=== PATIENT | male | born 1935 | race Caucasian/White ===

== ENCOUNTER 2017-07-04 17:24 | Inpatient (IN) | payer MEDICARE, OTHER ==
[~2017-07-04] VITALS: Ht 177.8 cm; Wt 77.1 kg
--- NOTE | 2017-07-04 18:15 | Emergency Room Report ---
History of Present Illness General Chief Complaint: Lower Extremity Injury Source: EMS (Roxanna Hyatt) Present Illness HPI 81 Yo Male presents to ED c/o 02/13 in severity right Knee pain s/p fall at home approx 1 week ago. pt. reports generalized weakness and difficulty caring for himself. pt. states he cannot recall if his legs gave out on him or if he tripped. Pt. reports PmHx of HTN and DM as well as recent hospital stay. Pt. Reports recent URI. denies neck or back pain. denies hitting his head. Denies CP, Palpitations, LOC, AMS, dizziness, Changes in Vision, Sensation, paresthesias, or a sudden severe headache. Pt. denies Dialysis. HPI and ROS are limited due to pt being a poor historian and not having great detail. (Roxanna Hyatt) Allergies: Coded Allergies: No Known Allergies (Unverified , 07/04/17) Patient History Past Medical History: see triage record, DM, HTN, renal disease Past Surgical History: none Pertinent Family History: none Reviewed Nursing Documentation: PMH: Agreed, PSxH: Agreed (Roxanna Hyatt) Nursing Documentation-PMH Past Medical History: No Stated History Hx Hypertension: Yes Hx Diabetes: Yes (Roxanna Hyatt) Review of Systems All Other Systems: limited - poor historian (Roxanna Hyatt) Physical Exam Vital Signs Date Time Temp Pulse Resp B/P (MAP) Pulse Ox O2 Delivery O2 Flow Rate FiO2 07/04/17 17:15 97.5 71 20 137/59 99 Room Air Sp02 EP Interpretation: reviewed, normal General Appearance: no apparent distress, alert, GCS 15, Chronically Ill Head: normocephalic, atraumatic Eyes: bilateral eye scleral icterus ENT: hearing grossly normal, normal voice Neck: full range of motion, supple/symm/no masses Respiratory: chest non-tender, crackles Cardiovascular #1: regular rate, rhythm, edema - mild edema Gastrointestinal: normal bowel sounds, non tender, soft, no guarding, other - mild abdominal distention. bruises to the lower abdomen- pt. reports levonox injections during recent hospital admission. Rectal: heme negative stool, deferred Musculoskeletal: tender - anterior and lateral ttp to the left knee. Neurologic: alert, oriented x3, responsive, motor strength/tone normal, sensory intact, speech normal, grossly normal Skin: normal color, no rash, warm/dry, well hydrated (Roxanna Hyatt) Medical Decision Making PA Attestation Dr. Feng is my supervising Physician whom patient management has been discussed with. (Roxanna Hyatt) Medicare Attestation The history of Hakan Marroquin has been reviewed and management options for him have been examined and discussed by Alli Feng. I have personally examined and interviewed the patient. I did speak with patient's primary physician, who is requesting Dr. Mitchell. Patient was also evaluated, and I feel breathing treatments were appropriate patient is not in acute respiratory distress (ALLI FENG D.O.) Diagnostic Impression: Primary Impression: Kidney disease Additional Impressions: Pancytopenia Upper respiratory infection Qualified Codes: J06.9 - Acute upper respiratory infection, unspecified Reactive airway disease Qualified Codes: J45.40 - Moderate persistent asthma, uncomplicated Renal insufficiency ER Course 81 Yo Male presents to ED c/o 02/13 in severity right Knee pain s/p fall at home approx 1 week ago. pt. reports generalized weakness and difficulty caring for himself. pt. states he cannot recall if his legs gave out on him or if he tripped. Pt. reports PmHx of HTN and DM as well as recent hospital stay. Pt. Reports recent URI. denies neck or back pain. denies hitting his head. Denies CP, Palpitations, LOC, AMS, dizziness, Changes in Vision, Sensation, paresthesias, or a sudden severe headache. Pt. denies Dialysis. HPI and ROS are limited due to pt being a poor historian and not having great detail. -PMD contacted ED regarding this pt. - Per telephone conversation: states Pt. was admitted to [facility] for Influenza on tamiflu, has renal hx. concerned about his weakness and that pt is unable to care for himself , recommends SNF. his contact info is : Dr. Nino. Ddx considered but are not limited to : Fracture, Dislocation, arthritis, Sprain , CHF, URI, hypovolemia, infection, rhabdomylosis, ETOH, CVA/TIA, Vital signs: are WNL, pt. is afebrile H&PE are most consistent with influenza infection in pt. with multiple comorbidities, and unable to care for himself. possible musculoskeletal injury s /p fall 1 week ago. ORDERS: -CBC: Pancytopenia -CMP: elevated BUN)79) and Cr. 2.3 with low albumin consistent with kidney disease. -lactic Acid: WNL 0.5 -Troponin: WNL 0.03 -Total Ck: 313 elevated -CK-MB: 6.2 elevated -Blood Cultures x 2: Pending. -Influenza : -UA: Unremarkable - X-ray Left Knee 3 Views - negative for fx, Dislocation, or significant soft tissue injury, significant degenerative changes noted - per preliminary read in ED by Roxanna Hyatt PA-C, my supervising physician agrees with this interpretation. -CXR: poor inspiration , otherwise no acute disease. ED INTERVENTIONS: -Duo Nebs x 1 -Tamiflu 75mg PO I feel this pt. was highly complex due to renal insufficiency, and recent dx of influenza. Pt. required laboratory work, IV hydration, renally dosed medications , and ultimately admission. DISPOSITION: at this time pt. will be admitted to Dr. Mitchell for influenza. Dr. Mitchell agreed to admit the pt. and to continue pt. care management. Labs Test 07/04/17 19:40 White Blood Count 4.4 K/UL (4.8-10.8) Red Blood Count 2.73 M/UL (4.70-6.10) Hemoglobin 10.4 G/DL (14.2-18.0) Hematocrit 28.7 % (42.0-52.0) Mean Corpuscular Volume 105 FL (80-99) Mean Corpuscular Hemoglobin 37.9 PG (27.0-31.0) Mean Corpuscular Hemoglobin Concent 36.0 G/DL (32.0-36.0) Red Cell Distribution Width 13.9 % (11.6-14.8) Platelet Count 160 K/UL (150-450) Mean Platelet Volume 5.7 FL (6.5-10.1) Neutrophils (%) (Auto) 73.6 % (45.0-75.0) Lymphocytes (%) (Auto) 12.1 % (20.0-45.0) Monocytes (%) (Auto) 10.4 % (1.0-10.0) Eosinophils (%) (Auto) 0.3 % (0.0-3.0) Basophils (%) (Auto) 3.5 % (0.0-2.0) Urine Color Pale yellow Urine Appearance Clear Urine pH 5 (4.5-8.0) Urine Specific [place] 1.015 (1.005-1.035) Urine Protein 3+ (NEGATIVE) Urine Glucose (UA) Negative (NEGATIVE) Urine Ketones 1+ (NEGATIVE) Urine Occult Blood 2+ (NEGATIVE) Urine Nitrite Negative (NEGATIVE) Urine Bilirubin Negative (NEGATIVE) Urine Urobilinogen Normal MG/DL (0.0-1.0) Urine Leukocyte Esterase Negative (NEGATIVE) Urine RBC 0-2 /HPF (0 - 0) Urine WBC 0-2 /HPF (0 - 0) Urine Squamous Epithelial Cells None /LPF (NONE/OCC) Urine Bacteria Few /HPF (NONE) Sodium Level 141 MMOL/L (136-145) Potassium Level 5.1 MMOL/L (3.5-5.1) Chloride Level 108 MMOL/L (98-107) Carbon Dioxide Level 19 MMOL/L (21-32) Anion Gap 14 mmol/L (5-15) Blood Urea Nitrogen 79 mg/dL (7-18) Creatinine 2.9 MG/DL (0.55-1.30) Estimat Glomerular Filtration Rate mL/min (>60) Glucose Level 51 MG/DL (74-106) Lactic Acid Level 0.50 mmol/L (0.66-2.22) Calcium Level 7.4 MG/DL (8.5-10.1) Total Bilirubin 0.7 MG/DL (0.2-1.0) Aspartate Amino Transf (AST/SGOT) 44 U/L (15-37) Alanine Aminotransferase (ALT/SGPT) 26 U/L (12-78) Alkaline Phosphatase 69 U/L (46-116) Total Creatine Kinase 316 U/L (26-308) Creatine Kinase MB 6.2 NG/ML (0.0-3.6) Creatine Kinase MB Relative Index 1.9 Troponin I 0.030 ng/mL (0.000-0.056) Total Protein 6.4 G/DL (6.4-8.2) Albumin 3.3 G/DL (3.4-5.0) Globulin 3.1 g/dL Albumin/Globulin Ratio 1.1 (1.0-2.7) (Roxanna Hyatt) EKG Diagnostic Results EP Interpretation: Dr. Feng Rate: normal Rhythm: NSR ST Segments: no acute changes ASA given to the pt in ED: No PA Scribe Text - EK BPM NSR - no acute ST changes reviewed by Dr. Feng, this interpretation was scribed by MICHELLE Hyatt (Roxanna Hyatt) Chest X-Ray Diagnostic Results Chest X-Ray Diagnostic Results : Chest X-Ray Ordered: Yes # of Views/Limited/Complete: 1 View Indication: Shortness of Breath EP Interpretation: Yes PA Xray: Interpretation reviewed, by supervising MD, and agrees with findings. Interpretation: no consolidation, no effusion, no pneumothorax, no acute cardiopulmonary disease, other - poor inspiration film. Impression: No acute disease Electronically Signed by: Roxanna Hyatt PA-C (Roxanna Hyatt) Last Vital Signs Date Time Temp Pulse Resp B/P (MAP) Pulse Ox O2 Delivery O2 Flow Rate FiO2 07/04/17 17:15 97.5 71 20 137/59 99 Room Air (Roxanna Hyatt) Disposition: ADMITTED INPATIENT Condition: Serious Roxanna Hyatt Jul 04, 2017 18:15 ALLI FENG D.O. Jul 04, 2017 21:17
[2017-07-04] MEDS ORDERED: Albuterol ud Inhalation HHN ONE (18:30)
[2017-07-04] MEDS ORDERED: Ipratropium 0.02% Inh Soln 2.5ml UD HHN ONE (18:30)
[2017-07-04] MEDS ORDERED: Oseltamivir 75mg cap ORAL ONE (20:00)
[2017-07-04 20:05] LABS: APPEARANCE,URINE CLEAR; BILIRUBIN, URINE NEGATIVE (NEGATIVE); COLOR,URINE PALE YELLOW; GLUCOSE, URINE (UA) NEGATIVE (NEGATIVE); KETONES,URINE 1+ (NEGATIVE); LEUKOCYTE ESTERASE ,URINE NEGATIVE (NEGATIVE); NITRITE,URINE NEGATIVE (NEGATIVE); PH,URINE 5 (4.5-8.0); PROTEIN,URINE 3+ (NEGATIVE); UROBILINOGEN,URINE NORMAL MG/DL (0.0-1.0)
[2017-07-04 20:07] LABS: BASOPHILS % (AUTO) 3.5 % (0.0-2.0); EOSINOPHILS % (AUTO) 0.3 % (0.0-3.0); HEMATOCRIT 28.7 % (42.0-52.0); HEMOGLOBIN 10.4 G/DL (14.2-18.0); LYMPHOCYTES % (AUTO) 12.1 % (20.0-45.0); MEAN CORPUSCULAR VOLUME 105 FL (80-99); MONOCYTES % (AUTO) 10.4 % (1.0-10.0); NEUTROPHILS % (AUTO) 73.6 % (45.0-75.0); PLATELET COUNT 160 K/UL (150-450); RED BLOOD COUNT 2.73 M/UL (4.70-6.10); RED CELL DISTRIBUTION WIDTH 13.9 % (11.6-14.8); WHITE BLOOD COUNT 4.4 K/UL (4.8-10.8)
[2017-07-04] MEDS ORDERED: Oseltamivir 75mg cap ORAL SCH (20:15)
[2017-07-04 20:18] LABS: ANION GAP 14 mmol/L (5-15); BLOOD UREA NITROGEN 79 mg/dL (7-18); CALCIUM 7.4 MG/DL (8.5-10.1); CARBON DIOXIDE 19 MMOL/L (21-32); CHLORIDE 108 MMOL/L (98-107); CREATININE 2.9 MG/DL (0.55-1.30); POTASSIUM 5.1 MMOL/L (3.5-5.1); SODIUM 141 MMOL/L (136-145)
[2017-07-04 20:34] LABS: ALANINE AMINOTRANSFERASE 26 U/L (12-78); ALBUMIN 3.3 G/DL (3.4-5.0); ALBUMIN/GLOBULIN RATIO 1.1 (1.0-2.7); ALKALINE PHOSPHATASE 69 U/L (46-116); ASPARTATE AMINO TRANSFERASE 44 U/L (15-37); BILIRUBIN,TOTAL 0.7 MG/DL (0.2-1.0); CKMB 6.2 NG/ML (0.0-3.6); CREATINE KINASE 316 U/L (26-308)
[2017-07-04 20:55] VITALS: BP 152/61
[2017-07-04] MEDS ORDERED: Acetaminophen 500mg (ES) tab ORAL ONE (21:00)
[2017-07-04] MEDS ORDERED: Bacitracin Oint UD TOPIC ONE (21:15)
[2017-07-04] MEDS ORDERED: [UNRECOGNIZED DRUG - OTHER] MC (21:49)
[2017-07-04] MEDS ORDERED: GLIPIZIDE ER2.5 MG PO (21:49)
[2017-07-04] MEDS ORDERED: ASPIR 8181 MG ORAL (21:49)
[2017-07-04] MEDS ORDERED: TAMSULOSIN HCL0.4 MG ORAL (21:49)
[2017-07-04] MEDS ORDERED: LUMIGAN2.5 ML BOTH EYES (21:49)
[2017-07-04] MEDS ORDERED: ATORVASTATIN CA40 MG ORAL (21:49)
[2017-07-04] MEDS ORDERED: AMLODIPINE BES2.5 MG ORAL (21:49)
[2017-07-04] MEDS ORDERED: SIMBRINZA 1%-0.28 ML OP (21:49)
[2017-07-04] MEDS ORDERED: TRULICITY1.5 MG/0.5 SQ (21:49)
[2017-07-04] MEDS ORDERED: FUROSEMIDE20 M1 ORAL (21:49)
[2017-07-04] MEDS ORDERED: PARICALCITOL1 MCG PO (21:49)
[2017-07-04 23:00] VITALS: BP 150/60
[2017-07-04 23:15] VITALS: BP 136/58
[2017-07-05 04:00] VITALS: BP 125/53
[2017-07-05 07:41] LABS: BASOPHILS % (AUTO) 1.1 % (0.0-2.0); EOSINOPHILS % (AUTO) 0.2 % (0.0-3.0); HEMATOCRIT 31.8 % (42.0-52.0); HEMOGLOBIN 10.4 G/DL (14.2-18.0); LYMPHOCYTES % (AUTO) 12.5 % (20.0-45.0); MEAN CORPUSCULAR VOLUME 106 FL (80-99); MONOCYTES % (AUTO) 15.9 % (1.0-10.0); NEUTROPHILS % (AUTO) 70.3 % (45.0-75.0); PLATELET COUNT 133 K/UL (150-450); RED BLOOD COUNT 3.01 M/UL (4.70-6.10); RED CELL DISTRIBUTION WIDTH 14.1 % (11.6-14.8); WHITE BLOOD COUNT 4.1 K/UL (4.8-10.8)
--- NOTE | 2017-07-05 07:56 | Diagnostic Imaging Report ---
Indication: Pain status post fall Technique: XRAY Knee 3v R Comparison: None Findings: There is no acute fracture or dislocation. Osteoarthrosis of the right knee is manifested by apparent severe patellofemoral compartment joint space narrowing, although this may be artifactually exaggerated due to lack of true lateral view. There is tricompartmental osteophyte formation. There is evidence of chondrocalcinosis. There may be a small suprapatellar joint effusion. Dense atherosclerotic vascular calcifications are seen. No radiopaque foreign body noted. Impression: No acute fracture. 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
[2017-07-05 08:00] VITALS: BP 141/61
[2017-07-05 08:00] LABS: ALANINE AMINOTRANSFERASE 25 U/L (12-78); ALKALINE PHOSPHATASE 63 U/L (46-116); ANION GAP 10 mmol/L (5-15); ASPARTATE AMINO TRANSFERASE 37 U/L (15-37); BILIRUBIN,TOTAL 0.4 MG/DL (0.2-1.0); BLOOD UREA NITROGEN 69 mg/dL (7-18); CALCIUM 7.1 MG/DL (8.5-10.1); CARBON DIOXIDE 22 MMOL/L (21-32); CHLORIDE 110 MMOL/L (98-107); CREATININE 2.9 MG/DL (0.55-1.30); SODIUM 142 MMOL/L (136-145)
--- NOTE | 2017-07-05 08:12 | Diagnostic Imaging Report ---
Indication: Pain Technique: XRAY Chest 1v Comparison: None Findings: Low lung volumes artifactually exaggerate heart size and vascular markings. There is streaky opacity at the left base and blunting of the left costophrenic sulcus. These findings may be related to atelectasis and small pleural effusion however pneumonia should be excluded clinically. No pneumothorax. Multilevel degenerative changes in the thoracic spine. No acute osseous abnormality seen. Impression: Limited exam with low lung volumes. Apparent streaky opacities at the left base with blunting of the left costophrenic sulcus may be related to atelectasis and small pleural effusion. Pneumonia should be excluded clinically. Repeat exam with better inspiratory effort can be obtained for a better evaluation as clinically indicated. Study was obtained in the ED. Patient admitted to hospital/inpatient at time of final dictation.
[2017-07-05] MEDS ORDERED: HydrALAZINE 50mg tab ORAL PRN (08:15)
[2017-07-05] MEDS ORDERED: Aspirin Baby 81mg ORAL ONE (09:00)
[2017-07-05] MEDS: Heparin 5000 units/ml inj SUBQ SCH ×2 (09:00→20:17)
[2017-07-05] MEDS: D5 1/2NS 1,000 ML IV SCH ×2 (09:01→20:19)
[2017-07-05] MEDS: Aspirin Baby 81mg ORAL SCH (09:09)
[2017-07-05] MEDS: cefTRIAXone 1 GM in D5W 55 ML IVPB SCH (10:58)
[2017-07-05] MEDS: Albuterol ud Inhalation HHN SCH ×4 (11:19→23:41)
--- NOTE | 2017-07-05 11:25 | Diagnostic Imaging Report ---
Indication: Pain Technique: XRAY Chest 1v Comparison: 07/04/2017 Findings: Low lung volumes artifactually exaggerate heart size and vascular markings. There is suggestion of mild ulnar vascular congestion/interstitial edema. There is persistent streaky opacity at the left base with question of small left pleural effusion. No definite pneumothorax. No acute osseous abnormality seen. Heart size and mediastinal contours are unchanged. Impression: Limited exam with low lung volumes. Persistent streaky opacities at the left base with blunting of the left costophrenic sulcus most concerning for pneumonia with small pleural effusion in the setting of cough. Atelectasis may have a similar appearance. Clinical correlation and follow-up exam recommended.
[2017-07-05 12:00] VITALS: BP 142/58
[2017-07-05] MEDS: NovoLOG Insulin Flexpen SUBQ SCH ×3 (12:00→20:18)
[2017-07-05] MEDS: guaiFENesin 100mg/5ml Liq ud ORAL PRN (12:50)
[2017-07-05 16:00] VITALS: BP 146/61
--- NOTE | 2017-07-05 16:14 | History & Physical ---
History and Physical History & Physicial Dictated for Int Med-Dr Mitchell no. [id number] KAYLEEN BOLANOS Jul 05, 2017 16:14
--- NOTE | 2017-07-05 18:32 | History and Physical Report ---
DATE OF ADMISSION: 07/04/2017 CHIEF COMPLAINT: The patient is an 81-year-old white male, who presents with a chief complaint of right knee pain. HISTORY OF PRESENT ILLNESS: The patient himself is a poor historian. Much of the history and physical is obtained from the patient's chart and the patient's daughter. According to the daughter, the patient had an upper respiratory tract infection for about a week. The patient fell striking his right knee. The patient presented to [place] emergency room. The patient was found to be in acute renal failure. The patient is admitted for acute renal failure. PAST MEDICAL HISTORY: Significant for, 1. Hypertension. 2. Diabetes type 2. PAST SURGICAL HISTORY: The patient denies. CURRENT MEDICATIONS: 1. Amlodipine 2.5 mg one tablet p.o. daily. 2. Aspirin 81 mg one tablet p.o. daily. 3. Atorvastatin 40 mg p.o. daily. 4. Lumigan one drop to both eyes daily. 5. Simbrinza one drop in each eye twice daily. 6. Trulicity 1.5 mg subcutaneously weekly. 7. Furosemide 20 mg one tablet p.o. three times weekly. 8. Glipizide 2.5 mg p.o. daily. 9. Paricalcitol 1 mcg p.o. daily. 10. Flomax 0.4 mg one tablet p.o. daily. ALLERGIES: No known drug allergies. SOCIAL HISTORY: The patient is . The patient denies tobacco or alcohol use. REVIEW OF SYSTEMS: Unable to assess secondary to the patient's mental status. PHYSICAL EXAMINATION: VITAL SIGNS: Temperature 97.3, respirations 16, pulse 75, and blood pressure 125/53. GENERAL: The patient is a well-developed and well-nourished white male, in no apparent distress. HEENT: Eyes, pupils are equal and responsive to light and accommodation. Extraocular movements are intact. NECK: Supple without lymphadenopathy. CHEST: Lungs are clear to auscultation bilaterally without wheezes or rales. CARDIOVASCULAR: Regular rhythm and rate. S1 and S2 are normal without murmurs, rubs, or gallops. ABDOMEN: Soft, nontender, and nondistended. Positive bowel sounds. No evidence of hepatosplenomegaly. Currently, no rebound or guarding noted. EXTREMITIES: Negative for clubbing, cyanosis, or edema. RECTAL/GENITAL: Refused. NEUROLOGIC: Cranial nerves II through XII are grossly intact without focal deficits. Motor strength is 5/5 bilaterally. Deep tendon reflexes are 2+ plantar. LABORATORY STUDIES: WBC 4.4, hemoglobin 10.4, hematocrit 28.7, and platelets 160,000. Sodium 141, potassium 5.1, chloride 108, CO2 19, BUN 79, creatinine 2.9, and glucose 51. Lactic acid 0.5. Troponin 0.03. Urinalysis was within normal limits. An x-ray of the right knee revealed osteoarthritis. A chest x-ray was reported as atelectasis. ASSESSMENT: This is an 81-year-old white male. 1. Upper respiratory tract infection. 2. Right knee pain. 3. Acute renal failure. 4. Hypertension. 5. Diabetes type 2. 6. Hypercholesterolemia. 7. Glaucoma. 8. Benign prostatic hypertrophy. 9. Osteoarthritis, right knee. TREATMENT: 1. Acute renal failure. A Nephrology consultation was obtained with Dr. Pederson. The patient is currently receiving intravenous fluids. A renal ultrasound is pending. We will follow recommendation of Nephrology. 2. Right knee pain/osteoarthritis, right knee. The patient is currently receiving pain management with Tylenol No.3. 3. Hypertension. Continue Norvasc as above. 4. Diabetes type 2. The patient has been placed on a NovoLog sliding scale. 5. Glaucoma. Continue eye drops as above. 6. Benign prostatic hypertrophy. Continue Flomax as above. Fer Garcia M.D. DR: MITZI JOB#: [id number] CC:
[2017-07-05] MEDS: Tylenol #3 tab (300mg/30mg) ORAL PRN (19:58)
[2017-07-05 20:00] VITALS: BP 143/79
[2017-07-05] MEDS ORDERED: Tamsulosin 0.4mg cap ORAL SCH (21:00)
[2017-07-06] VITALS: BP 127/53
[2017-07-06] MEDS: Tylenol #3 tab (300mg/30mg) ORAL PRN ×2 (02:39→08:34)
[2017-07-06] MEDS: Albuterol ud Inhalation HHN SCH ×6 (03:12→23:39)
[2017-07-06 04:00] VITALS: BP 123/50
[2017-07-06] MEDS: NovoLOG Insulin Flexpen SUBQ SCH ×5 (05:34→20:58)
[2017-07-06 07:27] LABS: BASOPHILS % (AUTO) 1.3 % (0.0-2.0); EOSINOPHILS % (AUTO) 0.5 % (0.0-3.0); HEMATOCRIT 30.5 % (42.0-52.0); HEMOGLOBIN 9.7 G/DL (14.2-18.0); LYMPHOCYTES % (AUTO) 10.2 % (20.0-45.0); MEAN CORPUSCULAR VOLUME 105 FL (80-99); MONOCYTES % (AUTO) 15.6 % (1.0-10.0); NEUTROPHILS % (AUTO) 72.5 % (45.0-75.0); PLATELET COUNT 134 K/UL (150-450); RED CELL DISTRIBUTION WIDTH 14.2 % (11.6-14.8); WHITE BLOOD COUNT 4.9 K/UL (4.8-10.8)
[2017-07-06 07:44] LABS: ANION GAP 7 mmol/L (5-15); BLOOD UREA NITROGEN 58 mg/dL (7-18); CALCIUM 6.7 MG/DL (8.5-10.1); CARBON DIOXIDE 24 MMOL/L (21-32); CHLORIDE 110 MMOL/L (98-107); CREATININE 2.8 MG/DL (0.55-1.30); SODIUM 141 MMOL/L (136-145)
[2017-07-06 08:00] VITALS: BP 122/48
[2017-07-06] MEDS: Aspirin Baby 81mg ORAL SCH (08:34)
[2017-07-06] MEDS: guaiFENesin 100mg/5ml Liq ud ORAL PRN (08:34)
[2017-07-06] MEDS: Heparin 5000 units/ml inj SUBQ SCH ×2 (08:35→20:03)
[2017-07-06] MEDS: cefTRIAXone 1 GM in D5W 55 ML IVPB SCH (09:50)
[2017-07-06] MEDS: D5 1/2NS 1,000 ML IV SCH (10:29)
[2017-07-06 12:00] VITALS: BP 133/53
--- NOTE | 2017-07-06 12:41 | Consultation ---
Consult Note Consult Note asked to eval for renal failure CHIEF COMPLAINT: The patient is an 81-year-old white male, who presents with a chief complaint of right knee pain. HISTORY OF PRESENT ILLNESS: The patient himself is a poor historian. According to the daughter, the patient had an upper respiratory tract infection for about a week. The patient fell striking his right knee. The patient presented to [place] emergency room. The patient was found to be in acute renal failure. The patient is admitted for acute renal failure. PAST MEDICAL HISTORY: 1. Hypertension. 2. Diabetes type 2. interviewed examined data reviewed discussed with RN . Assessment/Plan Renal failure- ? CKd + Superimposed acute DM ? Nephropathy, has 3+ Proteins in urine Fall and right knee injury Anemia ? due to CKD ASHD Upper respiratory tract infection. Hypertension. Hypercholesterolemia. Benign prostatic hypertrophy. Plan: Slow hydrate avoid Nephrotoxics Flomax Keep BP and BS in check Anemia luciano Per orders JOVANA TREVIÑO Jul 06, 2017 12:41
[2017-07-06] MEDS ORDERED: HydrALAZINE 25mg tab ORAL PRN (12:45)
[2017-07-06] MEDS: Tamsulosin 0.4mg cap ORAL SCH ×2 (13:03→21:35)
[2017-07-06 13:10] LABS: ALANINE AMINOTRANSFERASE 30 U/L (12-78); ALBUMIN 2.9 G/DL (3.4-5.0); ALKALINE PHOSPHATASE 62 U/L (46-116); ASPARTATE AMINO TRANSFERASE 34 U/L (15-37); BILIRUBIN,DIRECT < 0.1 MG/DL (0.0-0.3); BILIRUBIN,TOTAL 0.3 MG/DL (0.2-1.0); FERRITIN 790 NG/ML (8-388); PHOSPHORUS 4.5 MG/DL (2.5-4.9)
[2017-07-06 13:56] LABS: % IRON SATURATION 10 % (15-50); IRON 26 ug/dL (50-175); TOTAL IRON BINDING CAPACITY 259 ug/dL (250-450)
--- NOTE | 2017-07-06 14:32 | Internal Med Progress Note ---
Subjective Date of Service: Jul 06, 2017 Physician Name Kayleen Bolanos Attending Physician Kofi Mitchell MD Current Medications Medications (Trade) Dose Ordered Sig/Nito Route PRN Reason Start Time Stop Time Status Last Admin Dose Admin Acetaminophen (Tylenol) 650 mg Q6H PRN ORAL Mild Pain/Temp > 100.4 07/05/17 08:15 08/04/17 08:14 07/05/17 12:50 Acetaminophen/ Codeine Phosphate (Tylenol #3) 1 tab Q6H PRN ORAL Pain Scale (6-10) 07/05/17 15:45 07/12/17 15:44 07/06/17 08:34 Albuterol Sulfate (Proventil) 2.5 mg Q4HRT HHN 07/05/17 11:00 07/10/17 10:59 07/06/17 11:28 Amlodipine Besylate (Norvasc) 2.5 mg DAILY ORAL 07/05/17 09:00 08/04/17 08:59 07/06/17 08:34 Aspirin (ASA) 81 mg DAILY ORAL 07/05/17 09:00 08/04/17 08:59 07/06/17 08:34 Atorvastatin Calcium (Lipitor) 40 mg BEDTIME ORAL 07/05/17 21:00 08/04/17 20:59 07/05/17 20:17 Ceftriaxone Sodium 1 gm/ Dextrose 55 ml @ 110 mls/hr Q24H IVPB 07/05/17 10:00 07/12/17 09:59 07/06/17 09:50 Dextrose (Dextrose 50%) STAT PRN IV Hypoglycemia 07/05/17 08:15 08/04/17 08:14 Dextrose/Sodium Chloride 1,000 ml @ 75 mls/hr [id number] IV 07/05/17 08:00 08/04/17 07:59 07/06/17 10:29 Guaifenesin (Robitussin) 100 mg Q6H PRN ORAL For Cough 07/04/17 22:30 08/03/17 22:29 07/06/17 08:34 Heparin Sodium (Porcine) (Heparin 5000 units/ml) 5,000 units EVERY 12 HOURS SUBQ 07/05/17 09:00 08/04/17 08:59 Hydralazine HCl (Apresoline) 25 mg Q4H PRN ORAL SBP > 160 mm Hg 07/06/17 12:45 08/04/17 08:14 Insulin Aspart (NovoLOG) BEFORE MEALS AND HS SUBQ 07/05/17 11:30 08/04/17 11:29 07/06/17 12:24 Ondansetron HCl (Zofran) 4 mg Q4H PRN IVP nausea 07/05/17 01:00 08/04/17 00:59 Oseltamivir Phosphate (Tamiflu) 30 mg DAILY ORAL 07/05/17 18:00 07/08/17 09:01 07/06/17 08:32 Tamsulosin HCl (Flomax) 0.4 mg BID ORAL 07/06/17 13:00 08/04/17 12:59 07/06/17 13:03 Allergies: Coded Allergies: No Known Allergies (Unverified , 07/04/17) ROS Limited/Unobtainable: No Constitutional: Reports: no symptoms HEENT: Reports: no symptoms Cardiovascular: Reports: no symptoms Respiratory: Reports: cough Gastrointestinal/Abdominal: Reports: no symptoms Genitourinary: Reports: no symptoms Neurologic/Psychiatric: Reports: no symptoms Subjective 81 YO M admitted with cough. Now renal failure. C/O right knee pain. Cover for Int Bladimir-Dr Mitchell. Objective Last Vital Signs Date Time Temp Pulse Resp B/P (MAP) Pulse Ox O2 Delivery O2 Flow Rate FiO2 07/06/17 12:00 97.3 69 20 133/53 92 Nasal Cannula 2.0 07/06/17 11:38 28 General Appearance: WD/WN, alert, mild distress EENT: PERRL/EOMI, normal ENT inspection Neck: non-tender, normal alignment, supple, normal inspection Cardiovascular: normal peripheral pulses, normal rate, regular rhythm, no gallop/murmur, no JVD Respiratory/Chest: chest wall non-tender, crackles/rales, rhonchi - bilaterally , expiratory wheezing Abdomen: normal bowel sounds, non tender, soft, no organomegaly, no mass Extremities: normal range of motion 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, no motor/sensory deficits Skin: normal pigmentation, warm/dry Laboratory Tests Test 07/06/17 06:15 White Blood Count 4.9 K/UL (4.8-10.8) Red Blood Count 2.90 M/UL (4.70-6.10) L Hemoglobin 9.7 G/DL (14.2-18.0) L Hematocrit 30.5 % (42.0-52.0) L Mean Corpuscular Volume 105 FL (80-99) H Mean Corpuscular Hemoglobin 33.3 PG (27.0-31.0) H Mean Corpuscular Hemoglobin Concent 31.7 G/DL (32.0-36.0) L Red Cell Distribution Width 14.2 % (11.6-14.8) Platelet Count 134 K/UL (150-450) L Mean Platelet Volume 7.5 FL (6.5-10.1) Neutrophils (%) (Auto) 72.5 % (45.0-75.0) Lymphocytes (%) (Auto) 10.2 % (20.0-45.0) L Monocytes (%) (Auto) 15.6 % (1.0-10.0) H Eosinophils (%) (Auto) 0.5 % (0.0-3.0) Basophils (%) (Auto) 1.3 % (0.0-2.0) Sodium Level 141 MMOL/L (136-145) Potassium Level 5.0 MMOL/L (3.5-5.1) Chloride Level 110 MMOL/L (98-107) H Carbon Dioxide Level 24 MMOL/L (21-32) Anion Gap 7 mmol/L (5-15) Blood Urea Nitrogen 58 mg/dL (7-18) H Creatinine 2.8 MG/DL (0.55-1.30) H Estimat Glomerular Filtration Rate mL/min (>60) Glucose Level 167 MG/DL (74-106) H Hemoglobin A1c 6.3 % (4.3-6.0) H Uric Acid 3.7 MG/DL (2.6-7.2) Calcium Level 6.7 MG/DL (8.5-10.1) L Phosphorus Level 4.5 MG/DL (2.5-4.9) Magnesium Level 3.1 MG/DL (1.8-2.4) H Iron Level 26 ug/dL (50-175) L Total Iron Binding Capacity 259 ug/dL (250-450) Percent Iron Saturation 10 % (15-50) L Unsaturated Iron Binding 233 ug/dL (112-346) Ferritin 790 NG/ML (8-388) H Total Bilirubin 0.3 MG/DL (0.2-1.0) Direct Bilirubin < 0.1 MG/DL (0.0-0.3) Aspartate Amino Transf (AST/SGOT) 34 U/L (15-37) Alanine Aminotransferase (ALT/SGPT) 30 U/L (12-78) Alkaline Phosphatase 62 U/L (46-116) Total Protein 5.3 G/DL (6.4-8.2) L Albumin 2.9 G/DL (3.4-5.0) L Vitamin B12 Level > 2000 PG/ML (193-986) H Folate 11.6 NG/ML (8.6-58.9) Thyroid Stimulating Hormone (TSH) 1.638 uiU/mL (0.358-3.740) Microbiology Date/Time Source Procedure Growth Status 07/04/17 19:40 Blood Blood Culture - Preliminary NO GROWTH AFTER 24 HOURS Resulted 07/04/17 19:25 Blood Blood Culture - Preliminary NO GROWTH AFTER 24 HOURS Resulted 07/04/17 19:40 Nasal Nares Influenza Types A,B Antigen (CELENA) - Final Complete Intake and Output 07/05/17 07/06/17 19:00 07:00 Intake Total 1225 ml 1245 ml Output Total 200 ml 700 ml Balance 1025 ml 545 ml Intake Oral 420 ml 420 ml IV Total 805 ml 825 ml Output Urine Total 200 ml 700 ml # Voids 2 Assessment/Plan Problem List: (1) Knee pain, right Assessment & Plan: C/O pain. D/C tylenol #3; start [place] 10/325 (2) HTN (hypertension) Assessment & Plan: Continue hydralazine and norvasc. (3) Diabetes mellitus, type II Assessment & Plan: continue novolog sliding scale. (4) Hypercholesteremia Assessment & Plan: Continue lipitor. (5) Glaucoma (6) BPH (benign prostatic hyperplasia) Assessment & Plan: Continue flomax. (7) Osteoarthritis of right knee (8) Renal failure Assessment & Plan: See nephrology note. (9) Upper respiratory infection (10) Pneumonia Assessment & Plan: Continue ceftriaxone. Pulmonary consult. Status: not improved KAYLEEN BOLANOS Jul 06, 2017 14:32
[2017-07-06] MEDS: HYDROcodone/Acetamin 10/325 tab ORAL PRN ×2 (15:11→20:01)
[2017-07-06 16:00] VITALS: BP 139/58
[2017-07-06] MEDS ORDERED: Azithromycin 500 MG in D5W 275 ML IV ONE (16:00)
[2017-07-06 20:06] VITALS: BP 132/50
--- NOTE | 2017-07-06 22:13 | Wound Care Consultation ---
Wound Assessment Wound Assessment : Wound Number: 1 Wound Present on Admission: Yes New Wound: No Status Change of Wound: No Wound Location Body Site Modif: left Wound Location Body Site: breast fold Wound Type: other - redness Kg Test: Does not Kg Percent of Wound [place]/Red: 100 Wound Drainage Amount: None Wound Drainage Odor: None/Absent Tissue Surrounding Wound: Intact Wound General Appearance: Reddened Wound Comment Recommendation -Keep clean and dry -Assess and f/u accordingly for any changes JAN JONES RN Jul 06, 2017 22:13
[2017-07-06] MEDS ORDERED: Tubing IV Secondary IV ONE (22:51)
[2017-07-06] MEDS ORDERED: D5 1/2NS 1000ml IV ONE (22:51)
[2017-07-07] VITALS (7 sets, daily range): BP systolic 85–123; BP diastolic 49–62
[2017-07-07] MEDS: D5 1/2NS 1,000 ML IV SCH (00:16)
[2017-07-07] MEDS: HYDROcodone/Acetamin 10/325 tab ORAL PRN (01:55)
[2017-07-07] MEDS: Albuterol ud Inhalation HHN SCH ×3 (03:39→11:03)
[2017-07-07] MEDS: NovoLOG Insulin Flexpen SUBQ SCH ×4 (06:20→21:00)
[2017-07-07] MEDS: Tamsulosin 0.4mg cap ORAL SCH ×2 (09:00→17:35)
[2017-07-07] MEDS: Heparin 5000 units/ml inj SUBQ SCH ×2 (09:00→21:00)
--- NOTE | 2017-07-07 09:16 | Diagnostic Imaging Report ---
Indication: Reason For Exam: COUGH Technique: One view of the chest Comparison: 07/05/2017 Findings: Bilateral basilar atelectasis persists. Small left pleural effusion persists. There is slightly decreased right suprahilar and retrocardiac congestion or infiltrate Impression: Improved right perihilar and retrocardiac disease, over one day. Other stable findings as described This agrees with the preliminary interpretation provided overnight by [facility] teleradiology service.
[2017-07-07] MEDS: Aspirin Baby 81mg ORAL SCH (10:31)
[2017-07-07] MEDS: cefTRIAXone 1 GM in D5W 55 ML IVPB SCH (10:37)
[2017-07-07 12:08] LABS: BASOPHILS % (AUTO) 0.7 % (0.0-2.0); EOSINOPHILS % (AUTO) 0.3 % (0.0-3.0); HEMATOCRIT 32.7 % (42.0-52.0); HEMOGLOBIN 9.9 G/DL (14.2-18.0); LYMPHOCYTES % (AUTO) 6.4 % (20.0-45.0); MEAN CORPUSCULAR VOLUME 107 FL (80-99); MONOCYTES % (AUTO) 10.1 % (1.0-10.0); NEUTROPHILS % (AUTO) 82.5 % (45.0-75.0); PLATELET COUNT 141 K/UL (150-450); RED BLOOD COUNT 3.06 M/UL (4.70-6.10); RED CELL DISTRIBUTION WIDTH 14.2 % (11.6-14.8); WHITE BLOOD COUNT 5.5 K/UL (4.8-10.8)
[2017-07-07 12:22] LABS: ALANINE AMINOTRANSFERASE 26 U/L (12-78); ALBUMIN 2.7 G/DL (3.4-5.0); ALBUMIN/GLOBULIN RATIO 0.8 (1.0-2.7); ALKALINE PHOSPHATASE 62 U/L (46-116); ANION GAP 6 mmol/L (5-15); ASPARTATE AMINO TRANSFERASE 26 U/L (15-37); BILIRUBIN,TOTAL 0.3 MG/DL (0.2-1.0); BLOOD UREA NITROGEN 60 mg/dL (7-18); CALCIUM 6.7 MG/DL (8.5-10.1); CARBON DIOXIDE 26 MMOL/L (21-32); CHLORIDE 107 MMOL/L (98-107); CREATINE KINASE 91 U/L (26-308); CREATININE 3.4 MG/DL (0.55-1.30); GAMMA GLUTAMYL TRANSPEPTIDASE 15 U/L (5-85); PHOSPHORUS 4.6 MG/DL (2.5-4.9); POTASSIUM 5.6 MMOL/L (3.5-5.1); SODIUM 138 MMOL/L (136-145)
--- NOTE | 2017-07-07 12:51 | Internal Med Progress Note ---
Subjective Physician Name RadhaKayleen Attending Physician Kofi Mitchell MD Current Medications Medications (Trade) Dose Ordered Sig/Nito Route PRN Reason Start Time Stop Time Status Last Admin Dose Admin Acetaminophen (Tylenol) 650 mg Q6H PRN ORAL Mild Pain/Temp > 100.4 07/05/17 08:15 08/04/17 08:14 07/05/17 12:50 Acetaminophen/ Hydrocodone Bitart ([place] 10/325) 1 ea Q4H PRN ORAL For Moderate to Severe Pain 07/06/17 14:45 07/13/17 14:44 07/07/17 01:55 Albuterol Sulfate (Proventil) 2.5 mg Q4HRT HHN 07/05/17 11:00 07/10/17 10:59 07/07/17 11:03 Amlodipine Besylate (Norvasc) 2.5 mg DAILY ORAL 07/05/17 09:00 08/04/17 08:59 07/07/17 10:31 Aspirin (ASA) 81 mg DAILY ORAL 07/05/17 09:00 08/04/17 08:59 07/07/17 10:31 Atorvastatin Calcium (Lipitor) 40 mg BEDTIME ORAL 07/05/17 21:00 08/04/17 20:59 07/06/17 20:03 Ceftriaxone Sodium 1 gm/ Dextrose 55 ml @ 110 mls/hr Q24H IVPB 07/05/17 10:00 07/12/17 09:59 07/07/17 10:37 Dextrose (Dextrose 50%) STAT PRN IV Hypoglycemia 07/05/17 08:15 08/04/17 08:14 Dextrose/Sodium Chloride 1,000 ml @ 75 mls/hr [id number] IV 07/05/17 08:00 08/04/17 07:59 07/07/17 00:16 Furosemide (Lasix) 40 mg DAILY STAT IV 07/07/17 12:40 07/07/17 12:41 UNV Guaifenesin (Robitussin) 100 mg Q6H PRN ORAL For Cough 07/04/17 22:30 08/03/17 22:29 07/06/17 08:34 Heparin Sodium (Porcine) (Heparin 5000 units/ml) 5,000 units EVERY 12 HOURS SUBQ 07/05/17 09:00 08/04/17 08:59 Hydralazine HCl (Apresoline) 25 mg Q4H PRN ORAL SBP > 160 mm Hg 07/06/17 12:45 08/04/17 08:14 Insulin Aspart (NovoLOG) BEFORE MEALS AND HS SUBQ 07/05/17 11:30 08/04/17 11:29 07/06/17 12:24 Levofloxacin 100 ml @ 100 mls/hr Q24H IVPB 07/07/17 12:45 07/14/17 12:44 UNV Ondansetron HCl (Zofran) 4 mg Q4H PRN IVP nausea 07/05/17 01:00 08/04/17 00:59 Oseltamivir Phosphate (Tamiflu) 30 mg DAILY ORAL 07/05/17 18:00 07/08/17 09:01 07/07/17 10:31 Tamsulosin HCl (Flomax) 0.4 mg BID ORAL 07/06/17 13:00 08/04/17 12:59 07/07/17 09:00 Allergies: Coded Allergies: No Known Allergies (Unverified , 07/04/17) ROS Limited/Unobtainable: Yes Subjective 81 YO M admitted with cough. Now renal failure. Worsening respiratory distress today; currently on non rebreather. Cover for Int Bladimir-Dr Mitchell. Objective Last Vital Signs Date Time Temp Pulse Resp B/P (MAP) Pulse Ox O2 Delivery O2 Flow Rate FiO2 07/07/17 12:30 98.1 56 18 85/51 98 Non-Rebreather 15.0 07/07/17 11:13 36 General Appearance: WD/WN, moderate distress, lethargic EENT: PERRL/EOMI, normal ENT inspection Neck: non-tender, normal alignment, supple, normal inspection Cardiovascular: normal peripheral pulses, normal rate, regular rhythm, no gallop/murmur, no JVD Respiratory/Chest: respiratory distress, accessory muscle use, crackles/rales, rhonchi - bilaterally, expiratory wheezing Abdomen: normal bowel sounds, non tender, soft, no organomegaly, no mass Extremities: normal range of motion, non-tender 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 grossly normal, no motor/sensory deficits Skin: normal pigmentation, warm/dry Laboratory Tests Test 07/07/17 11:50 White Blood Count 5.5 K/UL (4.8-10.8) Red Blood Count 3.06 M/UL (4.70-6.10) L Hemoglobin 9.9 G/DL (14.2-18.0) L Hematocrit 32.7 % (42.0-52.0) L Mean Corpuscular Volume 107 FL (80-99) H Mean Corpuscular Hemoglobin 32.3 PG (27.0-31.0) H Mean Corpuscular Hemoglobin Concent 30.2 G/DL (32.0-36.0) L Red Cell Distribution Width 14.2 % (11.6-14.8) Platelet Count 141 K/UL (150-450) L Mean Platelet Volume 7.5 FL (6.5-10.1) Neutrophils (%) (Auto) 82.5 % (45.0-75.0) H Lymphocytes (%) (Auto) 6.4 % (20.0-45.0) L Monocytes (%) (Auto) 10.1 % (1.0-10.0) H Eosinophils (%) (Auto) 0.3 % (0.0-3.0) Basophils (%) (Auto) 0.7 % (0.0-2.0) Sodium Level 138 MMOL/L (136-145) Potassium Level 5.6 MMOL/L (3.5-5.1) H Chloride Level 107 MMOL/L (98-107) Carbon Dioxide Level 26 MMOL/L (21-32) Anion Gap 6 mmol/L (5-15) Blood Urea Nitrogen 60 mg/dL (7-18) H Creatinine 3.4 MG/DL (0.55-1.30) H Estimat Glomerular Filtration Rate mL/min (>60) Glucose Level 200 MG/DL (74-106) H Uric Acid 4.3 MG/DL (2.6-7.2) Calcium Level 6.7 MG/DL (8.5-10.1) L Phosphorus Level 4.6 MG/DL (2.5-4.9) Magnesium Level 3.1 MG/DL (1.8-2.4) H Total Bilirubin 0.3 MG/DL (0.2-1.0) Gamma Glutamyl Transpeptidase 15 U/L (5-85) Aspartate Amino Transf (AST/SGOT) 26 U/L (15-37) Alanine Aminotransferase (ALT/SGPT) 26 U/L (12-78) Alkaline Phosphatase 62 U/L (46-116) Total Creatine Kinase 91 U/L (26-308) Troponin I 0.004 ng/mL (0.000-0.056) C-Reactive Protein, Quantitative 12.2 mg/dL (0.00-0.90) H Pro-B-Type Natriuretic Peptide 1708 pg/mL (0-125) H Total Protein 6.1 G/DL (6.4-8.2) L Albumin 2.7 G/DL (3.4-5.0) L Globulin 3.4 g/dL Albumin/Globulin Ratio 0.8 (1.0-2.7) L Microbiology Date/Time Source Procedure Growth Status 07/04/17 19:40 Blood Blood Culture - Preliminary NO GROWTH AFTER 48 HOURS Resulted 07/04/17 19:25 Blood Blood Culture - Preliminary NO GROWTH AFTER 48 HOURS Resulted 07/04/17 19:40 Nasal Nares Influenza Types A,B Antigen (CELENA) - Final Complete 07/04/17 22:50 Rectum VRE Culture - Final NO VANCOMYCIN RESISTANT ENTEROCOCCUS ... Complete Intake and Output 07/06/17 07/07/17 19:00 07:00 Intake Total 1340 ml 870 ml Balance 1340 ml 870 ml Intake Oral 240 ml 120 ml IV Total 1100 ml 750 ml # Voids 2 # Bowel Movements 2 Assessment/Plan Problem List: (1) Knee pain, right Assessment & Plan: C/O pain. D/C tylenol #3; start [place] 10/325 (2) HTN (hypertension) Assessment & Plan: Continue hydralazine and norvasc. (3) Diabetes mellitus, type II Assessment & Plan: continue novolog sliding scale. (4) Hypercholesteremia Assessment & Plan: Continue lipitor. (5) Glaucoma (6) BPH (benign prostatic hyperplasia) Assessment & Plan: Continue flomax. (7) Osteoarthritis of right knee (8) Renal failure Assessment & Plan: See nephrology note. (9) Upper respiratory infection (10) Pneumonia Assessment & Plan: Continue ceftriaxone. Add levaquin IV. Pulmonary consult. (11) CHF (congestive heart failure) Assessment & Plan: Await echocardiogram and cardiology consult. (12) Respiratory failure Assessment & Plan: Pulmonary consult. IV lasix for CHF and add levaquin to ceftriaxone. Status: deteriorating BOLANOS,KAYLEEN Jul 07, 2017 12:51
--- NOTE | 2017-07-07 13:39 | Cardiac Electrophysiology PN ---
Subjective Subjective [id number]. Transfer to [facility]. Objective Last 24 Hour Vital Signs Date Time Temp Pulse Resp B/P (MAP) Pulse Ox O2 Delivery O2 Flow Rate FiO2 07/07/17 12:30 98.1 56 18 85/51 98 Non-Rebreather 15.0 07/07/17 12:00 98.0 81 20 88/51 97 Non-Rebreather 07/07/17 11:13 81 20 96 Nasal Cannula 4.0 36 07/07/17 11:03 78 24 89 Nasal Cannula 07/07/17 10:31 82 120/49 07/07/17 08:00 97.6 82 19 120/49 97 07/07/17 08:00 Nasal Cannula 3.0 07/07/17 07:24 75 18 96 Nasal Cannula 3.0 32 07/07/17 07:15 75 18 93 Nasal Cannula 3.0 32 07/07/17 07:15 93 Nasal Cannula 3.0 32 07/07/17 07:15 Nasal Cannula 3.0 32 07/07/17 04:00 97.7 79 21 110/62 96 Room Air 07/07/17 03:49 84 20 95 Nasal Cannula 3.0 32 07/07/17 03:39 83 20 92 Nasal Cannula 3.0 32 07/07/17 00:00 98.2 73 19 123/50 93 Nasal Cannula 3.0 07/06/17 23:48 75 20 97 Nasal Cannula 3.0 32 07/06/17 23:38 70 20 93 Nasal Cannula 3.0 32 07/06/17 20:06 97.0 75 20 132/50 91 Nasal Cannula 2.0 07/06/17 19:54 67 18 96 Nasal Cannula 3.0 32 07/06/17 19:44 Nasal Cannula 2.0 28 07/06/17 19:44 91 Nasal Cannula 2.0 28 07/06/17 19:44 69 18 91 Nasal Cannula 2.0 28 07/06/17 16:00 97.5 68 20 139/58 92 Nasal Cannula 2.0 07/06/17 15:30 79 18 97 Nasal Cannula 2.0 28 07/06/17 15:19 73 18 91 Nasal Cannula 2.0 28 Intake and Output 07/06/17 07/07/17 19:00 07:00 Intake Total 1340 ml 870 ml Balance 1340 ml 870 ml Intake Oral 240 ml 120 ml IV Total 1100 ml 750 ml # Voids 2 # Bowel Movements 2 Laboratory Tests Test 07/07/17 11:50 White Blood Count 5.5 K/UL (4.8-10.8) Red Blood Count 3.06 M/UL (4.70-6.10) L Hemoglobin 9.9 G/DL (14.2-18.0) L Hematocrit 32.7 % (42.0-52.0) L Mean Corpuscular Volume 107 FL (80-99) H Mean Corpuscular Hemoglobin 32.3 PG (27.0-31.0) H Mean Corpuscular Hemoglobin Concent 30.2 G/DL (32.0-36.0) L Red Cell Distribution Width 14.2 % (11.6-14.8) Platelet Count 141 K/UL (150-450) L Mean Platelet Volume 7.5 FL (6.5-10.1) Neutrophils (%) (Auto) 82.5 % (45.0-75.0) H Lymphocytes (%) (Auto) 6.4 % (20.0-45.0) L Monocytes (%) (Auto) 10.1 % (1.0-10.0) H Eosinophils (%) (Auto) 0.3 % (0.0-3.0) Basophils (%) (Auto) 0.7 % (0.0-2.0) Sodium Level 138 MMOL/L (136-145) Potassium Level 5.6 MMOL/L (3.5-5.1) H Chloride Level 107 MMOL/L (98-107) Carbon Dioxide Level 26 MMOL/L (21-32) Anion Gap 6 mmol/L (5-15) Blood Urea Nitrogen 60 mg/dL (7-18) H Creatinine 3.4 MG/DL (0.55-1.30) H Estimat Glomerular Filtration Rate mL/min (>60) Glucose Level 200 MG/DL (74-106) H Uric Acid 4.3 MG/DL (2.6-7.2) Calcium Level 6.7 MG/DL (8.5-10.1) L Phosphorus Level 4.6 MG/DL (2.5-4.9) Magnesium Level 3.1 MG/DL (1.8-2.4) H Total Bilirubin 0.3 MG/DL (0.2-1.0) Gamma Glutamyl Transpeptidase 15 U/L (5-85) Aspartate Amino Transf (AST/SGOT) 26 U/L (15-37) Alanine Aminotransferase (ALT/SGPT) 26 U/L (12-78) Alkaline Phosphatase 62 U/L (46-116) Total Creatine Kinase 91 U/L (26-308) Troponin I 0.004 ng/mL (0.000-0.056) C-Reactive Protein, Quantitative 12.2 mg/dL (0.00-0.90) H Pro-B-Type Natriuretic Peptide 1708 pg/mL (0-125) H Total Protein 6.1 G/DL (6.4-8.2) L Albumin 2.7 G/DL (3.4-5.0) L Globulin 3.4 g/dL Albumin/Globulin Ratio 0.8 (1.0-2.7) L Microbiology Date/Time Source Procedure Growth Status 07/04/17 19:40 Blood Blood Culture - Preliminary NO GROWTH AFTER 48 HOURS Resulted 07/04/17 19:25 Blood Blood Culture - Preliminary NO GROWTH AFTER 48 HOURS Resulted 07/04/17 19:40 Nasal Nares Influenza Types A,B Antigen (CELENA) - Final Complete 07/04/17 22:50 Rectum VRE Culture - Final NO VANCOMYCIN RESISTANT ENTEROCOCCUS ... Complete ADRIENNE LAWTON Jul 07, 2017 13:39
--- NOTE | 2017-07-07 13:59 | Nephrology Progress Note ---
Assessment/Plan Problem List: (1) Renal failure Assessment: acute on chronic (2) Respiratory failure (3) BPH (benign prostatic hyperplasia) (4) HTN (hypertension) (5) Diabetes mellitus, type II Assessment today is encephalopathic Renal failure- ? CKd + Superimposed acute, Cr rising DM ? Nephropathy, has 3+ Proteins in urine Fall and right knee injury Anemia ? due to CKD ASHD Upper respiratory tract infection. Hypertension. Hypercholesterolemia. Benign prostatic hypertrophy. Low BP Plan Plan: ABG ford- to [facility]- ID and Cardiology avoid Nephrotoxics Flomax Keep BP and BS in check Anemia luciano Per orders Objective Objective Last 24 Hour Vital Signs Date Time Temp Pulse Resp B/P (MAP) Pulse Ox O2 Delivery O2 Flow Rate FiO2 07/07/17 12:30 98.1 56 18 85/51 98 Non-Rebreather 15.0 07/07/17 12:00 98.0 81 20 88/51 97 Non-Rebreather 07/07/17 11:13 81 20 96 Nasal Cannula 4.0 36 07/07/17 11:03 78 24 89 Nasal Cannula 07/07/17 10:31 82 120/49 07/07/17 08:00 97.6 82 19 120/49 97 07/07/17 08:00 Nasal Cannula 3.0 07/07/17 07:24 75 18 96 Nasal Cannula 3.0 32 07/07/17 07:15 75 18 93 Nasal Cannula 3.0 32 07/07/17 07:15 93 Nasal Cannula 3.0 32 07/07/17 07:15 Nasal Cannula 3.0 32 07/07/17 04:00 97.7 79 21 110/62 96 Room Air 07/07/17 03:49 84 20 95 Nasal Cannula 3.0 32 07/07/17 03:39 83 20 92 Nasal Cannula 3.0 32 07/07/17 00:00 98.2 73 19 123/50 93 Nasal Cannula 3.0 07/06/17 23:48 75 20 97 Nasal Cannula 3.0 32 07/06/17 23:38 70 20 93 Nasal Cannula 3.0 32 07/06/17 20:06 97.0 75 20 132/50 91 Nasal Cannula 2.0 07/06/17 19:54 67 18 96 Nasal Cannula 3.0 32 07/06/17 19:44 Nasal Cannula 2.0 28 07/06/17 19:44 91 Nasal Cannula 2.0 28 07/06/17 19:44 69 18 91 Nasal Cannula 2.0 28 07/06/17 16:00 97.5 68 20 139/58 92 Nasal Cannula 2.0 07/06/17 15:30 79 18 97 Nasal Cannula 2.0 28 07/06/17 15:19 73 18 91 Nasal Cannula 2.0 28 Intake and Output 07/06/17 07/07/17 19:00 07:00 Intake Total 1340 ml 870 ml Balance 1340 ml 870 ml Intake Oral 240 ml 120 ml IV Total 1100 ml 750 ml # Voids 2 # Bowel Movements 2 Laboratory Tests 07/07/17 11:50: White Blood Count 5.5, Red Blood Count 3.06L, Hemoglobin 9.9L, Hematocrit 32.7L , Mean Corpuscular Volume 107H, Mean Corpuscular Hemoglobin 32.3H, Mean Corpuscular Hemoglobin Concent 30.2L, Red Cell Distribution Width 14.2, Platelet Count 141L, Mean Platelet Volume 7.5, Neutrophils (%) (Auto) 82.5H, Lymphocytes (%) (Auto) 6.4L, Monocytes (%) (Auto) 10.1H, Eosinophils (%) (Auto) 0.3, Basophils (%) (Auto) 0.7, Sodium Level 138, Potassium Level 5.6H, Chloride Level 107, Carbon Dioxide Level 26, Anion Gap 6, Blood Urea Nitrogen 60H, Creatinine 3.4H, Estimat Glomerular Filtration Rate , Glucose Level 200H, Uric Acid 4.3, Calcium Level 6.7L, Phosphorus Level 4.6, Magnesium Level 3.1H, Total Bilirubin 0.3, Gamma Glutamyl Transpeptidase 15, Aspartate Amino Transf (AST/ SGOT) 26, Alanine Aminotransferase (ALT/SGPT) 26, Alkaline Phosphatase 62, Total Creatine Kinase 91, Troponin I 0.004, C-Reactive Protein, Quantitative 12.2H, Pro-B-Type Natriuretic Peptide 1708H, Total Protein 6.1L, Albumin 2.7L, Globulin 3.4, Albumin/Globulin Ratio 0.8L Height (Feet): 5 Height (Inches): 10.00 Weight (Pounds): 170 JOVANA TREVIÑO Jul 07, 2017 13:58
[2017-07-07] MEDS ORDERED: D5 1/2NS 1,000 ML IV SCH (14:00)
[2017-07-07] MEDS ORDERED: Paricalcitol 1mcg cap ORAL SCH (14:00)
[2017-07-07] MEDS ORDERED: Albuterol/Ipratropium 3ml neb HHN SCH (15:00)
[2017-07-07 15:37] LABS: ANION GAP 5 mmol/L (5-15); BLOOD UREA NITROGEN 58 mg/dL (7-18); CALCIUM 6.2 MG/DL (8.5-10.1); CARBON DIOXIDE 27 MMOL/L (21-32); CHLORIDE 107 MMOL/L (98-107); CREATININE 3.5 MG/DL (0.55-1.30); POTASSIUM 5.7 MMOL/L (3.5-5.1); SODIUM 139 MMOL/L (136-145)
[2017-07-07] MEDS ORDERED: guaiFENesin 100mg/5ml Liq ud ORAL PRN (16:30)
--- NOTE | 2017-07-07 16:30 | Consultation ---
DATE OF CONSULTATION: 07/07/2017 CARDIOLOGY CONSULTATION REFERRING PHYSICIAN: Kofi Mitchell M.D. REASON FOR CONSULTATION: Management of hypertension, hyperlipidemia, and possible congestive heart failure. HISTORY OF PRESENT ILLNESS: The patient is an 81-year-old gentleman who presented to the emergency room with shortness of breath and cough. The patient apparently was admitted to [facility] and diagnosed with influenza A and was treated and was discharged home. The patient however presents to the hospital with worsening of shortness of breath as well as right knee pain. The patient was also found to be in acute renal failure. PAST MEDICAL HISTORY: 1. Hypertension. 2. Diabetes. 3. Recent influenza. MEDICATIONS: Pain medications include Norvasc, Lipitor, Trulicity, Lasix, glipizide, and Flomax. ALLERGIES: He has no known drug allergies. SOCIAL HISTORY: He is . Denies smoking or drinking alcohol. Family at the bedside. REVIEW OF SYSTEMS: Review of systems was performed and was negative other than what was mentioned in the history of present illness and the most information was obtained from the patient's daughter at the bedside and review of the records. PHYSICAL EXAMINATION: VITAL SIGNS: Blood pressure is 85/51, pulse 56, respirations 18, and he is afebrile. HEAD AND NECK: Shows no JVD. LUNGS: Decreased breath sounds. CARDIOVASCULAR: Shows regular S1 and S2 with no gallop or murmur. ABDOMEN: Soft. EXTREMITIES: There is no pitting edema. LABORATORY AND DIAGNOSTIC DATA: His labs show white count of 5.5, hemoglobin of 9.9, hematocrit of 32.2, and platelet count of 141. Sodium 138, potassium 5.6, BUN of , creatinine 3.4, and glucose of 200. His troponin is negative. BNP 1708. ASSESSMENT AND PLAN: 1. Shortness of breath. The patient will be ruled out for myocardial infarction. It could be due to volume overload due to the patient has renal failure. Order echocardiogram to evaluate for ejection fraction and wall motion abnormality. The patient already received IV Lasix as well. 2. Hypertension on Norvasc 2.5 mg daily and hydralazine p.r.n. We will discontinue Norvasc in view of low blood pressure. I will transfer to telemetry as the blood pressure is in the 80s until he is more stabilized. The patient already on antibiotics. 3. Renal failure. Further evaluation by Dr. Pederson. 4. Recent influenza A. Thank you very much, Dr. Mitchell, for allowing me to participate in the care of this patient. Please do not hesitate to contact me for any questions regarding my evaluation. Kenton Pérez M.D. DR: Basilia JOB#: [id number] CC:
[2017-07-07] MEDS ORDERED: HydrALAZINE 25mg tab ORAL PRN (16:45)
[2017-07-07] MEDS: Cosopt Opth Soln 10 mL Btl BOTH EYES SCH (17:33)
[2017-07-07] MEDS: Azithromycin 500 MG in D5W 275 ML IV SCH (17:34)
[2017-07-07] MEDS ORDERED: Cosopt Opth Soln 10 mL Btl BOTH EYES SCH (18:00)
[2017-07-07] MEDS ORDERED: Albuterol ud Inhalation HHN SCH (19:00)
[2017-07-07] MEDS: Albuterol/Ipratropium 3ml neb HHN SCH ×2 (20:21→23:29)
[2017-07-07] MEDS ORDERED: Vancomycin 1gm in D5W 275ml IVPB ONE (21:00)
[2017-07-07] MEDS ORDERED: Atorvastatin 20mg tab ORAL SCH (21:00)
[2017-07-07] MEDS ORDERED: Latanoprost 0.005% Opth 2.5ml Soln BOTH EYES SCH (21:00)
[2017-07-07] MEDS: Latanoprost 0.005% Opth 2.5ml Soln BOTH EYES SCH (21:00)
[2017-07-07] MEDS: Atorvastatin 20mg tab ORAL SCH (21:38)
--- NOTE | 2017-07-07 21:46 | Consultation ---
Consult Note Assessment/Plan #[id number] respiratory failure, hypercapnea chf ARF dm htn AVERY WILCOX DO Jul 07, 2017 21:46
--- NOTE | 2017-07-07 22:49 | Consultation ---
History of Present Illness General Date patient seen: Jul 05, 2017 Chief Complaint: Lower Extremity Injury Present Illness HPI 81-year-old gentleman who presented with shortness of breath and cough. The patient apparently was admitted to [facility] with influenza A and was treated and was discharged home. The patient however presents to the hospital with worsening of shortness of breath, right knee pain and acute renal failure. the pt recently lost his son and grieving the pt is anxious and tearful no si/hi Allergies: Coded Allergies: No Known Allergies (Unverified , 07/04/17) Medication History Scheduled Amlodipine Besylate* (Amlodipine Besylate*), 2.5 MG ORAL DAILY, (Reported) Aspirin* (Aspir 81*), 81 MG ORAL DAILY, (Reported) Atorvastatin Calcium* (Atorvastatin Calcium*), 40 MG ORAL BEDTIME, (Reported) Bimatoprost (Lumigan), 1 DROP BOTH EYES DAILY, (Reported) Dulaglutide (Trulicity), 1.5 MG SQ ONCE A WEEK, (Reported) Furosemide* (Lasix*), 20 MG ORAL 3XW, (Reported) Glipizide (Glipizide Er), 2.5 MG PO DAILY, (Reported) Tamsulosin Hcl (Tamsulosin Hcl*), 0.4 MG ORAL BEDTIME, (Reported) Miscellaneous Medications Alpha Lipoic Acid (Alpha Lipoic Acid), Unknown Dose MC, (Reported) Brinzolamide/Brimonid Tart (Simbrinza 1%-0.2% Eye Drops), Unknown Dose OP, ( Reported) Paricalcitol (Paricalcitol), 1 MCG PO, (Reported) Patient History History Provided By: Patient Healthcare decision maker Resuscitation status Full Code Advanced Directive on File Yes Past Medical/Surgical History Past Medical/Surgical History: (1) Influenza (2) Renal insufficiency (3) Upper respiratory infection (4) Kidney disease (5) Pancytopenia (6) Reactive airway disease (7) Diabetes mellitus, type II (8) Hypercholesteremia (9) Renal failure (10) Glaucoma (11) HTN (hypertension) (12) Osteoarthritis of right knee (13) BPH (benign prostatic hyperplasia) (14) Knee pain, right (15) Pneumonia (16) CHF (congestive heart failure) (17) Respiratory failure Review of Systems Psychiatric: Reports: prior hx, anxiety, depressed feelings, emotional problems Physical Exam General Appearance: no apparent distress, alert, overweight Neurologic: alert, oriented x 3, responsive, depressed affect Last 24 Hour Vital Signs Date Time Temp Pulse Resp B/P (MAP) Pulse Ox O2 Delivery O2 Flow Rate FiO2 07/07/17 20:35 78 17 97 Full Face 65 07/07/17 20:33 72 17 97 Bi-pap 65 07/07/17 20:21 Bi-pap 65 07/07/17 20:21 97 Bi-pap 65 07/07/17 20:21 72 17 97 Bi-pap 65 07/07/17 20:00 97.0 74 20 111/56 98 07/07/17 19:07 76 17 99 Full Face 65 07/07/17 17:29 77 18 99 Bi-pap 100 07/07/17 17:17 99 16 91 Bi-pap 100 07/07/17 17:03 75 19 99 Full Face 100 07/07/17 15:55 74 07/07/17 15:30 98.8 91 20 120/56 98 Non-Rebreather 13.0 07/07/17 12:30 98.1 56 18 85/51 98 Non-Rebreather 15.0 07/07/17 12:00 98.0 81 20 88/51 97 Non-Rebreather 07/07/17 11:13 81 20 96 Nasal Cannula 4.0 36 07/07/17 11:03 78 24 89 Nasal Cannula 07/07/17 10:31 82 120/49 07/07/17 08:00 97.6 82 19 120/49 97 07/07/17 08:00 Nasal Cannula 3.0 07/07/17 07:24 75 18 96 Nasal Cannula 3.0 32 07/07/17 07:15 75 18 93 Nasal Cannula 3.0 32 07/07/17 07:15 93 Nasal Cannula 3.0 32 07/07/17 07:15 Nasal Cannula 3.0 32 07/07/17 04:00 97.7 79 21 110/62 96 Room Air 07/07/17 03:49 84 20 95 Nasal Cannula 3.0 32 07/07/17 03:39 83 20 92 Nasal Cannula 3.0 32 07/07/17 00:00 98.2 73 19 123/50 93 Nasal Cannula 3.0 07/06/17 23:48 75 20 97 Nasal Cannula 3.0 32 07/06/17 23:38 70 20 93 Nasal Cannula 3.0 32 Intake and Output 07/06/17 07/07/17 19:00 07:00 Intake Total 1340 ml 870 ml Balance 1340 ml 870 ml Intake Oral 240 ml 120 ml IV Total 1100 ml 750 ml # Voids 2 # Bowel Movements 2 Laboratory Tests Test 07/07/17 11:50 07/07/17 14:55 07/07/17 15:03 07/07/17 18:03 White Blood Count 5.5 K/UL (4.8-10.8) Red Blood Count 3.06 M/UL (4.70-6.10) L Hemoglobin 9.9 G/DL (14.2-18.0) L Hematocrit 32.7 % (42.0-52.0) L Mean Corpuscular Volume 107 FL (80-99) H Mean Corpuscular Hemoglobin 32.3 PG (27.0-31.0) H Mean Corpuscular Hemoglobin Concent 30.2 G/DL (32.0-36.0) L Red Cell Distribution Width 14.2 % (11.6-14.8) Platelet Count 141 K/UL (150-450) L Mean Platelet Volume 7.5 FL (6.5-10.1) Neutrophils (%) (Auto) 82.5 % (45.0-75.0) H Lymphocytes (%) (Auto) 6.4 % (20.0-45.0) L Monocytes (%) (Auto) 10.1 % (1.0-10.0) H Eosinophils (%) (Auto) 0.3 % (0.0-3.0) Basophils (%) (Auto) 0.7 % (0.0-2.0) Sodium Level 138 MMOL/L (136-145) 139 MMOL/L (136-145) Potassium Level 5.6 MMOL/L (3.5-5.1) H 5.7 MMOL/L (3.5-5.1) H Chloride Level 107 MMOL/L (98-107) 107 MMOL/L (98-107) Carbon Dioxide Level 26 MMOL/L (21-32) 27 MMOL/L (21-32) Anion Gap 6 mmol/L (5-15) 5 mmol/L (5-15) Blood Urea Nitrogen 60 mg/dL (7-18) H 58 mg/dL (7-18) H Creatinine 3.4 MG/DL (0.55-1.30) H 3.5 MG/DL (0.55-1.30) H Estimat Glomerular Filtration Rate mL/min (>60) mL/min (>60) Glucose Level 200 MG/DL (74-106) H 184 MG/DL (74-106) H Uric Acid 4.3 MG/DL (2.6-7.2) Calcium Level 6.7 MG/DL (8.5-10.1) L 6.2 MG/DL (8.5-10.1) L Phosphorus Level 4.6 MG/DL (2.5-4.9) Magnesium Level 3.1 MG/DL (1.8-2.4) H Total Bilirubin 0.3 MG/DL (0.2-1.0) Gamma Glutamyl Transpeptidase 15 U/L (5-85) Aspartate Amino Transf (AST/SGOT) 26 U/L (15-37) Alanine Aminotransferase (ALT/SGPT) 26 U/L (12-78) Alkaline Phosphatase 62 U/L (46-116) Total Creatine Kinase 91 U/L (26-308) Troponin I 0.004 ng/mL (0.000-0.056) C-Reactive Protein, Quantitative 12.2 mg/dL (0.00-0.90) H Pro-B-Type Natriuretic Peptide 1708 pg/mL (0-125) H Total Protein 6.1 G/DL (6.4-8.2) L Albumin 2.7 G/DL (3.4-5.0) L Globulin 3.4 g/dL Albumin/Globulin Ratio 0.8 (1.0-2.7) L Arterial Blood pH 7.130 (7.350-7.450) 7.160 (7.350-7.450) Arterial Blood Partial Pressure CO2 71.8 mmHg (35.0-45.0) *H 67.6 mmHg (35.0-45.0) *H Arterial Blood Partial Pressure O2 84.3 mmHg (75.0-100.0) 153.1 mmHg (75.0-100.0) H Arterial Blood HCO3 23.6 mmol/L (22.0-26.0) 23.9 mmol/L (22.0-26.0) Arterial Blood Oxygen Saturation 95.6 % (92.0-98.0) 98.3 % (92.0-98.0) H Arterial Blood Base Excess -6.1 -5.2 Magdaleno Test Positive Positive Height (Feet): 5 Height (Inches): 10.00 Weight (Pounds): 170 Medications Current Medications Medications (Trade) Dose Ordered Sig/Nito Route PRN Reason Start Time Stop Time Status Last Admin Dose Admin Acetaminophen (Tylenol) 650 mg Q6H PRN ORAL Mild Pain/Temp > 100.4 07/07/17 20:15 08/04/17 08:14 Acetaminophen/ Hydrocodone Bitart ([place] 10/325) 1 ea Q4H PRN ORAL For Moderate to Severe Pain 07/07/17 18:45 07/13/17 14:44 Albuterol/ Ipratropium (Albuterol/ Ipratropium) 3 ml Q4HRT HHN 07/07/17 19:00 07/12/17 14:59 07/07/17 20:21 Allopurinol (Allopurinol) 300 mg DAILY ORAL 07/08/17 09:00 08/07/17 08:59 Aspirin (ASA) 81 mg DAILY ORAL 07/08/17 09:00 08/04/17 08:59 Atorvastatin Calcium (Lipitor) 40 mg BEDTIME ORAL 07/07/17 21:00 08/06/17 20:59 07/07/17 21:38 Azithromycin 500 mg/Dextrose 275 ml @ 275 mls/hr DAILY@1600 IV 07/07/17 18:00 07/14/17 17:59 07/07/17 17:34 Ceftriaxone Sodium 1 gm/ Dextrose 55 ml @ 110 mls/hr Q24H IVPB 07/08/17 10:00 07/12/17 09:59 Dextrose (Dextrose 50%) STAT PRN IV Hypoglycemia 07/08/17 08:15 08/04/17 08:14 Dorzolamide/ Timolol (Cosopt) 1 drop TWICE A DAY BOTH EYES 07/07/17 18:00 08/06/17 17:59 07/07/17 17:33 Glipizide (GlipiZIDE XL) 2.5 mg ACBREAKFAST ORAL 07/08/17 06:30 08/07/17 06:29 Guaifenesin (Robitussin) 100 mg Q6H PRN ORAL For Cough 07/07/17 16:30 08/03/17 22:29 Heparin Sodium (Porcine) (Heparin 5000 units/ml) 5,000 units EVERY 12 HOURS SUBQ 07/07/17 21:00 08/04/17 08:59 Hydralazine HCl (Apresoline) 25 mg Q4H PRN ORAL SBP > 160 mm Hg 07/07/17 16:45 08/04/17 08:14 Insulin Aspart (NovoLOG) BEFORE MEALS AND HS SUBQ 07/07/17 16:30 08/04/17 11:29 07/07/17 17:00 Latanoprost (Xalatan) 1 drop BEDTIME BOTH EYES 07/07/17 21:00 08/06/17 20:59 07/07/17 21:00 Levofloxacin 50 ml @ 50 mls/hr Q48H IVPB 07/09/17 14:30 07/16/17 14:29 Ondansetron HCl (Zofran) 4 mg Q4H PRN IVP nausea 07/07/17 17:00 08/04/17 00:59 Oseltamivir Phosphate (Tamiflu) 30 mg DAILY ORAL 07/08/17 09:00 07/08/17 09:01 Tamsulosin HCl (Flomax) 0.4 mg BID ORAL 07/07/17 18:00 08/04/17 12:59 Vancomycin HCl (Vanco rx to dose) 1 ea DAILY PRN MISC Per rx protocol 07/07/17 17:15 08/06/17 17:14 Assessment/Plan Status: stable, progressing Chao Evans M.D. Jul 07, 2017 22:49
--- NOTE | 2017-07-07 22:50 | General Progress Note ---
Assessment/Plan Status: stable, progressing Subjective Date patient seen: Jul 06, 2017 Neurologic/Psychiatric: Reports: anxiety, depressed, emotional problems Allergies: Coded Allergies: No Known Allergies (Unverified , 07/04/17) Objective Last 24 Hour Vital Signs Date Time Temp Pulse Resp B/P (MAP) Pulse Ox O2 Delivery O2 Flow Rate FiO2 07/07/17 20:35 78 17 97 Full Face 65 07/07/17 20:33 72 17 97 Bi-pap 65 07/07/17 20:21 Bi-pap 65 07/07/17 20:21 97 Bi-pap 65 07/07/17 20:21 72 17 97 Bi-pap 65 07/07/17 20:00 97.0 74 20 111/56 98 07/07/17 19:07 76 17 99 Full Face 65 07/07/17 17:29 77 18 99 Bi-pap 100 07/07/17 17:17 99 16 91 Bi-pap 100 07/07/17 17:03 75 19 99 Full Face 100 07/07/17 15:55 74 07/07/17 15:30 98.8 91 20 120/56 98 Non-Rebreather 13.0 07/07/17 12:30 98.1 56 18 85/51 98 Non-Rebreather 15.0 07/07/17 12:00 98.0 81 20 88/51 97 Non-Rebreather 07/07/17 11:13 81 20 96 Nasal Cannula 4.0 36 07/07/17 11:03 78 24 89 Nasal Cannula 07/07/17 10:31 82 120/49 07/07/17 08:00 97.6 82 19 120/49 97 07/07/17 08:00 Nasal Cannula 3.0 07/07/17 07:24 75 18 96 Nasal Cannula 3.0 32 07/07/17 07:15 75 18 93 Nasal Cannula 3.0 32 07/07/17 07:15 93 Nasal Cannula 3.0 32 07/07/17 07:15 Nasal Cannula 3.0 32 07/07/17 04:00 97.7 79 21 110/62 96 Room Air 07/07/17 03:49 84 20 95 Nasal Cannula 3.0 32 07/07/17 03:39 83 20 92 Nasal Cannula 3.0 32 07/07/17 00:00 98.2 73 19 123/50 93 Nasal Cannula 3.0 12/31/17 23:48 75 20 97 Nasal Cannula 3.0 32 07/06/17 23:38 70 20 93 Nasal Cannula 3.0 32 Intake and Output 07/06/17 07/07/17 19:00 07:00 Intake Total 1340 ml 870 ml Balance 1340 ml 870 ml Intake Oral 240 ml 120 ml IV Total 1100 ml 750 ml # Voids 2 # Bowel Movements 2 Laboratory Tests 07/07/17 11:50: White Blood Count 5.5, Red Blood Count 3.06L, Hemoglobin 9.9L, Hematocrit 32.7L , Mean Corpuscular Volume 107H, Mean Corpuscular Hemoglobin 32.3H, Mean Corpuscular Hemoglobin Concent 30.2L, Red Cell Distribution Width 14.2, Platelet Count 141L, Mean Platelet Volume 7.5, Neutrophils (%) (Auto) 82.5H, Lymphocytes (%) (Auto) 6.4L, Monocytes (%) (Auto) 10.1H, Eosinophils (%) (Auto) 0.3, Basophils (%) (Auto) 0.7, Sodium Level 138, Potassium Level 5.6H, Chloride Level 107, Carbon Dioxide Level 26, Anion Gap 6, Blood Urea Nitrogen 60H, Creatinine 3.4H, Estimat Glomerular Filtration Rate , Glucose Level 200H, Uric Acid 4.3, Calcium Level 6.7L, Phosphorus Level 4.6, Magnesium Level 3.1H, Total Bilirubin 0.3, Gamma Glutamyl Transpeptidase 15, Aspartate Amino Transf (AST/ SGOT) 26, Alanine Aminotransferase (ALT/SGPT) 26, Alkaline Phosphatase 62, Total Creatine Kinase 91, Troponin I 0.004, C-Reactive Protein, Quantitative 12.2H, Pro-B-Type Natriuretic Peptide 1708H, Total Protein 6.1L, Albumin 2.7L, Globulin 3.4, Albumin/Globulin Ratio 0.8L 07/07/17 14:55: Sodium Level 139, Potassium Level 5.7H, Chloride Level 107, Carbon Dioxide Level 27, Anion Gap 5, Blood Urea Nitrogen 58H, Creatinine 3.5H, Estimat Glomerular Filtration Rate , Glucose Level 184H, Calcium Level 6.2L 07/07/17 15:03: Arterial Blood pH 7.130*L, Arterial Blood Partial Pressure CO2 71.8*H, Arterial Blood Partial Pressure O2 84.3, Arterial Blood HCO3 23.6, Arterial Blood Oxygen Saturation 95.6, Arterial Blood Base Excess -6.1, Magdaleno Test Positive 07/07/17 18:03: Arterial Blood pH 7.160*L, Arterial Blood Partial Pressure CO2 67.6*H, Arterial Blood Partial Pressure O2 153.1H, Arterial Blood HCO3 23.9, Arterial Blood Oxygen Saturation 98.3H, Arterial Blood Base Excess -5.2, Magdaleno Test Positive Height (Feet): 5 Height (Inches): 10.00 Weight (Pounds): 170 General Appearance: no apparent distress, alert Neurologic: alert, oriented x 3, responsive Chao Evans M.D. Jul 07, 2017 22:50
--- NOTE | 2017-07-07 23:15 | Consultation ---
DATE OF CONSULTATION: 07/07/2017 PULMONARY/CRITICAL CARE CONSULTATION CONSULTING PHYSICIAN: Nicki Caruso D.O. ATTENDING PHYSICIAN: Kofi Mitchell M.D. REASON FOR CONSULTATION: Respiratory distress, respiratory failure. HISTORY OF PRESENT ILLNESS: The patient is a poor historian and information is obtained from medical record and the emergency room chart. The patient has apparently had an upper respiratory infection for about a week. He fell at home with worsening, hitting his right knee, severe pain in the knee ambulating. He came to the emergency room. He was found to be in acute renal failure and shortness of breath. The blood gas was drawn this afternoon and he has pH of 7.13, pCO2 71, pO2 84. He was placed on BiPAP 15/5. His blood gas was minimally improved with pH 7.16, pCO2 67, pO2 was 153, but he was more awake and alert, in no distress. Bicarbonate was 23 on both reports. PAST MEDICAL HISTORY: Hypertension, diabetes, hyperlipidemia, BPH. ALLERGIES: No known drug allergies. SOCIAL HISTORY: . No alcohol or drugs. REVIEW OF SYSTEMS: Unavailable at present. MEDICATIONS: Pre-hospital medications were reviewed, reconciled, and documented on electronic medical record. PHYSICAL EXAMINATION: GENERAL: At the time of my exam, he is alert, though in mild distress. VITAL SIGNS: BiPAP 15/5, tidal volume was about 600, his saturations are 97%, pulse is 78, respirations are 17, and he is currently afebrile. HEENT: He is normocephalic, atraumatic. Oropharynx is moist. Nasal mucosa is moist. NECK: Supple. No lymphadenopathy. LUNGS: Decreased at the bases. Scant rhonchi with crackles. No wheezing. HEART: Regular rhythm without murmur. ABDOMEN: Soft, obese, nontender. Bowel sounds present. EXTREMITIES: With some edema. NEUROLOGIC: He does move all extremities spontaneously. SKIN: No skin rashes or lesions are noted. LABORATORY AND DIAGNOSTIC DATA: His sodium is 139, potassium 5.7, chloride 107, bicarbonate 27, BUN 58, creatinine 3.5, and glucose 184. Troponin 0.04. BNP is elevated at 1708. His urinalysis is negative for leukocyte esterase. His white count 5.5, hemoglobin 9.9, platelets are 107,000. A chest x-ray was performed yesterday with CHF. Influenza A and B were negative. ASSESSMENT AND PLAN: 1. Hypercapnic respiratory failure. 2. Diabetes. 3. Hypertension. 4. Acute renal failure. 5. Hyperlipidemia. PLAN: We will follow up 2D echo. Continue BiPAP on current increasing settings to 17/5. Titrate his O2 for saturations greater than 92%. Repeat blood gas. The patient may require intubation. Diuresis as tolerated. DVT prophylaxis. Check lower extremity duplex. Aspiration precautions. Possible right infiltrate on x-ray and is on IV antibiotics, which I would continue following his blood, urine, and sputum cultures and tailor his antibiotics accordingly. Nebulizer treatments are provided every 4 hours. No indication for steroids as wheezing is not occurring, but we would consider if wheezing resumed and we will continue to follow the patient. Greater than 35 minutes of critical care time was spent with the patient, discussing with the family, reviewing the record, and discussing with the nursing staff as well. Nicki Caruso D.O. DR: Romaine JOB#: [id number] CC:
[2017-07-08 00:37] VITALS: BP 115/60
[2017-07-08] MEDS: Albuterol/Ipratropium 3ml neb HHN SCH ×6 (02:58→23:02)
[2017-07-08 04:00] VITALS: BP 110/57
[2017-07-08 04:56] LABS: HEMATOCRIT 29.9 % (42.0-52.0); HEMOGLOBIN 9.4 G/DL (14.2-18.0); MEAN CORPUSCULAR VOLUME 106 FL (80-99); PLATELET COUNT 134 K/UL (150-450); RED BLOOD COUNT 2.83 M/UL (4.70-6.10); RED CELL DISTRIBUTION WIDTH 14.2 % (11.6-14.8); WHITE BLOOD COUNT 7.7 K/UL (4.8-10.8)
[2017-07-08 05:51] LABS: ALANINE AMINOTRANSFERASE 25 U/L (12-78); ALBUMIN 2.3 G/DL (3.4-5.0); ALBUMIN/GLOBULIN RATIO 0.7 (1.0-2.7); ALKALINE PHOSPHATASE 53 U/L (46-116); ANION GAP 8 mmol/L (5-15); ASPARTATE AMINO TRANSFERASE 18 U/L (15-37); BILIRUBIN,TOTAL 0.3 MG/DL (0.2-1.0); BLOOD UREA NITROGEN 61 mg/dL (7-18); CALCIUM 6.5 MG/DL (8.5-10.1); CARBON DIOXIDE 23 MMOL/L (21-32); CHLORIDE 106 MMOL/L (98-107); CREATININE 3.7 MG/DL (0.55-1.30); GAMMA GLUTAMYL TRANSPEPTIDASE 12 U/L (5-85); PHOSPHORUS 4.4 MG/DL (2.5-4.9); POTASSIUM 5.9 MMOL/L (3.5-5.1); SODIUM 137 MMOL/L (136-145)
[2017-07-08] MEDS: NovoLOG Insulin Flexpen SUBQ SCH ×4 (06:29→20:14)
[2017-07-08] MEDS ORDERED: Sodium Polystyrene Sulfonate 15gm Powder ORAL ONE (06:45)
[2017-07-08 08:00] VITALS: BP 135/70
--- NOTE | 2017-07-08 08:32 | Diagnostic Imaging Report ---
Indication: Dyspnea Technique: XRAY Chest 1v Comparison: 07/06/2017 Findings: Low lung volumes. Heart size and mediastinal contours appear stable although somewhat obscured by adjacent parenchymal disease. Apparent interval worsening of aeration with increased perihilar opacification. Increased retrocardiac/left basilar atelectasis/consolidation. Small left pleural effusion is unchanged. Increased medial right base opacity. Some of these findings may be artifactually exaggerated due to lower lung volumes and this exam. No pneumothorax. No acute osseous abnormality. Impression: Overall interval worsening of aeration compared to one day prior as above.
[2017-07-08] MEDS: Heparin 5000 units/ml inj SUBQ SCH ×2 (09:00→20:15)
[2017-07-08] MEDS ORDERED: Vitamin B-12 500mcg tab ORAL SCH (09:00)
[2017-07-08] MEDS: Aspirin Baby 81mg ORAL SCH (09:05)
[2017-07-08] MEDS: Tamsulosin 0.4mg cap ORAL SCH ×2 (09:05→17:52)
[2017-07-08] MEDS: Cosopt Opth Soln 10 mL Btl BOTH EYES SCH ×2 (09:06→17:52)
--- NOTE | 2017-07-08 09:25 | Pulmonology Progress Note ---
Assessment/Plan Assessment/Plan 1. Hypercapnic respiratory failure. 2. Diabetes. 3. Hypertension. 4. Acute renal failure. 5. Hyperlipidemia. PLAN: Await 2D echo. Continue BiPAP on current settings to 20/11. Titrate his O2 for saturations greater than 92%. Repeat blood gas in AM. The patient may require intubation. Diuresis as tolerated. DVT prophylaxis. Await lower extremity duplex. Aspiration precautions. Possible right infiltrate on x-ray and is on IV antibiotics. Nebulizer treatments are provided every 4 hours. No indication for steroids Greater than 35 minutes of critical care time was spent with the patient, discussing with RN, reviewing the record. Subjective Interval Events: Remains on BiPAP; ABG better this Am Constitutional: Reports: no symptoms HEENT: Repors: no symptoms Respiratory: Reports: productive cough, shortness of breath Cardiovascular: Reports: no symptoms Gastrointestinal/Abdominal: Reports: no symptoms Genitourinary: Reports: no symptoms Neurologic: Reports: no symptoms Allergies: Coded Allergies: No Known Allergies (Unverified , 07/04/17) Objective Last 24 Hour Vital Signs Date Time Temp Pulse Resp B/P (MAP) Pulse Ox O2 Delivery O2 Flow Rate FiO2 07/08/17 08:00 97.9 116 24 135/70 100 07/08/17 07:16 81 23 99 Bi-pap 65 07/08/17 07:10 80 23 99 Full Face 65 07/08/17 07:06 80 23 99 Bi-pap 65 07/08/17 07:06 99 Bi-pap 65 07/08/17 07:06 Bi-pap 65 07/08/17 05:07 78 18 97 Full Face 65 07/08/17 04:00 79 07/08/17 04:00 97.3 63 18 110/57 96 07/08/17 03:05 76 18 99 Bi-pap 65 07/08/17 02:58 73 18 98 Bi-pap 65 07/08/17 02:56 72 18 98 Full Face 65 07/08/17 01:11 56 16 96 Full Face 65 07/08/17 00:37 97.2 69 20 115/60 97 07/08/17 00:00 82 07/07/17 23:42 58 17 97 Bi-pap 65 07/07/17 23:34 58 16 97 Full Face 65 07/07/17 23:29 58 27 97 Bi-pap 65 07/07/17 20:35 78 17 97 Full Face 65 07/07/17 20:33 72 17 97 Bi-pap 65 07/07/17 20:21 Bi-pap 65 07/07/17 20:21 97 Bi-pap 65 07/07/17 20:21 72 17 97 Bi-pap 65 07/07/17 20:00 97.0 74 20 111/56 98 07/07/17 19:07 76 17 99 Full Face 65 07/07/17 17:29 77 18 99 Bi-pap 100 07/07/17 17:17 99 16 91 Bi-pap 100 07/07/17 17:03 75 19 99 Full Face 100 07/07/17 15:55 74 07/07/17 15:30 98.8 91 20 120/56 98 Non-Rebreather 13.0 07/07/17 12:30 98.1 56 18 85/51 98 Non-Rebreather 15.0 07/07/17 12:00 98.0 81 20 88/51 97 Non-Rebreather 07/07/17 11:13 81 20 96 Nasal Cannula 4.0 36 07/07/17 11:03 78 24 89 Nasal Cannula 07/07/17 10:31 82 120/49 Intake and Output 07/07/17 07/08/17 19:00 07:00 Intake Total 750 ml 275.000 ml Output Total 900 ml 450 ml Balance -150 ml -175.000 ml Intake Oral 120 ml IV Total 630 ml 275.000 ml Output Urine Total 900 ml 450 ml # Voids 1 # Bowel Movements 2 General Appearance: no acute distress HEENT: normocephalic Respiratory/Chest: chest wall non-tender, decreased breath sounds Cardiovascular: normal peripheral pulses Abdomen: normal bowel sounds, soft, non tender Laboratory Tests 07/07/17 11:50: White Blood Count 5.5, Red Blood Count 3.06L, Hemoglobin 9.9L, Hematocrit 32.7L , Mean Corpuscular Volume 107H, Mean Corpuscular Hemoglobin 32.3H, Mean Corpuscular Hemoglobin Concent 30.2L, Red Cell Distribution Width 14.2, Platelet Count 141L, Mean Platelet Volume 7.5, Neutrophils (%) (Auto) 82.5H, Lymphocytes (%) (Auto) 6.4L, Monocytes (%) (Auto) 10.1H, Eosinophils (%) (Auto) 0.3, Basophils (%) (Auto) 0.7, Sodium Level 138, Potassium Level 5.6H, Chloride Level 107, Carbon Dioxide Level 26, Anion Gap 6, Blood Urea Nitrogen 60H, Creatinine 3.4H, Estimat Glomerular Filtration Rate , Glucose Level 200H, Uric Acid 4.3, Calcium Level 6.7L, Phosphorus Level 4.6, Magnesium Level 3.1H, Total Bilirubin 0.3, Gamma Glutamyl Transpeptidase 15, Aspartate Amino Transf (AST/ SGOT) 26, Alanine Aminotransferase (ALT/SGPT) 26, Alkaline Phosphatase 62, Total Creatine Kinase 91, Troponin I 0.004, C-Reactive Protein, Quantitative 12.2H, Pro-B-Type Natriuretic Peptide 1708H, Total Protein 6.1L, Albumin 2.7L, Globulin 3.4, Albumin/Globulin Ratio 0.8L 07/07/17 14:55: Sodium Level 139, Potassium Level 5.7H, Chloride Level 107, Carbon Dioxide Level 27, Anion Gap 5, Blood Urea Nitrogen 58H, Creatinine 3.5H, Estimat Glomerular Filtration Rate , Glucose Level 184H, Calcium Level 6.2L 07/07/17 15:03: Arterial Blood pH 7.130*L, Arterial Blood Partial Pressure CO2 71.8*H, Arterial Blood Partial Pressure O2 84.3, Arterial Blood HCO3 23.6, Arterial Blood Oxygen Saturation 95.6, Arterial Blood Base Excess -6.1, Magdaleno Test Positive 07/07/17 18:03: Arterial Blood pH 7.160*L, Arterial Blood Partial Pressure CO2 67.6*H, Arterial Blood Partial Pressure O2 153.1H, Arterial Blood HCO3 23.9, Arterial Blood Oxygen Saturation 98.3H, Arterial Blood Base Excess -5.2, Magdaleno Test Positive 07/08/17 03:52: White Blood Count 7.7, Red Blood Count 2.83L, Hemoglobin 9.4L, Hematocrit 29.9L , Mean Corpuscular Volume 106H, Mean Corpuscular Hemoglobin 33.1H, Mean Corpuscular Hemoglobin Concent 31.3L, Red Cell Distribution Width 14.2, Platelet Count 134L, Mean Platelet Volume 8.6, Neutrophils (%) (Auto) , Lymphocytes (%) (Auto) , Monocytes (%) (Auto) , Eosinophils (%) (Auto) , Basophils (%) (Auto) , Sodium Level 137, Potassium Level 5.9H, Chloride Level 106, Carbon Dioxide Level 23, Anion Gap 8, Blood Urea Nitrogen 61H, Creatinine 3.7H, Estimat Glomerular Filtration Rate , Glucose Level 121H, Uric Acid 4.7, Calcium Level 6.5L, Phosphorus Level 4.4, Magnesium Level 2.9H, Total Bilirubin 0.3, Gamma Glutamyl Transpeptidase 12, Aspartate Amino Transf (AST/SGOT) 18, Alanine Aminotransferase (ALT/SGPT) 25, Alkaline Phosphatase 53, Troponin I 0.005, C-Reactive Protein, Quantitative 22.4H, Pro-B-Type Natriuretic Peptide 1985H, Total Protein 5.6L, Albumin 2.3L, Globulin 3.3, Albumin/Globulin Ratio 0.7L, Random Vancomycin Level 9.5 07/08/17 08:00: Arterial Blood pH 7.180*L, Arterial Blood Partial Pressure CO2 60.5*H, Arterial Blood Partial Pressure O2 114.5H, Arterial Blood HCO3 22.3, Arterial Blood Oxygen Saturation 97.5, Arterial Blood Base Excess -6.1, Magdaleno Test Positive Current Medications Medications (Trade) Dose Ordered Sig/Nito Route PRN Reason Start Time Stop Time Status Last Admin Dose Admin Acetaminophen (Tylenol) 650 mg Q6H PRN ORAL Mild Pain/Temp > 100.4 07/07/17 20:15 08/04/17 08:14 Acetaminophen/ Hydrocodone Bitart ([place] 10/325) 1 ea Q4H PRN ORAL For Moderate to Severe Pain 07/07/17 18:45 07/13/17 14:44 Albuterol/ Ipratropium (Albuterol/ Ipratropium) 3 ml Q4HRT HHN 07/07/17 19:00 07/12/17 14:59 07/08/17 07:05 Allopurinol (Allopurinol) 300 mg DAILY ORAL 07/08/17 09:00 08/07/17 08:59 07/08/17 09:05 Aspirin (ASA) 81 mg DAILY ORAL 07/08/17 09:00 08/04/17 08:59 07/08/17 09:05 Atorvastatin Calcium (Lipitor) 40 mg BEDTIME ORAL 07/07/17 21:00 08/06/17 20:59 07/07/17 21:38 Azithromycin 500 mg/Dextrose 275 ml @ 275 mls/hr DAILY@1600 IV 07/07/17 18:00 07/14/17 17:59 07/07/17 17:34 Ceftriaxone Sodium 1 gm/ Dextrose 55 ml @ 110 mls/hr Q24H IVPB 07/08/17 10:00 07/12/17 09:59 Dextrose (Dextrose 50%) STAT PRN IV Hypoglycemia 07/08/17 08:15 08/04/17 08:14 Dorzolamide/ Timolol (Cosopt) 1 drop TWICE A DAY BOTH EYES 07/07/17 18:00 08/06/17 17:59 07/08/17 09:06 Glipizide (GlipiZIDE XL) 2.5 mg ACBREAKFAST ORAL 07/08/17 06:30 08/07/17 06:29 07/08/17 07:48 Guaifenesin (Robitussin) 100 mg Q6H PRN ORAL For Cough 07/07/17 16:30 08/03/17 22:29 Heparin Sodium (Porcine) (Heparin 5000 units/ml) 5,000 units EVERY 12 HOURS SUBQ 07/07/17 21:00 08/04/17 08:59 Hydralazine HCl (Apresoline) 25 mg Q4H PRN ORAL SBP > 160 mm Hg 07/07/17 16:45 08/04/17 08:14 Insulin Aspart (NovoLOG) BEFORE MEALS AND HS SUBQ 07/07/17 16:30 08/04/17 11:29 07/07/17 17:00 Latanoprost (Xalatan) 1 drop BEDTIME BOTH EYES 07/07/17 21:00 08/06/17 20:59 07/07/17 21:00 Levofloxacin 50 ml @ 50 mls/hr Q48H IVPB 07/09/17 14:30 07/16/17 14:29 Ondansetron HCl (Zofran) 4 mg Q4H PRN IVP nausea 07/07/17 17:00 08/04/17 00:59 Tamsulosin HCl (Flomax) 0.4 mg BID ORAL 07/07/17 18:00 08/04/17 12:59 07/08/17 09:05 Vancomycin HCl (Vanco rx to dose) 1 ea DAILY PRN MISC Per rx protocol 1/1/18 17:15 08/06/17 17:14 Solo Telles MD Jul 08, 2017 09:25
[2017-07-08] MEDS: cefTRIAXone 1 GM in D5W 55 ML IVPB SCH (09:44)
[2017-07-08 12:00] VITALS: BP 112/54
--- NOTE | 2017-07-08 12:09 | General Progress Note ---
Assessment/Plan Status: stable Assessment/Plan depression encephalopathy -the pt is reluctant to meds - asleep in room Subjective Date patient seen: Jul 08, 2017 Neurologic/Psychiatric: Reports: anxiety, depressed, emotional problems Allergies: Coded Allergies: No Known Allergies (Unverified , 07/04/17) Subjective the pt was asleep. he was confused yesterday. more alert and oriented. Objective Last 24 Hour Vital Signs Date Time Temp Pulse Resp B/P (MAP) Pulse Ox O2 Delivery O2 Flow Rate FiO2 07/08/17 11:31 75 24 96 Bi-pap 55 07/08/17 11:21 72 22 96 Bi-pap 55 07/08/17 10:59 74 22 99 Full Face 55 07/08/17 09:05 85 28 99 Full Face 65 07/08/17 08:00 97.9 116 24 135/70 100 07/08/17 07:16 81 23 99 Bi-pap 65 07/08/17 07:10 80 23 99 Full Face 65 07/08/17 07:06 80 23 99 Bi-pap 65 07/08/17 07:06 99 Bi-pap 65 07/08/17 07:06 Bi-pap 65 07/08/17 05:07 78 18 97 Full Face 65 07/08/17 04:00 79 07/08/17 04:00 97.3 63 18 110/57 96 07/08/17 03:05 76 18 99 Bi-pap 65 07/08/17 02:58 73 18 98 Bi-pap 65 07/08/17 02:56 72 18 98 Full Face 65 07/08/17 01:11 56 16 96 Full Face 65 07/08/17 00:37 97.2 69 20 115/60 97 07/08/17 00:00 82 07/07/17 23:42 58 17 97 Bi-pap 65 07/07/17 23:34 58 16 97 Full Face 65 07/07/17 23:29 58 27 97 Bi-pap 65 07/07/17 20:35 78 17 97 Full Face 65 07/07/17 20:33 72 17 97 Bi-pap 65 07/07/17 20:21 Bi-pap 65 07/07/17 20:21 97 Bi-pap 65 07/07/17 20:21 72 17 97 Bi-pap 65 07/07/17 20:00 97.0 74 20 111/56 98 07/07/17 19:07 76 17 99 Full Face 65 07/07/17 17:29 77 18 99 Bi-pap 100 07/07/17 17:17 99 16 91 Bi-pap 100 07/07/17 17:03 75 19 99 Full Face 100 07/07/17 15:55 74 07/07/17 15:30 98.8 91 20 120/56 98 Non-Rebreather 13.0 07/07/17 12:30 98.1 56 18 85/51 98 Non-Rebreather 15.0 Intake and Output 07/07/17 07/08/17 19:00 07:00 Intake Total 750 ml 275.000 ml Output Total 900 ml 450 ml Balance -150 ml -175.000 ml Intake Oral 120 ml IV Total 630 ml 275.000 ml Output Urine Total 900 ml 450 ml # Voids 1 # Bowel Movements 2 Laboratory Tests 07/07/17 14:55: Sodium Level 139, Potassium Level 5.7H, Chloride Level 107, Carbon Dioxide Level 27, Anion Gap 5, Blood Urea Nitrogen 58H, Creatinine 3.5H, Estimat Glomerular Filtration Rate , Glucose Level 184H, Calcium Level 6.2L 07/07/17 15:03: Arterial Blood pH 7.130*L, Arterial Blood Partial Pressure CO2 71.8*H, Arterial Blood Partial Pressure O2 84.3, Arterial Blood HCO3 23.6, Arterial Blood Oxygen Saturation 95.6, Arterial Blood Base Excess -6.1, Magdaleno Test Positive 07/07/17 18:03: Arterial Blood pH 7.160*L, Arterial Blood Partial Pressure CO2 67.6*H, Arterial Blood Partial Pressure O2 153.1H, Arterial Blood HCO3 23.9, Arterial Blood Oxygen Saturation 98.3H, Arterial Blood Base Excess -5.2, Magdaleno Test Positive 07/08/17 03:52: Sodium Level 137, Potassium Level 5.9H, Chloride Level 106, Carbon Dioxide Level 23, Anion Gap 8, Blood Urea Nitrogen 61H, Creatinine 3.7H, Estimat Glomerular Filtration Rate , Glucose Level 121H, Calcium Level 6.5L, White Blood Count 7.7, Red Blood Count 2.83L, Hemoglobin 9.4L, Hematocrit 29.9L, Mean Corpuscular Volume 106H, Mean Corpuscular Hemoglobin 33.1H, Mean Corpuscular Hemoglobin Concent 31.3L, Red Cell Distribution Width 14.2, Platelet Count 134L , Mean Platelet Volume 8.6, Neutrophils (%) (Auto) , Lymphocytes (%) (Auto) , Monocytes (%) (Auto) , Eosinophils (%) (Auto) , Basophils (%) (Auto) , Uric Acid 4.7, Phosphorus Level 4.4, Magnesium Level 2.9H, Total Bilirubin 0.3, Gamma Glutamyl Transpeptidase 12, Aspartate Amino Transf (AST/SGOT) 18, Alanine Aminotransferase (ALT/SGPT) 25, Alkaline Phosphatase 53, Troponin I 0.005, C- Reactive Protein, Quantitative 22.4H, Pro-B-Type Natriuretic Peptide 1985H, Total Protein 5.6L, Albumin 2.3L, Globulin 3.3, Albumin/Globulin Ratio 0.7L, Random Vancomycin Level 9.5 07/08/17 08:00: Arterial Blood pH 7.180*L, Arterial Blood Partial Pressure CO2 60.5*H, Arterial Blood Partial Pressure O2 114.5H, Arterial Blood HCO3 22.3, Arterial Blood Oxygen Saturation 97.5, Arterial Blood Base Excess -6.1, Magdaleno Test Positive Height (Feet): 5 Height (Inches): 10.00 Weight (Pounds): 170 General Appearance: no apparent distress, alert, overweight Neurologic: alert, oriented x 3, responsive, depressed affect Chao Evans M.D. Jul 08, 2017 12:09
--- NOTE | 2017-07-08 12:17 | Diagnostic Imaging Report ---
Indication: Dyspnea Technique: XRAY Chest 1v Comparison: 07/07/2017 Findings: Low lung volumes. Heart size and mediastinal contours appear stable. There is interval worsening of aeration at the right base with increasing patchy airspace opacities. Persistent left basilar atelectasis/consolidation. No pneumothorax. No acute osseous abnormality. Impression: Increased patchy right basilar opacities. Additional findings unchanged.
--- NOTE | 2017-07-08 12:18 | Diagnostic Imaging Report ---
Indication: Pain, constipation Technique: 3 supine views of the abdomen were submitted Comparison: None Findings: Exam limited by underpenetration, likely related to patient's body habitus. The bowel gas pattern is nonobstructive. No evidence to suggest free intraperitoneal air however sensitivity is limited given supine views and underpenetration. There are changes of the lower lumbar spine are noted. No acute osseous abnormality seen. Ferrari catheter in place. Impression: Limited exam. Nonobstructive bowel gas pattern.
--- NOTE | 2017-07-08 12:26 | Consultation ---
History of Present Illness General Date patient seen: Jul 08, 2017 Time patient seen: 12:24 Chief Complaint: Lower Extremity Injury Present Illness HPI 81 y/o M with hx of HTN, DM2, CKD, HLD, BPH presents to ED on 07/04 with R knee pain s./p fall at home ~1 wk [employer] and generalized weakness. Patient with recent hospital stay and recent URI. ~1 wk ago. Patient found to be on PHILIP. and respiratory acidosis and placed on Bipap. Patient has apparently recently admitted to [facility] with Influenza A, treated and discharge home. Received 5 days of tamiflu and levquin. Denies neck/back pain, head trauma, CP, LOC, AMC, [place], changes in vision Allergies: Coded Allergies: No Known Allergies (Unverified , 07/04/17) Medication History Scheduled Amlodipine Besylate* (Amlodipine Besylate*), 2.5 MG ORAL DAILY, (Reported) Aspirin* (Aspir 81*), 81 MG ORAL DAILY, (Reported) Atorvastatin Calcium* (Atorvastatin Calcium*), 40 MG ORAL BEDTIME, (Reported) Bimatoprost (Lumigan), 1 DROP BOTH EYES DAILY, (Reported) Dulaglutide (Trulicity), 1.5 MG SQ ONCE A WEEK, (Reported) Furosemide* (Lasix*), 20 MG ORAL 3XW, (Reported) Glipizide (Glipizide Er), 2.5 MG PO DAILY, (Reported) Tamsulosin Hcl (Tamsulosin Hcl*), 0.4 MG ORAL BEDTIME, (Reported) Miscellaneous Medications Alpha Lipoic Acid (Alpha Lipoic Acid), Unknown Dose MC, (Reported) Brinzolamide/Brimonid Tart (Simbrinza 1%-0.2% Eye Drops), Unknown Dose OP, ( Reported) Paricalcitol (Paricalcitol), 1 MCG PO, (Reported) Patient History Healthcare decision maker Resuscitation status Full Code Advanced Directive on File Yes Patient History Narrative PMhx: as above Shx: He is . Denies smoking or drinking alcohol. pt recently lost his son Fhx: non contributory Review of Systems ROS Narrative As per HPI, otherwise negative Physical Exam Physical Exam Narrative GENERAL: The patient is a well-developed and well-nourished white male, in no apparent distress. HEENT: Eyes, pupils are equal and responsive to light and accommodation. Extraocular movements are intact. NECK: Supple without lymphadenopathy. CHEST: Lungs are clear to auscultation bilaterally without wheezes or rales. CARDIOVASCULAR: Regular rhythm and rate. S1 and S2 are normal without murmurs, rubs, or gallops. ABDOMEN: Soft, nontender, and nondistended. Positive bowel sounds. No evidence of hepatosplenomegaly. Currently, no rebound or guarding noted. EXTREMITIES: Negative for clubbing, cyanosis, or edema. RECTAL/GENITAL: Refused. NEUROLOGIC: Cranial nerves II through XII are grossly intact without focal deficits. Motor strength is 5/5 bilaterally. Deep tendon reflexes are 2+ plantar. Last 24 Hour Vital Signs Date Time Temp Pulse Resp B/P (MAP) Pulse Ox O2 Delivery O2 Flow Rate FiO2 07/08/17 11:31 75 24 96 Bi-pap 55 07/08/17 11:21 72 22 96 Bi-pap 55 07/08/17 10:59 74 22 99 Full Face 55 07/08/17 09:05 85 28 99 Full Face 65 07/08/17 08:00 97.9 116 24 135/70 100 07/08/17 07:16 81 23 99 Bi-pap 65 07/08/17 07:10 80 23 99 Full Face 65 07/08/17 07:06 80 23 99 Bi-pap 65 07/08/17 07:06 99 Bi-pap 65 07/08/17 07:06 Bi-pap 65 07/08/17 05:07 78 18 97 Full Face 65 07/08/17 04:00 79 07/08/17 04:00 97.3 63 18 110/57 96 07/08/17 03:05 76 18 99 Bi-pap 65 07/08/17 02:58 73 18 98 Bi-pap 65 07/08/17 02:56 72 18 98 Full Face 65 07/08/17 01:11 56 16 96 Full Face 65 07/08/17 00:37 97.2 69 20 115/60 97 07/08/17 00:00 82 07/07/17 23:42 58 17 97 Bi-pap 65 07/07/17 23:34 58 16 97 Full Face 65 07/07/17 23:29 58 27 97 Bi-pap 65 07/07/17 20:35 78 17 97 Full Face 65 07/07/17 20:33 72 17 97 Bi-pap 65 07/07/17 20:21 Bi-pap 65 07/07/17 20:21 97 Bi-pap 65 07/07/17 20:21 72 17 97 Bi-pap 65 07/07/17 20:00 97.0 74 20 111/56 98 07/07/17 19:07 76 17 99 Full Face 65 07/07/17 17:29 77 18 99 Bi-pap 100 07/07/17 17:17 99 16 91 Bi-pap 100 07/07/17 17:03 75 19 99 Full Face 100 07/07/17 15:55 74 07/07/17 15:30 98.8 91 20 120/56 98 Non-Rebreather 13.0 07/07/17 12:30 98.1 56 18 85/51 98 Non-Rebreather 15.0 Intake and Output 07/07/17 07/08/17 19:00 07:00 Intake Total 750 ml 275.000 ml Output Total 900 ml 450 ml Balance -150 ml -175.000 ml Intake Oral 120 ml IV Total 630 ml 275.000 ml Output Urine Total 900 ml 450 ml # Voids 1 # Bowel Movements 2 Laboratory Tests Test 07/07/17 14:55 07/07/17 15:03 07/07/17 18:03 07/08/17 03:52 Sodium Level 139 MMOL/L (136-145) 137 MMOL/L (136-145) Potassium Level 5.7 MMOL/L (3.5-5.1) H 5.9 MMOL/L (3.5-5.1) H Chloride Level 107 MMOL/L (98-107) 106 MMOL/L (98-107) Carbon Dioxide Level 27 MMOL/L (21-32) 23 MMOL/L (21-32) Anion Gap 5 mmol/L (5-15) 8 mmol/L (5-15) Blood Urea Nitrogen 58 mg/dL (7-18) H 61 mg/dL (7-18) H Creatinine 3.5 MG/DL (0.55-1.30) H 3.7 MG/DL (0.55-1.30) H Estimat Glomerular Filtration Rate mL/min (>60) mL/min (>60) Glucose Level 184 MG/DL (74-106) H 121 MG/DL (74-106) H Calcium Level 6.2 MG/DL (8.5-10.1) L 6.5 MG/DL (8.5-10.1) L Arterial Blood pH 7.130 (7.350-7.450) 7.160 (7.350-7.450) Arterial Blood Partial Pressure CO2 71.8 mmHg (35.0-45.0) *H 67.6 mmHg (35.0-45.0) *H Arterial Blood Partial Pressure O2 84.3 mmHg (75.0-100.0) 153.1 mmHg (75.0-100.0) H Arterial Blood HCO3 23.6 mmol/L (22.0-26.0) 23.9 mmol/L (22.0-26.0) Arterial Blood Oxygen Saturation 95.6 % (92.0-98.0) 98.3 % (92.0-98.0) H Arterial Blood Base Excess -6.1 -5.2 Magdaleno Test Positive Positive White Blood Count 7.7 K/UL (4.8-10.8) Red Blood Count 2.83 M/UL (4.70-6.10) L Hemoglobin 9.4 G/DL (14.2-18.0) L Hematocrit 29.9 % (42.0-52.0) L Mean Corpuscular Volume 106 FL (80-99) H Mean Corpuscular Hemoglobin 33.1 PG (27.0-31.0) H Mean Corpuscular Hemoglobin Concent 31.3 G/DL (32.0-36.0) L Red Cell Distribution Width 14.2 % (11.6-14.8) Platelet Count 134 K/UL (150-450) L Mean Platelet Volume 8.6 FL (6.5-10.1) Neutrophils (%) (Auto) % (45.0-75.0) Lymphocytes (%) (Auto) % (20.0-45.0) Monocytes (%) (Auto) % (1.0-10.0) Eosinophils (%) (Auto) % (0.0-3.0) Basophils (%) (Auto) % (0.0-2.0) Uric Acid 4.7 MG/DL (2.6-7.2) Phosphorus Level 4.4 MG/DL (2.5-4.9) Magnesium Level 2.9 MG/DL (1.8-2.4) H Total Bilirubin 0.3 MG/DL (0.2-1.0) Gamma Glutamyl Transpeptidase 12 U/L (5-85) Aspartate Amino Transf (AST/SGOT) 18 U/L (15-37) Alanine Aminotransferase (ALT/SGPT) 25 U/L (12-78) Alkaline Phosphatase 53 U/L (46-116) Troponin I 0.005 ng/mL (0.000-0.056) C-Reactive Protein, Quantitative 22.4 mg/dL (0.00-0.90) H Pro-B-Type Natriuretic Peptide 1985 pg/mL (0-125) H Total Protein 5.6 G/DL (6.4-8.2) L Albumin 2.3 G/DL (3.4-5.0) L Globulin 3.3 g/dL Albumin/Globulin Ratio 0.7 (1.0-2.7) L Random Vancomycin Level 9.5 ug/mL Test 07/08/17 08:00 Arterial Blood pH 7.180 (7.350-7.450) Arterial Blood Partial Pressure CO2 60.5 mmHg (35.0-45.0) *H Arterial Blood Partial Pressure O2 114.5 mmHg (75.0-100.0) H Arterial Blood HCO3 22.3 mmol/L (22.0-26.0) Arterial Blood Oxygen Saturation 97.5 % (92.0-98.0) Arterial Blood Base Excess -6.1 Magdaleno Test Positive Height (Feet): 5 Height (Inches): 10.00 Weight (Pounds): 170 Medications Current Medications Medications (Trade) Dose Ordered Sig/Nito Route PRN Reason Start Time Stop Time Status Last Admin Dose Admin Acetaminophen (Tylenol) 650 mg Q6H PRN ORAL Mild Pain/Temp > 100.4 07/07/17 20:15 08/04/17 08:14 Acetaminophen/ Hydrocodone Bitart (Marquette 10) 1 ea Q4H PRN ORAL For Moderate to Severe Pain 07/07/17 18:45 07/13/17 14:44 Albuterol/ Ipratropium (Albuterol/ Ipratropium) 3 ml Q4HRT HHN 07/07/17 19:00 07/12/17 14:59 07/08/17 11:20 Allopurinol (Allopurinol) 300 mg DAILY ORAL 07/08/17 09:00 08/07/17 08:59 07/08/17 09:05 Aspirin (ASA) 81 mg DAILY ORAL 07/08/17 09:00 08/04/17 08:59 07/08/17 09:05 Atorvastatin Calcium (Lipitor) 40 mg BEDTIME ORAL 07/07/17 21:00 08/06/17 20:59 07/07/17 21:38 Azithromycin 500 mg/Dextrose 275 ml @ 275 mls/hr DAILY@1600 IV 07/07/17 18:00 07/14/17 17:59 07/07/17 17:34 Ceftriaxone Sodium 1 gm/ Dextrose 55 ml @ 110 mls/hr Q24H IVPB 07/08/17 10:00 07/12/17 09:59 07/08/17 09:44 Dextrose (Dextrose 50%) STAT PRN IV Hypoglycemia 07/08/17 08:15 08/04/17 08:14 Dorzolamide/ Timolol (Cosopt) 1 drop TWICE A DAY BOTH EYES 07/07/17 18:00 08/06/17 17:59 07/08/17 09:06 Glipizide (GlipiZIDE XL) 2.5 mg ACBREAKFAST ORAL 07/08/17 06:30 08/07/17 06:29 07/08/17 07:48 Guaifenesin (Robitussin) 100 mg Q6H PRN ORAL For Cough 07/07/17 16:30 08/03/17 22:29 Heparin Sodium (Porcine) (Heparin 5000 units/ml) 5,000 units EVERY 12 HOURS SUBQ 07/07/17 21:00 08/04/17 08:59 Hydralazine HCl (Apresoline) 25 mg Q4H PRN ORAL SBP > 160 mm Hg 07/07/17 16:45 08/04/17 08:14 Insulin Aspart (NovoLOG) BEFORE MEALS AND HS SUBQ 07/07/17 16:30 08/04/17 11:29 07/07/17 17:00 Latanoprost (Xalatan) 1 drop BEDTIME BOTH EYES 07/07/17 21:00 08/06/17 20:59 07/07/17 21:00 Levofloxacin 50 ml @ 50 mls/hr Q48H IVPB 07/09/17 14:30 07/16/17 14:29 Ondansetron HCl (Zofran) 4 mg Q4H PRN IVP nausea 07/07/17 17:00 08/04/17 00:59 Tamsulosin HCl (Flomax) 0.4 mg BID ORAL 07/07/17 18:00 08/04/17 12:59 07/08/17 09:05 Vancomycin HCl (Vanco rx to dose) 1 ea DAILY PRN MISC Per rx protocol 07/07/17 17:15 08/06/17 17:14 Assessment/Plan Assessment/Plan Abx: IV Vanco 07/07- Ceftriaxone 07/05- LEvofloxacin 07/07- Azithromycin 07/06- Tamiflu 07/04-07/08 Assessment: Post influenza PNA- r/o S. aureus, H. flu -CXR 07/08: . There is interval worsening of aeration at the right base with increasing patchy airspace opacities. Persistent left basilar atelectasis/ consolidation. Acute hypercapneic resp failure on Bipap Mild leukopenia- resolved Afebrile PHILIP on ?CKD Fall with R knee pain -Xray R knee: No acute fracture. 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 HTN, DM2, CKD, HLD, BPH Plan: -Continue IV Vanco #2, Ceftriaxone #4, Azithromcyin #3 pending sputum cx -Continue to monitor - if worsening, will switch ceftriaxone to Zosyn -1/2 SP Tamiflu #5 -D/C Levaquin #2 -f/u cx -Monitor CBC/BMP, temperatures Thank you for this consultation. Will continue to follow along with you. Discussed with Lorelei Sanabria M.D. Jul 08, 2017 12:26
--- NOTE | 2017-07-08 12:36 | Cardiac Electrophysiology PN ---
Assessment/Plan Assessment/Plan 1. Shortness of breath. Ruled out for myocardial infarction. Likely due to volume overload . Echocardiogram showed EF 60%. On BiPAP on current settings to 17/5. Titrate his O2 for saturations greater than 92%. Repeat blood gas in AM.The patient may require intubation. 2. Hypertension Now OFF BP meds. 3. Renal failure. Further evaluation by Dr. Pederson. 4. Recent influenza A. CLAYTON RN Subjective Subjective On TAYLA. No chest pain. SOB better. at bedside. Objective Last 24 Hour Vital Signs Date Time Temp Pulse Resp B/P (MAP) Pulse Ox O2 Delivery O2 Flow Rate FiO2 07/08/17 11:31 75 24 96 Bi-pap 55 07/08/17 11:21 72 22 96 Bi-pap 55 07/08/17 10:59 74 22 99 Full Face 55 07/08/17 09:05 85 28 99 Full Face 65 07/08/17 08:00 97.9 116 24 135/70 100 07/08/17 07:16 81 23 99 Bi-pap 65 07/08/17 07:10 80 23 99 Full Face 65 07/08/17 07:06 80 23 99 Bi-pap 65 07/08/17 07:06 99 Bi-pap 65 07/08/17 07:06 Bi-pap 65 07/08/17 05:07 78 18 97 Full Face 65 07/08/17 04:00 79 07/08/17 04:00 97.3 63 18 110/57 96 07/08/17 03:05 76 18 99 Bi-pap 65 07/08/17 02:58 73 18 98 Bi-pap 65 07/08/17 02:56 72 18 98 Full Face 65 07/08/17 01:11 56 16 96 Full Face 65 07/08/17 00:37 97.2 69 20 115/60 97 07/08/17 00:00 82 07/07/17 23:42 58 17 97 Bi-pap 65 07/07/17 23:34 58 16 97 Full Face 65 07/07/17 23:29 58 27 97 Bi-pap 65 07/07/17 20:35 78 17 97 Full Face 65 07/07/17 20:33 72 17 97 Bi-pap 65 07/07/17 20:21 Bi-pap 65 07/07/17 20:21 97 Bi-pap 65 07/07/17 20:21 72 17 97 Bi-pap 65 07/07/17 20:00 97.0 74 20 111/56 98 07/07/17 19:07 76 17 99 Full Face 65 07/07/17 17:29 77 18 99 Bi-pap 100 07/07/17 17:17 99 16 91 Bi-pap 100 07/07/17 17:03 75 19 99 Full Face 100 07/07/17 15:55 74 07/07/17 15:30 98.8 91 20 120/56 98 Non-Rebreather 13.0 07/07/17 12:30 98.1 56 18 85/51 98 Non-Rebreather 15.0 Intake and Output 07/07/17 07/08/17 19:00 07:00 Intake Total 750 ml 275.000 ml Output Total 900 ml 450 ml Balance -150 ml -175.000 ml Intake Oral 120 ml IV Total 630 ml 275.000 ml Output Urine Total 900 ml 450 ml # Voids 1 # Bowel Movements 2 Laboratory Tests Test 07/07/17 14:55 07/07/17 15:03 07/07/17 18:03 07/08/17 03:52 Sodium Level 139 MMOL/L (136-145) 137 MMOL/L (136-145) Potassium Level 5.7 MMOL/L (3.5-5.1) H 5.9 MMOL/L (3.5-5.1) H Chloride Level 107 MMOL/L (98-107) 106 MMOL/L (98-107) Carbon Dioxide Level 27 MMOL/L (21-32) 23 MMOL/L (21-32) Anion Gap 5 mmol/L (5-15) 8 mmol/L (5-15) Blood Urea Nitrogen 58 mg/dL (7-18) H 61 mg/dL (7-18) H Creatinine 3.5 MG/DL (0.55-1.30) H 3.7 MG/DL (0.55-1.30) H Estimat Glomerular Filtration Rate mL/min (>60) mL/min (>60) Glucose Level 184 MG/DL (74-106) H 121 MG/DL (74-106) H Calcium Level 6.2 MG/DL (8.5-10.1) L 6.5 MG/DL (8.5-10.1) L Arterial Blood pH 7.130 (7.350-7.450) 7.160 (7.350-7.450) Arterial Blood Partial Pressure CO2 71.8 mmHg (35.0-45.0) *H 67.6 mmHg (35.0-45.0) *H Arterial Blood Partial Pressure O2 84.3 mmHg (75.0-100.0) 153.1 mmHg (75.0-100.0) H Arterial Blood HCO3 23.6 mmol/L (22.0-26.0) 23.9 mmol/L (22.0-26.0) Arterial Blood Oxygen Saturation 95.6 % (92.0-98.0) 98.3 % (92.0-98.0) H Arterial Blood Base Excess -6.1 -5.2 Magdaleno Test Positive Positive White Blood Count 7.7 K/UL (4.8-10.8) Red Blood Count 2.83 M/UL (4.70-6.10) L Hemoglobin 9.4 G/DL (14.2-18.0) L Hematocrit 29.9 % (42.0-52.0) L Mean Corpuscular Volume 106 FL (80-99) H Mean Corpuscular Hemoglobin 33.1 PG (27.0-31.0) H Mean Corpuscular Hemoglobin Concent 31.3 G/DL (32.0-36.0) L Red Cell Distribution Width 14.2 % (11.6-14.8) Platelet Count 134 K/UL (150-450) L Mean Platelet Volume 8.6 FL (6.5-10.1) Neutrophils (%) (Auto) % (45.0-75.0) Lymphocytes (%) (Auto) % (20.0-45.0) Monocytes (%) (Auto) % (1.0-10.0) Eosinophils (%) (Auto) % (0.0-3.0) Basophils (%) (Auto) % (0.0-2.0) Uric Acid 4.7 MG/DL (2.6-7.2) Phosphorus Level 4.4 MG/DL (2.5-4.9) Magnesium Level 2.9 MG/DL (1.8-2.4) H Total Bilirubin 0.3 MG/DL (0.2-1.0) Gamma Glutamyl Transpeptidase 12 U/L (5-85) Aspartate Amino Transf (AST/SGOT) 18 U/L (15-37) Alanine Aminotransferase (ALT/SGPT) 25 U/L (12-78) Alkaline Phosphatase 53 U/L (46-116) Troponin I 0.005 ng/mL (0.000-0.056) C-Reactive Protein, Quantitative 22.4 mg/dL (0.00-0.90) H Pro-B-Type Natriuretic Peptide 1985 pg/mL (0-125) H Total Protein 5.6 G/DL (6.4-8.2) L Albumin 2.3 G/DL (3.4-5.0) L Globulin 3.3 g/dL Albumin/Globulin Ratio 0.7 (1.0-2.7) L Random Vancomycin Level 9.5 ug/mL Test 07/08/17 08:00 Arterial Blood pH 7.180 (7.350-7.450) Arterial Blood Partial Pressure CO2 60.5 mmHg (35.0-45.0) *H Arterial Blood Partial Pressure O2 114.5 mmHg (75.0-100.0) H Arterial Blood HCO3 22.3 mmol/L (22.0-26.0) Arterial Blood Oxygen Saturation 97.5 % (92.0-98.0) Arterial Blood Base Excess -6.1 Magdaleno Test Positive Objective HEAD AND NECK: Shows no JVD. LUNGS: Decreased breath sounds. CARDIOVASCULAR: Shows regular S1 and S2 with no gallop or murmur. ABDOMEN: Soft. EXTREMITIES: There is no pitting edema. ADRIENNE LAWTON Jul 08, 2017 12:36
[2017-07-08 16:00] VITALS: BP 122/57
[2017-07-08] MEDS: Azithromycin 500 MG in D5W 275 ML IV SCH (16:05)
--- NOTE | 2017-07-08 16:54 | Cardiology Report ---
APPROVED REPORT EXAM: Two-dimensional and M-mode echocardiogram with Doppler and color Doppler. INDICATION Congestive Heart Failure M-Mode DIMENSIONS IVSd2.4 (0.7-1.1cm)Left Atrium (MM)4.3 (1.6-4.0cm) LVDd4.3 (3.5-5.6cm)Aortic Root4.3 (2.0-3.7cm) PWd1.5 (0.7-1.1cm)Aortic Cusp Exc.1.9 (1.5-2.0cm) IVSs3.1 cm LVDs2.7 (2.5-4.0cm) PWs1.5 cm Normal left ventricular chamber size, systolic function and wall motion . Left ventricular ejection fraction estimated to be 60-65 %. Moderate left ventricular hypertrophy by 2-D. No evidence of pericardial effusion All other cardiac chamber sizes are within normal limits. Thickened mitral valve leaflets with normal excursion. Mitral annulus and aortic root calcification. Normal pulmonic valve structure. Normal tricuspid valve structure. IVC at normal size with physiologic collapse. A color flow and spectral Doppler study was performed and revealed: No aortic insufficiency. Mild mitral regurgitation. Mitral diastolic velocities suggest reduced left ventricular relaxation c/w mild LV diastolic dysfunction (Grade I ). Mild tricuspid regurgitation. Tricuspid systolic velocities suggests peak right ventricular systolic pressure of 60 mmHg,consistent with severe pulmonary hypertension. No Pulmonic regurgitation present.
--- NOTE | 2017-07-08 17:07 | Cardiology Report ---
APPROVED REPORT EKG Measurement Heart [id number] FL [id number] Normal sinus rhythm Left anterior fascicular block Left ventricular hypertrophy with QRS widening Abnormal ECG
--- NOTE | 2017-07-08 17:16 | Internal Med Progress Note ---
Subjective Date of Service: Jul 08, 2017 Physician Name Kayleen Garcia Attending Physician Kofi Mitchell MD Current Medications Medications (Trade) Dose Ordered Sig/Nito Route PRN Reason Start Time Stop Time Status Last Admin Dose Admin Acetaminophen (Tylenol) 650 mg Q6H PRN ORAL Mild Pain/Temp > 100.4 07/07/17 20:15 08/04/17 08:14 Acetaminophen/ Hydrocodone Bitart ([place] 10/325) 1 ea Q4H PRN ORAL For Moderate to Severe Pain 07/07/17 18:45 07/13/17 14:44 Albuterol/ Ipratropium (Albuterol/ Ipratropium) 3 ml Q4HRT HHN 07/07/17 19:00 07/12/17 14:59 07/08/17 15:20 Allopurinol (Allopurinol) 300 mg DAILY ORAL 07/08/17 09:00 08/07/17 08:59 07/08/17 09:05 Aspirin (ASA) 81 mg DAILY ORAL 07/08/17 09:00 08/04/17 08:59 07/08/17 09:05 Atorvastatin Calcium (Lipitor) 40 mg BEDTIME ORAL 07/07/17 21:00 08/06/17 20:59 07/07/17 21:38 Azithromycin 500 mg/Dextrose 275 ml @ 275 mls/hr DAILY@1600 IV 07/07/17 18:00 07/14/17 17:59 07/08/17 16:05 Ceftriaxone Sodium 1 gm/ Dextrose 55 ml @ 110 mls/hr Q24H IVPB 07/08/17 10:00 07/12/17 09:59 07/08/17 09:44 Dextrose (Dextrose 50%) STAT PRN IV Hypoglycemia 07/08/17 08:15 08/04/17 08:14 Dorzolamide/ Timolol (Cosopt) 1 drop TWICE A DAY BOTH EYES 07/07/17 18:00 08/06/17 17:59 07/08/17 09:06 Glipizide (GlipiZIDE XL) 2.5 mg ACBREAKFAST ORAL 07/08/17 06:30 08/07/17 06:29 07/08/17 07:48 Guaifenesin (Robitussin) 100 mg Q6H PRN ORAL For Cough 07/07/17 16:30 08/03/17 22:29 Heparin Sodium (Porcine) (Heparin 5000 units/ml) 5,000 units EVERY 12 HOURS SUBQ 07/07/17 21:00 08/04/17 08:59 Hydralazine HCl (Apresoline) 25 mg Q4H PRN ORAL SBP > 160 mm Hg 07/07/17 16:45 08/04/17 08:14 Insulin Aspart (NovoLOG) BEFORE MEALS AND HS SUBQ 07/07/17 16:30 08/04/17 11:29 07/07/17 17:00 Latanoprost (Xalatan) 1 drop BEDTIME BOTH EYES 07/07/17 21:00 08/06/17 20:59 07/07/17 21:00 Ondansetron HCl (Zofran) 4 mg Q4H PRN IVP nausea 07/07/17 17:00 08/04/17 00:59 Tamsulosin HCl (Flomax) 0.4 mg BID ORAL 07/07/17 18:00 08/04/17 12:59 07/08/17 09:05 Vancomycin HCl (Vanco rx to dose) 1 ea DAILY PRN MISC Per rx protocol 07/07/17 17:15 08/06/17 17:14 Allergies: Coded Allergies: No Known Allergies (Unverified , 07/04/17) ROS Limited/Unobtainable: No Constitutional: Reports: no symptoms HEENT: Reports: no symptoms Cardiovascular: Reports: no symptoms Respiratory: Reports: shortness of breath Gastrointestinal/Abdominal: Reports: no symptoms Genitourinary: Reports: no symptoms Neurologic/Psychiatric: Reports: no symptoms Subjective 81 YO M admitted with cough. Now renal failure. Worsening respiratory distress yesterday; currently on BIPAP. More alert today. Cover for Int Bladimir-Dr Mitchell. Objective Last Vital Signs Date Time Temp Pulse Resp B/P (MAP) Pulse Ox O2 Delivery O2 Flow Rate FiO2 07/08/17 16:58 65 17 99 Full Face 55 07/08/17 16:00 98.6 122/57 07/07/17 15:30 13.0 General Appearance: WD/WN, no apparent distress, alert, moderate distress EENT: PERRL/EOMI, normal ENT inspection, TMs normal Neck: non-tender, normal alignment, supple, normal inspection Cardiovascular: normal peripheral pulses, normal rate, regular rhythm, no gallop/murmur, no JVD Respiratory/Chest: chest wall non-tender, decreased breath sounds, crackles/ rales, rhonchi - bilaterally, expiratory wheezing Abdomen: normal bowel sounds, non tender, soft, no organomegaly, no mass Extremities: normal range of motion, non-tender 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, no motor/sensory deficits Skin: normal pigmentation, warm/dry Laboratory Tests Test 07/07/17 18:03 07/08/17 03:52 07/08/17 08:00 Arterial Blood pH 7.160 (7.350-7.450) 7.180 (7.350-7.450) Arterial Blood Partial Pressure CO2 67.6 mmHg (35.0-45.0) *H 60.5 mmHg (35.0-45.0) *H Arterial Blood Partial Pressure O2 153.1 mmHg (75.0-100.0) H 114.5 mmHg (75.0-100.0) H Arterial Blood HCO3 23.9 mmol/L (22.0-26.0) 22.3 mmol/L (22.0-26.0) Arterial Blood Oxygen Saturation 98.3 % (92.0-98.0) H 97.5 % (92.0-98.0) Arterial Blood Base Excess -5.2 -6.1 Magdaleno Test Positive Positive White Blood Count 7.7 K/UL (4.8-10.8) Red Blood Count 2.83 M/UL (4.70-6.10) L Hemoglobin 9.4 G/DL (14.2-18.0) L Hematocrit 29.9 % (42.0-52.0) L Mean Corpuscular Volume 106 FL (80-99) H Mean Corpuscular Hemoglobin 33.1 PG (27.0-31.0) H Mean Corpuscular Hemoglobin Concent 31.3 G/DL (32.0-36.0) L Red Cell Distribution Width 14.2 % (11.6-14.8) Platelet Count 134 K/UL (150-450) L Mean Platelet Volume 8.6 FL (6.5-10.1) Neutrophils (%) (Auto) % (45.0-75.0) Lymphocytes (%) (Auto) % (20.0-45.0) Monocytes (%) (Auto) % (1.0-10.0) Eosinophils (%) (Auto) % (0.0-3.0) Basophils (%) (Auto) % (0.0-2.0) Sodium Level 137 MMOL/L (136-145) Potassium Level 5.9 MMOL/L (3.5-5.1) H Chloride Level 106 MMOL/L (98-107) Carbon Dioxide Level 23 MMOL/L (21-32) Anion Gap 8 mmol/L (5-15) Blood Urea Nitrogen 61 mg/dL (7-18) H Creatinine 3.7 MG/DL (0.55-1.30) H Estimat Glomerular Filtration Rate mL/min (>60) Glucose Level 121 MG/DL (74-106) H Uric Acid 4.7 MG/DL (2.6-7.2) Calcium Level 6.5 MG/DL (8.5-10.1) L Phosphorus Level 4.4 MG/DL (2.5-4.9) Magnesium Level 2.9 MG/DL (1.8-2.4) H Total Bilirubin 0.3 MG/DL (0.2-1.0) Gamma Glutamyl Transpeptidase 12 U/L (5-85) Aspartate Amino Transf (AST/SGOT) 18 U/L (15-37) Alanine Aminotransferase (ALT/SGPT) 25 U/L (12-78) Alkaline Phosphatase 53 U/L (46-116) Troponin I 0.005 ng/mL (0.000-0.056) C-Reactive Protein, Quantitative 22.4 mg/dL (0.00-0.90) H Pro-B-Type Natriuretic Peptide 1985 pg/mL (0-125) H Total Protein 5.6 G/DL (6.4-8.2) L Albumin 2.3 G/DL (3.4-5.0) L Globulin 3.3 g/dL Albumin/Globulin Ratio 0.7 (1.0-2.7) L Random Vancomycin Level 9.5 ug/mL Intake and Output 07/07/17 07/08/17 19:00 07:00 Intake Total 750 ml 275.000 ml Output Total 900 ml 450 ml Balance -150 ml -175.000 ml Intake Oral 120 ml IV Total 630 ml 275.000 ml Output Urine Total 900 ml 450 ml # Voids 1 # Bowel Movements 2 Assessment/Plan Problem List: (1) Knee pain, right Assessment & Plan: C/O pain. D/C tylenol #3; start [place] 10/ (2) HTN (hypertension) Assessment & Plan: Continue hydralazine and norvasc. (3) Diabetes mellitus, type II Assessment & Plan: continue novolog sliding scale. (4) Hypercholesteremia Assessment & Plan: Continue lipitor. (5) Glaucoma (6) BPH (benign prostatic hyperplasia) Assessment & Plan: Continue flomax. (7) Osteoarthritis of right knee (8) Renal failure Assessment & Plan: See nephrology note. (9) Upper respiratory infection (10) Pneumonia Assessment & Plan: Continue ceftriaxone, vanco and azithro per ID. D/C levaquin IV. See ID and Pulmonary consult. (11) CHF (congestive heart failure) Assessment & Plan: Await echocardiogram and cardiology consult. (12) Respiratory failure Assessment & Plan: BIPAP with full face mask. See Pulmonary consult. IV lasix for CHF D/C levaquin; continue ceftriaxone, vanco and . Status: not improved Assessment/Plan D/W son in law, KAYLEEN Kam Jul 08, 2017 17:16
[2017-07-08 19:39] LABS: ANION GAP 7 mmol/L (5-15); BLOOD UREA NITROGEN 65 mg/dL (7-18); CALCIUM 6.3 MG/DL (8.5-10.1); CARBON DIOXIDE 26 MMOL/L (21-32); CHLORIDE 107 MMOL/L (98-107); CREATININE 3.8 MG/DL (0.55-1.30); POTASSIUM 5.5 MMOL/L (3.5-5.1); SODIUM 139 MMOL/L (136-145)
[2017-07-08 20:00] VITALS: BP 113/54
[2017-07-08] MEDS: Atorvastatin 20mg tab ORAL SCH (20:01)
[2017-07-08] MEDS: HYDROcodone/Acetamin 10/325 tab ORAL PRN (20:02)
[2017-07-08] MEDS: Latanoprost 0.005% Opth 2.5ml Soln BOTH EYES SCH (20:08)
[2017-07-08] MEDS ORDERED: NS 500ML ONE (22:29)
[2017-07-09] VITALS: BP 117/58
[2017-07-09] MEDS: HYDROcodone/Acetamin 10/325 tab ORAL PRN ×3 (00:23→19:43)
[2017-07-09] MEDS: Albuterol/Ipratropium 3ml neb HHN SCH ×6 (03:13→23:00)
[2017-07-09 04:00] VITALS: BP 120/57
[2017-07-09] MEDS: NovoLOG Insulin Flexpen SUBQ SCH ×4 (05:41→19:48)
[2017-07-09 05:55] LABS: BASOPHILS % (AUTO) 0.5 % (0.0-2.0); EOSINOPHILS % (AUTO) 1.7 % (0.0-3.0); HEMATOCRIT 27.9 % (42.0-52.0); HEMOGLOBIN 8.7 G/DL (14.2-18.0); LYMPHOCYTES % (AUTO) 10.3 % (20.0-45.0); MEAN CORPUSCULAR VOLUME 106 FL (80-99); MONOCYTES % (AUTO) 14.9 % (1.0-10.0); NEUTROPHILS % (AUTO) 72.6 % (45.0-75.0); PLATELET COUNT 155 K/UL (150-450); RED BLOOD COUNT 2.65 M/UL (4.70-6.10); RED CELL DISTRIBUTION WIDTH 13.9 % (11.6-14.8); WHITE BLOOD COUNT 4.8 K/UL (4.8-10.8)
[2017-07-09 06:19] LABS: ALANINE AMINOTRANSFERASE 21 U/L (12-78); ALBUMIN 2.1 G/DL (3.4-5.0); ALBUMIN/GLOBULIN RATIO 0.6 (1.0-2.7); ALKALINE PHOSPHATASE 53 U/L (46-116); ANION GAP 6 mmol/L (5-15); ASPARTATE AMINO TRANSFERASE 20 U/L (15-37); BILIRUBIN,TOTAL 0.3 MG/DL (0.2-1.0); BLOOD UREA NITROGEN 62 mg/dL (7-18); CALCIUM 6.4 MG/DL (8.5-10.1); CARBON DIOXIDE 27 MMOL/L (21-32); CHLORIDE 107 MMOL/L (98-107); CREATININE 3.9 MG/DL (0.55-1.30); PHOSPHORUS 4.1 MG/DL (2.5-4.9); POTASSIUM 4.5 MMOL/L (3.5-5.1); SODIUM 140 MMOL/L (136-145)
[2017-07-09 08:00] VITALS: BP 130/58
--- NOTE | 2017-07-09 08:26 | Diagnostic Imaging Report ---
Indication: Acute renal failure Technique: Grayscale and duplex images of the kidneys, retroperitoneum, and bladder were obtained. Comparison: none Findings: Right kidney measures 12 cm in length. Left kidney measures 10.4 cm in length. Both kidneys demonstrate increased echogenicity. No hydronephrosis. Multiple cysts are seen in the right kidney measuring up to 4 cm long axis dimension.. Normal inferior vena cava. Bladder is somewhat distended, equivocally slightly trabeculated. Impression: Negative right hydronephrosis Echogenic bilateral kidneys, suspect chronic medical renal disease Distended and possibly trabeculated bladder, chronic bladder outlet obstruction not excludable.
[2017-07-09] MEDS: Tamsulosin 0.4mg cap ORAL SCH ×2 (09:01→17:45)
[2017-07-09] MEDS: Cosopt Opth Soln 10 mL Btl BOTH EYES SCH ×2 (09:02→17:45)
[2017-07-09] MEDS: Aspirin Baby 81mg ORAL SCH (09:02)
[2017-07-09] MEDS: Heparin 5000 units/ml inj SUBQ SCH ×2 (09:03→19:47)
[2017-07-09] MEDS: cefTRIAXone 1 GM in D5W 55 ML IVPB SCH (09:44)
--- NOTE | 2017-07-09 10:43 | Infectious Diseases Prog Note ---
Assessment/Plan Assessment/Plan Abx: IV Vanco 07/07- Ceftriaxone 07/05- LEvofloxacin 07/07-07/08 Azithromycin 07/06- Tamiflu 07/04-07/08 Assessment: Post influenza PNA- r/o S. aureus, H. flu- ?worsening PNA -CXR 07/08: . There is interval worsening of aeration at the right base with increasing patchy airspace opacities. Persistent left basilar atelectasis/ consolidation. -sp cx p Acute hypercapneic resp failure on Bipap- hypercapnea improving Mild leukopenia- resolved Afebrile PHILIP on ?CKD Fall with R knee pain -Xray R knee: No acute fracture. 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 HTN, DM2, CKD, HLD, BPH Plan: -Continue IV Vanco #3, Azithromcyin #4/5 and switch Ceftriaxone #5 to Zosyn pending sputum cx -07/08 SP Tamiflu #5 and Levaquin #2 -f/u cx -Monitor CBC/BMP, temperatures -aspiration precautions Thank you for this consultation. Will continue to follow along with you. Discussed with RN. Subjective Allergies: Coded Allergies: No Known Allergies (Unverified , 07/04/17) Subjective afebrile, no leukocytosis remains on Bipap worse CXR Objective Vital Signs Last 24 Hour Vital Signs Date Time Temp Pulse Resp B/P (MAP) Pulse Ox O2 Delivery O2 Flow Rate FiO2 07/09/17 08:51 66 25 96 Full Face 45 07/09/17 08:00 98.2 64 20 130/58 97 Bi-pap 45 07/09/17 08:00 64 07/09/17 07:43 98 45 07/09/17 07:12 66 18 97 Bi-pap 55 07/09/17 07:04 65 17 97 Bi-pap 55 07/09/17 07:03 Bi-pap 55 07/09/17 07:03 98 Bi-pap 55 07/09/17 06:58 65 17 98 Full Face 55 07/09/17 05:11 68 17 98 Full Face 55 07/09/17 04:00 63 07/09/17 04:00 97.7 64 21 120/57 99 Bi-pap 65 07/09/17 03:23 71 20 99 Bi-pap 55 07/09/17 03:14 65 16 98 Full Face 55 07/09/17 03:13 66 16 99 Bi-pap 55 07/09/17 01:25 66 17 98 Full Face 55 07/09/17 00:00 63 07/09/17 00:00 97.0 63 21 117/58 96 Bi-pap 07/08/17 23:11 73 20 99 Bi-pap 55 07/08/17 23:03 64 16 99 Bi-pap 55 07/08/17 23:02 64 16 99 Full Face 55 07/08/17 20:54 66 17 99 Full Face 55 07/08/17 20:00 97.0 60 21 113/54 98 Bi-pap 07/08/17 20:00 67 07/08/17 19:05 99 Bi-pap 55 07/08/17 19:05 70 20 99 Bi-pap 55 07/08/17 19:05 Bi-pap 65 07/08/17 18:54 68 20 99 Bi-pap 55 07/08/17 18:53 67 20 99 Full Face 55 07/08/17 16:58 65 17 99 Full Face 55 07/08/17 16:00 98.6 65 23 122/57 98 07/08/17 16:00 65 07/08/17 16:00 67 07/08/17 15:30 68 22 99 Bi-pap 55 07/08/17 15:20 67 17 99 Bi-pap 55 07/08/17 15:17 67 17 99 Full Face 55 07/08/17 13:17 76 16 96 Full Face 55 07/08/17 12:00 97.5 69 25 112/54 97 07/08/17 12:00 65 07/08/17 12:00 97.5 69 25 112/54 97 Bi-pap 07/08/17 12:00 67 07/08/17 11:31 75 24 96 Bi-pap 55 07/08/17 11:21 72 22 96 Bi-pap 55 07/08/17 10:59 74 22 99 Full Face 55 Height (Feet): 5 Height (Inches): 10.00 Weight (Pounds): 170 Objective GENERAL: The patient is a well-developed and well-nourished white male, in no apparent distress. HEENT: Eyes, pupils are equal and responsive to light and accommodation.Extraocular movements are intact. NECK: Supple without lymphadenopathy. CHEST: Lungs are clear to auscultation bilaterally without wheezes or rales. CARDIOVASCULAR: Regular rhythm and rate. S1 and S2 are normal without murmurs , rubs, or gallops. ABDOMEN: Soft, nontender, and nondistended. Positive bowel sounds. No evidence of hepatosplenomegaly. Currently, no rebound or guarding noted. EXTREMITIES: Negative for clubbing, cyanosis, or edema. NEUROLOGIC: Cranial nerves II through XII are grossly intact without focal deficits. Motor strength is 5/5 bilaterally. Deep tendon reflexes are 2+ plantar. Microbiology Date/Time Source Procedure Growth Status 07/08/17 12:30 Sputum Induced Gram Stain - Final Resulted 07/08/17 12:30 Sputum Induced Sputum Culture Pending Resulted Laboratory Tests Test 07/08/17 18:40 07/09/17 03:00 07/09/17 04:00 Sodium Level 139 MMOL/L (136-145) 140 MMOL/L (136-145) Potassium Level 5.5 MMOL/L (3.5-5.1) H 4.5 MMOL/L (3.5-5.1) Chloride Level 107 MMOL/L (98-107) 107 MMOL/L (98-107) Carbon Dioxide Level 26 MMOL/L (21-32) 27 MMOL/L (21-32) Anion Gap 7 mmol/L (5-15) 6 mmol/L (5-15) Blood Urea Nitrogen 65 mg/dL (7-18) H 62 mg/dL (7-18) H Creatinine 3.8 MG/DL (0.55-1.30) H 3.9 MG/DL (0.55-1.30) H Estimat Glomerular Filtration Rate mL/min (>60) mL/min (>60) Glucose Level 118 MG/DL (74-106) H 88 MG/DL (74-106) Calcium Level 6.3 MG/DL (8.5-10.1) L 6.4 MG/DL (8.5-10.1) L White Blood Count 4.8 K/UL (4.8-10.8) Red Blood Count 2.65 M/UL (4.70-6.10) L Hemoglobin 8.7 G/DL (14.2-18.0) L Hematocrit 27.9 % (42.0-52.0) L Mean Corpuscular Volume 106 FL (80-99) H Mean Corpuscular Hemoglobin 32.9 PG (27.0-31.0) H Mean Corpuscular Hemoglobin Concent 31.2 G/DL (32.0-36.0) L Red Cell Distribution Width 13.9 % (11.6-14.8) Platelet Count 155 K/UL (150-450) Mean Platelet Volume 7.7 FL (6.5-10.1) Neutrophils (%) (Auto) 72.6 % (45.0-75.0) Lymphocytes (%) (Auto) 10.3 % (20.0-45.0) L Monocytes (%) (Auto) 14.9 % (1.0-10.0) H Eosinophils (%) (Auto) 1.7 % (0.0-3.0) Basophils (%) (Auto) 0.5 % (0.0-2.0) Uric Acid 5.2 MG/DL (2.6-7.2) Phosphorus Level 4.1 MG/DL (2.5-4.9) Magnesium Level 2.9 MG/DL (1.8-2.4) H Total Bilirubin 0.3 MG/DL (0.2-1.0) Aspartate Amino Transf (AST/SGOT) 20 U/L (15-37) Alanine Aminotransferase (ALT/SGPT) 21 U/L (12-78) Alkaline Phosphatase 53 U/L (46-116) Troponin I 0.009 ng/mL (0.000-0.056) C-Reactive Protein, Quantitative 16.7 mg/dL (0.00-0.90) H Pro-B-Type Natriuretic Peptide 1524 pg/mL (0-125) H Total Protein 5.6 G/DL (6.4-8.2) L Albumin 2.1 G/DL (3.4-5.0) L Globulin 3.5 g/dL Albumin/Globulin Ratio 0.6 (1.0-2.7) L Arterial Blood pH 7.280 (7.350-7.450) Arterial Blood Partial Pressure CO2 53.7 mmHg (35.0-45.0) H Arterial Blood Partial Pressure O2 103.9 mmHg (75.0-100.0) H Arterial Blood HCO3 24.9 mmol/L (22.0-26.0) Arterial Blood Oxygen Saturation 97.1 % (92.0-98.0) Arterial Blood Base Excess -2.0 Magdaleno Test Positive Current Medications Medications (Trade) Dose Ordered Sig/Nito Route PRN Reason Start Time Stop Time Status Last Admin Dose Admin Acetaminophen (Tylenol) 650 mg Q6H PRN ORAL Mild Pain/Temp > 100.4 07/07/17 20:15 08/04/17 08:14 07/09/17 09:11 Acetaminophen/ Hydrocodone Bitart ([place] 10/325) 1 ea Q4H PRN ORAL For Moderate to Severe Pain 07/07/17 18:45 07/13/17 14:44 07/09/17 05:41 Albuterol/ Ipratropium (Albuterol/ Ipratropium) 3 ml Q4HRT HHN 07/07/17 19:00 07/12/17 14:59 07/09/17 07:04 Allopurinol (Allopurinol) 300 mg DAILY ORAL 07/08/17 09:00 08/07/17 08:59 07/09/17 09:01 Aspirin (ASA) 81 mg DAILY ORAL 07/08/17 09:00 08/04/17 08:59 07/09/17 09:02 Atorvastatin Calcium (Lipitor) 40 mg BEDTIME ORAL 07/07/17 21:00 08/06/17 20:59 07/08/17 20:01 Azithromycin 500 mg/Dextrose 275 ml @ 275 mls/hr DAILY@1600 IV 07/07/17 18:00 07/14/17 17:59 07/08/17 16:05 Ceftriaxone Sodium 1 gm/ Dextrose 55 ml @ 110 mls/hr Q24H IVPB 07/08/17 10:00 07/12/17 09:59 07/09/17 09:44 Dextrose (Dextrose 50%) STAT PRN IV Hypoglycemia 07/08/17 08:15 08/04/17 08:14 Dorzolamide/ Timolol (Cosopt) 1 drop TWICE A DAY BOTH EYES 07/07/17 18:00 08/06/17 17:59 07/09/17 09:02 Glipizide (GlipiZIDE XL) 2.5 mg ACBREAKFAST ORAL 07/08/17 06:30 08/07/17 06:29 07/09/17 05:41 Guaifenesin (Robitussin) 100 mg Q6H PRN ORAL For Cough 07/07/17 16:30 08/03/17 22:29 Heparin Sodium (Porcine) (Heparin 5000 units/ml) 5,000 units EVERY 12 HOURS SUBQ 07/07/17 21:00 08/04/17 08:59 07/09/17 09:03 Hydralazine HCl (Apresoline) 25 mg Q4H PRN ORAL SBP > 160 mm Hg 07/07/17 16:45 08/04/17 08:14 Insulin Aspart (NovoLOG) BEFORE MEALS AND HS SUBQ 07/07/17 16:30 08/04/17 11:29 07/07/17 17:00 Latanoprost (Xalatan) 1 drop BEDTIME BOTH EYES 07/07/17 21:00 08/06/17 20:59 07/08/17 20:08 Ondansetron HCl (Zofran) 4 mg Q4H PRN IVP nausea 07/07/17 17:00 08/04/17 00:59 Tamsulosin HCl (Flomax) 0.4 mg BID ORAL 07/07/17 18:00 08/04/17 12:59 07/09/17 09:01 Vancomycin HCl (Vanco rx to dose) 1 ea DAILY PRN MISC Per rx protocol 07/07/17 17:15 08/06/17 17:14 Lorelei Manning M.D. Jul 09, 2017 10:43
--- NOTE | 2017-07-09 11:26 | Wound Care Consultation ---
Wound Assessment Wound Assessment #1: Wound Number: 1 Wound Present on Admission: Yes New Wound: No Status Change of Wound: No Wound Location Body Site Modif: right Wound Location Body Site: knee Wound Type: scab - s/p fall scab appearing from admitted abrasion to site. Kg Test: Does not Kg Wound Thickness: Partial Thickness Wound Length: 2.0 Wound Width: 2.0 Wound Depth: 0.1 Percent of Wound [place]/Red: 50 - appearing scab Percent of Wound Black/Brown: 50 - appearing scab formaton Wound Drainage Amount: None Wound Drainage Odor: None/Absent Tissue Surrounding Wound: Erythemic Wound General Appearance: Reddened - with scab formation , dry , Open to air , Clean/Dry Wound Assessment #2: Wound Number: 2 Wound Present on Admission: Yes New Wound: No Status Change of Wound: No Wound Location Body Site Modif: left Wound Location Body Site: knee Wound Type: traumatic injury - s/p fall open wound, Kg Test: Does not Kg Wound Thickness: Partial Thickness Wound Length: 2.5 Wound Width: 2.5 Wound Depth: 0.1 Percent of Wound [place]/Red: 50 - scab appearing Percent of Wound Black/Brown: 50 - scab appearing Wound Drainage Description: Serosanguineous Wound Drainage Amount: Scant Wound Drainage Odor: None/Absent Tissue Surrounding Wound: Erythemic Wound General Appearance: Reddened - scab appearing Wound Comment Reassessment - Clarification of admitted sites. 1. left anterior knee traumatic injury s/p fall open wound - scab is appearing. dry, 2. right anterior knee traumatin injury abrasion with scab appearing dry. Recommendation -keep area clean and dry. -Optimize nutrition. -Local wound care as ordered. -turn and reposition. -Assess and notify MD for any changes to skin noted. disregard earlier [facility] notes -wrong entry . BLAYNE DE LA PAZ Jul 09, 2017 11:26
[2017-07-09 12:00] VITALS: BP 121/54
[2017-07-09] MEDS: Piperacillin/Tazobactam 3.375 GM in NS 110 ML IVPB SCH ×2 (12:14→19:45)
--- NOTE | 2017-07-09 12:40 | Internal Med Progress Note ---
Subjective Physician Name Kayleen Garcia Attending Physician Kofi Mitchell MD Current Medications Medications (Trade) Dose Ordered Sig/Nito Route PRN Reason Start Time Stop Time Status Last Admin Dose Admin Acetaminophen (Tylenol) 650 mg Q6H PRN ORAL Mild Pain/Temp > 100.4 07/07/17 20:15 08/04/17 08:14 07/09/17 09:11 Acetaminophen/ Hydrocodone Bitart ([place] 10/325) 1 ea Q4H PRN ORAL For Moderate to Severe Pain 07/07/17 18:45 07/13/17 14:44 07/09/17 05:41 Albuterol/ Ipratropium (Albuterol/ Ipratropium) 3 ml Q4HRT HHN 07/07/17 19:00 07/12/17 14:59 07/09/17 10:45 Allopurinol (Allopurinol) 300 mg DAILY ORAL 07/08/17 09:00 08/07/17 08:59 07/09/17 09:01 Aspirin (ASA) 81 mg DAILY ORAL 07/08/17 09:00 08/04/17 08:59 07/09/17 09:02 Atorvastatin Calcium (Lipitor) 40 mg BEDTIME ORAL 07/07/17 21:00 08/06/17 20:59 07/08/17 20:01 Azithromycin 500 mg/Dextrose 275 ml @ 275 mls/hr DAILY@1600 IV 07/07/17 18:00 07/14/17 17:59 07/08/17 16:05 Dextrose (Dextrose 50%) STAT PRN IV Hypoglycemia 07/08/17 08:15 08/04/17 08:14 Dorzolamide/ Timolol (Cosopt) 1 drop TWICE A DAY BOTH EYES 07/07/17 18:00 08/06/17 17:59 07/09/17 09:02 Glipizide (GlipiZIDE XL) 2.5 mg ACBREAKFAST ORAL 07/08/17 06:30 08/07/17 06:29 07/09/17 05:41 Guaifenesin (Robitussin) 100 mg Q6H PRN ORAL For Cough 07/07/17 16:30 08/03/17 22:29 Heparin Sodium (Porcine) (Heparin 5000 units/ml) 5,000 units EVERY 12 HOURS SUBQ 07/07/17 21:00 08/04/17 08:59 07/09/17 09:03 Hydralazine HCl (Apresoline) 25 mg Q4H PRN ORAL SBP > 160 mm Hg 07/07/17 16:45 08/04/17 08:14 Insulin Aspart (NovoLOG) BEFORE MEALS AND HS SUBQ 07/07/17 16:30 08/04/17 11:29 07/07/17 17:00 Latanoprost (Xalatan) 1 drop BEDTIME BOTH EYES 07/07/17 21:00 08/06/17 20:59 07/08/17 20:08 Ondansetron HCl (Zofran) 4 mg Q4H PRN IVP nausea 07/07/17 17:00 08/04/17 00:59 Piperacillin Sod/ Tazobactam Sod 3.375 gm/Sodium Chloride 110 ml @ 27.5 mls/hr EVERY 12 HOURS IVPB 07/09/17 11:30 07/16/17 11:29 07/09/17 12:14 Tamsulosin HCl (Flomax) 0.4 mg BID ORAL 07/07/17 18:00 08/04/17 12:59 07/09/17 09:01 Vancomycin HCl (Vanco rx to dose) 1 ea DAILY PRN MISC Per rx protocol 07/07/17 17:15 08/06/17 17:14 Allergies: Coded Allergies: No Known Allergies (Unverified , 07/04/17) ROS Limited/Unobtainable: No Constitutional: Reports: no symptoms HEENT: Reports: no symptoms Cardiovascular: Reports: no symptoms Respiratory: Reports: shortness of breath Gastrointestinal/Abdominal: Reports: no symptoms Genitourinary: Reports: no symptoms Neurologic/Psychiatric: Reports: no symptoms Subjective 81 YO M admitted with cough. Now renal failure. Worsening respiratory distress yesterday; currently on BIPAP. More alert today. TAYLA. Cover for Int Med-Dr Mitchell. Objective Last Vital Signs Date Time Temp Pulse Resp B/P (MAP) Pulse Ox O2 Delivery O2 Flow Rate FiO2 07/09/17 10:55 67 20 99 Bi-pap 45 07/09/17 08:00 98.2 130/58 07/07/17 15:30 13.0 Laboratory Tests Test 07/08/17 18:40 07/09/17 03:00 07/09/17 04:00 Sodium Level 139 MMOL/L (136-145) 140 MMOL/L (136-145) Potassium Level 5.5 MMOL/L (3.5-5.1) H 4.5 MMOL/L (3.5-5.1) Chloride Level 107 MMOL/L (98-107) 107 MMOL/L (98-107) Carbon Dioxide Level 26 MMOL/L (21-32) 27 MMOL/L (21-32) Anion Gap 7 mmol/L (5-15) 6 mmol/L (5-15) Blood Urea Nitrogen 65 mg/dL (7-18) H 62 mg/dL (7-18) H Creatinine 3.8 MG/DL (0.55-1.30) H 3.9 MG/DL (0.55-1.30) H Estimat Glomerular Filtration Rate mL/min (>60) mL/min (>60) Glucose Level 118 MG/DL (74-106) H 88 MG/DL (74-106) Calcium Level 6.3 MG/DL (8.5-10.1) L 6.4 MG/DL (8.5-10.1) L White Blood Count 4.8 K/UL (4.8-10.8) Red Blood Count 2.65 M/UL (4.70-6.10) L Hemoglobin 8.7 G/DL (14.2-18.0) L Hematocrit 27.9 % (42.0-52.0) L Mean Corpuscular Volume 106 FL (80-99) H Mean Corpuscular Hemoglobin 32.9 PG (27.0-31.0) H Mean Corpuscular Hemoglobin Concent 31.2 G/DL (32.0-36.0) L Red Cell Distribution Width 13.9 % (11.6-14.8) Platelet Count 155 K/UL (150-450) Mean Platelet Volume 7.7 FL (6.5-10.1) Neutrophils (%) (Auto) 72.6 % (45.0-75.0) Lymphocytes (%) (Auto) 10.3 % (20.0-45.0) L Monocytes (%) (Auto) 14.9 % (1.0-10.0) H Eosinophils (%) (Auto) 1.7 % (0.0-3.0) Basophils (%) (Auto) 0.5 % (0.0-2.0) Uric Acid 5.2 MG/DL (2.6-7.2) Phosphorus Level 4.1 MG/DL (2.5-4.9) Magnesium Level 2.9 MG/DL (1.8-2.4) H Total Bilirubin 0.3 MG/DL (0.2-1.0) Aspartate Amino Transf (AST/SGOT) 20 U/L (15-37) Alanine Aminotransferase (ALT/SGPT) 21 U/L (12-78) Alkaline Phosphatase 53 U/L (46-116) Troponin I 0.009 ng/mL (0.000-0.056) C-Reactive Protein, Quantitative 16.7 mg/dL (0.00-0.90) H Pro-B-Type Natriuretic Peptide 1524 pg/mL (0-125) H Total Protein 5.6 G/DL (6.4-8.2) L Albumin 2.1 G/DL (3.4-5.0) L Globulin 3.5 g/dL Albumin/Globulin Ratio 0.6 (1.0-2.7) L Arterial Blood pH 7.280 (7.350-7.450) Arterial Blood Partial Pressure CO2 53.7 mmHg (35.0-45.0) H Arterial Blood Partial Pressure O2 103.9 mmHg (75.0-100.0) H Arterial Blood HCO3 24.9 mmol/L (22.0-26.0) Arterial Blood Oxygen Saturation 97.1 % (92.0-98.0) Arterial Blood Base Excess -2.0 Magdaleno Test Positive Microbiology Date/Time Source Procedure Growth Status 07/08/17 12:30 Sputum Induced Gram Stain - Final Resulted 07/08/17 12:30 Sputum Induced Sputum Culture Pending Resulted Intake and Output 07/08/17 07/09/17 19:00 07:00 Intake Total 865 ml Output Total 400 ml 500 ml Balance 465 ml -500 ml Intake Oral 480 ml IV Total 385 ml Output Urine Total 400 ml 500 ml Objective General Appearance: WD/WN, no apparent distress, alert, moderate distress EENT: PERRL/EOMI, normal ENT inspection, TMs normal Neck: non-tender, normal alignment, supple, normal inspection Cardiovascular: normal peripheral pulses, normal rate, regular rhythm, no gallop/murmur, no JVD Respiratory/Chest: BIPAP; chest wall non-tender, decreased breath sounds, crackles/rales, rhonchi - bilaterally, expiratory wheezing Abdomen: normal bowel sounds, non tender, soft, no organomegaly, no mass Extremities: normal range of motion, non-tender Neurologic: 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 D/C tylenol #3; start [place] 10/325 (2) HTN (hypertension) Assessment & Plan: Continue hydralazine and norvasc. (3) Diabetes mellitus, type II Assessment & Plan: continue novolog sliding scale. (4) Hypercholesteremia Assessment & Plan: Continue lipitor. (5) Glaucoma (6) BPH (benign prostatic hyperplasia) Assessment & Plan: Continue flomax. (7) Osteoarthritis of right knee (8) Renal failure Assessment & Plan: See nephrology note. (9) Upper respiratory infection (10) Pneumonia Assessment & Plan: Continue ceftriaxone, vanco and azithro per ID. D/C levaquin IV. See ID and Pulmonary consult. (11) CHF (congestive heart failure) Assessment & Plan: Await echocardiogram and cardiology consult. (12) Respiratory failure Assessment & Plan: Hypercapnic. BIPAP with full face mask. See Pulmonary consult. IV lasix for CHF D/C levaquin; continue ceftriaxone, vanco levaquin and azithro per ID Status: not improved Assessment/Plan D/W son in law, KAYLEEN Kam Jul 09, 2017 12:40
--- NOTE | 2017-07-09 14:35 | Nephrology Progress Note ---
Assessment/Plan Problem List: (1) Renal failure Assessment: acute on chronic (2) Respiratory failure (3) BPH (benign prostatic hyperplasia) (4) HTN (hypertension) (5) Diabetes mellitus, type II Assessment encephalopathic On BIPAP Renal failure- ? CKd + Superimposed acute, Cr rising DM ? Nephropathy, has 3+ Proteins in urine Fall and right knee injury Anemia ? due to CKD ASHD Upper respiratory tract infection. Hypertension. Hypercholesterolemia. Benign prostatic hypertrophy. Low BP Plan Plan: ford- Optimize pulmonary status ID and Cardiology avoid Nephrotoxics Flomax Keep BP and BS in check Anemia luciano monitor renal parameters Per orders Left ventricular ejection fraction estimated to be 60-65 %. Moderate left ventricular hypertrophy by 2-D. Echogenic bilateral kidneys, suspect chronic medical renal disease Subjective ROS Limited/Unobtainable: No Constitutional: Reports: malaise, weakness Objective Objective Last 24 Hour Vital Signs Date Time Temp Pulse Resp B/P (MAP) Pulse Ox O2 Delivery O2 Flow Rate FiO2 07/09/17 12:42 68 18 94 Full Face 45 07/09/17 12:00 61 07/09/17 12:00 98.2 62 16 121/54 96 Bi-pap 45 07/09/17 10:55 67 20 99 Bi-pap 45 07/09/17 10:45 65 17 93 Bi-pap 45 07/09/17 10:45 65 17 93 Full Face 45 07/09/17 08:51 66 25 96 Full Face 45 07/09/17 08:00 98.2 64 20 130/58 97 Bi-pap 45 07/09/17 08:00 64 07/09/17 07:43 98 45 07/09/17 07:12 66 18 97 Bi-pap 55 07/09/17 07:04 65 17 97 Bi-pap 55 07/09/17 07:03 Bi-pap 55 07/09/17 07:03 98 Bi-pap 55 07/09/17 06:58 65 17 98 Full Face 55 07/09/17 05:11 68 17 98 Full Face 55 07/09/17 04:00 63 07/09/17 04:00 97.7 64 21 120/57 99 Bi-pap 65 07/09/17 03:23 71 20 99 Bi-pap 55 07/09/17 03:14 65 16 98 Full Face 55 07/09/17 03:13 66 16 99 Bi-pap 55 07/09/17 01:25 66 17 98 Full Face 55 07/09/17 00:00 63 07/09/17 00:00 97.0 63 21 117/58 96 Bi-pap 07/08/17 23:11 73 20 99 Bi-pap 55 07/08/17 23:03 64 16 99 Bi-pap 55 07/08/17 23:02 64 16 99 Full Face 55 07/08/17 20:54 66 17 99 Full Face 55 07/08/17 20:00 97.0 60 21 113/54 98 Bi-pap 07/08/17 20:00 67 07/08/17 19:05 99 Bi-pap 55 07/08/17 19:05 70 20 99 Bi-pap 55 07/08/17 19:05 Bi-pap 65 07/08/17 18:54 68 20 99 Bi-pap 55 07/08/17 18:53 67 20 99 Full Face 55 07/08/17 16:58 65 17 99 Full Face 55 07/08/17 16:00 98.6 65 23 122/57 98 07/08/17 16:00 65 07/08/17 16:00 67 07/08/17 15:30 68 22 99 Bi-pap 55 07/08/17 15:20 67 17 99 Bi-pap 55 07/08/17 15:17 67 17 99 Full Face 55 Intake and Output 07/08/17 07/09/17 19:00 07:00 Intake Total 865 ml Output Total 400 ml 500 ml Balance 465 ml -500 ml Intake Oral 480 ml IV Total 385 ml Output Urine Total 400 ml 500 ml Laboratory Tests 07/08/17 18:40: Sodium Level 139, Potassium Level 5.5H, Chloride Level 107, Carbon Dioxide Level 26, Anion Gap 7, Blood Urea Nitrogen 65H, Creatinine 3.8H, Estimat Glomerular Filtration Rate , Glucose Level 118H, Calcium Level 6.3L 07/09/17 03:00: Sodium Level 140, Potassium Level 4.5, Chloride Level 107, Carbon Dioxide Level 27, Anion Gap 6, Blood Urea Nitrogen 62H, Creatinine 3.9H, Estimat Glomerular Filtration Rate , Glucose Level 88, Calcium Level 6.4L, White Blood Count 4.8, Red Blood Count 2.65L, Hemoglobin 8.7L, Hematocrit 27.9L, Mean Corpuscular Volume 106H, Mean Corpuscular Hemoglobin 32.9H, Mean Corpuscular Hemoglobin Concent 31.2L, Red Cell Distribution Width 13.9, Platelet Count 155, Mean Platelet Volume 7.7, Neutrophils (%) (Auto) 72.6, Lymphocytes (%) (Auto) 10.3L, Monocytes (%) (Auto) 14.9H, Eosinophils (%) (Auto) 1.7, Basophils (%) (Auto) 0.5 , Uric Acid 5.2, Phosphorus Level 4.1, Magnesium Level 2.9H, Total Bilirubin 0.3 , Aspartate Amino Transf (AST/SGOT) 20, Alanine Aminotransferase (ALT/SGPT) 21, Alkaline Phosphatase 53, Troponin I 0.009, C-Reactive Protein, Quantitative 16.7H, Pro-B-Type Natriuretic Peptide 1524H, Total Protein 5.6L, Albumin 2.1L, Globulin 3.5, Albumin/Globulin Ratio 0.6L 07/09/17 04:00: Arterial Blood pH 7.280L, Arterial Blood Partial Pressure CO2 53.7H, Arterial Blood Partial Pressure O2 103.9H, Arterial Blood HCO3 24.9, Arterial Blood Oxygen Saturation 97.1, Arterial Blood Base Excess -2.0, Magdaleno Test Positive Height (Feet): 5 Height (Inches): 10.00 Weight (Pounds): 170 General Appearance: mild distress EENT: other - on BIPAP Cardiovascular: normal rate Respiratory/Chest: decreased breath sounds Abdomen: distended Genitourinary/Rectal: other - ford Objective no other changes JOVANA TREVIÑO Jul 09, 2017 14:35
[2017-07-09 16:00] VITALS: BP 123/54
[2017-07-09] MEDS: Azithromycin 500 MG in D5W 275 ML IV SCH (16:17)
--- NOTE | 2017-07-09 16:44 | Pulmonology Progress Note ---
Assessment/Plan Problems: (1) Respiratory failure (2) CHF (congestive heart failure) (3) Pneumonia (4) BPH (benign prostatic hyperplasia) (5) Renal failure (6) Diabetes mellitus, type II Assessment/Plan repeat cxr bnp in am continue abx check cultures echo, and renal us reviewed titrate bipap all notes reviewed. Subjective ROS Limited/Unobtainable: No Interval Events: still on bipap Allergies: Coded Allergies: No Known Allergies (Unverified , 07/04/17) Objective Last 24 Hour Vital Signs Date Time Temp Pulse Resp B/P (MAP) Pulse Ox O2 Delivery O2 Flow Rate FiO2 07/09/17 15:11 73 20 99 Bi-pap 45 07/09/17 15:04 68 16 94 Bi-pap 45 07/09/17 15:02 65 16 94 Full Face 45 07/09/17 12:42 68 18 94 Full Face 45 07/09/17 12:00 61 07/09/17 12:00 98.2 62 16 121/54 96 Bi-pap 45 07/09/17 10:55 67 20 99 Bi-pap 45 07/09/17 10:45 65 17 93 Bi-pap 45 07/09/17 10:45 65 17 93 Full Face 45 07/09/17 08:51 66 25 96 Full Face 45 07/09/17 08:00 98.2 64 20 130/58 97 Bi-pap 45 07/09/17 08:00 64 07/09/17 07:43 98 45 07/09/17 07:12 66 18 97 Bi-pap 55 07/09/17 07:04 65 17 97 Bi-pap 55 07/09/17 07:03 Bi-pap 55 07/09/17 07:03 98 Bi-pap 55 07/09/17 06:58 65 17 98 Full Face 55 07/09/17 05:11 68 17 98 Full Face 55 07/09/17 04:00 63 07/09/17 04:00 97.7 64 21 120/57 99 Bi-pap 65 07/09/17 03:23 71 20 99 Bi-pap 55 07/09/17 03:14 65 16 98 Full Face 55 07/09/17 03:13 66 16 99 Bi-pap 55 07/09/17 01:25 66 17 98 Full Face 55 07/09/17 00:00 63 07/09/17 00:00 97.0 63 21 117/58 96 Bi-pap 07/08/17 23:11 73 20 99 Bi-pap 55 07/08/17 23:03 64 16 99 Bi-pap 55 07/08/17 23:02 64 16 99 Full Face 55 07/08/17 20:54 66 17 99 Full Face 55 07/08/17 20:00 97.0 60 21 113/54 98 Bi-pap 07/08/17 20:00 67 07/08/17 19:05 99 Bi-pap 55 07/08/17 19:05 70 20 99 Bi-pap 55 07/08/17 19:05 Bi-pap 65 07/08/17 18:54 68 20 99 Bi-pap 55 07/08/17 18:53 67 20 99 Full Face 55 07/08/17 16:58 65 17 99 Full Face 55 Intake and Output 07/08/17 07/09/17 19:00 07:00 Intake Total 865 ml Output Total 400 ml 500 ml Balance 465 ml -500 ml Intake Oral 480 ml IV Total 385 ml Output Urine Total 400 ml 500 ml General Appearance: WD/WN HEENT: normocephalic, atraumatic Respiratory/Chest: chest wall non-tender, lungs clear Cardiovascular: normal peripheral pulses, normal rate Abdomen: normal bowel sounds, soft, non tender Extremities: no cyanosis Neurologic/Psychiatric: no motor/sensory deficits Microbiology Date/Time Source Procedure Growth Status 07/08/17 12:30 Sputum Induced Gram Stain - Final Resulted 07/08/17 12:30 Sputum Induced Sputum Culture Pending Resulted Laboratory Tests 07/08/17 18:40: Sodium Level 139, Potassium Level 5.5H, Chloride Level 107, Carbon Dioxide Level 26, Anion Gap 7, Blood Urea Nitrogen 65H, Creatinine 3.8H, Estimat Glomerular Filtration Rate , Glucose Level 118H, Calcium Level 6.3L 07/09/17 03:00: Sodium Level 140, Potassium Level 4.5, Chloride Level 107, Carbon Dioxide Level 27, Anion Gap 6, Blood Urea Nitrogen 62H, Creatinine 3.9H, Estimat Glomerular Filtration Rate , Glucose Level 88, Calcium Level 6.4L, White Blood Count 4.8, Red Blood Count 2.65L, Hemoglobin 8.7L, Hematocrit 27.9L, Mean Corpuscular Volume 106H, Mean Corpuscular Hemoglobin 32.9H, Mean Corpuscular Hemoglobin Concent 31.2L, Red Cell Distribution Width 13.9, Platelet Count 155, Mean Platelet Volume 7.7, Neutrophils (%) (Auto) 72.6, Lymphocytes (%) (Auto) 10.3L, Monocytes (%) (Auto) 14.9H, Eosinophils (%) (Auto) 1.7, Basophils (%) (Auto) 0.5 , Uric Acid 5.2, Phosphorus Level 4.1, Magnesium Level 2.9H, Total Bilirubin 0.3 , Aspartate Amino Transf (AST/SGOT) 20, Alanine Aminotransferase (ALT/SGPT) 21, Alkaline Phosphatase 53, Troponin I 0.009, C-Reactive Protein, Quantitative 16.7H, Pro-B-Type Natriuretic Peptide 1524H, Total Protein 5.6L, Albumin 2.1L, Globulin 3.5, Albumin/Globulin Ratio 0.6L 07/09/17 04:00: Arterial Blood pH 7.280L, Arterial Blood Partial Pressure CO2 53.7H, Arterial Blood Partial Pressure O2 103.9H, Arterial Blood HCO3 24.9, Arterial Blood Oxygen Saturation 97.1, Arterial Blood Base Excess -2.0, Magdaleno Test Positive Current Medications Medications (Trade) Dose Ordered Sig/Nito Route PRN Reason Start Time Stop Time Status Last Admin Dose Admin Acetaminophen (Tylenol) 650 mg Q6H PRN ORAL Mild Pain/Temp > 100.4 07/07/17 20:15 08/04/17 08:14 07/09/17 09:11 Acetaminophen/ Hydrocodone Bitart ([place] 10/325) 1 ea Q4H PRN ORAL For Moderate to Severe Pain 07/07/17 18:45 07/13/17 14:44 07/09/17 05:41 Albuterol/ Ipratropium (Albuterol/ Ipratropium) 3 ml Q4HRT HHN 07/07/17 19:00 07/12/17 14:59 07/09/17 15:04 Allopurinol (Allopurinol) 300 mg DAILY ORAL 07/08/17 09:00 08/07/17 08:59 07/09/17 09:01 Aspirin (ASA) 81 mg DAILY ORAL 07/08/17 09:00 08/04/17 08:59 07/09/17 09:02 Atorvastatin Calcium (Lipitor) 40 mg BEDTIME ORAL 07/07/17 21:00 08/06/17 20:59 07/08/17 20:01 Azithromycin 500 mg/Dextrose 275 ml @ 275 mls/hr DAILY@1600 IV 07/07/17 18:00 07/14/17 17:59 07/09/17 16:17 Dextrose (Dextrose 50%) STAT PRN IV Hypoglycemia 07/08/17 08:15 08/04/17 08:14 Dorzolamide/ Timolol (Cosopt) 1 drop TWICE A DAY BOTH EYES 07/07/17 18:00 08/06/17 17:59 07/09/17 09:02 Glipizide (GlipiZIDE XL) 2.5 mg ACBREAKFAST ORAL 07/08/17 06:30 08/07/17 06:29 07/09/17 05:41 Guaifenesin (Robitussin) 100 mg Q6H PRN ORAL For Cough 07/07/17 16:30 08/03/17 22:29 Heparin Sodium (Porcine) (Heparin 5000 units/ml) 5,000 units EVERY 12 HOURS SUBQ 07/07/17 21:00 08/04/17 08:59 07/09/17 09:03 Hydralazine HCl (Apresoline) 25 mg Q4H PRN ORAL SBP > 160 mm Hg 07/07/17 16:45 08/04/17 08:14 Insulin Aspart (NovoLOG) BEFORE MEALS AND HS SUBQ 07/07/17 16:30 08/04/17 11:29 07/07/17 17:00 Latanoprost (Xalatan) 1 drop BEDTIME BOTH EYES 07/07/17 21:00 08/06/17 20:59 07/08/17 20:08 Ondansetron HCl (Zofran) 4 mg Q4H PRN IVP nausea 07/07/17 17:00 08/04/17 00:59 Patient Own Medication (Patient's Own Med) 1 ea Th@0900 SUBQ 07/10/17 09:00 08/09/17 08:59 Piperacillin Sod/ Tazobactam Sod 3.375 gm/Sodium Chloride 110 ml @ 27.5 mls/hr EVERY 12 HOURS IVPB 07/09/17 11:30 07/16/17 11:29 07/09/17 12:14 Tamsulosin HCl (Flomax) 0.4 mg BID ORAL 07/07/17 18:00 08/04/17 12:59 07/09/17 09:01 Vancomycin HCl (Vanco rx to dose) 1 ea DAILY PRN MISC Per rx protocol 07/07/17 17:15 08/06/17 17:14 KEVAN SEARS Jul 09, 2017 16:44
--- NOTE | 2017-07-09 16:54 | Cardiac Electrophysiology PN ---
Assessment/Plan Assessment/Plan 1. Shortness of breath. Ruled out for myocardial infarction. Likely due to volume overload . Echocardiogram showed EF 60%. On BiPAP. Titrate his O2 for saturations greater than 92%.The patient may require intubation. 2. Hypertension Now OFF BP meds. 3. Renal failure. Further evaluation by Dr. Pederson. 4. Recent influenza A. CLAYTON RN Awaiting transfer to [facility] Subjective Subjective On TAYLA. Is on BIPAP. Still SOB. at bedside. Objective Last 24 Hour Vital Signs Date Time Temp Pulse Resp B/P (MAP) Pulse Ox O2 Delivery O2 Flow Rate FiO2 07/09/17 15:11 73 20 99 Bi-pap 45 07/09/17 15:04 68 16 94 Bi-pap 45 07/09/17 15:02 65 16 94 Full Face 45 07/09/17 12:42 68 18 94 Full Face 45 07/09/17 12:00 61 07/09/17 12:00 98.2 62 16 121/54 96 Bi-pap 45 07/09/17 10:55 67 20 99 Bi-pap 45 07/09/17 10:45 65 17 93 Bi-pap 45 07/09/17 10:45 65 17 93 Full Face 45 07/09/17 08:51 66 25 96 Full Face 45 07/09/17 08:00 98.2 64 20 130/58 97 Bi-pap 45 07/09/17 08:00 64 07/09/17 07:43 98 45 07/09/17 07:12 66 18 97 Bi-pap 55 07/09/17 07:04 65 17 97 Bi-pap 55 07/09/17 07:03 Bi-pap 55 07/09/17 07:03 98 Bi-pap 55 07/09/17 06:58 65 17 98 Full Face 55 07/09/17 05:11 68 17 98 Full Face 55 07/09/17 04:00 63 07/09/17 04:00 97.7 64 21 120/57 99 Bi-pap 65 07/09/17 03:23 71 20 99 Bi-pap 55 07/09/17 03:14 65 16 98 Full Face 55 07/09/17 03:13 66 16 99 Bi-pap 55 07/09/17 01:25 66 17 98 Full Face 55 07/09/17 00:00 63 07/09/17 00:00 97.0 63 21 117/58 96 Bi-pap 07/08/17 23:11 73 20 99 Bi-pap 55 07/08/17 23:03 64 16 99 Bi-pap 55 07/08/17 23:02 64 16 99 Full Face 55 07/08/17 20:54 66 17 99 Full Face 55 07/08/17 20:00 97.0 60 21 113/54 98 Bi-pap 07/08/17 20:00 67 07/08/17 19:05 99 Bi-pap 55 07/08/17 19:05 70 20 99 Bi-pap 55 07/08/17 19:05 Bi-pap 65 07/08/17 18:54 68 20 99 Bi-pap 55 07/08/17 18:53 67 20 99 Full Face 55 07/08/17 16:58 65 17 99 Full Face 55 Intake and Output 07/08/17 07/09/17 19:00 07:00 Intake Total 865 ml Output Total 400 ml 500 ml Balance 465 ml -500 ml Intake Oral 480 ml IV Total 385 ml Output Urine Total 400 ml 500 ml Laboratory Tests Test 07/08/17 18:40 07/09/17 03:00 07/09/17 04:00 Sodium Level 139 MMOL/L (136-145) 140 MMOL/L (136-145) Potassium Level 5.5 MMOL/L (3.5-5.1) H 4.5 MMOL/L (3.5-5.1) Chloride Level 107 MMOL/L (98-107) 107 MMOL/L (98-107) Carbon Dioxide Level 26 MMOL/L (21-32) 27 MMOL/L (21-32) Anion Gap 7 mmol/L (5-15) 6 mmol/L (5-15) Blood Urea Nitrogen 65 mg/dL (7-18) H 62 mg/dL (7-18) H Creatinine 3.8 MG/DL (0.55-1.30) H 3.9 MG/DL (0.55-1.30) H Estimat Glomerular Filtration Rate mL/min (>60) mL/min (>60) Glucose Level 118 MG/DL (74-106) H 88 MG/DL (74-106) Calcium Level 6.3 MG/DL (8.5-10.1) L 6.4 MG/DL (8.5-10.1) L White Blood Count 4.8 K/UL (4.8-10.8) Red Blood Count 2.65 M/UL (4.70-6.10) L Hemoglobin 8.7 G/DL (14.2-18.0) L Hematocrit 27.9 % (42.0-52.0) L Mean Corpuscular Volume 106 FL (80-99) H Mean Corpuscular Hemoglobin 32.9 PG (27.0-31.0) H Mean Corpuscular Hemoglobin Concent 31.2 G/DL (32.0-36.0) L Red Cell Distribution Width 13.9 % (11.6-14.8) Platelet Count 155 K/UL (150-450) Mean Platelet Volume 7.7 FL (6.5-10.1) Neutrophils (%) (Auto) 72.6 % (45.0-75.0) Lymphocytes (%) (Auto) 10.3 % (20.0-45.0) L Monocytes (%) (Auto) 14.9 % (1.0-10.0) H Eosinophils (%) (Auto) 1.7 % (0.0-3.0) Basophils (%) (Auto) 0.5 % (0.0-2.0) Uric Acid 5.2 MG/DL (2.6-7.2) Phosphorus Level 4.1 MG/DL (2.5-4.9) Magnesium Level 2.9 MG/DL (1.8-2.4) H Total Bilirubin 0.3 MG/DL (0.2-1.0) Aspartate Amino Transf (AST/SGOT) 20 U/L (15-37) Alanine Aminotransferase (ALT/SGPT) 21 U/L (12-78) Alkaline Phosphatase 53 U/L (46-116) Troponin I 0.009 ng/mL (0.000-0.056) C-Reactive Protein, Quantitative 16.7 mg/dL (0.00-0.90) H Pro-B-Type Natriuretic Peptide 1524 pg/mL (0-125) H Total Protein 5.6 G/DL (6.4-8.2) L Albumin 2.1 G/DL (3.4-5.0) L Globulin 3.5 g/dL Albumin/Globulin Ratio 0.6 (1.0-2.7) L Arterial Blood pH 7.280 (7.350-7.450) Arterial Blood Partial Pressure CO2 53.7 mmHg (35.0-45.0) H Arterial Blood Partial Pressure O2 103.9 mmHg (75.0-100.0) H Arterial Blood HCO3 24.9 mmol/L (22.0-26.0) Arterial Blood Oxygen Saturation 97.1 % (92.0-98.0) Arterial Blood Base Excess -2.0 [place] Test Positive Microbiology Date/Time Source Procedure Growth Status 07/08/17 12:30 Sputum Induced Gram Stain - Final Resulted 07/08/17 12:30 Sputum Induced Sputum Culture Pending Resulted Objective HEAD AND NECK: Shows no JVD.BIPAP is on. LUNGS: Decreased breath sounds. CARDIOVASCULAR: Shows regular S1 and S2 with no gallop or murmur. ABDOMEN: Soft. EXTREMITIES: There is no pitting edema. DARIENNE LAWTON Jul 09, 2017 16:54
--- NOTE | 2017-07-09 17:02 | Pulmonology Progress Note ---
Assessment/Plan Assessment/Plan Discussed with dr Stephen Crystal following pt I will sign off Subjective Allergies: Coded Allergies: No Known Allergies (Unverified , 07/04/17) Objective Last 24 Hour Vital Signs Date Time Temp Pulse Resp B/P (MAP) Pulse Ox O2 Delivery O2 Flow Rate FiO2 07/09/17 15:11 73 20 99 Bi-pap 45 07/09/17 15:04 68 16 94 Bi-pap 45 07/09/17 15:02 65 16 94 Full Face 45 07/09/17 12:42 68 18 94 Full Face 45 07/09/17 12:00 61 07/09/17 12:00 98.2 62 16 121/54 96 Bi-pap 45 07/09/17 10:55 67 20 99 Bi-pap 45 07/09/17 10:45 65 17 93 Bi-pap 45 07/09/17 10:45 65 17 93 Full Face 45 07/09/17 08:51 66 25 96 Full Face 45 07/09/17 08:00 98.2 64 20 130/58 97 Bi-pap 45 07/09/17 08:00 64 07/09/17 07:43 98 45 07/09/17 07:12 66 18 97 Bi-pap 55 07/09/17 07:04 65 17 97 Bi-pap 55 07/09/17 07:03 Bi-pap 55 07/09/17 07:03 98 Bi-pap 55 07/09/17 06:58 65 17 98 Full Face 55 07/09/17 05:11 68 17 98 Full Face 55 07/09/17 04:00 63 07/09/17 04:00 97.7 64 21 120/57 99 Bi-pap 65 07/09/17 03:23 71 20 99 Bi-pap 55 07/09/17 03:14 65 16 98 Full Face 55 07/09/17 03:13 66 16 99 Bi-pap 55 07/09/17 01:25 66 17 98 Full Face 55 07/09/17 00:00 63 07/09/17 00:00 97.0 63 21 117/58 96 Bi-pap 07/08/17 23:11 73 20 99 Bi-pap 55 07/08/17 23:03 64 16 99 Bi-pap 55 07/08/17 23:02 64 16 99 Full Face 55 07/08/17 20:54 66 17 99 Full Face 55 07/08/17 20:00 97.0 60 21 113/54 98 Bi-pap 07/08/17 20:00 67 07/08/17 19:05 99 Bi-pap 55 07/08/17 19:05 70 20 99 Bi-pap 55 07/08/17 19:05 Bi-pap 65 07/08/17 18:54 68 20 99 Bi-pap 55 07/08/17 18:53 67 20 99 Full Face 55 Intake and Output 07/08/17 07/09/17 19:00 07:00 Intake Total 865 ml Output Total 400 ml 500 ml Balance 465 ml -500 ml Intake Oral 480 ml IV Total 385 ml Output Urine Total 400 ml 500 ml Microbiology Date/Time Source Procedure Growth Status 07/08/17 12:30 Sputum Induced Gram Stain - Final Resulted 07/08/17 12:30 Sputum Induced Sputum Culture Pending Resulted Laboratory Tests 07/08/17 18:40: Sodium Level 139, Potassium Level 5.5H, Chloride Level 107, Carbon Dioxide Level 26, Anion Gap 7, Blood Urea Nitrogen 65H, Creatinine 3.8H, Estimat Glomerular Filtration Rate , Glucose Level 118H, Calcium Level 6.3L 07/09/17 03:00: Sodium Level 140, Potassium Level 4.5, Chloride Level 107, Carbon Dioxide Level 27, Anion Gap 6, Blood Urea Nitrogen 62H, Creatinine 3.9H, Estimat Glomerular Filtration Rate , Glucose Level 88, Calcium Level 6.4L, White Blood Count 4.8, Red Blood Count 2.65L, Hemoglobin 8.7L, Hematocrit 27.9L, Mean Corpuscular Volume 106H, Mean Corpuscular Hemoglobin 32.9H, Mean Corpuscular Hemoglobin Concent 31.2L, Red Cell Distribution Width 13.9, Platelet Count 155, Mean Platelet Volume 7.7, Neutrophils (%) (Auto) 72.6, Lymphocytes (%) (Auto) 10.3L, Monocytes (%) (Auto) 14.9H, Eosinophils (%) (Auto) 1.7, Basophils (%) (Auto) 0.5 , Uric Acid 5.2, Phosphorus Level 4.1, Magnesium Level 2.9H, Total Bilirubin 0.3 , Aspartate Amino Transf (AST/SGOT) 20, Alanine Aminotransferase (ALT/SGPT) 21, Alkaline Phosphatase 53, Troponin I 0.009, C-Reactive Protein, Quantitative 16.7H, Pro-B-Type Natriuretic Peptide 1524H, Total Protein 5.6L, Albumin 2.1L, Globulin 3.5, Albumin/Globulin Ratio 0.6L 07/09/17 04:00: Arterial Blood pH 7.280L, Arterial Blood Partial Pressure CO2 53.7H, Arterial Blood Partial Pressure O2 103.9H, Arterial Blood HCO3 24.9, Arterial Blood Oxygen Saturation 97.1, Arterial Blood Base Excess -2.0, Magdaleno Test Positive Current Medications Medications (Trade) Dose Ordered Sig/Nito Route PRN Reason Start Time Stop Time Status Last Admin Dose Admin Acetaminophen (Tylenol) 650 mg Q6H PRN ORAL Mild Pain/Temp > 100.4 07/07/17 20:15 08/04/17 08:14 07/09/17 09:11 Acetaminophen/ Hydrocodone Bitart ([place] 10/325) 1 ea Q4H PRN ORAL For Moderate to Severe Pain 07/07/17 18:45 07/13/17 14:44 07/09/17 05:41 Albuterol/ Ipratropium (Albuterol/ Ipratropium) 3 ml Q4HRT HHN 07/07/17 19:00 07/12/17 14:59 07/09/17 15:04 Allopurinol (Allopurinol) 300 mg DAILY ORAL 07/08/17 09:00 08/07/17 08:59 07/09/17 09:01 Aspirin (ASA) 81 mg DAILY ORAL 07/08/17 09:00 08/04/17 08:59 07/09/17 09:02 Atorvastatin Calcium (Lipitor) 40 mg BEDTIME ORAL 07/07/17 21:00 08/06/17 20:59 07/08/17 20:01 Azithromycin 500 mg/Dextrose 275 ml @ 275 mls/hr DAILY@1600 IV 07/07/17 18:00 07/14/17 17:59 07/09/17 16:17 Dextrose (Dextrose 50%) STAT PRN IV Hypoglycemia 07/08/17 08:15 08/04/17 08:14 Dorzolamide/ Timolol (Cosopt) 1 drop TWICE A DAY BOTH EYES 07/07/17 18:00 08/06/17 17:59 07/09/17 09:02 Glipizide (GlipiZIDE XL) 2.5 mg ACBREAKFAST ORAL 07/08/17 06:30 08/07/17 06:29 07/09/17 05:41 Guaifenesin (Robitussin) 100 mg Q6H PRN ORAL For Cough 07/07/17 16:30 08/03/17 22:29 Heparin Sodium (Porcine) (Heparin 5000 units/ml) 5,000 units EVERY 12 HOURS SUBQ 07/07/17 21:00 08/04/17 08:59 07/09/17 09:03 Hydralazine HCl (Apresoline) 25 mg Q4H PRN ORAL SBP > 160 mm Hg 07/07/17 16:45 08/04/17 08:14 Insulin Aspart (NovoLOG) BEFORE MEALS AND HS SUBQ 07/07/17 16:30 08/04/17 11:29 07/07/17 17:00 Latanoprost (Xalatan) 1 drop BEDTIME BOTH EYES 07/07/17 21:00 08/06/17 20:59 07/08/17 20:08 Ondansetron HCl (Zofran) 4 mg Q4H PRN IVP nausea 07/07/17 17:00 08/04/17 00:59 Patient Own Medication (Patient's Own Med) 1 ea Th@0900 SUBQ 07/10/17 09:00 08/09/17 08:59 Piperacillin Sod/ Tazobactam Sod 3.375 gm/Sodium Chloride 110 ml @ 27.5 mls/hr EVERY 12 HOURS IVPB 07/09/17 11:30 07/16/17 11:29 07/09/17 12:14 Tamsulosin HCl (Flomax) 0.4 mg BID ORAL 07/07/17 18:00 08/04/17 12:59 07/09/17 09:01 Vancomycin HCl (Vanco rx to dose) 1 ea DAILY PRN MISC Per rx protocol 07/07/17 17:15 08/06/17 17:14 Solo Telles MD Jul 09, 2017 17:02
--- NOTE | 2017-07-09 19:33 | Cardiology Report ---
APPROVED REPORT EKG Measurement Heart [id number] Normal sinus rhythm Left anterior fascicular block Left ventricular hypertrophy with QRS widening and repolarization abnormality Abnormal ECG
[2017-07-09] MEDS: Atorvastatin 20mg tab ORAL SCH (19:44)
[2017-07-09] MEDS: Latanoprost 0.005% Opth 2.5ml Soln BOTH EYES SCH (19:45)
[2017-07-09 20:00] VITALS: BP 112/50
[2017-07-10] VITALS: BP 120/51
[2017-07-10] MEDS: Albuterol/Ipratropium 3ml neb HHN SCH ×6 (02:49→22:58)
[2017-07-10 04:00] VITALS: BP 104/50
[2017-07-10 06:21] LABS: BASOPHILS % (AUTO) 0.6 % (0.0-2.0); EOSINOPHILS % (AUTO) 1.5 % (0.0-3.0); HEMATOCRIT 26.9 % (42.0-52.0); HEMOGLOBIN 8.7 G/DL (14.2-18.0); LYMPHOCYTES % (AUTO) 10.7 % (20.0-45.0); MEAN CORPUSCULAR VOLUME 104 FL (80-99); MONOCYTES % (AUTO) 16.3 % (1.0-10.0); NEUTROPHILS % (AUTO) 70.9 % (45.0-75.0); PLATELET COUNT 167 K/UL (150-450); RED BLOOD COUNT 2.57 M/UL (4.70-6.10); RED CELL DISTRIBUTION WIDTH 13.7 % (11.6-14.8); WHITE BLOOD COUNT 4.6 K/UL (4.8-10.8)
[2017-07-10] MEDS: NovoLOG Insulin Flexpen SUBQ SCH ×4 (06:30→21:00)
[2017-07-10 06:44] LABS: PHOSPHORUS 4.1 MG/DL (2.5-4.9)
[2017-07-10 07:01] LABS: ALANINE AMINOTRANSFERASE 22 U/L (12-78); ALBUMIN/GLOBULIN RATIO 0.6 (1.0-2.7); ALKALINE PHOSPHATASE 47 U/L (46-116); ANION GAP 8 mmol/L (5-15); ASPARTATE AMINO TRANSFERASE 23 U/L (15-37); BILIRUBIN,TOTAL 0.3 MG/DL (0.2-1.0); BLOOD UREA NITROGEN 61 mg/dL (7-18); CALCIUM 6.6 MG/DL (8.5-10.1); CARBON DIOXIDE 24 MMOL/L (21-32); CHLORIDE 109 MMOL/L (98-107); CREATININE 3.9 MG/DL (0.55-1.30); POTASSIUM 4.3 MMOL/L (3.5-5.1); SODIUM 141 MMOL/L (136-145)
[2017-07-10 08:00] VITALS: BP 129/56
[2017-07-10] MEDS: HYDROcodone/Acetamin 10/325 tab ORAL PRN (08:22)
[2017-07-10] MEDS: Tamsulosin 0.4mg cap ORAL SCH ×2 (09:30→17:52)
[2017-07-10] MEDS: Piperacillin/Tazobactam 3.375 GM in NS 110 ML IVPB SCH ×2 (09:30→20:21)
[2017-07-10] MEDS: Aspirin Baby 81mg ORAL SCH (09:31)
[2017-07-10] MEDS: Heparin 5000 units/ml inj SUBQ SCH ×2 (09:32→20:24)
[2017-07-10] MEDS: Cosopt Opth Soln 10 mL Btl BOTH EYES SCH ×2 (09:33→17:52)
--- NOTE | 2017-07-10 11:26 | General Progress Note ---
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 he is the same Objective Last 24 Hour Vital Signs Date Time Temp Pulse Resp B/P (MAP) Pulse Ox O2 Delivery O2 Flow Rate FiO2 07/10/17 11:05 57 20 93 Bi-pap 60 07/10/17 08:55 62 16 95 Full Face 60 07/10/17 08:00 97.7 61 16 129/56 99 Bi-pap 45 07/10/17 08:00 64 07/10/17 07:32 61 16 93 Bi-pap 50 07/10/17 07:32 65 19 93 Bi-pap 45 07/10/17 07:11 Bi-pap 45 07/10/17 07:10 93 Bi-pap 45 07/10/17 07:10 65 19 93 Full Face 45 07/10/17 05:17 67 18 96 Full Face 45 07/10/17 04:00 56 07/10/17 04:00 98.0 59 18 104/50 99 Bi-pap 45 07/10/17 02:57 72 17 99 Bi-pap 45 07/10/17 02:50 69 19 97 Bi-pap 45 07/10/17 02:49 65 19 98 Full Face 45 07/10/17 00:37 60 17 97 Full Face 45 07/10/17 00:00 98.2 56 18 120/51 99 Bi-pap 45 07/10/17 00:00 45 07/10/17 00:00 59 07/09/17 23:07 73 18 98 Bi-pap 45 07/09/17 23:00 73 16 98 Bi-pap 45 07/09/17 22:59 68 16 95 Full Face 45 07/09/17 21:10 62 16 96 Full Face 45 07/09/17 20:00 98.0 61 18 112/50 99 Bi-pap 45 07/09/17 19:24 70 20 96 Bi-pap 45 07/09/17 19:14 65 19 95 Bi-pap 45 07/09/17 19:08 65 19 94 Full Face 45 07/09/17 19:04 Bi-pap 45 07/09/17 19:04 96 Bi-pap 45 07/09/17 16:44 72 18 93 Full Face 45 07/09/17 16:00 61 07/09/17 16:00 98.4 64 18 123/54 90 Bi-pap 45 07/09/17 16:00 45 07/09/17 15:11 73 20 99 Bi-pap 45 07/09/17 15:04 68 16 94 Bi-pap 45 07/09/17 15:02 65 16 94 Full Face 45 07/09/17 12:42 68 18 94 Full Face 45 07/09/17 12:00 61 07/09/17 12:00 98.2 62 16 121/54 96 Bi-pap 45 07/09/17 12:00 45 Intake and Output 07/09/17 07/10/17 19:00 07:00 Intake Total 800.0 ml Output Total 600 ml 450 ml Balance 200.0 ml -450 ml Intake Oral 360 ml IV Total 440.0 ml Output Urine Total 600 ml 450 ml Laboratory Tests 07/10/17 03:50: White Blood Count 4.6L, Red Blood Count 2.57L, Hemoglobin 8.7L, Hematocrit 26.9L , Mean Corpuscular Volume 104H, Mean Corpuscular Hemoglobin 33.9H, Mean Corpuscular Hemoglobin Concent 32.5, Red Cell Distribution Width 13.7, Platelet Count 167, Mean Platelet Volume 7.1, Neutrophils (%) (Auto) 70.9, Lymphocytes (% ) (Auto) 10.7L, Monocytes (%) (Auto) 16.3H, Eosinophils (%) (Auto) 1.5, Basophils (%) (Auto) 0.6, Sodium Level 141, Potassium Level 4.3, Chloride Level 109H, Carbon Dioxide Level 24, Anion Gap 8, Blood Urea Nitrogen 61H, Creatinine 3.9H, Estimat Glomerular Filtration Rate , Glucose Level 87, Uric Acid 5.2, Calcium Level 6.6L, Phosphorus Level 4.1, Magnesium Level 3.1H, Total Bilirubin 0.3, Aspartate Amino Transf (AST/SGOT) 23, Alanine Aminotransferase (ALT/SGPT) 22, Alkaline Phosphatase 47, Troponin I 0.022, C-Reactive Protein, Quantitative 9.0H, Pro-B-Type Natriuretic Peptide 1602H, Total Protein 5.3L, Albumin 2.0L, Globulin 3.3, Albumin/Globulin Ratio 0.6L Height (Feet): 5 Height (Inches): 10.00 Weight (Pounds): 170 Chao Evans M.D. Jul 10, 2017 11:26
[2017-07-10 12:00] VITALS: BP 114/59
--- NOTE | 2017-07-10 13:03 | Diagnostic Imaging Report ---
APPROVED REPORT CPT Code: 38788 Present Symptoms Shortness of breath Technically difficult study due to pt contracture. RIGHT LEG: Venous imaging reveals a patent deep venous system. There is no evidence of thrombus within the femoral, popliteal or tibial segments. The greater saphenous vein is also within normal limits. Doppler indicates normal spontaneous flow within these segments. The distal popliteal vein was not well visualized due to patient contracture. 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 Imaging also reveals patency of the common femoral, popliteal and calf veins. The greater saphenous vein is also within normal limits. Doppler indicates normal spontaneous flow within these segments. No evidence of acute DVT.
--- NOTE | 2017-07-10 13:10 | Nephrology Progress Note ---
Assessment/Plan Problem List: (1) Renal failure Assessment: acute on chronic (2) Respiratory failure (3) BPH (benign prostatic hyperplasia) (4) HTN (hypertension) (5) Diabetes mellitus, type II Assessment encephalopathic On BIPAP Renal failure- ? CKd + Superimposed acute, Cr rising stable at 3.9 DM ? Nephropathy, has 3+ Proteins in urine Fall and right knee injury Anemia ? due to CKD ASHD Upper respiratory tract infection. Hypertension. Hypercholesterolemia. Benign prostatic hypertrophy. Low BP Plan Plan: add EPO and Venofer ford- Optimize pulmonary status ID and Cardiology avoid Nephrotoxics Flomax Keep BP and BS in check Anemia luciano monitor renal parameters Per orders Left ventricular ejection fraction estimated to be 60-65 %. Moderate left ventricular hypertrophy by 2-D. Echogenic bilateral kidneys, suspect chronic medical renal disease Subjective ROS Limited/Unobtainable: Yes Constitutional: Reports: malaise, weakness, other - SOB on BIPAP Objective Objective Last 24 Hour Vital Signs Date Time Temp Pulse Resp B/P (MAP) Pulse Ox O2 Delivery O2 Flow Rate FiO2 07/10/17 11:20 60 20 92 Bi-pap 60 07/10/17 11:05 57 20 93 Bi-pap 60 07/10/17 11:03 62 16 93 Full Face 60 07/10/17 08:55 62 16 95 Full Face 60 07/10/17 08:00 97.7 61 16 129/56 99 Bi-pap 45 07/10/17 08:00 64 07/10/17 07:32 61 16 93 Bi-pap 50 07/10/17 07:32 65 19 93 Bi-pap 45 07/10/17 07:11 Bi-pap 45 07/10/17 07:10 93 Bi-pap 45 07/10/17 07:10 65 19 93 Full Face 45 07/10/17 05:17 67 18 96 Full Face 45 07/10/17 04:00 56 07/10/17 04:00 98.0 59 18 104/50 99 Bi-pap 45 07/10/17 02:57 72 17 99 Bi-pap 45 07/10/17 02:50 69 19 97 Bi-pap 45 07/10/17 02:49 65 19 98 Full Face 45 07/10/17 00:37 60 17 97 Full Face 45 07/10/17 00:00 98.2 56 18 120/51 99 Bi-pap 45 07/10/17 00:00 45 07/10/17 00:00 59 07/09/17 23:07 73 18 98 Bi-pap 45 07/09/17 23:00 73 16 98 Bi-pap 45 07/09/17 22:59 68 16 95 Full Face 45 07/09/17 21:10 62 16 96 Full Face 45 07/09/17 20:00 98.0 61 18 112/50 99 Bi-pap 45 07/09/17 19:24 70 20 96 Bi-pap 45 07/09/17 19:14 65 19 95 Bi-pap 45 07/09/17 19:08 65 19 94 Full Face 45 07/09/17 19:04 Bi-pap 45 07/09/17 19:04 96 Bi-pap 45 07/09/17 16:44 72 18 93 Full Face 45 07/09/17 16:00 61 07/09/17 16:00 98.4 64 18 123/54 90 Bi-pap 45 07/09/17 16:00 45 07/09/17 15:11 73 20 99 Bi-pap 45 07/09/17 15:04 68 16 94 Bi-pap 45 07/09/17 15:02 65 16 94 Full Face 45 Intake and Output 07/09/17 07/10/17 19:00 07:00 Intake Total 800.0 ml Output Total 600 ml 450 ml Balance 200.0 ml -450 ml Intake Oral 360 ml IV Total 440.0 ml Output Urine Total 600 ml 450 ml Laboratory Tests 07/10/17 03:50: White Blood Count 4.6L, Red Blood Count 2.57L, Hemoglobin 8.7L, Hematocrit 26.9L , Mean Corpuscular Volume 104H, Mean Corpuscular Hemoglobin 33.9H, Mean Corpuscular Hemoglobin Concent 32.5, Red Cell Distribution Width 13.7, Platelet Count 167, Mean Platelet Volume 7.1, Neutrophils (%) (Auto) 70.9, Lymphocytes (% ) (Auto) 10.7L, Monocytes (%) (Auto) 16.3H, Eosinophils (%) (Auto) 1.5, Basophils (%) (Auto) 0.6, Sodium Level 141, Potassium Level 4.3, Chloride Level 109H, Carbon Dioxide Level 24, Anion Gap 8, Blood Urea Nitrogen 61H, Creatinine 3.9H, Estimat Glomerular Filtration Rate , Glucose Level 87, Uric Acid 5.2, Calcium Level 6.6L, Phosphorus Level 4.1, Magnesium Level 3.1H, Total Bilirubin 0.3, Aspartate Amino Transf (AST/SGOT) 23, Alanine Aminotransferase (ALT/SGPT) 22, Alkaline Phosphatase 47, Troponin I 0.022, C-Reactive Protein, Quantitative 9.0H, Pro-B-Type Natriuretic Peptide 1602H, Total Protein 5.3L, Albumin 2.0L, Globulin 3.3, Albumin/Globulin Ratio 0.6L Height (Feet): 5 Height (Inches): 10.00 Weight (Pounds): 170 General Appearance: mild distress EENT: other - on BIPAP Cardiovascular: bradycardia Respiratory/Chest: decreased breath sounds Abdomen: distended Objective no other changes JOVANA TREVIÑO Jul 10, 2017 13:10
[2017-07-10] MEDS: LORazepam 1mg tab ORAL PRN ×2 (13:48→20:23)
[2017-07-10] MEDS ORDERED: Iron Sucrose 200 MG in NS 110 ML IV ONE (15:00)
[2017-07-10] MEDS: Azithromycin 500 MG in D5W 275 ML IV SCH (15:53)
--- NOTE | 2017-07-10 15:59 | Diagnostic Imaging Report ---
Indication: Reason For Exam: DYSPNEA Technique: One view of the chest Comparison: 07/08/2017 Findings: Bibasilar atelectasis and consolidation persists, perhaps slightly improved. Retrocardiac consolidation and left basilar pleural fluid persists, unchanged. Heart remains enlarged. Impression: Minimally improved parenchymal disease of the right lung base, over 2 days. Otherwise stable as described
[2017-07-10 16:00] VITALS: BP 126/46
[2017-07-10] MEDS ORDERED: Vancomycin 1gm in D5W 275ml IVPB ONE (16:00)
--- NOTE | 2017-07-10 16:30 | Progress Note ---
DATE: 07/10/2017 SUBJECTIVE: Today, the patient is more agitated, still having waxing and waning consciousness, and not able to be engaged during the evaluation. The patient was more lucid yesterday. MENTAL STATUS EXAMINATION: The patient is agitated and having waxing and waning consciousness. Mood is agitated. Affect is constricted. Congruent with mood. Thought process, there was paucity of thought content. Thought content, no suicidal or homicidal ideations. Cognition is impaired. ASSESSMENT: Encephalopathy. PLAN: 1. We will continue the current medication. 2. Provide the patient with supportive therapy and reality orientation. Chao Evans M.D. DR: DIMITRY JOB#: [id number] CC:
--- NOTE | 2017-07-10 16:44 | Cardiac Electrophysiology PN ---
Assessment/Plan Assessment/Plan 1. Shortness of breath. Ruled out for myocardial infarction. Likely due to volume overload . Echocardiogram showed EF 60%. On BiPAP. The patient may require intubation. 2. Hypertension Now OFF BP meds. 3. Renal failure. Further evaluation by Dr. Pederson. 4. Recent influenza A. DW RN and Awaiting transfer to [facility] Subjective Subjective On TAYLA. Still on BIPAP. Not eating much. at bedside. Objective Last 24 Hour Vital Signs Date Time Temp Pulse Resp B/P (MAP) Pulse Ox O2 Delivery O2 Flow Rate FiO2 07/10/17 16:20 60 20 93 Bi-pap 60 07/10/17 13:28 58 23 97 Full Face 60 07/10/17 12:00 97.9 61 16 114/59 94 Bi-pap 60 07/10/17 12:00 69 07/10/17 11:20 60 20 92 Bi-pap 60 07/10/17 11:05 57 20 93 Bi-pap 60 07/10/17 11:03 62 16 93 Full Face 60 07/10/17 08:55 62 16 95 Full Face 60 07/10/17 08:00 97.7 61 16 129/56 99 Bi-pap 45 07/10/17 08:00 64 07/10/17 07:32 61 16 93 Bi-pap 50 07/10/17 07:32 65 19 93 Bi-pap 45 07/10/17 07:11 Bi-pap 45 07/10/17 07:10 93 Bi-pap 45 07/10/17 07:10 65 19 93 Full Face 45 07/10/17 05:17 67 18 96 Full Face 45 07/10/17 04:00 56 07/10/17 04:00 98.0 59 18 104/50 99 Bi-pap 45 07/10/17 02:57 72 17 99 Bi-pap 45 07/10/17 02:50 69 19 97 Bi-pap 45 07/10/17 02:49 65 19 98 Full Face 45 07/10/17 00:37 60 17 97 Full Face 45 07/10/17 00:00 98.2 56 18 120/51 99 Bi-pap 45 07/10/17 00:00 45 07/10/17 00:00 59 07/09/17 23:07 73 18 98 Bi-pap 45 07/09/17 23:00 73 16 98 Bi-pap 45 07/09/17 22:59 68 16 95 Full Face 45 07/09/17 21:10 62 16 96 Full Face 45 07/09/17 20:00 98.0 61 18 112/50 99 Bi-pap 45 07/09/17 19:24 70 20 96 Bi-pap 45 07/09/17 19:14 65 19 95 Bi-pap 45 07/09/17 19:08 65 19 94 Full Face 45 07/09/17 19:04 Bi-pap 45 07/09/17 19:04 96 Bi-pap 45 07/09/17 16:44 72 18 93 Full Face 45 Intake and Output 07/09/17 07/10/17 19:00 07:00 Intake Total 800.0 ml Output Total 600 ml 450 ml Balance 200.0 ml -450 ml Intake Oral 360 ml IV Total 440.0 ml Output Urine Total 600 ml 450 ml Laboratory Tests Test 07/10/17 03:50 White Blood Count 4.6 K/UL (4.8-10.8) L Red Blood Count 2.57 M/UL (4.70-6.10) L Hemoglobin 8.7 G/DL (14.2-18.0) L Hematocrit 26.9 % (42.0-52.0) L Mean Corpuscular Volume 104 FL (80-99) H Mean Corpuscular Hemoglobin 33.9 PG (27.0-31.0) H Mean Corpuscular Hemoglobin Concent 32.5 G/DL (32.0-36.0) Red Cell Distribution Width 13.7 % (11.6-14.8) Platelet Count 167 K/UL (150-450) Mean Platelet Volume 7.1 FL (6.5-10.1) Neutrophils (%) (Auto) 70.9 % (45.0-75.0) Lymphocytes (%) (Auto) 10.7 % (20.0-45.0) L Monocytes (%) (Auto) 16.3 % (1.0-10.0) H Eosinophils (%) (Auto) 1.5 % (0.0-3.0) Basophils (%) (Auto) 0.6 % (0.0-2.0) Sodium Level 141 MMOL/L (136-145) Potassium Level 4.3 MMOL/L (3.5-5.1) Chloride Level 109 MMOL/L (98-107) H Carbon Dioxide Level 24 MMOL/L (21-32) Anion Gap 8 mmol/L (5-15) Blood Urea Nitrogen 61 mg/dL (7-18) H Creatinine 3.9 MG/DL (0.55-1.30) H Estimat Glomerular Filtration Rate mL/min (>60) Glucose Level 87 MG/DL (74-106) Uric Acid 5.2 MG/DL (2.6-7.2) Calcium Level 6.6 MG/DL (8.5-10.1) L Phosphorus Level 4.1 MG/DL (2.5-4.9) Magnesium Level 3.1 MG/DL (1.8-2.4) H Total Bilirubin 0.3 MG/DL (0.2-1.0) Aspartate Amino Transf (AST/SGOT) 23 U/L (15-37) Alanine Aminotransferase (ALT/SGPT) 22 U/L (12-78) Alkaline Phosphatase 47 U/L (46-116) Troponin I 0.022 ng/mL (0.000-0.056) C-Reactive Protein, Quantitative 9.0 mg/dL (0.00-0.90) H Pro-B-Type Natriuretic Peptide 1602 pg/mL (0-125) H Total Protein 5.3 G/DL (6.4-8.2) L Albumin 2.0 G/DL (3.4-5.0) L Globulin 3.3 g/dL Albumin/Globulin Ratio 0.6 (1.0-2.7) L Microbiology Date/Time Source Procedure Growth Status 07/08/17 12:30 Sputum Induced Gram Stain - Final Complete 07/08/17 12:30 Sputum Induced Sputum Culture - Final NORMAL UPPER RESPIRATORY BEVERLY PRESENT Complete Objective HEAD AND NECK: No JVD.BIPAP is on. LUNGS: Decreased breath sounds. CARDIOVASCULAR: Regular S1 and S2 with no gallop or murmur. ABDOMEN: Soft. EXTREMITIES: There is no pitting edema. ADRIENNE LAWTON Jul 10, 2017 16:44
--- NOTE | 2017-07-10 16:48 | Wound Care Consultation ---
Wound Assessment Wound Assessment #1: Wound Number: 1 Wound Present on Admission: No New Wound: Yes Status Change of Wound: No Wound Location Body Site Modif: left Wound Location Body Site: other - cheek Wound Type: pressure ulcer Kg Test: Does not Kg Pressure Ulcer Stage: II Wound Thickness: Partial Thickness Wound Length: 1.5 Wound Width: 0.5 Wound Depth: 0.1 Percent of Wound Tresckow/Red: 100 Wound Drainage Amount: None Wound Drainage Odor: None/Absent Tissue Surrounding Wound: Erythemic Wound General Appearance: Reddened Wound Assessment #2: Wound Number: 2 Wound Present on Admission: No New Wound: Yes Status Change of Wound: No Wound Location Body Site Modif: right Wound Location Body Site: other - cheek Wound Type: pressure ulcer Kg Test: Does not Kg Pressure Ulcer Stage: II Wound Thickness: Partial Thickness Wound Length: 0.5 Wound Width: 0.8 Wound Depth: less than 0.1 Percent of Wound Tresckow/Red: 100 Wound Drainage Amount: None Wound Drainage Odor: None/Absent Tissue Surrounding Wound: Intact Wound General Appearance: Reddened Wound Comment #1 Left cheek stage II medical devices related pressure injury #2 Right cheek stage II medical devices related pressure injury Recommendation -Local wound care per protocol -Keep clean and dry -Turn and reposition -Offload both heels -Heel protector on both heels -Optimize nutrition -Assess and f/u accordingly for any changes JAN JONES RN Jul 10, 2017 16:48
--- NOTE | 2017-07-10 16:52 | Internal Med Progress Note ---
Subjective Date of Service: Jul 10, 2017 Physician Name Kayleen Garcia Attending Physician Kofi Mitchell MD Current Medications Medications (Trade) Dose Ordered Sig/Nito Route PRN Reason Start Time Stop Time Status Last Admin Dose Admin Acetaminophen (Tylenol) 650 mg Q6H PRN ORAL Mild Pain/Temp > 100.4 07/07/17 20:15 08/04/17 08:14 07/09/17 09:11 Acetaminophen/ Hydrocodone Bitart ([place] 10/325) 1 ea Q4H PRN ORAL For Moderate to Severe Pain 07/07/17 18:45 07/13/17 14:44 07/10/17 08:22 Albuterol/ Ipratropium (Albuterol/ Ipratropium) 3 ml Q4HRT HHN 07/07/17 19:00 07/12/17 14:59 07/10/17 16:23 Allopurinol (Allopurinol) 300 mg DAILY ORAL 07/08/17 09:00 08/07/17 08:59 07/10/17 09:31 Aspirin (ASA) 81 mg DAILY ORAL 07/08/17 09:00 08/04/17 08:59 07/10/17 09:31 Atorvastatin Calcium (Lipitor) 40 mg BEDTIME ORAL 07/07/17 21:00 08/06/17 20:59 07/09/17 19:44 Azithromycin 500 mg/Dextrose 275 ml @ 275 mls/hr DAILY@1600 IV 07/07/17 18:00 07/14/17 17:59 07/10/17 15:53 Dextrose (Dextrose 50%) STAT PRN IV Hypoglycemia 07/08/17 08:15 08/04/17 08:14 Dorzolamide/ Timolol (Cosopt) 1 drop TWICE A DAY BOTH EYES 07/07/17 18:00 08/06/17 17:59 07/10/17 09:33 Epoetin Koby (Procrit (for non ESRD use)) 10,000 units MON-FRI-FRI SUBQ 07/11/17 21:00 08/10/17 20:59 Escitalopram Oxalate (Lexapro) 10 mg DAILY ORAL 07/10/17 13:00 08/09/17 12:59 07/10/17 13:48 Glipizide (GlipiZIDE XL) 2.5 mg ACBREAKFAST ORAL 07/08/17 06:30 08/07/17 06:29 07/10/17 06:06 Guaifenesin (Robitussin) 100 mg Q6H PRN ORAL For Cough 07/07/17 16:30 08/03/17 22:29 Heparin Sodium (Porcine) (Heparin 5000 units/ml) 5,000 units EVERY 12 HOURS SUBQ 07/07/17 21:00 08/04/17 08:59 07/10/17 09:32 Hydralazine HCl (Apresoline) 25 mg Q4H PRN ORAL SBP > 160 mm Hg 07/07/17 16:45 08/04/17 08:14 Insulin Aspart (NovoLOG) BEFORE MEALS AND HS SUBQ 07/07/17 16:30 08/04/17 11:29 07/09/17 19:48 Latanoprost (Xalatan) 1 drop BEDTIME BOTH EYES 07/07/17 21:00 08/06/17 20:59 07/09/17 19:45 Lorazepam (Ativan) 1 mg Q6H PRN ORAL For Anxiety 07/10/17 11:30 07/17/17 11:29 07/10/17 13:48 Ondansetron HCl (Zofran) 4 mg Q4H PRN IVP nausea 07/07/17 17:00 08/04/17 00:59 Patient Own Medication (Patient's Own Med) 1 ea Th@0900 SUBQ 07/10/17 09:00 08/09/17 08:59 07/10/17 09:31 Piperacillin Sod/ Tazobactam Sod 3.375 gm/Sodium Chloride 110 ml @ 27.5 mls/hr EVERY 12 HOURS IVPB 07/09/17 11:30 07/16/17 11:29 07/10/17 09:30 Tamsulosin HCl (Flomax) 0.4 mg BID ORAL 07/07/17 18:00 08/04/17 12:59 07/10/17 09:30 Vancomycin HCl (Vanco rx to dose) 1 ea DAILY PRN MISC Per rx protocol 07/07/17 17:15 08/06/17 17:14 Vancomycin HCl 1 gm/Dextrose 275 ml @ 183.708 mls/hr ONCE ONCE IVPB 07/10/17 16:00 1/4/18 17:29 07/10/17 16:41 Allergies: Coded Allergies: No Known Allergies (Unverified , 07/04/17) Subjective 81 YO M admitted with cough. Now renal failure. Currently on BIPAP-failed weaning today. TAYLA. Cover for Int Med-Dr Mitchell. Objective Last Vital Signs Date Time Temp Pulse Resp B/P (MAP) Pulse Ox O2 Delivery O2 Flow Rate FiO2 07/10/17 16:20 60 20 93 Bi-pap 60 07/10/17 12:00 97.9 114/59 07/07/17 15:30 13.0 Laboratory Tests Test 07/10/17 03:50 White Blood Count 4.6 K/UL (4.8-10.8) L Red Blood Count 2.57 M/UL (4.70-6.10) L Hemoglobin 8.7 G/DL (14.2-18.0) L Hematocrit 26.9 % (42.0-52.0) L Mean Corpuscular Volume 104 FL (80-99) H Mean Corpuscular Hemoglobin 33.9 PG (27.0-31.0) H Mean Corpuscular Hemoglobin Concent 32.5 G/DL (32.0-36.0) Red Cell Distribution Width 13.7 % (11.6-14.8) Platelet Count 167 K/UL (150-450) Mean Platelet Volume 7.1 FL (6.5-10.1) Neutrophils (%) (Auto) 70.9 % (45.0-75.0) Lymphocytes (%) (Auto) 10.7 % (20.0-45.0) L Monocytes (%) (Auto) 16.3 % (1.0-10.0) H Eosinophils (%) (Auto) 1.5 % (0.0-3.0) Basophils (%) (Auto) 0.6 % (0.0-2.0) Sodium Level 141 MMOL/L (136-145) Potassium Level 4.3 MMOL/L (3.5-5.1) Chloride Level 109 MMOL/L (98-107) H Carbon Dioxide Level 24 MMOL/L (21-32) Anion Gap 8 mmol/L (5-15) Blood Urea Nitrogen 61 mg/dL (7-18) H Creatinine 3.9 MG/DL (0.55-1.30) H Estimat Glomerular Filtration Rate mL/min (>60) Glucose Level 87 MG/DL (74-106) Uric Acid 5.2 MG/DL (2.6-7.2) Calcium Level 6.6 MG/DL (8.5-10.1) L Phosphorus Level 4.1 MG/DL (2.5-4.9) Magnesium Level 3.1 MG/DL (1.8-2.4) H Total Bilirubin 0.3 MG/DL (0.2-1.0) Aspartate Amino Transf (AST/SGOT) 23 U/L (15-37) Alanine Aminotransferase (ALT/SGPT) 22 U/L (12-78) Alkaline Phosphatase 47 U/L (46-116) Troponin I 0.022 ng/mL (0.000-0.056) C-Reactive Protein, Quantitative 9.0 mg/dL (0.00-0.90) H Pro-B-Type Natriuretic Peptide 1602 pg/mL (0-125) H Total Protein 5.3 G/DL (6.4-8.2) L Albumin 2.0 G/DL (3.4-5.0) L Globulin 3.3 g/dL Albumin/Globulin Ratio 0.6 (1.0-2.7) L Microbiology Date/Time Source Procedure Growth Status 07/08/17 12:30 Sputum Induced Gram Stain - Final Complete 07/08/17 12:30 Sputum Induced Sputum Culture - Final NORMAL UPPER RESPIRATORY [place] PRESENT Complete Intake and Output 07/09/17 07/10/17 19:00 07:00 Intake Total 800.0 ml Output Total 600 ml 450 ml Balance 200.0 ml -450 ml Intake Oral 360 ml IV Total 440.0 ml Output Urine Total 600 ml 450 ml Objective General Appearance: WD/WN, no apparent distress, alert, moderate distress EENT: PERRL/EOMI, normal ENT inspection, TMs normal Neck: non-tender, normal alignment, supple, normal inspection Cardiovascular: normal peripheral pulses, normal rate, regular rhythm, no gallop/murmur, no JVD Respiratory/Chest: BIPAP; chest wall non-tender, decreased breath sounds, crackles/rales, rhonchi - bilaterally, expiratory wheezing Abdomen: normal bowel sounds, non tender, soft, no organomegaly, no mass Extremities: normal range of motion, non-tender Neurologic: 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 D/C tylenol #3; start [place] 10/325 (2) HTN (hypertension) Assessment & Plan: Continue hydralazine and norvasc. (3) Diabetes mellitus, type II Assessment & Plan: continue novolog sliding scale. (4) Hypercholesteremia Assessment & Plan: Continue lipitor. (5) Glaucoma (6) BPH (benign prostatic hyperplasia) Assessment & Plan: Continue flomax. (7) Osteoarthritis of right knee (8) Renal failure Assessment & Plan: See nephrology note. (9) Upper respiratory infection (10) Pneumonia Assessment & Plan: Continue ceftriaxone, vanco and azithro per ID. D/C levaquin IV. See ID and Pulmonary consult. (11) CHF (congestive heart failure) Assessment & Plan: Await echocardiogram and cardiology consult. (12) Respiratory failure Assessment & Plan: Hypercapnic. BIPAP with full face mask-failed weaning. See Pulmonary consult. IV lasix for CHF D/C levaquin; continue vanco, zosyn and azithro per ID Assessment/Plan D/W son in law, KAYLEEN Kam Jul 10, 2017 16:52
--- NOTE | 2017-07-10 17:42 | Infectious Diseases Prog Note ---
Assessment/Plan Assessment/Plan Assessment: Post influenza PNA- r/o S. aureus, H. flu- ?worsening PNA -CXR 07/10: Bibasilar atelectasis and consolidation persists, perhaps slightly improved. Retrocardiac consolidation and left basilar pleural fluid persists, unchanged. -CXR 07/08: . There is interval worsening of aeration at the right base with increasing patchy airspace opacities. Persistent left basilar atelectasis/ consolidation. -sp cx normal chalo Acute hypercapneic resp failure on Bipap- hypercapnea improving Mild leukopenia- resolved Afebrile PHILIP on ?CKD Fall with R knee pain -Xray R knee: No acute fracture. 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 HTN, DM2, CKD, HLD, BPH Plan: -D/c IV Vanco #4, and continue Azithromcyin #5/5 and Zosyn #2/5-7 for PNA -/ SP Ceftriaxone #5 -1/2 SP Tamiflu #5 and Levaquin #2 -f/u cx -Monitor CBC/BMP, temperatures -aspiration precautions Thank you for this consultation. Will continue to follow along with you. Discussed with RN. Subjective Allergies: Coded Allergies: No Known Allergies (Unverified , 07/04/17) Subjective afebrile, no leukocytosis remains on Bipap, Fio2 60% CXR slihglty improved sp cx NF Objective Vital Signs Last 24 Hour Vital Signs Date Time Temp Pulse Resp B/P (MAP) Pulse Ox O2 Delivery O2 Flow Rate FiO2 07/10/17 16:50 62 16 91 Full Face 60 07/10/17 16:20 60 20 93 Bi-pap 60 07/10/17 16:00 98.6 58 16 126/46 95 Bi-pap 60 07/10/17 16:00 57 07/10/17 15:48 57 16 93 Full Face 60 07/10/17 13:28 58 23 97 Full Face 60 07/10/17 12:00 97.9 61 16 114/59 94 Bi-pap 60 07/10/17 12:00 69 07/10/17 11:20 60 20 92 Bi-pap 60 07/10/17 11:05 57 20 93 Bi-pap 60 07/10/17 11:03 62 16 93 Full Face 60 07/10/17 08:55 62 16 95 Full Face 60 07/10/17 08:00 97.7 61 16 129/56 99 Bi-pap 45 07/10/17 08:00 64 07/10/17 07:32 61 16 93 Bi-pap 50 07/10/17 07:32 65 19 93 Bi-pap 45 07/10/17 07:11 Bi-pap 45 07/10/17 07:10 93 Bi-pap 45 07/10/17 07:10 65 19 93 Full Face 45 07/10/17 05:17 67 18 96 Full Face 45 07/10/17 04:00 56 07/10/17 04:00 98.0 59 18 104/50 99 Bi-pap 45 07/10/17 02:57 72 17 99 Bi-pap 45 07/10/17 02:50 69 19 97 Bi-pap 45 07/10/17 02:49 65 19 98 Full Face 45 07/10/17 00:37 60 17 97 Full Face 45 07/10/17 00:00 98.2 56 18 120/51 99 Bi-pap 45 07/10/17 00:00 45 07/10/17 00:00 59 07/09/17 23:07 73 18 98 Bi-pap 45 07/09/17 23:00 73 16 98 Bi-pap 45 07/09/17 22:59 68 16 95 Full Face 45 07/09/17 21:10 62 16 96 Full Face 45 07/09/17 20:00 98.0 61 18 112/50 99 Bi-pap 45 07/09/17 19:24 70 20 96 Bi-pap 45 07/09/17 19:14 65 19 95 Bi-pap 45 07/09/17 19:08 65 19 94 Full Face 45 07/09/17 19:04 Bi-pap 45 07/09/17 19:04 96 Bi-pap 45 Height (Feet): 5 Height (Inches): 10.00 Weight (Pounds): 170 Objective GENERAL: The patient is a well-developed and well-nourished white male, in no apparent distress. HEENT: Eyes, pupils are equal and responsive to light and accommodation.Extraocular movements are intact. NECK: Supple without lymphadenopathy. CHEST: Lungs are clear to auscultation bilaterally without wheezes or rales. CARDIOVASCULAR: Regular rhythm and rate. S1 and S2 are normal without murmurs , rubs, or gallops. ABDOMEN: Soft, nontender, and nondistended. Positive bowel sounds. No evidence of hepatosplenomegaly. Currently, no rebound or guarding noted. EXTREMITIES: Negative for clubbing, cyanosis, or edema. NEUROLOGIC: Cranial nerves II through XII are grossly intact without focal deficits. Motor strength is 5/5 bilaterally. Deep tendon reflexes are 2+ plantar. Microbiology Date/Time Source Procedure Growth Status 07/08/17 12:30 Sputum Induced Gram Stain - Final Complete 07/08/17 12:30 Sputum Induced Sputum Culture - Final NORMAL UPPER RESPIRATORY [place] PRESENT Complete Laboratory Tests Test 07/10/17 03:50 White Blood Count 4.6 K/UL (4.8-10.8) L Red Blood Count 2.57 M/UL (4.70-6.10) L Hemoglobin 8.7 G/DL (14.2-18.0) L Hematocrit 26.9 % (42.0-52.0) L Mean Corpuscular Volume 104 FL (80-99) H Mean Corpuscular Hemoglobin 33.9 PG (27.0-31.0) H Mean Corpuscular Hemoglobin Concent 32.5 G/DL (32.0-36.0) Red Cell Distribution Width 13.7 % (11.6-14.8) Platelet Count 167 K/UL (150-450) Mean Platelet Volume 7.1 FL (6.5-10.1) Neutrophils (%) (Auto) 70.9 % (45.0-75.0) Lymphocytes (%) (Auto) 10.7 % (20.0-45.0) L Monocytes (%) (Auto) 16.3 % (1.0-10.0) H Eosinophils (%) (Auto) 1.5 % (0.0-3.0) Basophils (%) (Auto) 0.6 % (0.0-2.0) Sodium Level 141 MMOL/L (136-145) Potassium Level 4.3 MMOL/L (3.5-5.1) Chloride Level 109 MMOL/L (98-107) H Carbon Dioxide Level 24 MMOL/L (21-32) Anion Gap 8 mmol/L (5-15) Blood Urea Nitrogen 61 mg/dL (7-18) H Creatinine 3.9 MG/DL (0.55-1.30) H Estimat Glomerular Filtration Rate mL/min (>60) Glucose Level 87 MG/DL (74-106) Uric Acid 5.2 MG/DL (2.6-7.2) Calcium Level 6.6 MG/DL (8.5-10.1) L Phosphorus Level 4.1 MG/DL (2.5-4.9) Magnesium Level 3.1 MG/DL (1.8-2.4) H Total Bilirubin 0.3 MG/DL (0.2-1.0) Aspartate Amino Transf (AST/SGOT) 23 U/L (15-37) Alanine Aminotransferase (ALT/SGPT) 22 U/L (12-78) Alkaline Phosphatase 47 U/L (46-116) Troponin I 0.022 ng/mL (0.000-0.056) C-Reactive Protein, Quantitative 9.0 mg/dL (0.00-0.90) H Pro-B-Type Natriuretic Peptide 1602 pg/mL (0-125) H Total Protein 5.3 G/DL (6.4-8.2) L Albumin 2.0 G/DL (3.4-5.0) L Globulin 3.3 g/dL Albumin/Globulin Ratio 0.6 (1.0-2.7) L Current Medications Medications (Trade) Dose Ordered Sig/Nito Route PRN Reason Start Time Stop Time Status Last Admin Dose Admin Acetaminophen (Tylenol) 650 mg Q6H PRN ORAL Mild Pain/Temp > 100.4 07/07/17 20:15 08/04/17 08:14 07/09/17 09:11 Acetaminophen/ Hydrocodone Bitart ([place] 10/325) 1 ea Q4H PRN ORAL For Moderate to Severe Pain 07/07/17 18:45 07/13/17 14:44 07/10/17 08:22 Albuterol/ Ipratropium (Albuterol/ Ipratropium) 3 ml Q4HRT HHN 07/07/17 19:00 07/12/17 14:59 07/10/17 16:23 Allopurinol (Allopurinol) 300 mg DAILY ORAL 07/08/17 09:00 08/07/17 08:59 07/10/17 09:31 Aspirin (ASA) 81 mg DAILY ORAL 07/08/17 09:00 08/04/17 08:59 07/10/17 09:31 Atorvastatin Calcium (Lipitor) 40 mg BEDTIME ORAL 07/07/17 21:00 08/06/17 20:59 07/09/17 19:44 Azithromycin 500 mg/Dextrose 275 ml @ 275 mls/hr DAILY@1600 IV 07/07/17 18:00 07/14/17 17:59 07/10/17 15:53 Dextrose (Dextrose 50%) STAT PRN IV Hypoglycemia 07/08/17 08:15 08/04/17 08:14 Dorzolamide/ Timolol (Cosopt) 1 drop TWICE A DAY BOTH EYES 07/07/17 18:00 08/06/17 17:59 07/10/17 09:33 Epoetin Koby (Procrit (for non ESRD use)) 10,000 units FRI-FRI-FRI SUBQ 07/11/17 21:00 08/10/17 20:59 Escitalopram Oxalate (Lexapro) 10 mg DAILY ORAL 07/10/17 13:00 08/09/17 12:59 07/10/17 13:48 Glipizide (GlipiZIDE XL) 2.5 mg ACBREAKFAST ORAL 07/08/17 06:30 08/07/17 06:29 07/10/17 06:06 Guaifenesin (Robitussin) 100 mg Q6H PRN ORAL For Cough 07/07/17 16:30 08/03/17 22:29 Heparin Sodium (Porcine) (Heparin 5000 units/ml) 5,000 units EVERY 12 HOURS SUBQ 07/07/17 21:00 08/04/17 08:59 07/10/17 09:32 Hydralazine HCl (Apresoline) 25 mg Q4H PRN ORAL SBP > 160 mm Hg 07/07/17 16:45 08/04/17 08:14 Insulin Aspart (NovoLOG) BEFORE MEALS AND HS SUBQ 07/07/17 16:30 08/04/17 11:29 07/09/17 19:48 Latanoprost (Xalatan) 1 drop BEDTIME BOTH EYES 07/07/17 21:00 08/06/17 20:59 07/09/17 19:45 Lorazepam (Ativan) 1 mg Q6H PRN ORAL For Anxiety 07/10/17 11:30 07/17/17 11:29 07/10/17 13:48 Ondansetron HCl (Zofran) 4 mg Q4H PRN IVP nausea 07/07/17 17:00 08/04/17 00:59 Patient Own Medication (Patient's Own Med) 1 ea Th@0900 SUBQ 07/10/17 09:00 08/09/17 08:59 07/10/17 09:31 Piperacillin Sod/ Tazobactam Sod 3.375 gm/Sodium Chloride 110 ml @ 27.5 mls/hr EVERY 12 HOURS IVPB 07/09/17 11:30 07/16/17 11:29 07/10/17 09:30 Tamsulosin HCl (Flomax) 0.4 mg BID ORAL 07/07/17 18:00 08/04/17 12:59 07/10/17 09:30 Vancomycin HCl (Vanco rx to dose) 1 ea DAILY PRN MISC Per rx protocol 07/07/17 17:15 08/06/17 17:14 Lorelei Manning M.D. Jul 10, 2017 17:41
[2017-07-10 20:00] VITALS: BP 132/60
[2017-07-10] MEDS: Latanoprost 0.005% Opth 2.5ml Soln BOTH EYES SCH (20:21)
[2017-07-10] MEDS: Atorvastatin 20mg tab ORAL SCH (20:22)
--- NOTE | 2017-07-10 23:58 | Pulmonology Progress Note ---
Assessment/Plan Problems: (1) Respiratory failure (2) CHF (congestive heart failure) (3) Pneumonia (4) BPH (benign prostatic hyperplasia) (5) Renal failure (6) Diabetes mellitus, type II Assessment/Plan afebrile, wbc wnl still needs bipap repeat cxr bnp in am continue abx check cultures echo, and renal us reviewed titrate bipap all notes reviewed. Subjective Interval Events: still on bipap Allergies: Coded Allergies: No Known Allergies (Unverified , 07/04/17) Objective Last 24 Hour Vital Signs Date Time Temp Pulse Resp B/P (MAP) Pulse Ox O2 Delivery O2 Flow Rate FiO2 07/10/17 23:11 53 20 97 Bi-pap 60 07/10/17 22:59 72 16 95 Full Face 60 07/10/17 22:58 72 16 96 Bi-pap 60 07/10/17 21:30 60 16 95 Full Face 60 07/10/17 21:21 98.6 07/10/17 20:26 65 20 99 Bi-pap 60 07/10/17 20:25 64 20 95 Bi-pap 60 07/10/17 20:24 57 17 95 Full Face 60 07/10/17 20:24 96 Bi-pap 45 07/10/17 19:00 Bi-pap 45 07/10/17 16:50 62 16 91 Full Face 60 07/10/17 16:20 60 20 93 Bi-pap 60 07/10/17 16:00 98.6 58 16 126/46 95 Bi-pap 60 07/10/17 16:00 60 07/10/17 16:00 57 07/10/17 15:48 57 16 93 Full Face 60 07/10/17 13:28 58 23 97 Full Face 60 07/10/17 12:00 97.9 61 16 114/59 94 Bi-pap 60 07/10/17 12:00 60 07/10/17 12:00 69 07/10/17 11:20 60 20 92 Bi-pap 60 07/10/17 11:05 57 20 93 Bi-pap 60 07/10/17 11:03 62 16 93 Full Face 60 07/10/17 08:55 62 16 95 Full Face 60 07/10/17 08:00 97.7 61 16 129/56 99 Bi-pap 45 07/10/17 08:00 45 07/10/17 08:00 64 07/10/17 07:32 61 16 93 Bi-pap 50 07/10/17 07:32 65 19 93 Bi-pap 45 07/10/17 07:11 Bi-pap 45 07/10/17 07:10 93 Bi-pap 45 07/10/17 07:10 65 19 93 Full Face 45 07/10/17 05:17 67 18 96 Full Face 45 07/10/17 04:00 56 07/10/17 04:00 98.0 59 18 104/50 99 Bi-pap 45 07/10/17 02:57 72 17 99 Bi-pap 45 07/10/17 02:50 69 19 97 Bi-pap 45 07/10/17 02:49 65 19 98 Full Face 45 07/10/17 00:37 60 17 97 Full Face 45 07/10/17 00:00 98.2 56 18 120/51 99 Bi-pap 45 07/10/17 00:00 45 07/10/17 00:00 59 Intake and Output 07/09/17 07/10/17 19:00 07:00 Intake Total 800.0 ml Output Total 600 ml 450 ml Balance 200.0 ml -450 ml Intake Oral 360 ml IV Total 440.0 ml Output Urine Total 600 ml 450 ml General Appearance: no acute distress HEENT: normocephalic Respiratory/Chest: chest wall non-tender, crackles/rales Cardiovascular: normal peripheral pulses, normal rate Abdomen: normal bowel sounds, soft, non tender Genitourinary: normal external genitalia Skin: no lesions 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 Lymphatic: no neck adenopathy Musculoskeletal: normal muscle bulk Microbiology Date/Time Source Procedure Growth Status 07/08/17 12:30 Sputum Induced Gram Stain - Final Complete 07/08/17 12:30 Sputum Induced Sputum Culture - Final NORMAL UPPER RESPIRATORY [place]EVER[place] PRESENT Complete Laboratory Tests 07/10/17 03:50: White Blood Count 4.6L, Red Blood Count 2.57L, Hemoglobin 8.7L, Hematocrit 26.9L , Mean Corpuscular Volume 104H, Mean Corpuscular Hemoglobin 33.9H, Mean Corpuscular Hemoglobin Concent 32.5, Red Cell Distribution Width 13.7, Platelet Count 167, Mean Platelet Volume 7.1, Neutrophils (%) (Auto) 70.9, Lymphocytes (% ) (Auto) 10.7L, Monocytes (%) (Auto) 16.3H, Eosinophils (%) (Auto) 1.5, Basophils (%) (Auto) 0.6, Sodium Level 141, Potassium Level 4.3, Chloride Level 109H, Carbon Dioxide Level 24, Anion Gap 8, Blood Urea Nitrogen 61H, Creatinine 3.9H, Estimat Glomerular Filtration Rate , Glucose Level 87, Uric Acid 5.2, Calcium Level 6.6L, Phosphorus Level 4.1, Magnesium Level 3.1H, Total Bilirubin 0.3, Aspartate Amino Transf (AST/SGOT) 23, Alanine Aminotransferase (ALT/SGPT) 22, Alkaline Phosphatase 47, Troponin I 0.022, C-Reactive Protein, Quantitative 9.0H, Pro-B-Type Natriuretic Peptide 1602H, Total Protein 5.3L, Albumin 2.0L, Globulin 3.3, Albumin/Globulin Ratio 0.6L Current Medications Medications (Trade) Dose Ordered Sig/Nito Route PRN Reason Start Time Stop Time Status Last Admin Dose Admin Acetaminophen (Tylenol) 650 mg Q6H PRN ORAL Mild Pain/Temp > 100.4 07/07/17 20:15 08/04/17 08:14 07/10/17 20:22 Acetaminophen/ Hydrocodone Bitart ([place] 10/325) 1 ea Q4H PRN ORAL For Moderate to Severe Pain 07/07/17 18:45 07/13/17 14:44 07/10/17 08:22 Albuterol/ Ipratropium (Albuterol/ Ipratropium) 3 ml Q4HRT HHN 07/07/17 19:00 07/12/17 14:59 07/10/17 22:58 Allopurinol (Allopurinol) 300 mg DAILY ORAL 07/08/17 09:00 08/07/17 08:59 07/10/17 09:31 Aspirin (ASA) 81 mg DAILY ORAL 07/08/17 09:00 08/04/17 08:59 07/10/17 09:31 Atorvastatin Calcium (Lipitor) 40 mg BEDTIME ORAL 07/07/17 21:00 08/06/17 20:59 07/10/17 20:22 Dextrose (Dextrose 50%) STAT PRN IV Hypoglycemia 07/08/17 08:15 08/04/17 08:14 Dorzolamide/ Timolol (Cosopt) 1 drop TWICE A DAY BOTH EYES 07/07/17 18:00 08/06/17 17:59 07/10/17 17:52 Epoetin Koby (Procrit (for non ESRD use)) 10,000 units FRI-FRI-FRI SUBQ 07/11/17 21:00 08/10/17 20:59 Escitalopram Oxalate (Lexapro) 10 mg DAILY ORAL 07/10/17 13:00 08/09/17 12:59 07/10/17 13:48 Glipizide (GlipiZIDE XL) 2.5 mg ACBREAKFAST ORAL 07/08/17 06:30 08/07/17 06:29 07/10/17 06:06 Guaifenesin (Robitussin) 100 mg Q6H PRN ORAL For Cough 07/07/17 16:30 08/03/17 22:29 Heparin Sodium (Porcine) (Heparin 5000 units/ml) 5,000 units EVERY 12 HOURS SUBQ 07/07/17 21:00 08/04/17 08:59 07/10/17 20:24 Hydralazine HCl (Apresoline) 25 mg Q4H PRN ORAL SBP > 160 mm Hg 07/07/17 16:45 08/04/17 08:14 Insulin Aspart (NovoLOG) BEFORE MEALS AND HS SUBQ 07/07/17 16:30 08/04/17 11:29 07/09/17 19:48 Latanoprost (Xalatan) 1 drop BEDTIME BOTH EYES 07/07/17 21:00 08/06/17 20:59 07/10/17 20:21 Lorazepam (Ativan) 1 mg Q6H PRN ORAL For Anxiety 07/10/17 11:30 07/17/17 11:29 07/10/17 20:23 Ondansetron HCl (Zofran) 4 mg Q4H PRN IVP nausea 07/07/17 17:00 08/04/17 00:59 Patient Own Medication (Patient's Own Med) 1 ea Th@0900 SUBQ 07/10/17 09:00 08/09/17 08:59 07/10/17 09:31 Piperacillin Sod/ Tazobactam Sod 3.375 gm/Sodium Chloride 110 ml @ 27.5 mls/hr EVERY 12 HOURS IVPB 07/09/17 11:30 07/16/17 11:29 07/10/17 20:21 Tamsulosin HCl (Flomax) 0.4 mg BID ORAL 07/07/17 18:00 08/04/17 12:59 07/10/17 17:52 KEVAN SEARS Jul 10, 2017 23:58
[2017-07-11] VITALS: BP 123/76
[2017-07-11] MEDS: Albuterol/Ipratropium 3ml neb HHN SCH ×6 (03:47→23:37)
[2017-07-11 04:00] VITALS: BP 132/63
[2017-07-11 05:06] LABS: BASOPHILS % (AUTO) 1.1 % (0.0-2.0); EOSINOPHILS % (AUTO) 1.8 % (0.0-3.0); HEMOGLOBIN 8.7 G/DL (14.2-18.0); LYMPHOCYTES % (AUTO) 10.4 % (20.0-45.0); MEAN CORPUSCULAR VOLUME 104 FL (80-99); MONOCYTES % (AUTO) 17.8 % (1.0-10.0); PLATELET COUNT 182 K/UL (150-450); RED BLOOD COUNT 2.59 M/UL (4.70-6.10); RED CELL DISTRIBUTION WIDTH 13.3 % (11.6-14.8); WHITE BLOOD COUNT 3.5 K/UL (4.8-10.8)
[2017-07-11 05:55] LABS: ALANINE AMINOTRANSFERASE 18 U/L (12-78); ALBUMIN 1.9 G/DL (3.4-5.0); ALBUMIN/GLOBULIN RATIO 0.6 (1.0-2.7); ALKALINE PHOSPHATASE 45 U/L (46-116); ANION GAP 7 mmol/L (5-15); ASPARTATE AMINO TRANSFERASE 16 U/L (15-37); BILIRUBIN,TOTAL 0.3 MG/DL (0.2-1.0); BLOOD UREA NITROGEN 64 mg/dL (7-18); CALCIUM 6.4 MG/DL (8.5-10.1); CARBON DIOXIDE 26 MMOL/L (21-32); CHLORIDE 110 MMOL/L (98-107); PHOSPHORUS 4.2 MG/DL (2.5-4.9); POTASSIUM 4.5 MMOL/L (3.5-5.1); SODIUM 143 MMOL/L (136-145)
[2017-07-11] MEDS: NovoLOG Insulin Flexpen SUBQ SCH ×4 (06:30→21:00)
[2017-07-11 08:00] VITALS: BP 147/59
[2017-07-11] MEDS: Piperacillin/Tazobactam 3.375 GM in NS 110 ML IVPB SCH ×2 (08:52→20:34)
[2017-07-11] MEDS: LORazepam 1mg tab ORAL PRN (08:52)
[2017-07-11] MEDS: Tamsulosin 0.4mg cap ORAL SCH ×2 (08:52→18:23)
[2017-07-11] MEDS: Cosopt Opth Soln 10 mL Btl BOTH EYES SCH ×2 (08:52→18:23)
[2017-07-11] MEDS: Aspirin Baby 81mg ORAL SCH (08:52)
[2017-07-11] MEDS: Heparin 5000 units/ml inj SUBQ SCH ×2 (08:54→20:37)
--- NOTE | 2017-07-11 11:33 | Infectious Diseases Prog Note ---
Assessment/Plan Assessment/Plan Assessment: Post influenza PNA- r/o S. aureus, H. flu- ?worsening PNA -CXR 07/10: Bibasilar atelectasis and consolidation persists, perhaps slightly improved. Retrocardiac consolidation and left basilar pleural fluid persists, unchanged. -CXR 07/08: . There is interval worsening of aeration at the right base with increasing patchy airspace opacities. Persistent left basilar atelectasis/ consolidation. -sp cx normal chalo Acute hypercapneic resp failure on Bipap- hypercapnea improving- remains on BIpap Mild leukopenia- Afebrile PHILIP on ?CKD Fall with R knee pain -Xray R knee: No acute fracture. 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 HTN, DM2, CKD, HLD, BPH Plan: -Continue Zosyn #3/5-7 for PNA -07/10 IV Vanco #4, Azithromycin #5 -/3 SP Ceftriaxone #5 -/2 SP Tamiflu #5 and Levaquin #2 -f/u cx -Monitor CBC/BMP, temperatures -aspiration precautions Thank you for this consultation. Will continue to follow along with you. Discussed with RN. Subjective Allergies: Coded Allergies: No Known Allergies (Unverified , 07/04/17) Subjective afebrile, no leukocytosis remains on Bipap, Fio2 60% Objective Vital Signs Last 24 Hour Vital Signs Date Time Temp Pulse Resp B/P (MAP) Pulse Ox O2 Delivery O2 Flow Rate FiO2 07/11/17 11:29 71 20 93 Bi-pap 60 07/11/17 11:26 68 20 97 Full Face 60 07/11/17 11:26 77 16 83 Bi-pap 60 07/11/17 09:25 69 16 93 07/11/17 08:00 57 07/11/17 08:00 14.0 55 07/11/17 08:00 98.1 76 20 147/59 90 Venturi Mask 14.0 55 07/11/17 07:25 56 20 97 Venturi Mask 14.0 55 07/11/17 07:20 97 Bi-pap 60 07/11/17 07:20 57 18 97 Full Face 60 07/11/17 07:19 57 16 97 Bi-pap 60 07/11/17 07:19 Bi-pap 60 07/11/17 05:18 54 16 98 Full Face 60 07/11/17 04:00 97.7 60 18 132/63 94 Bi-pap 60 07/11/17 04:00 55 07/11/17 03:59 59 20 97 Bi-pap 60 07/11/17 03:49 59 16 96 Bi-pap 60 07/11/17 03:48 57 16 95 Full Face 60 07/11/17 01:10 78 17 94 Full Face 60 07/11/17 00:00 97.8 60 16 123/76 94 Bi-pap 60 07/11/17 00:00 55 07/10/17 23:11 53 20 97 Bi-pap 60 07/10/17 22:59 72 16 95 Full Face 60 07/10/17 22:58 72 16 96 Bi-pap 60 07/10/17 21:30 60 16 95 Full Face 60 07/10/17 21:21 98.6 07/10/17 20:26 65 20 99 Bi-pap 60 07/10/17 20:25 64 20 95 Bi-pap 60 07/10/17 20:24 57 17 95 Full Face 60 07/10/17 20:24 96 Bi-pap 45 07/10/17 20:00 97.9 60 16 132/60 94 Bi-pap 60 07/10/17 20:00 55 07/10/17 19:00 Bi-pap 45 07/10/17 16:50 62 16 91 Full Face 60 07/10/17 16:20 60 20 93 Bi-pap 60 07/10/17 16:00 98.6 58 16 126/46 95 Bi-pap 60 07/10/17 16:00 60 07/10/17 16:00 57 07/10/17 15:48 57 16 93 Full Face 60 07/10/17 13:28 58 23 97 Full Face 60 07/10/17 12:00 97.9 61 16 114/59 94 Bi-pap 60 07/10/17 12:00 60 07/10/17 12:00 69 Height (Feet): 5 Height (Inches): 10.00 Weight (Pounds): 170 Objective GENERAL: The patient is a well-developed and well-nourished white male, in no apparent distress.BIpap mask in place HEENT: Eyes, pupils are equal and responsive to light and accommodation.Extraocular movements are intact. NECK: Supple without lymphadenopathy. CHEST: Lungs are clear to auscultation bilaterally without wheezes or rales. CARDIOVASCULAR: Regular rhythm and rate. S1 and S2 are normal without murmurs , rubs, or gallops. ABDOMEN: Soft, nontender, and nondistended. Positive bowel sounds. No evidence of hepatosplenomegaly. Currently, no rebound or guarding noted. EXTREMITIES: Negative for clubbing, cyanosis, or edema. Microbiology Date/Time Source Procedure Growth Status 07/08/17 12:30 Sputum Induced Gram Stain - Final Complete 07/08/17 12:30 Sputum Induced Sputum Culture - Final NORMAL UPPER RESPIRATORY CHALO PRESENT Complete Laboratory Tests Test 07/11/17 03:30 White Blood Count 3.5 K/UL (4.8-10.8) L Red Blood Count 2.59 M/UL (4.70-6.10) L Hemoglobin 8.7 G/DL (14.2-18.0) L Hematocrit 27.0 % (42.0-52.0) L Mean Corpuscular Volume 104 FL (80-99) H Mean Corpuscular Hemoglobin 33.7 PG (27.0-31.0) H Mean Corpuscular Hemoglobin Concent 32.4 G/DL (32.0-36.0) Red Cell Distribution Width 13.3 % (11.6-14.8) Platelet Count 182 K/UL (150-450) Mean Platelet Volume 7.6 FL (6.5-10.1) Neutrophils (%) (Auto) 69.0 % (45.0-75.0) Lymphocytes (%) (Auto) 10.4 % (20.0-45.0) L Monocytes (%) (Auto) 17.8 % (1.0-10.0) H Eosinophils (%) (Auto) 1.8 % (0.0-3.0) Basophils (%) (Auto) 1.1 % (0.0-2.0) Sodium Level 143 MMOL/L (136-145) Potassium Level 4.5 MMOL/L (3.5-5.1) Chloride Level 110 MMOL/L (98-107) H Carbon Dioxide Level 26 MMOL/L (21-32) Anion Gap 7 mmol/L (5-15) Blood Urea Nitrogen 64 mg/dL (7-18) H Creatinine 4.0 MG/DL (0.55-1.30) H Estimat Glomerular Filtration Rate mL/min (>60) Glucose Level 100 MG/DL (74-106) Calcium Level 6.4 MG/DL (8.5-10.1) L Phosphorus Level 4.2 MG/DL (2.5-4.9) Magnesium Level 3.1 MG/DL (1.8-2.4) H Total Bilirubin 0.3 MG/DL (0.2-1.0) Aspartate Amino Transf (AST/SGOT) 16 U/L (15-37) Alanine Aminotransferase (ALT/SGPT) 18 U/L (12-78) Alkaline Phosphatase 45 U/L (46-116) L Troponin I 0.012 ng/mL (0.000-0.056) C-Reactive Protein, Quantitative 7.1 mg/dL (0.00-0.90) H Pro-B-Type Natriuretic Peptide 1311 pg/mL (0-125) H Total Protein 5.3 G/DL (6.4-8.2) L Albumin 1.9 G/DL (3.4-5.0) L Globulin 3.4 g/dL Albumin/Globulin Ratio 0.6 (1.0-2.7) L Current Medications Medications (Trade) Dose Ordered Sig/Nito Route PRN Reason Start Time Stop Time Status Last Admin Dose Admin Acetaminophen (Tylenol) 650 mg Q6H PRN ORAL Mild Pain/Temp > 100.4 07/07/17 20:15 08/04/17 08:14 07/10/17 20:22 Acetaminophen/ Hydrocodone Bitart ([place] 10/325) 1 ea Q4H PRN ORAL For Moderate to Severe Pain 07/07/17 18:45 07/13/17 14:44 07/10/17 08:22 Albuterol/ Ipratropium (Albuterol/ Ipratropium) 3 ml Q4HRT HHN 07/07/17 19:00 07/12/17 14:59 07/11/17 11:23 Allopurinol (Allopurinol) 300 mg DAILY ORAL 07/08/17 09:00 08/07/17 08:59 07/11/17 08:52 Aspirin (ASA) 81 mg DAILY ORAL 07/08/17 09:00 08/04/17 08:59 07/11/17 08:52 Atorvastatin Calcium (Lipitor) 40 mg BEDTIME ORAL 07/07/17 21:00 08/06/17 20:59 07/10/17 20:22 Dextrose (Dextrose 50%) STAT PRN IV Hypoglycemia 07/08/17 08:15 08/04/17 08:14 Dorzolamide/ Timolol (Cosopt) 1 drop TWICE A DAY BOTH EYES 07/07/17 18:00 08/06/17 17:59 07/11/17 08:52 Epoetin Koby (Procrit (for non ESRD use)) 10,000 units FRI-FRI-FRI SUBQ 07/11/17 21:00 08/10/17 20:59 Escitalopram Oxalate (Lexapro) 10 mg DAILY ORAL 07/10/17 13:00 08/09/17 12:59 07/11/17 08:52 Glipizide (GlipiZIDE XL) 2.5 mg ACBREAKFAST ORAL 07/08/17 06:30 08/07/17 06:29 07/10/17 06:06 Guaifenesin (Robitussin) 100 mg Q6H PRN ORAL For Cough 07/07/17 16:30 08/03/17 22:29 Heparin Sodium (Porcine) (Heparin 5000 units/ml) 5,000 units EVERY 12 HOURS SUBQ 07/07/17 21:00 08/04/17 08:59 07/11/17 08:54 Hydralazine HCl (Apresoline) 25 mg Q4H PRN ORAL SBP > 160 mm Hg 07/07/17 16:45 08/04/17 08:14 Insulin Aspart (NovoLOG) BEFORE MEALS AND HS SUBQ 07/07/17 16:30 08/04/17 11:29 07/09/17 19:48 Latanoprost (Xalatan) 1 drop BEDTIME BOTH EYES 07/07/17 21:00 08/06/17 20:59 07/10/17 20:21 Lorazepam (Ativan) 1 mg Q6H PRN ORAL For Anxiety 07/10/17 11:30 07/17/17 11:29 07/11/17 08:52 Ondansetron HCl (Zofran) 4 mg Q4H PRN IVP nausea 07/07/17 17:00 08/04/17 00:59 Patient Own Medication (Patient's Own Med) 1 ea Th@0900 SUBQ 07/10/17 09:00 08/09/17 08:59 07/10/17 09:31 Piperacillin Sod/ Tazobactam Sod 3.375 gm/Sodium Chloride 110 ml @ 27.5 mls/hr EVERY 12 HOURS IVPB 07/09/17 11:30 07/16/17 11:29 07/11/17 08:52 Tamsulosin HCl (Flomax) 0.4 mg BID ORAL 07/07/17 18:00 08/04/17 12:59 07/11/17 08:52 Lorelei Manning M.D. Jul 11, 2017 11:33
[2017-07-11 12:00] VITALS: BP 131/58
--- NOTE | 2017-07-11 13:26 | Pulmonology Progress Note ---
Assessment/Plan Problems: (1) Respiratory failure (2) CHF (congestive heart failure) (3) Pneumonia (4) BPH (benign prostatic hyperplasia) (5) Renal failure (6) Diabetes mellitus, type II Assessment/Plan afebrile, wbc wnl still needs bipap repeat cxr bnp in am continue abx check cultures echo, and renal us reviewed titrate bipap, try to wean again. Subjective ROS Limited/Unobtainable: No Interval Events: desaturated off bipap to 80's Constitutional: Reports: no symptoms HEENT: Repors: no symptoms Allergies: Coded Allergies: No Known Allergies (Unverified , 07/04/17) Objective Last 24 Hour Vital Signs Date Time Temp Pulse Resp B/P (MAP) Pulse Ox O2 Delivery O2 Flow Rate FiO2 07/11/17 12:00 98.1 67 18 131/58 98 Bi-pap 60 07/11/17 11:29 71 20 93 Bi-pap 60 07/11/17 11:26 68 20 97 Full Face 60 07/11/17 11:26 77 16 83 Bi-pap 60 07/11/17 09:25 69 16 93 07/11/17 08:00 57 07/11/17 08:00 14.0 55 07/11/17 08:00 98.1 76 20 147/59 90 Venturi Mask 14.0 55 07/11/17 07:25 56 20 97 Venturi Mask 14.0 55 07/11/17 07:20 97 Bi-pap 60 07/11/17 07:20 57 18 97 Full Face 60 07/11/17 07:19 57 16 97 Bi-pap 60 07/11/17 07:19 Bi-pap 60 07/11/17 05:18 54 16 98 Full Face 60 07/11/17 04:00 97.7 60 18 132/63 94 Bi-pap 60 07/11/17 04:00 55 07/11/17 03:59 59 20 97 Bi-pap 60 07/11/17 03:49 59 16 96 Bi-pap 60 07/11/17 03:48 57 16 95 Full Face 60 07/11/17 01:10 78 17 94 Full Face 60 07/11/17 00:00 97.8 60 16 123/76 94 Bi-pap 60 07/11/17 00:00 55 07/10/17 23:11 53 20 97 Bi-pap 60 07/10/17 22:59 72 16 95 Full Face 60 07/10/17 22:58 72 16 96 Bi-pap 60 07/10/17 21:30 60 16 95 Full Face 60 07/10/17 21:21 98.6 07/10/17 20:26 65 20 99 Bi-pap 60 07/10/17 20:25 64 20 95 Bi-pap 60 07/10/17 20:24 57 17 95 Full Face 60 07/10/17 20:24 96 Bi-pap 45 07/10/17 20:00 97.9 60 16 132/60 94 Bi-pap 60 07/10/17 20:00 55 07/10/17 19:00 Bi-pap 45 07/10/17 16:50 62 16 91 Full Face 60 07/10/17 16:20 60 20 93 Bi-pap 60 07/10/17 16:00 98.6 58 16 126/46 95 Bi-pap 60 07/10/17 16:00 60 07/10/17 16:00 57 07/10/17 15:48 57 16 93 Full Face 60 07/10/17 13:28 58 23 97 Full Face 60 Intake and Output 07/10/17 07/11/17 19:00 07:00 Intake Total 1500.000 ml 127.87 ml Output Total 600 ml 300 ml Balance 900.000 ml -172.13 ml Intake Oral 720 ml IV Total 780.000 ml 127.87 ml Output Urine Total 600 ml 300 ml General Appearance: WD/WN HEENT: normocephalic, anicteric Respiratory/Chest: chest wall non-tender, lungs clear Cardiovascular: normal peripheral pulses, normal rate Abdomen: normal bowel sounds, soft, non tender Genitourinary: normal external genitalia Extremities: no clubbing Skin: no rash, no lesions Laboratory Tests 07/11/17 03:30: White Blood Count 3.5L, Red Blood Count 2.59L, Hemoglobin 8.7L, Hematocrit 27.0L , Mean Corpuscular Volume 104H, Mean Corpuscular Hemoglobin 33.7H, Mean Corpuscular Hemoglobin Concent 32.4, Red Cell Distribution Width 13.3, Platelet Count 182, Mean Platelet Volume 7.6, Neutrophils (%) (Auto) 69.0, Lymphocytes (% ) (Auto) 10.4L, Monocytes (%) (Auto) 17.8H, Eosinophils (%) (Auto) 1.8, Basophils (%) (Auto) 1.1, Sodium Level 143, Potassium Level 4.5, Chloride Level 110H, Carbon Dioxide Level 26, Anion Gap 7, Blood Urea Nitrogen 64H, Creatinine 4.0H, Estimat Glomerular Filtration Rate , Glucose Level 100, Calcium Level 6.4L , Phosphorus Level 4.2, Magnesium Level 3.1H, Total Bilirubin 0.3, Aspartate Amino Transf (AST/SGOT) 16, Alanine Aminotransferase (ALT/SGPT) 18, Alkaline Phosphatase 45L, Troponin I 0.012, C-Reactive Protein, Quantitative 7.1H, Pro-B- Type Natriuretic Peptide 1311H, Total Protein 5.3L, Albumin 1.9L, Globulin 3.4, Albumin/Globulin Ratio 0.6L Current Medications Medications (Trade) Dose Ordered Sig/Nito Route PRN Reason Start Time Stop Time Status Last Admin Dose Admin Acetaminophen (Tylenol) 650 mg Q6H PRN ORAL Mild Pain/Temp > 100.4 07/07/17 20:15 08/04/17 08:14 07/10/17 20:22 Acetaminophen/ Hydrocodone Bitart ([place] 10/325) 1 ea Q4H PRN ORAL For Moderate to Severe Pain 07/07/17 18:45 07/13/17 14:44 07/10/17 08:22 Albuterol/ Ipratropium (Albuterol/ Ipratropium) 3 ml Q4HRT HHN 07/07/17 19:00 07/12/17 14:59 07/11/17 11:23 Allopurinol (Allopurinol) 300 mg DAILY ORAL 07/08/17 09:00 08/07/17 08:59 07/11/17 08:52 Aspirin (ASA) 81 mg DAILY ORAL 07/08/17 09:00 08/04/17 08:59 07/11/17 08:52 Atorvastatin Calcium (Lipitor) 40 mg BEDTIME ORAL 07/07/17 21:00 08/06/17 20:59 07/10/17 20:22 Dextrose (Dextrose 50%) STAT PRN IV Hypoglycemia 07/08/17 08:15 08/04/17 08:14 Dorzolamide/ Timolol (Cosopt) 1 drop TWICE A DAY BOTH EYES 07/07/17 18:00 08/06/17 17:59 07/11/17 08:52 Epoetin Koby (Procrit (for non ESRD use)) 10,000 units FRI-FRI-FRI SUBQ 07/11/17 21:00 08/10/17 20:59 Escitalopram Oxalate (Lexapro) 10 mg DAILY ORAL 07/10/17 13:00 08/09/17 12:59 07/11/17 08:52 Glipizide (GlipiZIDE XL) 2.5 mg ACBREAKFAST ORAL 07/08/17 06:30 08/07/17 06:29 07/10/17 06:06 Guaifenesin (Robitussin) 100 mg Q6H PRN ORAL For Cough 07/07/17 16:30 08/03/17 22:29 Heparin Sodium (Porcine) (Heparin 5000 units/ml) 5,000 units EVERY 12 HOURS SUBQ 07/07/17 21:00 08/04/17 08:59 07/11/17 08:54 Hydralazine HCl (Apresoline) 25 mg Q4H PRN ORAL SBP > 160 mm Hg 07/07/17 16:45 08/04/17 08:14 Insulin Aspart (NovoLOG) BEFORE MEALS AND HS SUBQ 07/07/17 16:30 08/04/17 11:29 07/09/17 19:48 Latanoprost (Xalatan) 1 drop BEDTIME BOTH EYES 07/07/17 21:00 08/06/17 20:59 07/10/17 20:21 Lorazepam (Ativan) 1 mg Q6H PRN ORAL For Anxiety 07/10/17 11:30 07/17/17 11:29 07/11/17 08:52 Ondansetron HCl (Zofran) 4 mg Q4H PRN IVP nausea 07/07/17 17:00 08/04/17 00:59 Patient Own Medication (Patient's Own Med) 1 ea Th@0900 SUBQ 07/10/17 09:00 08/09/17 08:59 07/10/17 09:31 Piperacillin Sod/ Tazobactam Sod 3.375 gm/Sodium Chloride 110 ml @ 27.5 mls/hr EVERY 12 HOURS IVPB 07/09/17 11:30 07/16/17 11:29 07/11/17 08:52 Tamsulosin HCl (Flomax) 0.4 mg BID ORAL 07/07/17 18:00 08/04/17 12:59 07/11/17 08:52 KEVAN SEARS Jul 11, 2017 13:26
--- NOTE | 2017-07-11 13:55 | Nephrology Progress Note ---
Assessment/Plan Problem List: (1) Renal failure Assessment: acute on chronic (2) Respiratory failure (3) BPH (benign prostatic hyperplasia) (4) HTN (hypertension) (5) Diabetes mellitus, type II Assessment encephalopathic On Mask now Renal failure- ? CKd + Superimposed acute, Cr rising stable at 4 DM ? Nephropathy, has 3+ Proteins in urine Fall and right knee injury Anemia ? due to CKD ASHD Upper respiratory tract infection. Hypertension. Hypercholesterolemia. Benign prostatic hypertrophy. Low BP Plan Plan: EPO and Venofer ford- Optimize pulmonary status ID and Cardiology avoid Nephrotoxics Flomax Keep BP and BS in check Anemia luciano monitor renal parameters Per orders Left ventricular ejection fraction estimated to be 60-65 %. Moderate left ventricular hypertrophy by 2-D. Echogenic bilateral kidneys, suspect chronic medical renal disease Subjective ROS Limited/Unobtainable: No Constitutional: Reports: malaise, weakness Objective Objective Last 24 Hour Vital Signs Date Time Temp Pulse Resp B/P (MAP) Pulse Ox O2 Delivery O2 Flow Rate FiO2 07/11/17 13:25 70 20 96 Full Face 60 07/11/17 12:00 98.1 67 18 131/58 98 Bi-pap 60 07/11/17 11:29 71 20 93 Bi-pap 60 07/11/17 11:26 68 20 97 Full Face 60 07/11/17 11:26 77 16 83 Bi-pap 60 07/11/17 09:25 69 16 93 07/11/17 08:00 57 07/11/17 08:00 14.0 55 07/11/17 08:00 98.1 76 20 147/59 90 Venturi Mask 14.0 55 07/11/17 07:25 56 20 97 Venturi Mask 14.0 55 07/11/17 07:20 97 Bi-pap 60 07/11/17 07:20 57 18 97 Full Face 60 07/11/17 07:19 57 16 97 Bi-pap 60 07/11/17 07:19 Bi-pap 60 07/11/17 05:18 54 16 98 Full Face 60 07/11/17 04:00 97.7 60 18 132/63 94 Bi-pap 60 07/11/17 04:00 55 07/11/17 03:59 59 20 97 Bi-pap 60 07/11/17 03:49 59 16 96 Bi-pap 60 07/11/17 03:48 57 16 95 Full Face 60 07/11/17 01:10 78 17 94 Full Face 60 07/11/17 00:00 97.8 60 16 123/76 94 Bi-pap 60 07/11/17 00:00 55 07/10/17 23:11 53 20 97 Bi-pap 60 07/10/17 22:59 72 16 95 Full Face 60 07/10/17 22:58 72 16 96 Bi-pap 60 07/10/17 21:30 60 16 95 Full Face 60 07/10/17 21:21 98.6 07/10/17 20:26 65 20 99 Bi-pap 60 07/10/17 20:25 64 20 95 Bi-pap 60 07/10/17 20:24 57 17 95 Full Face 60 07/10/17 20:24 96 Bi-pap 45 07/10/17 20:00 97.9 60 16 132/60 94 Bi-pap 60 07/10/17 20:00 55 07/10/17 19:00 Bi-pap 45 07/10/17 16:50 62 16 91 Full Face 60 07/10/17 16:20 60 20 93 Bi-pap 60 07/10/17 16:00 98.6 58 16 126/46 95 Bi-pap 60 07/10/17 16:00 60 07/10/17 16:00 57 07/10/17 15:48 57 16 93 Full Face 60 Intake and Output 07/10/17 07/11/17 19:00 07:00 Intake Total 1500.000 ml 127.87 ml Output Total 600 ml 300 ml Balance 900.000 ml -172.13 ml Intake Oral 720 ml IV Total 780.000 ml 127.87 ml Output Urine Total 600 ml 300 ml Laboratory Tests 07/11/17 03:30: White Blood Count 3.5L, Red Blood Count 2.59L, Hemoglobin 8.7L, Hematocrit 27.0L , Mean Corpuscular Volume 104H, Mean Corpuscular Hemoglobin 33.7H, Mean Corpuscular Hemoglobin Concent 32.4, Red Cell Distribution Width 13.3, Platelet Count 182, Mean Platelet Volume 7.6, Neutrophils (%) (Auto) 69.0, Lymphocytes (% ) (Auto) 10.4L, Monocytes (%) (Auto) 17.8H, Eosinophils (%) (Auto) 1.8, Basophils (%) (Auto) 1.1, Sodium Level 143, Potassium Level 4.5, Chloride Level 110H, Carbon Dioxide Level 26, Anion Gap 7, Blood Urea Nitrogen 64H, Creatinine 4.0H, Estimat Glomerular Filtration Rate , Glucose Level 100, Calcium Level 6.4L , Phosphorus Level 4.2, Magnesium Level 3.1H, Total Bilirubin 0.3, Aspartate Amino Transf (AST/SGOT) 16, Alanine Aminotransferase (ALT/SGPT) 18, Alkaline Phosphatase 45L, Troponin I 0.012, C-Reactive Protein, Quantitative 7.1H, Pro-B- Type Natriuretic Peptide 1311H, Total Protein 5.3L, Albumin 1.9L, Globulin 3.4, Albumin/Globulin Ratio 0.6L Height (Feet): 5 Height (Inches): 10.00 Weight (Pounds): 170 General Appearance: no apparent distress, lethargic Cardiovascular: regular rhythm Respiratory/Chest: decreased breath sounds Abdomen: soft, distended Objective no other changes JOVANA TREVIÑO Jul 11, 2017 13:55
[2017-07-11 16:00] VITALS: BP 134/59
--- NOTE | 2017-07-11 16:00 | Internal Med Progress Note ---
Subjective Date of Service: Jul 11, 2017 Physician Name Kayleen Garcia Attending Physician Kofi Mitchell MD Current Medications Medications (Trade) Dose Ordered Sig/Nito Route PRN Reason Start Time Stop Time Status Last Admin Dose Admin Acetaminophen (Tylenol) 650 mg Q6H PRN ORAL Mild Pain/Temp > 100.4 07/07/17 20:15 08/04/17 08:14 07/10/17 20:22 Acetaminophen/ Hydrocodone Bitart ([place] 10/325) 1 ea Q4H PRN ORAL For Moderate to Severe Pain 07/07/17 18:45 07/13/17 14:44 07/10/17 08:22 Albuterol/ Ipratropium (Albuterol/ Ipratropium) 3 ml Q4HRT HHN 07/07/17 19:00 07/12/17 14:59 07/11/17 11:23 Allopurinol (Allopurinol) 300 mg DAILY ORAL 07/08/17 09:00 08/07/17 08:59 07/11/17 08:52 Aspirin (ASA) 81 mg DAILY ORAL 07/08/17 09:00 08/04/17 08:59 07/11/17 08:52 Atorvastatin Calcium (Lipitor) 40 mg BEDTIME ORAL 07/07/17 21:00 08/06/17 20:59 07/10/17 20:22 Dextrose (Dextrose 50%) STAT PRN IV Hypoglycemia 07/08/17 08:15 08/04/17 08:14 Dorzolamide/ Timolol (Cosopt) 1 drop TWICE A DAY BOTH EYES 07/07/17 18:00 08/06/17 17:59 07/11/17 08:52 Epoetin Koby (Procrit (for non ESRD use)) 10,000 units MON-WED-FRI SUBQ 07/11/17 21:00 08/10/17 20:59 Escitalopram Oxalate (Lexapro) 10 mg DAILY ORAL 07/10/17 13:00 08/09/17 12:59 07/11/17 08:52 Glipizide (GlipiZIDE XL) 2.5 mg ACBREAKFAST ORAL 07/08/17 06:30 08/07/17 06:29 07/10/17 06:06 Guaifenesin (Robitussin) 100 mg Q6H PRN ORAL For Cough 07/07/17 16:30 08/03/17 22:29 Heparin Sodium (Porcine) (Heparin 5000 units/ml) 5,000 units EVERY 12 HOURS SUBQ 07/07/17 21:00 08/04/17 08:59 07/11/17 08:54 Hydralazine HCl (Apresoline) 25 mg Q4H PRN ORAL SBP > 160 mm Hg 07/07/17 16:45 08/04/17 08:14 Insulin Aspart (NovoLOG) BEFORE MEALS AND HS SUBQ 07/07/17 16:30 08/04/17 11:29 07/09/17 19:48 Latanoprost (Xalatan) 1 drop BEDTIME BOTH EYES 07/07/17 21:00 08/06/17 20:59 07/10/17 20:21 Lorazepam (Ativan) 1 mg Q6H PRN ORAL For Anxiety 07/10/17 11:30 07/17/17 11:29 07/11/17 08:52 Ondansetron HCl (Zofran) 4 mg Q4H PRN IVP nausea 07/07/17 17:00 08/04/17 00:59 Patient Own Medication (Patient's Own Med) 1 ea Th@0900 SUBQ 07/10/17 09:00 08/09/17 08:59 07/10/17 09:31 Piperacillin Sod/ Tazobactam Sod 3.375 gm/Sodium Chloride 110 ml @ 27.5 mls/hr EVERY 12 HOURS IVPB 07/09/17 11:30 07/16/17 11:29 07/11/17 08:52 Tamsulosin HCl (Flomax) 0.4 mg BID ORAL 07/07/17 18:00 08/04/17 12:59 07/11/17 08:52 Allergies: Coded Allergies: No Known Allergies (Unverified , 07/04/17) ROS Limited/Unobtainable: No Constitutional: Reports: no symptoms HEENT: Reports: no symptoms Cardiovascular: Reports: no symptoms Respiratory: Reports: shortness of breath Gastrointestinal/Abdominal: Reports: no symptoms Genitourinary: Reports: no symptoms Neurologic/Psychiatric: Reports: no symptoms Subjective 81 YO M admitted with cough. Now renal failure. Currently on venturi mask; BIPAP discontinued earlier today. TAYLA. Cover for Int Med-Dr Mitchell. Objective Last Vital Signs Date Time Temp Pulse Resp B/P (MAP) Pulse Ox O2 Delivery O2 Flow Rate FiO2 07/11/17 15:42 67 16 90 Venturi Mask 14.0 55 07/11/17 12:00 98.1 131/58 Laboratory Tests Test 07/11/17 03:30 White Blood Count 3.5 K/UL (4.8-10.8) L Red Blood Count 2.59 M/UL (4.70-6.10) L Hemoglobin 8.7 G/DL (14.2-18.0) L Hematocrit 27.0 % (42.0-52.0) L Mean Corpuscular Volume 104 FL (80-99) H Mean Corpuscular Hemoglobin 33.7 PG (27.0-31.0) H Mean Corpuscular Hemoglobin Concent 32.4 G/DL (32.0-36.0) Red Cell Distribution Width 13.3 % (11.6-14.8) Platelet Count 182 K/UL (150-450) Mean Platelet Volume 7.6 FL (6.5-10.1) Neutrophils (%) (Auto) 69.0 % (45.0-75.0) Lymphocytes (%) (Auto) 10.4 % (20.0-45.0) L Monocytes (%) (Auto) 17.8 % (1.0-10.0) H Eosinophils (%) (Auto) 1.8 % (0.0-3.0) Basophils (%) (Auto) 1.1 % (0.0-2.0) Sodium Level 143 MMOL/L (136-145) Potassium Level 4.5 MMOL/L (3.5-5.1) Chloride Level 110 MMOL/L (98-107) H Carbon Dioxide Level 26 MMOL/L (21-32) Anion Gap 7 mmol/L (5-15) Blood Urea Nitrogen 64 mg/dL (7-18) H Creatinine 4.0 MG/DL (0.55-1.30) H Estimat Glomerular Filtration Rate mL/min (>60) Glucose Level 100 MG/DL (74-106) Calcium Level 6.4 MG/DL (8.5-10.1) L Phosphorus Level 4.2 MG/DL (2.5-4.9) Magnesium Level 3.1 MG/DL (1.8-2.4) H Total Bilirubin 0.3 MG/DL (0.2-1.0) Aspartate Amino Transf (AST/SGOT) 16 U/L (15-37) Alanine Aminotransferase (ALT/SGPT) 18 U/L (12-78) Alkaline Phosphatase 45 U/L (46-116) L Troponin I 0.012 ng/mL (0.000-0.056) C-Reactive Protein, Quantitative 7.1 mg/dL (0.00-0.90) H Pro-B-Type Natriuretic Peptide 1311 pg/mL (0-125) H Total Protein 5.3 G/DL (6.4-8.2) L Albumin 1.9 G/DL (3.4-5.0) L Globulin 3.4 g/dL Albumin/Globulin Ratio 0.6 (1.0-2.7) L Intake and Output 07/10/17 07/11/17 19:00 07:00 Intake Total 1500.000 ml 127.87 ml Output Total 600 ml 300 ml Balance 900.000 ml -172.13 ml Intake Oral 720 ml IV Total 780.000 ml 127.87 ml Output Urine Total 600 ml 300 ml Objective General Appearance: WD/WN, no apparent distress, alert, moderate distress EENT: PERRL/EOMI, normal ENT inspection, TMs normal Neck: non-tender, normal alignment, supple, normal inspection Cardiovascular: normal peripheral pulses, normal rate, regular rhythm, no gallop/murmur, no JVD Respiratory/Chest: Venturi mask; chest wall non-tender, decreased breath sounds , crackles/rales, rhonchi - bilaterally, expiratory wheezing Abdomen: normal bowel sounds, non tender, soft, no organomegaly, no mass Extremities: normal range of motion, non-tender Neurologic: underwear cutter II-XII 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 D/C tylenol #3; start Horatio 10/325 (2) HTN (hypertension) Assessment & Plan: Continue hydralazine and norvasc. (3) Diabetes mellitus, type II Assessment & Plan: continue novolog sliding scale. (4) Hypercholesteremia Assessment & Plan: Continue lipitor. (5) Glaucoma (6) BPH (benign prostatic hyperplasia) Assessment & Plan: Continue flomax. (7) Osteoarthritis of right knee (8) Renal failure Assessment & Plan: See nephrology note. (9) Upper respiratory infection (10) Pneumonia Assessment & Plan: Continue ceftriaxone, vanco and azithro per ID. D/C levaquin IV. See ID and Pulmonary consult. (11) CHF (congestive heart failure) Assessment & Plan: Await echocardiogram and cardiology consult. (12) Respiratory failure Assessment & Plan: Hypercapnic. BIPAP discontinued; tolerating venturi mask. See Pulmonary consult. IV lasix for CHF. Continue vanco and zosyn per ID Status: progressing Assessment/Plan D/W son in law, Dr Emrey, daughter, Cynthia and , Tata. LUIS MIGUELKAYLEEN Jul 11, 2017 16:00
--- NOTE | 2017-07-11 19:20 | Cardiac Electrophysiology PN ---
Assessment/Plan Assessment/Plan 1. Shortness of breath. Ruled out for myocardial infarction. Likely due to volume overload . Echocardiogram showed EF 60%. On Face Mask now 2. Hypertension Now OFF BP meds. 3. Renal failure. Further evaluation by Dr. Pederson. 4. Recent influenza A. CLAYTON RN and Awaiting transfer to [facility] Subjective Subjective On TAYLA. On Face mask. Not eating much. at bedside.Awaiting transfer to [facility] Objective Last 24 Hour Vital Signs Date Time Temp Pulse Resp B/P (MAP) Pulse Ox O2 Delivery O2 Flow Rate FiO2 07/11/17 16:30 67 07/11/17 16:09 71 20 93 Venturi Mask 55 07/11/17 16:00 98.1 68 22 134/59 90 Venturi Mask 14.0 55 07/11/17 15:42 67 16 90 Venturi Mask 14.0 55 07/11/17 15:41 69 18 90 07/11/17 13:25 70 20 96 Full Face 60 07/11/17 12:00 98.1 67 18 131/58 98 Bi-pap 60 07/11/17 12:00 68 07/11/17 11:29 71 20 93 Bi-pap 60 07/11/17 11:26 68 20 97 Full Face 60 07/11/17 11:26 77 16 83 Bi-pap 60 07/11/17 09:25 69 16 93 07/11/17 08:00 57 07/11/17 08:00 14.0 55 07/11/17 08:00 98.1 76 20 147/59 90 Venturi Mask 14.0 55 07/11/17 07:25 56 20 97 Venturi Mask 14.0 55 07/11/17 07:20 97 Bi-pap 60 07/11/17 07:20 57 18 97 Full Face 60 07/11/17 07:19 57 16 97 Bi-pap 60 07/11/17 07:19 Bi-pap 60 07/11/17 05:18 54 16 98 Full Face 60 07/11/17 04:00 97.7 60 18 132/63 94 Bi-pap 60 07/11/17 04:00 55 07/11/17 03:59 59 20 97 Bi-pap 60 07/11/17 03:49 59 16 96 Bi-pap 60 07/11/17 03:48 57 16 95 Full Face 60 07/11/17 01:10 78 17 94 Full Face 60 07/11/17 00:00 97.8 60 16 123/76 94 Bi-pap 60 07/11/17 00:00 55 07/10/17 23:11 53 20 97 Bi-pap 60 07/10/17 22:59 72 16 95 Full Face 60 07/10/17 22:58 72 16 96 Bi-pap 60 07/10/17 21:30 60 16 95 Full Face 60 07/10/17 21:21 98.6 07/10/17 20:26 65 20 99 Bi-pap 60 07/10/17 20:25 64 20 95 Bi-pap 60 07/10/17 20:24 57 17 95 Full Face 60 07/10/17 20:24 96 Bi-pap 45 07/10/17 20:00 97.9 60 16 132/60 94 Bi-pap 60 07/10/17 20:00 55 Intake and Output 07/10/17 07/11/17 19:00 07:00 Intake Total 1500.000 ml 127.87 ml Output Total 600 ml 300 ml Balance 900.000 ml -172.13 ml Intake Oral 720 ml IV Total 780.000 ml 127.87 ml Output Urine Total 600 ml 300 ml Laboratory Tests Test 07/11/17 03:30 White Blood Count 3.5 K/UL (4.8-10.8) L Red Blood Count 2.59 M/UL (4.70-6.10) L Hemoglobin 8.7 G/DL (14.2-18.0) L Hematocrit 27.0 % (42.0-52.0) L Mean Corpuscular Volume 104 FL (80-99) H Mean Corpuscular Hemoglobin 33.7 PG (27.0-31.0) H Mean Corpuscular Hemoglobin Concent 32.4 G/DL (32.0-36.0) Red Cell Distribution Width 13.3 % (11.6-14.8) Platelet Count 182 K/UL (150-450) Mean Platelet Volume 7.6 FL (6.5-10.1) Neutrophils (%) (Auto) 69.0 % (45.0-75.0) Lymphocytes (%) (Auto) 10.4 % (20.0-45.0) L Monocytes (%) (Auto) 17.8 % (1.0-10.0) H Eosinophils (%) (Auto) 1.8 % (0.0-3.0) Basophils (%) (Auto) 1.1 % (0.0-2.0) Sodium Level 143 MMOL/L (136-145) Potassium Level 4.5 MMOL/L (3.5-5.1) Chloride Level 110 MMOL/L (98-107) H Carbon Dioxide Level 26 MMOL/L (21-32) Anion Gap 7 mmol/L (5-15) Blood Urea Nitrogen 64 mg/dL (7-18) H Creatinine 4.0 MG/DL (0.55-1.30) H Estimat Glomerular Filtration Rate mL/min (>60) Glucose Level 100 MG/DL (74-106) Calcium Level 6.4 MG/DL (8.5-10.1) L Phosphorus Level 4.2 MG/DL (2.5-4.9) Magnesium Level 3.1 MG/DL (1.8-2.4) H Total Bilirubin 0.3 MG/DL (0.2-1.0) Aspartate Amino Transf (AST/SGOT) 16 U/L (15-37) Alanine Aminotransferase (ALT/SGPT) 18 U/L (12-78) Alkaline Phosphatase 45 U/L (46-116) L Troponin I 0.012 ng/mL (0.000-0.056) C-Reactive Protein, Quantitative 7.1 mg/dL (0.00-0.90) H Pro-B-Type Natriuretic Peptide 1311 pg/mL (0-125) H Total Protein 5.3 G/DL (6.4-8.2) L Albumin 1.9 G/DL (3.4-5.0) L Globulin 3.4 g/dL Albumin/Globulin Ratio 0.6 (1.0-2.7) L Objective HEAD AND NECK: No JVD.Face Mask on. LUNGS: Decreased breath sounds. CARDIOVASCULAR: Regular S1 and S2 with no gallop or murmur. ABDOMEN: Soft. EXTREMITIES: 1 plus pitting edema. ADRIENNE LAWTON Jul 11, 2017 19:20
[2017-07-11 20:00] VITALS: BP 135/63
[2017-07-11] MEDS: Latanoprost 0.005% Opth 2.5ml Soln BOTH EYES SCH (20:35)
[2017-07-11] MEDS: Atorvastatin 20mg tab ORAL SCH (20:35)
[2017-07-11] MEDS ORDERED: Epogen (for non ESRD use) SUBQ SCH (21:00)
--- NOTE | 2017-07-11 22:38 | General Progress Note ---
Assessment/Plan Status: stable, progressing Assessment/Plan depression encephalopathy -Lexapro 10mg qam Subjective Date patient seen: Jul 11, 2017 Neurologic/Psychiatric: Reports: anxiety, depressed, emotional problems Allergies: Coded Allergies: No Known Allergies (Unverified , 07/04/17) Subjective the pt was anxious more awake daughter and in room Objective Last 24 Hour Vital Signs Date Time Temp Pulse Resp B/P (MAP) Pulse Ox O2 Delivery O2 Flow Rate FiO2 07/11/17 20:00 99.0 60 22 135/63 92 Venturi Mask 14.0 55 07/11/17 20:00 58 07/11/17 16:30 67 07/11/17 16:09 71 20 93 Venturi Mask 55 07/11/17 16:00 98.1 68 22 134/59 90 Venturi Mask 14.0 55 07/11/17 15:42 67 16 90 Venturi Mask 14.0 55 07/11/17 15:41 69 18 90 07/11/17 13:25 70 20 96 Full Face 60 07/11/17 12:00 98.1 67 18 131/58 98 Bi-pap 60 07/11/17 12:00 68 07/11/17 11:29 71 20 93 Bi-pap 60 07/11/17 11:26 68 20 97 Full Face 60 07/11/17 11:26 77 16 83 Bi-pap 60 07/11/17 09:25 69 16 93 07/11/17 08:00 57 07/11/17 08:00 14.0 55 07/11/17 08:00 98.1 76 20 147/59 90 Venturi Mask 14.0 55 07/11/17 07:25 56 20 97 Venturi Mask 14.0 55 07/11/17 07:20 97 Bi-pap 60 07/11/17 07:20 57 18 97 Full Face 60 07/11/17 07:19 57 16 97 Bi-pap 60 07/11/17 07:19 Bi-pap 60 07/11/17 05:18 54 16 98 Full Face 60 07/11/17 04:00 97.7 60 18 132/63 94 Bi-pap 60 07/11/17 04:00 55 07/11/17 03:59 59 20 97 Bi-pap 60 07/11/17 03:49 59 16 96 Bi-pap 60 07/11/17 03:48 57 16 95 Full Face 60 07/11/17 01:10 78 17 94 Full Face 60 07/11/17 00:00 97.8 60 16 123/76 94 Bi-pap 60 07/11/17 00:00 55 07/10/17 23:11 53 20 97 Bi-pap 60 07/10/17 22:59 72 16 95 Full Face 60 07/10/17 22:58 72 16 96 Bi-pap 60 Intake and Output 07/10/17 07/11/17 19:00 07:00 Intake Total 1500.000 ml 127.87 ml Output Total 600 ml 300 ml Balance 900.000 ml -172.13 ml Intake Oral 720 ml IV Total 780.000 ml 127.87 ml Output Urine Total 600 ml 300 ml Laboratory Tests 07/11/17 03:30: White Blood Count 3.5L, Red Blood Count 2.59L, Hemoglobin 8.7L, Hematocrit 27.0L , Mean Corpuscular Volume 104H, Mean Corpuscular Hemoglobin 33.7H, Mean Corpuscular Hemoglobin Concent 32.4, Red Cell Distribution Width 13.3, Platelet Count 182, Mean Platelet Volume 7.6, Neutrophils (%) (Auto) 69.0, Lymphocytes (% ) (Auto) 10.4L, Monocytes (%) (Auto) 17.8H, Eosinophils (%) (Auto) 1.8, Basophils (%) (Auto) 1.1, Sodium Level 143, Potassium Level 4.5, Chloride Level 110H, Carbon Dioxide Level 26, Anion Gap 7, Blood Urea Nitrogen 64H, Creatinine 4.0H, Estimat Glomerular Filtration Rate , Glucose Level 100, Calcium Level 6.4L , Phosphorus Level 4.2, Magnesium Level 3.1H, Total Bilirubin 0.3, Aspartate Amino Transf (AST/SGOT) 16, Alanine Aminotransferase (ALT/SGPT) 18, Alkaline Phosphatase 45L, Troponin I 0.012, C-Reactive Protein, Quantitative 7.1H, Pro-B- Type Natriuretic Peptide 1311H, Total Protein 5.3L, Albumin 1.9L, Globulin 3.4, Albumin/Globulin Ratio 0.6L Height (Feet): 5 Height (Inches): 10.00 Weight (Pounds): 170 General Appearance: no apparent distress, alert Neurologic: alert, oriented x 3, responsive, depressed affect Farhadi,Pantea M.D. Jul 11, 2017 22:38
[2017-07-12] VITALS: BP 146/59
[2017-07-12] MEDS: Albuterol/Ipratropium 3ml neb HHN SCH ×3 (03:25→10:47)
[2017-07-12 04:00] VITALS: BP 144/65
[2017-07-12] MEDS: NovoLOG Insulin Flexpen SUBQ SCH ×4 (06:30→21:00)
[2017-07-12 08:00] VITALS: BP 140/62
[2017-07-12 08:21] LABS: BASOPHILS % (AUTO) 1.2 % (0.0-2.0); EOSINOPHILS % (AUTO) 1.3 % (0.0-3.0); HEMOGLOBIN 9.2 G/DL (14.2-18.0); LYMPHOCYTES % (AUTO) 12.2 % (20.0-45.0); MEAN CORPUSCULAR VOLUME 104 FL (80-99); MONOCYTES % (AUTO) 14.4 % (1.0-10.0); NEUTROPHILS % (AUTO) 70.9 % (45.0-75.0); PLATELET COUNT 182 K/UL (150-450); RED CELL DISTRIBUTION WIDTH 13.4 % (11.6-14.8); WHITE BLOOD COUNT 4.2 K/UL (4.8-10.8)
[2017-07-12] MEDS: Piperacillin/Tazobactam 3.375 GM in NS 110 ML IVPB SCH ×2 (08:41→21:03)
[2017-07-12] MEDS: Aspirin Baby 81mg ORAL SCH (08:42)
[2017-07-12] MEDS: Tamsulosin 0.4mg cap ORAL SCH ×2 (08:42→17:49)
[2017-07-12] MEDS: Cosopt Opth Soln 10 mL Btl BOTH EYES SCH ×2 (08:42→17:49)
[2017-07-12] MEDS: Heparin 5000 units/ml inj SUBQ SCH ×2 (08:45→21:05)
[2017-07-12 08:49] LABS: ALANINE AMINOTRANSFERASE 18 U/L (12-78); ALBUMIN/GLOBULIN RATIO 0.6 (1.0-2.7); ALKALINE PHOSPHATASE 44 U/L (46-116); ANION GAP 7 mmol/L (5-15); ASPARTATE AMINO TRANSFERASE 19 U/L (15-37); BILIRUBIN,TOTAL 0.3 MG/DL (0.2-1.0); BLOOD UREA NITROGEN 62 mg/dL (7-18); CALCIUM 6.7 MG/DL (8.5-10.1); CARBON DIOXIDE 26 MMOL/L (21-32); CHLORIDE 111 MMOL/L (98-107); CREATININE 3.9 MG/DL (0.55-1.30); POTASSIUM 4.7 MMOL/L (3.5-5.1); SODIUM 143 MMOL/L (136-145)
[2017-07-12 12:00] VITALS: BP 132/57
--- NOTE | 2017-07-12 12:40 | Nephrology Progress Note ---
Assessment/Plan Problem List: (1) Renal failure Assessment: acute on chronic (2) Respiratory failure (3) BPH (benign prostatic hyperplasia) (4) HTN (hypertension) (5) Diabetes mellitus, type II Assessment encephalopathic On Mask now Renal failure- ? CKd + Superimposed acute, Cr joseph but levelling DM ? Nephropathy, has 3+ Proteins in urine Fall and right knee injury Anemia ? due to CKD ASHD Upper respiratory tract infection. Hypertension. Hypercholesterolemia. Benign prostatic hypertrophy. Low BP Plan Plan: EPO and Venofer ford- Optimize pulmonary status ID and Cardiology avoid Nephrotoxics Flomax Keep BP and BS in check Anemia luciano monitor renal parameters Per orders Left ventricular ejection fraction estimated to be 60-65 %. Moderate left ventricular hypertrophy by 2-D. Echogenic bilateral kidneys, suspect chronic medical renal disease Subjective ROS Limited/Unobtainable: No Constitutional: Reports: malaise, weakness Objective Objective Last 24 Hour Vital Signs Date Time Temp Pulse Resp B/P (MAP) Pulse Ox O2 Delivery O2 Flow Rate FiO2 07/12/17 12:23 58 07/12/17 10:48 Nasal Cannula 4.0 36 07/12/17 10:47 60 18 93 Nasal Cannula 4.0 36 07/12/17 08:53 71 07/12/17 08:07 61 20 95 Nasal Cannula 4.0 36 07/12/17 08:00 98.2 66 19 140/62 91 Nasal Cannula 4.0 07/12/17 07:58 64 18 93 Nasal Cannula 4.0 36 07/12/17 07:53 91 Nasal Cannula 5.0 40 07/12/17 07:52 Nasal Cannula 5.0 40 07/12/17 05:28 66 20 97 Venturi Mask 55 07/12/17 04:00 99.0 69 24 144/65 94 Venturi Mask 14.0 55 07/12/17 04:00 61 07/12/17 03:25 62 18 93 Venturi Mask 14.0 55 07/12/17 00:00 61 07/12/17 00:00 99.0 65 24 146/59 92 Venturi Mask 07/11/17 23:45 68 20 96 Venturi Mask 55 07/11/17 23:42 93 Venturi Mask 14.0 55 07/11/17 23:42 Venturi Mask 14.0 55 07/11/17 23:37 63 18 91 Venturi Mask 14.0 55 07/11/17 20:00 99.0 60 22 135/63 94 Venturi Mask 14.0 55 07/11/17 20:00 58 07/11/17 16:30 67 07/11/17 16:09 71 20 93 Venturi Mask 55 07/11/17 16:00 98.1 68 22 134/59 90 Venturi Mask 14.0 55 07/11/17 15:42 67 16 90 Venturi Mask 14.0 55 07/11/17 15:41 69 18 90 07/11/17 13:25 70 20 96 Full Face 60 Intake and Output 07/11/17 07/12/17 19:00 07:00 Intake Total 830.0 ml 230.0 ml Output Total 750 ml 650 ml Balance 80.0 ml -420.0 ml Intake Oral 720 ml 120 ml IV Total 110.0 ml 110.0 ml Output Urine Total 750 ml 650 ml Laboratory Tests 07/12/17 07:44: White Blood Count 4.2L, Red Blood Count 2.90L, Hemoglobin 9.2L, Hematocrit 30.0L , Mean Corpuscular Volume 104H, Mean Corpuscular Hemoglobin 31.9H, Mean Corpuscular Hemoglobin Concent 30.8L, Red Cell Distribution Width 13.4, Platelet Count 182, Mean Platelet Volume 6.9, Neutrophils (%) (Auto) 70.9, Lymphocytes (%) (Auto) 12.2L, Monocytes (%) (Auto) 14.4H, Eosinophils (%) (Auto ) 1.3, Basophils (%) (Auto) 1.2, Sodium Level 143, Potassium Level 4.7, Chloride Level 111H, Carbon Dioxide Level 26, Anion Gap 7, Blood Urea Nitrogen 62H, Creatinine 3.9H, Estimat Glomerular Filtration Rate , Glucose Level 117H, Calcium Level 6.7L, Total Bilirubin 0.3, Aspartate Amino Transf (AST/SGOT) 19, Alanine Aminotransferase (ALT/SGPT) 18, Alkaline Phosphatase 44L, Pro-B-Type Natriuretic Peptide 1873H, Total Protein 5.4L, Albumin 2.0L, Globulin 3.4, Albumin/Globulin Ratio 0.6L Height (Feet): 5 Height (Inches): 10.00 Weight (Pounds): 170 General Appearance: no apparent distress, lethargic Cardiovascular: tachycardia Respiratory/Chest: decreased breath sounds Abdomen: distended Objective no other changes JOVANA TREVIÑO Jul 12, 2017 12:40
[2017-07-12] MEDS ORDERED: Vitamin D 50,000 units cap ORAL SCH (13:00)
--- NOTE | 2017-07-12 15:14 | Infectious Diseases Prog Note ---
Assessment/Plan Assessment/Plan Assessment: Post influenza PNA- r/o S. aureus, H. flu- ?worsening PNA -CXR 07/10: Bibasilar atelectasis and consolidation persists, perhaps slightly improved. Retrocardiac consolidation and left basilar pleural fluid persists, unchanged. -CXR 07/08: . There is interval worsening of aeration at the right base with increasing patchy airspace opacities. Persistent left basilar atelectasis/ consolidation. -sp cx normal chalo Acute hypercapneic resp failure- hypercapnea improving- off of BIpap Mild leukopenia- Afebrile PHILIP on ?CKD Fall with R knee pain -Xray R knee: No acute fracture. 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 HTN, DM2, CKD, HLD, BPH Plan: -Continue Zosyn #4/5-7 for PNA -07/10 IV Vanco #4, Azithromycin #5 -07/09 SP Ceftriaxone #5 -07/08 SP Tamiflu #5 and Levaquin #2 -Monitor CBC/BMP, temperatures -aspiration precautions Subjective Allergies: Coded Allergies: No Known Allergies (Unverified , 07/04/17) Subjective afebrile Objective Vital Signs Last 24 Hour Vital Signs Date Time Temp Pulse Resp B/P (MAP) Pulse Ox O2 Delivery O2 Flow Rate FiO2 07/12/17 12:23 58 07/12/17 12:00 97.0 60 18 132/57 94 Nasal Cannula 4.0 07/12/17 10:48 Nasal Cannula 4.0 36 07/12/17 10:47 60 18 93 Nasal Cannula 4.0 36 07/12/17 08:53 71 07/12/17 08:07 61 20 95 Nasal Cannula 4.0 36 07/12/17 08:00 98.2 66 19 140/62 91 Nasal Cannula 4.0 07/12/17 07:58 64 18 93 Nasal Cannula 4.0 36 07/12/17 07:53 91 Nasal Cannula 5.0 40 07/12/17 07:52 Nasal Cannula 5.0 40 07/12/17 05:28 66 20 97 Venturi Mask 55 07/12/17 04:00 99.0 69 24 144/65 94 Venturi Mask 14.0 55 07/12/17 04:00 61 07/12/17 03:25 62 18 93 Venturi Mask 14.0 55 07/12/17 00:00 61 07/12/17 00:00 99.0 65 24 146/59 92 Venturi Mask 07/11/17 23:45 68 20 96 Venturi Mask 55 07/11/17 23:42 93 Venturi Mask 14.0 55 07/11/17 23:42 Venturi Mask 14.0 55 07/11/17 23:37 63 18 91 Venturi Mask 14.0 55 07/11/17 20:00 99.0 60 22 135/63 94 Venturi Mask 14.0 55 07/11/17 20:00 58 07/11/17 16:30 67 07/11/17 16:09 71 20 93 Venturi Mask 55 07/11/17 16:00 98.1 68 22 134/59 90 Venturi Mask 14.0 55 07/11/17 15:42 67 16 90 Venturi Mask 14.0 55 07/11/17 15:41 69 18 90 Height (Feet): 5 Height (Inches): 10.00 Weight (Pounds): 170 HEENT: atraumatic Respiratory/Chest: normal breath sounds Cardiovascular: regularly irregular Abdomen: soft, non tender Laboratory Tests Test 07/12/17 07:44 White Blood Count 4.2 K/UL (4.8-10.8) L Red Blood Count 2.90 M/UL (4.70-6.10) L Hemoglobin 9.2 G/DL (14.2-18.0) L Hematocrit 30.0 % (42.0-52.0) L Mean Corpuscular Volume 104 FL (80-99) H Mean Corpuscular Hemoglobin 31.9 PG (27.0-31.0) H Mean Corpuscular Hemoglobin Concent 30.8 G/DL (32.0-36.0) L Red Cell Distribution Width 13.4 % (11.6-14.8) Platelet Count 182 K/UL (150-450) Mean Platelet Volume 6.9 FL (6.5-10.1) Neutrophils (%) (Auto) 70.9 % (45.0-75.0) Lymphocytes (%) (Auto) 12.2 % (20.0-45.0) L Monocytes (%) (Auto) 14.4 % (1.0-10.0) H Eosinophils (%) (Auto) 1.3 % (0.0-3.0) Basophils (%) (Auto) 1.2 % (0.0-2.0) Sodium Level 143 MMOL/L (136-145) Potassium Level 4.7 MMOL/L (3.5-5.1) Chloride Level 111 MMOL/L (98-107) H Carbon Dioxide Level 26 MMOL/L (21-32) Anion Gap 7 mmol/L (5-15) Blood Urea Nitrogen 62 mg/dL (7-18) H Creatinine 3.9 MG/DL (0.55-1.30) H Estimat Glomerular Filtration Rate mL/min (>60) Glucose Level 117 MG/DL (74-106) H Calcium Level 6.7 MG/DL (8.5-10.1) L Total Bilirubin 0.3 MG/DL (0.2-1.0) Aspartate Amino Transf (AST/SGOT) 19 U/L (15-37) Alanine Aminotransferase (ALT/SGPT) 18 U/L (12-78) Alkaline Phosphatase 44 U/L (46-116) L Pro-B-Type Natriuretic Peptide 1873 pg/mL (0-125) H Total Protein 5.4 G/DL (6.4-8.2) L Albumin 2.0 G/DL (3.4-5.0) L Globulin 3.4 g/dL Albumin/Globulin Ratio 0.6 (1.0-2.7) L Current Medications Medications (Trade) Dose Ordered Sig/Nito Route PRN Reason Start Time Stop Time Status Last Admin Dose Admin Acetaminophen (Tylenol) 650 mg Q6H PRN ORAL Mild Pain/Temp > 100.4 07/07/17 20:15 08/04/17 08:14 07/10/17 20:22 Acetaminophen/ Hydrocodone Bitart ([place] 10/325) 1 ea Q4H PRN ORAL For Moderate to Severe Pain 07/07/17 18:45 07/13/17 14:44 07/10/17 08:22 Allopurinol (Allopurinol) 300 mg DAILY ORAL 07/08/17 09:00 08/07/17 08:59 07/12/17 08:42 Aspirin (ASA) 81 mg DAILY ORAL 07/08/17 09:00 08/04/17 08:59 07/12/17 08:42 Atorvastatin Calcium (Lipitor) 40 mg BEDTIME ORAL 07/07/17 21:00 08/06/17 20:59 07/11/17 20:35 Dextrose (Dextrose 50%) STAT PRN IV Hypoglycemia 07/08/17 08:15 08/04/17 08:14 Dorzolamide/ Timolol (Cosopt) 1 drop TWICE A DAY BOTH EYES 07/07/17 18:00 08/06/17 17:59 07/12/17 08:42 Epoetin Koby (Procrit (for non ESRD use)) 10,000 units MON-FRI-FRI SUBQ 07/11/17 21:00 08/10/17 20:59 07/11/17 21:35 Ergocalciferol (Drisdol) 50,000 intlu QWEEK@1300 ORAL 07/12/17 13:00 08/11/17 12:59 07/12/17 14:33 Escitalopram Oxalate (Lexapro) 10 mg DAILY ORAL 07/10/17 13:00 08/09/17 12:59 07/12/17 08:42 Glipizide (GlipiZIDE XL) 2.5 mg ACBREAKFAST ORAL 07/08/17 06:30 08/07/17 06:29 07/12/17 06:19 Guaifenesin (Robitussin) 100 mg Q6H PRN ORAL For Cough 07/07/17 16:30 08/03/17 22:29 Heparin Sodium (Porcine) (Heparin 5000 units/ml) 5,000 units EVERY 12 HOURS SUBQ 07/07/17 21:00 08/04/17 08:59 07/12/17 08:45 Hydralazine HCl (Apresoline) 25 mg Q4H PRN ORAL SBP > 160 mm Hg 07/07/17 16:45 08/04/17 08:14 Insulin Aspart (NovoLOG) BEFORE MEALS AND HS SUBQ 07/07/17 16:30 08/04/17 11:29 07/09/17 19:48 Latanoprost (Xalatan) 1 drop BEDTIME BOTH EYES 07/07/17 21:00 08/06/17 20:59 07/11/17 20:35 Lorazepam (Ativan) 1 mg Q6H PRN ORAL For Anxiety 07/10/17 11:30 07/17/17 11:29 07/11/17 08:52 Ondansetron HCl (Zofran) 4 mg Q4H PRN IVP nausea 07/07/17 17:00 08/04/17 00:59 Patient Own Medication (Patient's Own Med) 1 ea Th@0900 SUBQ 07/10/17 09:00 08/09/17 08:59 07/10/17 09:31 Piperacillin Sod/ Tazobactam Sod 3.375 gm/Sodium Chloride 110 ml @ 27.5 mls/hr EVERY 12 HOURS IVPB 07/09/17 11:30 07/16/17 11:29 07/12/17 08:41 Tamsulosin HCl (Flomax) 0.4 mg BID ORAL 07/07/17 18:00 08/04/17 12:59 07/12/17 08:42 ZAMZAM WARREN M.D. Jul 12, 2017 15:14
--- NOTE | 2017-07-12 15:35 | Cardiac Electrophysiology PN ---
Assessment/Plan Assessment/Plan 1. Shortness of breath. Ruled out for myocardial infarction. Echocardiogram showed EF 60%. Face Mask DCed on Nasal cannula now 2. Post influenza PNA- r/o S. aureus, H. flu- ?worsening PNA. On Abx per Dr Sanchez. 3. Hypertension Now OFF BP meds. 4. Renal failure. Further evaluation by Dr. Pederson. 5. Recent influenza A. DW RN and Subjective Subjective On TAYLA. On oxygen via nasal cannula.Much more alert. at bedside. Objective Last 24 Hour Vital Signs Date Time Temp Pulse Resp B/P (MAP) Pulse Ox O2 Delivery O2 Flow Rate FiO2 07/12/17 12:23 58 07/12/17 12:00 97.0 60 18 132/57 94 Nasal Cannula 4.0 07/12/17 10:48 Nasal Cannula 4.0 36 07/12/17 10:47 60 18 93 Nasal Cannula 4.0 36 07/12/17 08:53 71 07/12/17 08:07 61 20 95 Nasal Cannula 4.0 36 07/12/17 08:00 98.2 66 19 140/62 91 Nasal Cannula 4.0 07/12/17 07:58 64 18 93 Nasal Cannula 4.0 36 07/12/17 07:53 91 Nasal Cannula 5.0 40 07/12/17 07:52 Nasal Cannula 5.0 40 07/12/17 05:28 66 20 97 Venturi Mask 55 07/12/17 04:00 99.0 69 24 144/65 94 Venturi Mask 14.0 55 07/12/17 04:00 61 07/12/17 03:25 62 18 93 Venturi Mask 14.0 55 07/12/17 00:00 61 07/12/17 00:00 99.0 65 24 146/59 92 Venturi Mask 07/11/17 23:45 68 20 96 Venturi Mask 55 07/11/17 23:42 93 Venturi Mask 14.0 55 07/11/17 23:42 Venturi Mask 14.0 55 07/11/17 23:37 63 18 91 Venturi Mask 14.0 55 07/11/17 20:00 99.0 60 22 135/63 94 Venturi Mask 14.0 55 07/11/17 20:00 58 07/11/17 16:30 67 07/11/17 16:09 71 20 93 Venturi Mask 55 07/11/17 16:00 98.1 68 22 134/59 90 Venturi Mask 14.0 55 07/11/17 15:42 67 16 90 Venturi Mask 14.0 55 07/11/17 15:41 69 18 90 Intake and Output 07/11/17 07/12/17 19:00 07:00 Intake Total 830.0 ml 230.0 ml Output Total 750 ml 650 ml Balance 80.0 ml -420.0 ml Intake Oral 720 ml 120 ml IV Total 110.0 ml 110.0 ml Output Urine Total 750 ml 650 ml Laboratory Tests Test 07/12/17 07:44 White Blood Count 4.2 K/UL (4.8-10.8) L Red Blood Count 2.90 M/UL (4.70-6.10) L Hemoglobin 9.2 G/DL (14.2-18.0) L Hematocrit 30.0 % (42.0-52.0) L Mean Corpuscular Volume 104 FL (80-99) H Mean Corpuscular Hemoglobin 31.9 PG (27.0-31.0) H Mean Corpuscular Hemoglobin Concent 30.8 G/DL (32.0-36.0) L Red Cell Distribution Width 13.4 % (11.6-14.8) Platelet Count 182 K/UL (150-450) Mean Platelet Volume 6.9 FL (6.5-10.1) Neutrophils (%) (Auto) 70.9 % (45.0-75.0) Lymphocytes (%) (Auto) 12.2 % (20.0-45.0) L Monocytes (%) (Auto) 14.4 % (1.0-10.0) H Eosinophils (%) (Auto) 1.3 % (0.0-3.0) Basophils (%) (Auto) 1.2 % (0.0-2.0) Sodium Level 143 MMOL/L (136-145) Potassium Level 4.7 MMOL/L (3.5-5.1) Chloride Level 111 MMOL/L (98-107) H Carbon Dioxide Level 26 MMOL/L (21-32) Anion Gap 7 mmol/L (5-15) Blood Urea Nitrogen 62 mg/dL (7-18) H Creatinine 3.9 MG/DL (0.55-1.30) H Estimat Glomerular Filtration Rate mL/min (>60) Glucose Level 117 MG/DL (74-106) H Calcium Level 6.7 MG/DL (8.5-10.1) L Total Bilirubin 0.3 MG/DL (0.2-1.0) Aspartate Amino Transf (AST/SGOT) 19 U/L (15-37) Alanine Aminotransferase (ALT/SGPT) 18 U/L (12-78) Alkaline Phosphatase 44 U/L (46-116) L Pro-B-Type Natriuretic Peptide 1873 pg/mL (0-125) H Total Protein 5.4 G/DL (6.4-8.2) L Albumin 2.0 G/DL (3.4-5.0) L Globulin 3.4 g/dL Albumin/Globulin Ratio 0.6 (1.0-2.7) L Objective HEAD AND NECK: No JVD. LUNGS: Decreased breath sounds. CARDIOVASCULAR: Regular S1 and S2 with no gallop or murmur. ABDOMEN: Soft. EXTREMITIES: 1 plus pitting edema. ADRIENNE LAWOTN Jul 12, 2017 15:35
[2017-07-12] MEDS ORDERED: D5NS 1000ml IV ONE (15:45)
[2017-07-12] MEDS ORDERED: Tubing IV Secondary IV ONE (15:45)
[2017-07-12] MEDS ORDERED: D5 1/2NS 1000ml IV ONE (15:46)
--- NOTE | 2017-07-12 15:55 | Pulmonology Progress Note ---
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 anemia of CKD BPH s/p recent mechanical fall R knee pain encephalopathy PLAN OF CARE TAYLA weaned from BiPAP, currently on 4L o2 via NC titrate FiO2 to keep sat above 90% pulm toilet fup with CXR and pro BNP Cardio follows pt was r/o for acute ID ECHO with pEF60% ASA, statin BP monitoring, off BP meds Nephro follows creat rising renal US c/w chronic medical renal disease avoid nephrotic Monitor renal parameters, lytes, correct lytes as needed Flomax EPO anemia w/up c/w anemia of chronic disease, and high ferritin ID follows sputum, influenza, blood cx al negative a/tussive prn BS management with SS of insulin DVT prophylaxis X ray R knee no acute bony trauma pain management bowel regimen fall precautions PT/OT psych follows case discussed and evaluated by supervising physician Subjective Allergies: Coded Allergies: No Known Allergies (Unverified , 07/04/17) Subjective weaned to 4L O2 via NC, no signs of respir distress no c/o chest pain Objective Last 24 Hour Vital Signs Date Time Temp Pulse Resp B/P (MAP) Pulse Ox O2 Delivery O2 Flow Rate FiO2 07/12/17 12:23 58 07/12/17 12:00 97.0 60 18 132/57 94 Nasal Cannula 4.0 07/12/17 10:48 Nasal Cannula 4.0 36 07/12/17 10:47 60 18 93 Nasal Cannula 4.0 36 07/12/17 08:53 71 07/12/17 08:07 61 20 95 Nasal Cannula 4.0 36 07/12/17 08:00 98.2 66 19 140/62 91 Nasal Cannula 4.0 07/12/17 07:58 64 18 93 Nasal Cannula 4.0 36 07/12/17 07:53 91 Nasal Cannula 5.0 40 07/12/17 07:52 Nasal Cannula 5.0 40 07/12/17 05:28 66 20 97 Venturi Mask 55 07/12/17 04:00 99.0 69 24 144/65 94 Venturi Mask 14.0 55 07/12/17 04:00 61 07/12/17 03:25 62 18 93 Venturi Mask 14.0 55 07/12/17 00:00 61 1/6/18 00:00 99.0 65 24 146/59 92 Venturi Mask 07/11/17 23:45 68 20 96 Venturi Mask 55 07/11/17 23:42 93 Venturi Mask 14.0 55 07/11/17 23:42 Venturi Mask 14.0 55 07/11/17 23:37 63 18 91 Venturi Mask 14.0 55 07/11/17 20:00 99.0 60 22 135/63 94 Venturi Mask 14.0 55 07/11/17 20:00 58 07/11/17 16:30 67 07/11/17 16:09 71 20 93 Venturi Mask 55 07/11/17 16:00 98.1 68 22 134/59 90 Venturi Mask 14.0 55 Intake and Output 07/11/17 07/12/17 19:00 07:00 Intake Total 830.0 ml 230.0 ml Output Total 750 ml 650 ml Balance 80.0 ml -420.0 ml Intake Oral 720 ml 120 ml IV Total 110.0 ml 110.0 ml Output Urine Total 750 ml 650 ml General Appearance: no acute distress HEENT: normocephalic, atraumatic, other - O2 via NC Respiratory/Chest: no accessory muscle use, rhonchi - few isolated rhonchi Cardiovascular: normal peripheral pulses, normal rate, regular rhythm - SR Abdomen: normal bowel sounds, soft, non tender Extremities: no edema, pedal pulses normal Neurologic/Psychiatric: alert, responsive Musculoskeletal: atrophy - BLE Laboratory Tests 07/12/17 07:44: White Blood Count 4.2L, Red Blood Count 2.90L, Hemoglobin 9.2L, Hematocrit 30.0L , Mean Corpuscular Volume 104H, Mean Corpuscular Hemoglobin 31.9H, Mean Corpuscular Hemoglobin Concent 30.8L, Red Cell Distribution Width 13.4, Platelet Count 182, Mean Platelet Volume 6.9, Neutrophils (%) (Auto) 70.9, Lymphocytes (%) (Auto) 12.2L, Monocytes (%) (Auto) 14.4H, Eosinophils (%) (Auto ) 1.3, Basophils (%) (Auto) 1.2, Sodium Level 143, Potassium Level 4.7, Chloride Level 111H, Carbon Dioxide Level 26, Anion Gap 7, Blood Urea Nitrogen 62H, Creatinine 3.9H, Estimat Glomerular Filtration Rate , Glucose Level 117H, Calcium Level 6.7L, Total Bilirubin 0.3, Aspartate Amino Transf (AST/SGOT) 19, Alanine Aminotransferase (ALT/SGPT) 18, Alkaline Phosphatase 44L, Pro-B-Type Natriuretic Peptide 1873H, Total Protein 5.4L, Albumin 2.0L, Globulin 3.4, Albumin/Globulin Ratio 0.6L Current Medications Medications (Trade) Dose Ordered Sig/Nito Route PRN Reason Start Time Stop Time Status Last Admin Dose Admin Acetaminophen (Tylenol) 650 mg Q6H PRN ORAL Mild Pain/Temp > 100.4 07/07/17 20:15 08/04/17 08:14 07/10/17 20:22 Acetaminophen/ Hydrocodone Bitart ([place] 10/325) 1 ea Q4H PRN ORAL For Moderate to Severe Pain 07/07/17 18:45 07/13/17 14:44 07/10/17 08:22 Allopurinol (Allopurinol) 300 mg DAILY ORAL 07/08/17 09:00 08/07/17 08:59 07/12/17 08:42 Aspirin (ASA) 81 mg DAILY ORAL 07/08/17 09:00 08/04/17 08:59 07/12/17 08:42 Atorvastatin Calcium (Lipitor) 40 mg BEDTIME ORAL 07/07/17 21:00 08/06/17 20:59 07/11/17 20:35 Dextrose (Dextrose 50%) STAT PRN IV Hypoglycemia 07/08/17 08:15 08/04/17 08:14 Dorzolamide/ Timolol (Cosopt) 1 drop TWICE A DAY BOTH EYES 07/07/17 18:00 08/06/17 17:59 07/12/17 08:42 Epoetin Koby (Procrit (for non ESRD use)) 10,000 units MON-WED-FRI SUBQ 07/11/17 21:00 08/10/17 20:59 07/11/17 21:35 Ergocalciferol (Drisdol) 50,000 intlu QWEEK@1300 ORAL 07/12/17 13:00 08/11/17 12:59 07/12/17 14:33 Escitalopram Oxalate (Lexapro) 10 mg DAILY ORAL 07/10/17 13:00 08/09/17 12:59 1/6/18 08:42 Glipizide (GlipiZIDE XL) 2.5 mg ACBREAKFAST ORAL 07/08/17 06:30 08/07/17 06:29 07/12/17 06:19 Guaifenesin (Robitussin) 100 mg Q6H PRN ORAL For Cough 07/07/17 16:30 08/03/17 22:29 Heparin Sodium (Porcine) (Heparin 5000 units/ml) 5,000 units EVERY 12 HOURS SUBQ 07/07/17 21:00 08/04/17 08:59 07/12/17 08:45 Hydralazine HCl (Apresoline) 25 mg Q4H PRN ORAL SBP > 160 mm Hg 07/07/17 16:45 08/04/17 08:14 Insulin Aspart (NovoLOG) BEFORE MEALS AND HS SUBQ 07/07/17 16:30 08/04/17 11:29 07/09/17 19:48 Latanoprost (Xalatan) 1 drop BEDTIME BOTH EYES 07/07/17 21:00 08/06/17 20:59 07/11/17 20:35 Lorazepam (Ativan) 1 mg Q6H PRN ORAL For Anxiety 07/10/17 11:30 07/17/17 11:29 07/11/17 08:52 Ondansetron HCl (Zofran) 4 mg Q4H PRN IVP nausea 07/07/17 17:00 08/04/17 00:59 Patient Own Medication (Patient's Own Med) 1 ea Th@0900 SUBQ 07/10/17 09:00 08/09/17 08:59 07/10/17 09:31 Piperacillin Sod/ Tazobactam Sod 3.375 gm/Sodium Chloride 110 ml @ 27.5 mls/hr EVERY 12 HOURS IVPB 07/09/17 11:30 07/16/17 11:29 07/12/17 08:41 Tamsulosin HCl (Flomax) 0.4 mg BID ORAL 07/07/17 18:00 08/04/17 12:59 07/12/17 08:42 Chantelle Hendricks NP (Vanchtein) Jul 12, 2017 15:55
--- NOTE | 2017-07-12 15:57 | Internal Med Progress Note ---
Subjective Date of Service: Jul 12, 2017 Physician Name Kayleen Bolanos Attending Physician Kofi Mitchell MD Current Medications Medications (Trade) Dose Ordered Sig/Nito Route PRN Reason Start Time Stop Time Status Last Admin Dose Admin Acetaminophen (Tylenol) 650 mg Q6H PRN ORAL Mild Pain/Temp > 100.4 07/07/17 20:15 08/04/17 08:14 07/10/17 20:22 Acetaminophen/ Hydrocodone Bitart ([place] 10/325) 1 ea Q4H PRN ORAL For Moderate to Severe Pain 07/07/17 18:45 07/13/17 14:44 07/10/17 08:22 Allopurinol (Allopurinol) 300 mg DAILY ORAL 07/08/17 09:00 08/07/17 08:59 07/12/17 08:42 Aspirin (ASA) 81 mg DAILY ORAL 07/08/17 09:00 08/04/17 08:59 07/12/17 08:42 Atorvastatin Calcium (Lipitor) 40 mg BEDTIME ORAL 07/07/17 21:00 08/06/17 20:59 07/11/17 20:35 Dextrose (Dextrose 50%) STAT PRN IV Hypoglycemia 07/08/17 08:15 08/04/17 08:14 Dorzolamide/ Timolol (Cosopt) 1 drop TWICE A DAY BOTH EYES 07/07/17 18:00 08/06/17 17:59 07/12/17 08:42 Epoetin Koby (Procrit (for non ESRD use)) 10,000 units FRI-FRI-FRI SUBQ 07/11/17 21:00 08/10/17 20:59 07/11/17 21:35 Ergocalciferol (Drisdol) 50,000 intlu QWEEK@1300 ORAL 07/12/17 13:00 08/11/17 12:59 07/12/17 14:33 Escitalopram Oxalate (Lexapro) 10 mg DAILY ORAL 07/10/17 13:00 08/09/17 12:59 07/12/17 08:42 Glipizide (GlipiZIDE XL) 2.5 mg ACBREAKFAST ORAL 07/08/17 06:30 08/07/17 06:29 07/12/17 06:19 Guaifenesin (Robitussin) 100 mg Q6H PRN ORAL For Cough 07/07/17 16:30 08/03/17 22:29 Heparin Sodium (Porcine) (Heparin 5000 units/ml) 5,000 units EVERY 12 HOURS SUBQ 07/07/17 21:00 08/04/17 08:59 07/12/17 08:45 Hydralazine HCl (Apresoline) 25 mg Q4H PRN ORAL SBP > 160 mm Hg 07/07/17 16:45 08/04/17 08:14 Insulin Aspart (NovoLOG) BEFORE MEALS AND HS SUBQ 07/07/17 16:30 08/04/17 11:29 07/09/17 19:48 Latanoprost (Xalatan) 1 drop BEDTIME BOTH EYES 07/07/17 21:00 08/06/17 20:59 07/11/17 20:35 Lorazepam (Ativan) 1 mg Q6H PRN ORAL For Anxiety 07/10/17 11:30 07/17/17 11:29 07/11/17 08:52 Ondansetron HCl (Zofran) 4 mg Q4H PRN IVP nausea 07/07/17 17:00 08/04/17 00:59 Patient Own Medication (Patient's Own Med) 1 ea Th@0900 SUBQ 07/10/17 09:00 08/09/17 08:59 07/10/17 09:31 Piperacillin Sod/ Tazobactam Sod 3.375 gm/Sodium Chloride 110 ml @ 27.5 mls/hr EVERY 12 HOURS IVPB 07/09/17 11:30 07/16/17 11:29 07/12/17 08:41 Tamsulosin HCl (Flomax) 0.4 mg BID ORAL 07/07/17 18:00 08/04/17 12:59 07/12/17 08:42 Allergies: Coded Allergies: No Known Allergies (Unverified , 07/04/17) ROS Limited/Unobtainable: No Constitutional: Reports: no symptoms HEENT: Reports: no symptoms Cardiovascular: Reports: no symptoms Respiratory: Reports: shortness of breath Gastrointestinal/Abdominal: Reports: no symptoms Genitourinary: Reports: no symptoms Neurologic/Psychiatric: Reports: no symptoms Subjective 81 YO M admitted with cough. Now renal failure. Tolerating nasal canula. TAYLA. Cover for Int Med-Dr Mitchell. Objective Last Vital Signs Date Time Temp Pulse Resp B/P (MAP) Pulse Ox O2 Delivery O2 Flow Rate FiO2 07/12/17 12:23 58 07/12/17 12:00 97.0 18 132/57 94 Nasal Cannula 4.0 07/12/17 10:48 36 Laboratory Tests Test 07/12/17 07:44 White Blood Count 4.2 K/UL (4.8-10.8) L Red Blood Count 2.90 M/UL (4.70-6.10) L Hemoglobin 9.2 G/DL (14.2-18.0) L Hematocrit 30.0 % (42.0-52.0) L Mean Corpuscular Volume 104 FL (80-99) H Mean Corpuscular Hemoglobin 31.9 PG (27.0-31.0) H Mean Corpuscular Hemoglobin Concent 30.8 G/DL (32.0-36.0) L Red Cell Distribution Width 13.4 % (11.6-14.8) Platelet Count 182 K/UL (150-450) Mean Platelet Volume 6.9 FL (6.5-10.1) Neutrophils (%) (Auto) 70.9 % (45.0-75.0) Lymphocytes (%) (Auto) 12.2 % (20.0-45.0) L Monocytes (%) (Auto) 14.4 % (1.0-10.0) H Eosinophils (%) (Auto) 1.3 % (0.0-3.0) Basophils (%) (Auto) 1.2 % (0.0-2.0) Sodium Level 143 MMOL/L (136-145) Potassium Level 4.7 MMOL/L (3.5-5.1) Chloride Level 111 MMOL/L (98-107) H Carbon Dioxide Level 26 MMOL/L (21-32) Anion Gap 7 mmol/L (5-15) Blood Urea Nitrogen 62 mg/dL (7-18) H Creatinine 3.9 MG/DL (0.55-1.30) H Estimat Glomerular Filtration Rate mL/min (>60) Glucose Level 117 MG/DL (74-106) H Calcium Level 6.7 MG/DL (8.5-10.1) L Total Bilirubin 0.3 MG/DL (0.2-1.0) Aspartate Amino Transf (AST/SGOT) 19 U/L (15-37) Alanine Aminotransferase (ALT/SGPT) 18 U/L (12-78) Alkaline Phosphatase 44 U/L (46-116) L Pro-B-Type Natriuretic Peptide 1873 pg/mL (0-125) H Total Protein 5.4 G/DL (6.4-8.2) L Albumin 2.0 G/DL (3.4-5.0) L Globulin 3.4 g/dL Albumin/Globulin Ratio 0.6 (1.0-2.7) L Intake and Output 07/11/17 07/12/17 19:00 07:00 Intake Total 830.0 ml 230.0 ml Output Total 750 ml 650 ml Balance 80.0 ml -420.0 ml Intake Oral 720 ml 120 ml IV Total 110.0 ml 110.0 ml Output Urine Total 750 ml 650 ml Objective General Appearance: WD/WN, no apparent distress, alert, moderate distress EENT: PERRL/EOMI, normal ENT inspection, TMs normal Neck: non-tender, normal alignment, supple, normal inspection Cardiovascular: normal peripheral pulses, normal rate, regular rhythm, no gallop/murmur, no JVD Respiratory/Chest: Nasal Canula; chest wall non-tender, decreased breath sounds , crackles/rales, rhonchi - bilaterally, expiratory wheezing Abdomen: normal bowel sounds, non tender, soft, no organomegaly, no mass Extremities: normal range of motion, non-tender Neurologic: emergency management system director II-XII 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 D/C tylenol #3; start [place] 10/325 (2) HTN (hypertension) Assessment & Plan: Continue hydralazine and norvasc. (3) Diabetes mellitus, type II Assessment & Plan: continue novolog sliding scale. (4) Hypercholesteremia Assessment & Plan: Continue lipitor. (5) Glaucoma (6) BPH (benign prostatic hyperplasia) Assessment & Plan: Continue flomax. (7) Osteoarthritis of right knee (8) Renal failure Assessment & Plan: See nephrology note. (9) Upper respiratory infection (10) Pneumonia Assessment & Plan: Continue ceftriaxone, vanco and azithro per ID. D/C levaquin IV. See ID and Pulmonary consult. (11) CHF (congestive heart failure) Assessment & Plan: Await echocardiogram and cardiology consult. (12) Respiratory failure Assessment & Plan: Hypercapnic. Tolerating nasal canula. See Pulmonary consult. IV lasix for CHF. Continue vanco and zosyn per ID Status: progressing Assessment/Plan D/W son in law, Dr Emery, daughter, Cynthia and , Tata. KAYLEEN BOLANOS Jul 12, 2017 15:57
[2017-07-12 16:00] VITALS: BP 143/88
[2017-07-12] MEDS ORDERED: Albuterol/Ipratropium 3ml neb HHN PRN (16:15)
[2017-07-12 20:00] VITALS: BP 135/63
[2017-07-12] MEDS: Latanoprost 0.005% Opth 2.5ml Soln BOTH EYES SCH (21:03)
[2017-07-12] MEDS: Atorvastatin 20mg tab ORAL SCH (21:04)
[2017-07-13] VITALS: BP 133/67
[2017-07-13 04:00] VITALS: BP 141/68
[2017-07-13] MEDS: NovoLOG Insulin Flexpen SUBQ SCH ×4 (06:30→21:00)
[2017-07-13 07:50] LABS: EOSINOPHILS % (AUTO) 3.1 % (0.0-3.0); HEMATOCRIT 30.9 % (42.0-52.0); HEMOGLOBIN 9.5 G/DL (14.2-18.0); LYMPHOCYTES % (AUTO) 15.6 % (20.0-45.0); MEAN CORPUSCULAR VOLUME 104 FL (80-99); NEUTROPHILS % (AUTO) 63.4 % (45.0-75.0); PLATELET COUNT 190 K/UL (150-450); RED BLOOD COUNT 2.96 M/UL (4.70-6.10); RED CELL DISTRIBUTION WIDTH 13.4 % (11.6-14.8); WHITE BLOOD COUNT 3.6 K/UL (4.8-10.8)
[2017-07-13 08:00] VITALS: BP 139/60
[2017-07-13 08:11] LABS: ALANINE AMINOTRANSFERASE 21 U/L (12-78); ALBUMIN/GLOBULIN RATIO 0.6 (1.0-2.7); ALKALINE PHOSPHATASE 45 U/L (46-116); ANION GAP 7 mmol/L (5-15); ASPARTATE AMINO TRANSFERASE 22 U/L (15-37); BILIRUBIN,TOTAL 0.4 MG/DL (0.2-1.0); BLOOD UREA NITROGEN 53 mg/dL (7-18); CALCIUM 6.7 MG/DL (8.5-10.1); CARBON DIOXIDE 26 MMOL/L (21-32); CHLORIDE 111 MMOL/L (98-107); CREATININE 3.5 MG/DL (0.55-1.30); PHOSPHORUS 3.2 MG/DL (2.5-4.9); POTASSIUM 4.6 MMOL/L (3.5-5.1); SODIUM 144 MMOL/L (136-145)
[2017-07-13] MEDS: Piperacillin/Tazobactam 3.375 GM in NS 110 ML IVPB SCH ×2 (08:55→21:14)
[2017-07-13] MEDS: Cosopt Opth Soln 10 mL Btl BOTH EYES SCH ×3 (08:55→18:00)
[2017-07-13] MEDS: Aspirin Baby 81mg ORAL SCH (08:56)
[2017-07-13] MEDS: Heparin 5000 units/ml inj SUBQ SCH ×2 (08:56→21:11)
[2017-07-13] MEDS: Tamsulosin 0.4mg cap ORAL SCH ×3 (08:56→18:00)
--- NOTE | 2017-07-13 10:13 | Nephrology Progress Note ---
Assessment/Plan Problem List: (1) Renal failure Assessment: acute on chronic (2) Respiratory failure (3) BPH (benign prostatic hyperplasia) (4) HTN (hypertension) (5) Diabetes mellitus, type II Assessment encephalopathic On Mask now Renal failure- ? CKd + Superimposed acute, Cr joseph but lowering, 3.5 today DM ? Nephropathy, has 3+ Proteins in urine Fall and right knee injury Anemia ? due to CKD ASHD Upper respiratory tract infection. Hypertension. Hypercholesterolemia. Benign prostatic hypertrophy. Low BP Plan Plan: EPO and Venofer ford- Optimize pulmonary status ID and Cardiology avoid Nephrotoxics Flomax Keep BP and BS in check Anemia luciano monitor renal parameters Per orders Left ventricular ejection fraction estimated to be 60-65 %. Moderate left ventricular hypertrophy by 2-D. Echogenic bilateral kidneys, suspect chronic medical renal disease Subjective ROS Limited/Unobtainable: No Constitutional: Reports: malaise Objective Objective Last 24 Hour Vital Signs Date Time Temp Pulse Resp B/P (MAP) Pulse Ox O2 Delivery O2 Flow Rate FiO2 07/13/17 08:00 97.7 59 22 139/60 97 Nasal Cannula 4.0 07/13/17 08:00 60 07/13/17 04:00 56 07/13/17 04:00 98.3 58 24 141/68 94 Nasal Cannula 4.0 07/13/17 04:00 98.3 58 18 141/68 97 Mechanical Ventilator 35 07/13/17 00:59 98.6 07/13/17 00:00 59 07/13/17 00:00 99.3 67 18 133/67 97 Mechanical Ventilator 35 07/12/17 20:00 56 07/12/17 20:00 98.6 57 24 135/63 95 Nasal Cannula 4.0 07/12/17 20:00 98.6 57 24 135/63 95 Nasal Cannula 4.0 07/12/17 19:00 Nasal Cannula 4.0 36 07/12/17 18:59 94 Nasal Cannula 4.0 36 07/12/17 16:00 97.5 61 19 143/88 Nasal Cannula 4.0 07/12/17 16:00 61 07/12/17 12:23 58 07/12/17 12:00 97.0 60 18 132/57 94 Nasal Cannula 4.0 07/12/17 10:48 Nasal Cannula 4.0 36 1/6/18 10:47 60 18 93 Nasal Cannula 4.0 36 Intake and Output 07/12/17 07/13/17 19:00 07:00 Intake Total 240 ml 110.0 ml Output Total 900 ml Balance -660 ml 110.0 ml Intake Oral 240 ml IV Total 110.0 ml Output Urine Total 900 ml Laboratory Tests 07/13/17 06:21: White Blood Count 3.6L, Red Blood Count 2.96L, Hemoglobin 9.5L, Hematocrit 30.9L , Mean Corpuscular Volume 104H, Mean Corpuscular Hemoglobin 32.0H, Mean Corpuscular Hemoglobin Concent 30.7L, Red Cell Distribution Width 13.4, Platelet Count 190, Mean Platelet Volume 6.6, Neutrophils (%) (Auto) 63.4, Lymphocytes (%) (Auto) 15.6L, Monocytes (%) (Auto) 17.0H, Eosinophils (%) (Auto ) 3.1H, Basophils (%) (Auto) 1.0, Sodium Level 144, Potassium Level 4.6, Chloride Level 111H, Carbon Dioxide Level 26, Anion Gap 7, Blood Urea Nitrogen 53H, Creatinine 3.5H, Estimat Glomerular Filtration Rate , Glucose Level 92, Uric Acid 3.5, Calcium Level 6.7L, Phosphorus Level 3.2, Magnesium Level 2.8H, Total Bilirubin 0.4, Aspartate Amino Transf (AST/SGOT) 22, Alanine Aminotransferase (ALT/SGPT) 21, Alkaline Phosphatase 45L, Troponin I 0.021, C- Reactive Protein, Quantitative 3.2H, Pro-B-Type Natriuretic Peptide 2490H, Total Protein 5.5L, Albumin 2.0L, Globulin 3.5, Albumin/Globulin Ratio 0.6L Height (Feet): 5 Height (Inches): 10.00 Weight (Pounds): 170 General Appearance: no apparent distress Cardiovascular: normal rate Respiratory/Chest: decreased breath sounds Abdomen: soft, distended Objective no other changes JOVANA TREVIÑO Jul 13, 2017 10:13
[2017-07-13 12:00] VITALS: BP 142/58
--- NOTE | 2017-07-13 12:46 | Pulmonology Progress Note ---
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 anemia of CKD BPH s/p recent mechanical fall R knee pain encephalopathy PLAN OF CARE TAYLA weaned from BiPAP, currently on O2 via NC titrate FiO2 to keep sat above 90% pulm toilet fup with CXR and pro BNP Cardio follows pt was r/o for acute NH ECHO with pEF60% ASA, statin BP monitoring, off BP meds Nephro follows creat rising renal US c/w chronic medical renal disease avoid nephrotic Monitor renal parameters, lytes, correct lytes as needed Flomax EPO anemia w/up c/w anemia of chronic disease, and high ferritin ID follows sputum, influenza, blood cx al negative a/tussive prn BS management with SS of insulin DVT prophylaxis X ray R knee no acute bony trauma pain management bowel regimen fall precautions PT/OT psych follows transfer to [facility] floor awaiting for placement case discussed and evaluated by supervising physician Subjective Allergies: Coded Allergies: No Known Allergies (Unverified , 07/04/17) Subjective weaned to O2 via NC, no signs of respir distress no c/o chest pain Objective Last 24 Hour Vital Signs Date Time Temp Pulse Resp B/P (MAP) Pulse Ox O2 Delivery O2 Flow Rate FiO2 07/13/17 12:00 97.0 56 22 142/58 97 Nasal Cannula 4.0 07/13/17 08:00 97.7 59 22 139/60 97 Nasal Cannula 4.0 07/13/17 08:00 60 07/13/17 07:15 95 Nasal Cannula 4.0 36 07/13/17 07:15 Nasal Cannula 4.0 36 07/13/17 04:00 56 07/13/17 04:00 98.3 58 24 141/68 94 Nasal Cannula 4.0 07/13/17 04:00 98.3 58 18 141/68 97 Mechanical Ventilator 35 07/13/17 00:59 98.6 07/13/17 00:00 59 07/13/17 00:00 99.3 67 18 133/67 97 Mechanical Ventilator 35 07/12/17 20:00 56 07/12/17 20:00 98.6 57 24 135/63 95 Nasal Cannula 4.0 07/12/17 20:00 98.6 57 24 135/63 95 Nasal Cannula 4.0 07/12/17 19:00 Nasal Cannula 4.0 36 07/12/17 18:59 94 Nasal Cannula 4.0 36 07/12/17 16:00 97.5 61 19 143/88 Nasal Cannula 4.0 07/12/17 16:00 61 Intake and Output 07/12/17 07/13/17 19:00 07:00 Intake Total 240 ml 110.0 ml Output Total 900 ml Balance -660 ml 110.0 ml Intake Oral 240 ml IV Total 110.0 ml Output Urine Total 900 ml Objective General Appearance: no acute distress HEENT: normocephalic, atraumatic, O2 via NC Respiratory/Chest: no accessory muscle use, few isolated rhonchi Cardiovascular: normal peripheral pulses, normal rate, regular rhythm - SR Abdomen: normal bowel sounds, soft, non tender Extremities: no edema, pedal pulses normal Neurologic/Psychiatric: alert, responsive Musculoskeletal: atrophy - BLE Laboratory Tests 07/13/17 06:21: White Blood Count 3.6L, Red Blood Count 2.96L, Hemoglobin 9.5L, Hematocrit 30.9L , Mean Corpuscular Volume 104H, Mean Corpuscular Hemoglobin 32.0H, Mean Corpuscular Hemoglobin Concent 30.7L, Red Cell Distribution Width 13.4, Platelet Count 190, Mean Platelet Volume 6.6, Neutrophils (%) (Auto) 63.4, Lymphocytes (%) (Auto) 15.6L, Monocytes (%) (Auto) 17.0H, Eosinophils (%) (Auto ) 3.1H, Basophils (%) (Auto) 1.0, Sodium Level 144, Potassium Level 4.6, Chloride Level 111H, Carbon Dioxide Level 26, Anion Gap 7, Blood Urea Nitrogen 53H, Creatinine 3.5H, Estimat Glomerular Filtration Rate , Glucose Level 92, Uric Acid 3.5, Calcium Level 6.7L, Phosphorus Level 3.2, Magnesium Level 2.8H, Total Bilirubin 0.4, Aspartate Amino Transf (AST/SGOT) 22, Alanine Aminotransferase (ALT/SGPT) 21, Alkaline Phosphatase 45L, Troponin I 0.021, C- Reactive Protein, Quantitative 3.2H, Pro-B-Type Natriuretic Peptide 2490H, Total Protein 5.5L, Albumin 2.0L, Globulin 3.5, Albumin/Globulin Ratio 0.6L Current Medications Medications (Trade) Dose Ordered Sig/Nito Route PRN Reason Start Time Stop Time Status Last Admin Dose Admin Acetaminophen (Tylenol) 650 mg Q6H PRN ORAL Mild Pain/Temp > 100.4 07/07/17 20:15 08/04/17 08:14 07/13/17 00:00 Acetaminophen/ Hydrocodone Bitart ([place] 10/325) 1 ea Q4H PRN ORAL For Moderate to Severe Pain 07/07/17 18:45 07/13/17 14:44 07/10/17 08:22 Albuterol/ Ipratropium (Albuterol/ Ipratropium) 3 ml Q4H PRN HHN Shortness of Breath 07/12/17 16:15 07/17/17 16:14 Allopurinol (Allopurinol) 300 mg DAILY ORAL 07/08/17 09:00 08/07/17 08:59 07/13/17 08:56 Aspirin (ASA) 81 mg DAILY ORAL 07/08/17 09:00 08/04/17 08:59 07/13/17 08:56 Atorvastatin Calcium (Lipitor) 40 mg BEDTIME ORAL 07/07/17 21:00 08/06/17 20:59 07/12/17 21:04 Dextrose (Dextrose 50%) STAT PRN IV Hypoglycemia 07/08/17 08:15 08/04/17 08:14 Dorzolamide/ Timolol (Cosopt) 1 drop TWICE A DAY BOTH EYES 07/07/17 18:00 08/06/17 17:59 07/13/17 08:55 Epoetin Koby (Procrit (for non ESRD use)) 10,000 units FRI-FRI-FRI SUBQ 07/11/17 21:00 08/10/17 20:59 07/11/17 21:35 Ergocalciferol (Drisdol) 50,000 intlu QWEEK@1300 ORAL 07/12/17 13:00 08/11/17 12:59 07/12/17 14:33 Escitalopram Oxalate (Lexapro) 10 mg DAILY ORAL 07/10/17 13:00 08/09/17 12:59 07/13/17 08:55 Glipizide (GlipiZIDE XL) 2.5 mg ACBREAKFAST ORAL 07/08/17 06:30 08/07/17 06:29 07/13/17 06:30 Guaifenesin (Robitussin) 100 mg Q6H PRN ORAL For Cough 07/07/17 16:30 08/03/17 22:29 Heparin Sodium (Porcine) (Heparin 5000 units/ml) 5,000 units EVERY 12 HOURS SUBQ 07/07/17 21:00 08/04/17 08:59 07/13/17 08:56 Hydralazine HCl (Apresoline) 25 mg Q4H PRN ORAL SBP > 160 mm Hg 07/07/17 16:45 08/04/17 08:14 Insulin Aspart (NovoLOG) BEFORE MEALS AND HS SUBQ 07/07/17 16:30 08/04/17 11:29 07/09/17 19:48 Latanoprost (Xalatan) 1 drop BEDTIME BOTH EYES 07/07/17 21:00 08/06/17 20:59 07/12/17 21:03 Lorazepam (Ativan) 1 mg Q6H PRN ORAL For Anxiety 07/10/17 11:30 07/17/17 11:29 07/11/17 08:52 Ondansetron HCl (Zofran) 4 mg Q4H PRN IVP nausea 07/07/17 17:00 08/04/17 00:59 Patient Own Medication (Patient's Own Med) 1 ea Th@0900 SUBQ 07/10/17 09:00 08/09/17 08:59 07/10/17 09:31 Piperacillin Sod/ Tazobactam Sod 3.375 gm/Sodium Chloride 110 ml @ 27.5 mls/hr EVERY 12 HOURS IVPB 07/09/17 11:30 07/16/17 11:29 07/13/17 08:55 Tamsulosin HCl (Flomax) 0.4 mg BID ORAL 07/07/17 18:00 08/04/17 12:59 07/13/17 08:56 Chantelle Hendricks NP (Vanchtein) Jul 13, 2017 12:45
--- NOTE | 2017-07-13 14:05 | Cardiac Electrophysiology PN ---
Assessment/Plan Assessment/Plan 1. Shortness of breath. Ruled out for myocardial infarction. Echocardiogram showed EF 60%. Now on Nasal cannula 2. Post influenza PNA- r/o S. aureus, H. flu- ?worsening PNA. On Abx per Dr Sanchez. 3. Hypertension stable OFF BP meds. 4. Renal failure. Further evaluation by Dr. Pederson. 5. Recent influenza A. DW RN and Subjective Subjective On TAYLA. On oxygen via nasal cannula. No events overnight. at bedside. Objective Last 24 Hour Vital Signs Date Time Temp Pulse Resp B/P (MAP) Pulse Ox O2 Delivery O2 Flow Rate FiO2 07/13/17 12:00 97.0 56 22 142/58 97 Nasal Cannula 4.0 07/13/17 12:00 55 07/13/17 08:00 97.7 59 22 139/60 97 Nasal Cannula 4.0 07/13/17 08:00 60 07/13/17 07:15 95 Nasal Cannula 4.0 36 07/13/17 07:15 Nasal Cannula 4.0 36 07/13/17 04:00 56 07/13/17 04:00 98.3 58 24 141/68 94 Nasal Cannula 4.0 07/13/17 04:00 98.3 58 18 141/68 97 Mechanical Ventilator 35 07/13/17 00:59 98.6 07/13/17 00:00 59 07/13/17 00:00 99.3 67 18 133/67 97 Mechanical Ventilator 35 07/12/17 20:00 56 07/12/17 20:00 98.6 57 24 135/63 95 Nasal Cannula 4.0 07/12/17 20:00 98.6 57 24 135/63 95 Nasal Cannula 4.0 07/12/17 19:00 Nasal Cannula 4.0 36 07/12/17 18:59 94 Nasal Cannula 4.0 36 07/12/17 16:00 97.5 61 19 143/88 Nasal Cannula 4.0 07/12/17 16:00 61 Intake and Output 07/12/17 07/13/17 19:00 07:00 Intake Total 240 ml 110.0 ml Output Total 900 ml Balance -660 ml 110.0 ml Intake Oral 240 ml IV Total 110.0 ml Output Urine Total 900 ml Laboratory Tests Test 07/13/17 06:21 White Blood Count 3.6 K/UL (4.8-10.8) L Red Blood Count 2.96 M/UL (4.70-6.10) L Hemoglobin 9.5 G/DL (14.2-18.0) L Hematocrit 30.9 % (42.0-52.0) L Mean Corpuscular Volume 104 FL (80-99) H Mean Corpuscular Hemoglobin 32.0 PG (27.0-31.0) H Mean Corpuscular Hemoglobin Concent 30.7 G/DL (32.0-36.0) L Red Cell Distribution Width 13.4 % (11.6-14.8) Platelet Count 190 K/UL (150-450) Mean Platelet Volume 6.6 FL (6.5-10.1) Neutrophils (%) (Auto) 63.4 % (45.0-75.0) Lymphocytes (%) (Auto) 15.6 % (20.0-45.0) L Monocytes (%) (Auto) 17.0 % (1.0-10.0) H Eosinophils (%) (Auto) 3.1 % (0.0-3.0) H Basophils (%) (Auto) 1.0 % (0.0-2.0) Sodium Level 144 MMOL/L (136-145) Potassium Level 4.6 MMOL/L (3.5-5.1) Chloride Level 111 MMOL/L (98-107) H Carbon Dioxide Level 26 MMOL/L (21-32) Anion Gap 7 mmol/L (5-15) Blood Urea Nitrogen 53 mg/dL (7-18) H Creatinine 3.5 MG/DL (0.55-1.30) H Estimat Glomerular Filtration Rate mL/min (>60) Glucose Level 92 MG/DL (74-106) Uric Acid 3.5 MG/DL (2.6-7.2) Calcium Level 6.7 MG/DL (8.5-10.1) L Phosphorus Level 3.2 MG/DL (2.5-4.9) Magnesium Level 2.8 MG/DL (1.8-2.4) H Total Bilirubin 0.4 MG/DL (0.2-1.0) Aspartate Amino Transf (AST/SGOT) 22 U/L (15-37) Alanine Aminotransferase (ALT/SGPT) 21 U/L (12-78) Alkaline Phosphatase 45 U/L (46-116) L Troponin I 0.021 ng/mL (0.000-0.056) C-Reactive Protein, Quantitative 3.2 mg/dL (0.00-0.90) H Pro-B-Type Natriuretic Peptide 2490 pg/mL (0-125) H Total Protein 5.5 G/DL (6.4-8.2) L Albumin 2.0 G/DL (3.4-5.0) L Globulin 3.5 g/dL Albumin/Globulin Ratio 0.6 (1.0-2.7) L Objective HEAD AND NECK: No JVD. LUNGS: Decreased breath sounds. CARDIOVASCULAR: Regular S1 and S2 with no gallop or murmur. ABDOMEN: Soft. EXTREMITIES: 1 plus pitting edema. ADRIENNE LAWTON Jul 13, 2017 14:05
--- NOTE | 2017-07-13 14:06 | General Progress Note ---
Assessment/Plan Status: stable Assessment/Plan depression encephalopathy, resolved -Lexapro 10mg qam Subjective Date patient seen: Jul 12, 2017 Neurologic/Psychiatric: Reports: anxiety, depressed, emotional problems Allergies: Coded Allergies: No Known Allergies (Unverified , 07/04/17) Subjective the pt was less anxious,awake in room Objective Last 24 Hour Vital Signs Date Time Temp Pulse Resp B/P (MAP) Pulse Ox O2 Delivery O2 Flow Rate FiO2 07/13/17 12:00 97.0 56 22 142/58 97 Nasal Cannula 4.0 07/13/17 12:00 55 07/13/17 08:00 97.7 59 22 139/60 97 Nasal Cannula 4.0 07/13/17 08:00 60 07/13/17 07:15 95 Nasal Cannula 4.0 36 07/13/17 07:15 Nasal Cannula 4.0 36 07/13/17 04:00 56 07/13/17 04:00 98.3 58 24 141/68 94 Nasal Cannula 4.0 07/13/17 04:00 98.3 58 18 141/68 97 Mechanical Ventilator 35 07/13/17 00:59 98.6 07/13/17 00:00 59 07/13/17 00:00 99.3 67 18 133/67 97 Mechanical Ventilator 35 07/12/17 20:00 56 07/12/17 20:00 98.6 57 24 135/63 95 Nasal Cannula 4.0 07/12/17 20:00 98.6 57 24 135/63 95 Nasal Cannula 4.0 07/12/17 19:00 Nasal Cannula 4.0 36 07/12/17 18:59 94 Nasal Cannula 4.0 36 07/12/17 16:00 97.5 61 19 143/88 Nasal Cannula 4.0 07/12/17 16:00 61 Intake and Output 07/12/17 07/13/17 19:00 07:00 Intake Total 240 ml 110.0 ml Output Total 900 ml Balance -660 ml 110.0 ml Intake Oral 240 ml IV Total 110.0 ml Output Urine Total 900 ml Laboratory Tests 07/13/17 06:21: White Blood Count 3.6L, Red Blood Count 2.96L, Hemoglobin 9.5L, Hematocrit 30.9L , Mean Corpuscular Volume 104H, Mean Corpuscular Hemoglobin 32.0H, Mean Corpuscular Hemoglobin Concent 30.7L, Red Cell Distribution Width 13.4, Platelet Count 190, Mean Platelet Volume 6.6, Neutrophils (%) (Auto) 63.4, Lymphocytes (%) (Auto) 15.6L, Monocytes (%) (Auto) 17.0H, Eosinophils (%) (Auto ) 3.1H, Basophils (%) (Auto) 1.0, Sodium Level 144, Potassium Level 4.6, Chloride Level 111H, Carbon Dioxide Level 26, Anion Gap 7, Blood Urea Nitrogen 53H, Creatinine 3.5H, Estimat Glomerular Filtration Rate , Glucose Level 92, Uric Acid 3.5, Calcium Level 6.7L, Phosphorus Level 3.2, Magnesium Level 2.8H, Total Bilirubin 0.4, Aspartate Amino Transf (AST/SGOT) 22, Alanine Aminotransferase (ALT/SGPT) 21, Alkaline Phosphatase 45L, Troponin I 0.021, C- Reactive Protein, Quantitative 3.2H, Pro-B-Type Natriuretic Peptide 2490H, Total Protein 5.5L, Albumin 2.0L, Globulin 3.5, Albumin/Globulin Ratio 0.6L Height (Feet): 5 Height (Inches): 10.00 Weight (Pounds): 170 General Appearance: no apparent distress, alert Neurologic: alert, oriented x 3, responsive, depressed affect Chao Evans M.D. Jul 13, 2017 14:06
[2017-07-13] MEDS ORDERED: HYDROcodone/Acetamin 10/325 tab ORAL PRN ×2 (14:45→18:45)
--- NOTE | 2017-07-13 14:53 | Internal Med Progress Note ---
Subjective Date of Service: Jul 13, 2017 Physician Name Kayleen Bolanos Attending Physician Kofi Mitchell MD Current Medications Medications (Trade) Dose Ordered Sig/Nito Route PRN Reason Start Time Stop Time Status Last Admin Dose Admin Acetaminophen (Tylenol) 650 mg Q6H PRN ORAL Mild Pain/Temp > 100.4 07/07/17 20:15 08/04/17 08:14 07/13/17 00:00 Acetaminophen/ Hydrocodone Bitart ([place] 10/325) 1 ea Q4H PRN ORAL For Moderate to Severe Pain 07/13/17 14:45 07/18/17 23:59 Albuterol/ Ipratropium (Albuterol/ Ipratropium) 3 ml Q4H PRN HHN Shortness of Breath 07/12/17 16:15 07/17/17 16:14 Allopurinol (Allopurinol) 300 mg DAILY ORAL 07/08/17 09:00 08/07/17 08:59 07/13/17 08:56 Aspirin (ASA) 81 mg DAILY ORAL 07/08/17 09:00 08/04/17 08:59 07/13/17 08:56 Atorvastatin Calcium (Lipitor) 40 mg BEDTIME ORAL 07/07/17 21:00 08/06/17 20:59 07/12/17 21:04 Dextrose (Dextrose 50%) STAT PRN IV Hypoglycemia 07/08/17 08:15 08/04/17 08:14 Dorzolamide/ Timolol (Cosopt) 1 drop TWICE A DAY BOTH EYES 07/07/17 18:00 08/06/17 17:59 07/13/17 08:55 Epoetin Koby (Procrit (for non ESRD use)) 10,000 units FRI-FRI-FRI SUBQ 07/11/17 21:00 08/10/17 20:59 07/11/17 21:35 Ergocalciferol (Drisdol) 50,000 intlu QWEEK@1300 ORAL 07/12/17 13:00 08/11/17 12:59 07/12/17 14:33 Escitalopram Oxalate (Lexapro) 10 mg DAILY ORAL 07/10/17 13:00 08/09/17 12:59 07/13/17 08:55 Glipizide (GlipiZIDE XL) 2.5 mg ACBREAKFAST ORAL 07/08/17 06:30 08/07/17 06:29 07/13/17 06:30 Guaifenesin (Robitussin) 100 mg Q6H PRN ORAL For Cough 07/07/17 16:30 08/03/17 22:29 Heparin Sodium (Porcine) (Heparin 5000 units/ml) 5,000 units EVERY 12 HOURS SUBQ 07/07/17 21:00 08/04/17 08:59 07/13/17 08:56 Hydralazine HCl (Apresoline) 25 mg Q4H PRN ORAL SBP > 160 mm Hg 07/07/17 16:45 08/04/17 08:14 Insulin Aspart (NovoLOG) BEFORE MEALS AND HS SUBQ 07/07/17 16:30 08/04/17 11:29 07/09/17 19:48 Latanoprost (Xalatan) 1 drop BEDTIME BOTH EYES 07/07/17 21:00 08/06/17 20:59 07/12/17 21:03 Lorazepam (Ativan) 1 mg Q6H PRN ORAL For Anxiety 07/10/17 11:30 07/17/17 11:29 07/11/17 08:52 Ondansetron HCl (Zofran) 4 mg Q4H PRN IVP nausea 07/07/17 17:00 08/04/17 00:59 Patient Own Medication (Patient's Own Med) 1 ea Th@0900 SUBQ 07/10/17 09:00 08/09/17 08:59 07/10/17 09:31 Piperacillin Sod/ Tazobactam Sod 3.375 gm/Sodium Chloride 110 ml @ 27.5 mls/hr EVERY 12 HOURS IVPB 07/09/17 11:30 07/16/17 11:29 07/13/17 08:55 Tamsulosin HCl (Flomax) 0.4 mg BID ORAL 07/07/17 18:00 08/04/17 12:59 07/13/17 08:56 Allergies: Coded Allergies: No Known Allergies (Unverified , 07/04/17) ROS Limited/Unobtainable: No Constitutional: Reports: no symptoms HEENT: Reports: no symptoms Cardiovascular: Reports: no symptoms Respiratory: Reports: cough, SOB with excertion Gastrointestinal/Abdominal: Reports: no symptoms Genitourinary: Reports: no symptoms Neurologic/Psychiatric: Reports: no symptoms Subjective 81 YO M admitted with cough. Now renal failure. Tolerating nasal canula. TAYLA. Cover for Int Bladimir-Dr Mitchell. Objective Last Vital Signs Date Time Temp Pulse Resp B/P (MAP) Pulse Ox O2 Delivery O2 Flow Rate FiO2 07/13/17 12:00 97.0 56 22 142/58 97 Nasal Cannula 4.0 07/13/17 07:15 36 Laboratory Tests Test 07/13/17 06:21 White Blood Count 3.6 K/UL (4.8-10.8) L Red Blood Count 2.96 M/UL (4.70-6.10) L Hemoglobin 9.5 G/DL (14.2-18.0) L Hematocrit 30.9 % (42.0-52.0) L Mean Corpuscular Volume 104 FL (80-99) H Mean Corpuscular Hemoglobin 32.0 PG (27.0-31.0) H Mean Corpuscular Hemoglobin Concent 30.7 G/DL (32.0-36.0) L Red Cell Distribution Width 13.4 % (11.6-14.8) Platelet Count 190 K/UL (150-450) Mean Platelet Volume 6.6 FL (6.5-10.1) Neutrophils (%) (Auto) 63.4 % (45.0-75.0) Lymphocytes (%) (Auto) 15.6 % (20.0-45.0) L Monocytes (%) (Auto) 17.0 % (1.0-10.0) H Eosinophils (%) (Auto) 3.1 % (0.0-3.0) H Basophils (%) (Auto) 1.0 % (0.0-2.0) Sodium Level 144 MMOL/L (136-145) Potassium Level 4.6 MMOL/L (3.5-5.1) Chloride Level 111 MMOL/L (98-107) H Carbon Dioxide Level 26 MMOL/L (21-32) Anion Gap 7 mmol/L (5-15) Blood Urea Nitrogen 53 mg/dL (7-18) H Creatinine 3.5 MG/DL (0.55-1.30) H Estimat Glomerular Filtration Rate mL/min (>60) Glucose Level 92 MG/DL (74-106) Uric Acid 3.5 MG/DL (2.6-7.2) Calcium Level 6.7 MG/DL (8.5-10.1) L Phosphorus Level 3.2 MG/DL (2.5-4.9) Magnesium Level 2.8 MG/DL (1.8-2.4) H Total Bilirubin 0.4 MG/DL (0.2-1.0) Aspartate Amino Transf (AST/SGOT) 22 U/L (15-37) Alanine Aminotransferase (ALT/SGPT) 21 U/L (12-78) Alkaline Phosphatase 45 U/L (46-116) L Troponin I 0.021 ng/mL (0.000-0.056) C-Reactive Protein, Quantitative 3.2 mg/dL (0.00-0.90) H Pro-B-Type Natriuretic Peptide 2490 pg/mL (0-125) H Total Protein 5.5 G/DL (6.4-8.2) L Albumin 2.0 G/DL (3.4-5.0) L Globulin 3.5 g/dL Albumin/Globulin Ratio 0.6 (1.0-2.7) L Intake and Output 07/12/17 07/13/17 19:00 07:00 Intake Total 240 ml 110.0 ml Output Total 900 ml Balance -660 ml 110.0 ml Intake Oral 240 ml IV Total 110.0 ml Output Urine Total 900 ml Objective General Appearance: WD/WN, no apparent distress, alert, moderate distress EENT: PERRL/EOMI, normal ENT inspection, TMs normal Neck: non-tender, normal alignment, supple, normal inspection Cardiovascular: normal peripheral pulses, normal rate, regular rhythm, no gallop/murmur, no JVD Respiratory/Chest: Nasal Canula; chest wall non-tender, decreased breath sounds , crackles/rales, rhonchi - bilaterally, expiratory wheezing Abdomen: normal bowel sounds, non tender, soft, no organomegaly, no mass Extremities: normal range of motion, non-tender Neurologic: peer tutor II-XII 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 D/C tylenol #3; start [place] 10 (2) HTN (hypertension) Assessment & Plan: Continue hydralazine and norvasc. (3) Diabetes mellitus, type II Assessment & Plan: continue novolog sliding scale. (4) Hypercholesteremia Assessment & Plan: Continue lipitor. (5) Glaucoma (6) BPH (benign prostatic hyperplasia) Assessment & Plan: Continue flomax. (7) Osteoarthritis of right knee (8) Renal failure Assessment & Plan: See nephrology note. (9) Upper respiratory infection (10) Pneumonia Assessment & Plan: Continue zosyn day # 6/7 per per ID. D/C levaquin IV. See ID and Pulmonary consult. (11) CHF (congestive heart failure) Assessment & Plan: Await echocardiogram and cardiology consult. (12) Respiratory failure Assessment & Plan: Hypercapnic. Tolerating nasal canula. See Pulmonary consult. IV lasix for CHF. Continue vanco and zosyn per ID Status: progressing Assessment/Plan D/W son in law, Dr Emery, daughter, Cynthia and , Tata. KAYLEEN BOLANOS Jul 13, 2017 14:53
[2017-07-13 16:00] VITALS: BP 153/74
[2017-07-13 20:00] VITALS: BP 148/66
[2017-07-13] MEDS ORDERED: Albuterol/Ipratropium 3ml neb HHN PRN (20:15)
[2017-07-13] MEDS ORDERED: HydrALAZINE 25mg tab ORAL PRN (20:45)
[2017-07-13] MEDS: Latanoprost 0.005% Opth 2.5ml Soln BOTH EYES SCH (21:09)
[2017-07-13] MEDS: Atorvastatin 20mg tab ORAL SCH (21:09)
[2017-07-13] MEDS ORDERED: guaiFENesin 100mg/5ml Liq ud ORAL PRN (22:30)
[2017-07-13] MEDS ORDERED: LORazepam 1mg tab ORAL PRN (23:30)
[2017-07-14] VITALS: BP 138/65
[2017-07-14 04:00] VITALS: BP 140/67
[2017-07-14] MEDS: NovoLOG Insulin Flexpen SUBQ SCH ×4 (06:15→21:00)
[2017-07-14 07:52] LABS: BASOPHILS % (AUTO) 1.6 % (0.0-2.0); EOSINOPHILS % (AUTO) 3.4 % (0.0-3.0); HEMATOCRIT 31.7 % (42.0-52.0); HEMOGLOBIN 9.9 G/DL (14.2-18.0); LYMPHOCYTES % (AUTO) 16.1 % (20.0-45.0); MEAN CORPUSCULAR VOLUME 104 FL (80-99); MONOCYTES % (AUTO) 14.2 % (1.0-10.0); NEUTROPHILS % (AUTO) 64.8 % (45.0-75.0); PLATELET COUNT 197 K/UL (150-450); RED BLOOD COUNT 3.06 M/UL (4.70-6.10); RED CELL DISTRIBUTION WIDTH 13.6 % (11.6-14.8)
[2017-07-14 08:00] VITALS: BP 135/64
[2017-07-14 08:17] LABS: ALANINE AMINOTRANSFERASE 29 U/L (12-78); ALBUMIN/GLOBULIN RATIO 0.6 (1.0-2.7); ALKALINE PHOSPHATASE 49 U/L (46-116); ANION GAP 6 mmol/L (5-15); ASPARTATE AMINO TRANSFERASE 28 U/L (15-37); BILIRUBIN,TOTAL 0.4 MG/DL (0.2-1.0); BLOOD UREA NITROGEN 43 mg/dL (7-18); CALCIUM 6.7 MG/DL (8.5-10.1); CARBON DIOXIDE 27 MMOL/L (21-32); CHLORIDE 112 MMOL/L (98-107); PHOSPHORUS 2.7 MG/DL (2.5-4.9); POTASSIUM 4.7 MMOL/L (3.5-5.1); SODIUM 145 MMOL/L (136-145)
[2017-07-14] MEDS: Tamsulosin 0.4mg cap ORAL SCH ×2 (09:00→18:01)
[2017-07-14] MEDS: Cosopt Opth Soln 10 mL Btl BOTH EYES SCH ×2 (09:00→18:02)
[2017-07-14] MEDS: Piperacillin/Tazobactam 3.375 GM in NS 110 ML IVPB SCH ×2 (09:00→21:54)
[2017-07-14] MEDS: Heparin 5000 units/ml inj SUBQ SCH ×2 (09:00→21:56)
[2017-07-14] MEDS: Aspirin Baby 81mg ORAL SCH (09:00)
--- NOTE | 2017-07-14 11:25 | Infectious Diseases Prog Note ---
Assessment/Plan Assessment/Plan Post influenza PNA- possible HCAP -CXR 07/10: Bibasilar atelectasis and consolidation persists, perhaps slightly improved. Retrocardiac consolidation and left basilar pleural fluid persists, unchanged. -CXR 07/08: . There is interval worsening of aeration at the right base with increasing patchy airspace opacities. Persistent left basilar atelectasis/ consolidation. -sp cx normal chalo Acute hypercapneic resp failure- hypercapnea improving- off of BIpap Mild leukopenia- Afebrile PHILIP on ?CKD Fall with R knee pain -Xray R knee: No acute fracture. 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 HTN, DM2, CKD, HLD, BPH Plan: -Continue Zosyn #6/7 for PNA -07/10 IV Vanco #4, Azithromycin #5 -07/09 SP Ceftriaxone #5 -07/08 SP Tamiflu #5 and Levaquin #2 -Monitor CBC/BMP, temperatures -aspiration precautions Subjective Allergies: Coded Allergies: No Known Allergies (Unverified , 07/04/17) Subjective afebrile, no leukocytosis on 4l NC Objective Vital Signs Last 24 Hour Vital Signs Date Time Temp Pulse Resp B/P (MAP) Pulse Ox O2 Delivery O2 Flow Rate FiO2 07/14/17 08:30 98 Nasal Cannula 4.0 36 07/14/17 08:30 Nasal Cannula 4.0 36 07/14/17 08:00 97.2 57 20 135/64 94 07/14/17 04:00 98.0 61 20 140/67 97 Nasal Cannula 4.0 07/14/17 00:00 97.6 68 18 138/65 96 Nasal Cannula 4.0 07/13/17 20:00 98.1 73 20 148/66 97 Nasal Cannula 4.0 07/13/17 18:32 Nasal Cannula 4.0 36 07/13/17 18:32 96 Nasal Cannula 4.0 36 07/13/17 16:00 97.4 71 19 153/74 95 Nasal Cannula 4.0 07/13/17 16:00 56 07/13/17 12:00 97.0 56 22 142/58 97 Nasal Cannula 4.0 07/13/17 12:00 55 Height (Feet): 5 Height (Inches): 10.00 Weight (Pounds): 170 Objective GENERAL: The patient is a well-developed and well-nourished white male, in no apparent distress.BIpap mask in place HEENT: Eyes, pupils are equal and responsive to light and accommodation.Extraocular movements are intact. NECK: Supple without lymphadenopathy. CHEST: Lungs are clear to auscultation bilaterally without wheezes or rales. CARDIOVASCULAR: Regular rhythm and rate. S1 and S2 are normal without murmurs , rubs, or gallops. ABDOMEN: Soft, nontender, and nondistended. Positive bowel sounds. No evidence of hepatosplenomegaly. Currently, no rebound or guarding noted. EXTREMITIES: Negative for clubbing, cyanosis, or edema. Laboratory Tests Test 07/14/17 06:40 White Blood Count 4.0 K/UL (4.8-10.8) L Red Blood Count 3.06 M/UL (4.70-6.10) L Hemoglobin 9.9 G/DL (14.2-18.0) L Hematocrit 31.7 % (42.0-52.0) L Mean Corpuscular Volume 104 FL (80-99) H Mean Corpuscular Hemoglobin 32.5 PG (27.0-31.0) H Mean Corpuscular Hemoglobin Concent 31.4 G/DL (32.0-36.0) L Red Cell Distribution Width 13.6 % (11.6-14.8) Platelet Count 197 K/UL (150-450) Mean Platelet Volume 7.4 FL (6.5-10.1) Neutrophils (%) (Auto) 64.8 % (45.0-75.0) Lymphocytes (%) (Auto) 16.1 % (20.0-45.0) L Monocytes (%) (Auto) 14.2 % (1.0-10.0) H Eosinophils (%) (Auto) 3.4 % (0.0-3.0) H Basophils (%) (Auto) 1.6 % (0.0-2.0) Sodium Level 145 MMOL/L (136-145) Potassium Level 4.7 MMOL/L (3.5-5.1) Chloride Level 112 MMOL/L (98-107) H Carbon Dioxide Level 27 MMOL/L (21-32) Anion Gap 6 mmol/L (5-15) Blood Urea Nitrogen 43 mg/dL (7-18) H Creatinine 3.0 MG/DL (0.55-1.30) H Estimat Glomerular Filtration Rate mL/min (>60) Glucose Level 94 MG/DL (74-106) Uric Acid 3.0 MG/DL (2.6-7.2) Calcium Level 6.7 MG/DL (8.5-10.1) L Phosphorus Level 2.7 MG/DL (2.5-4.9) Magnesium Level 2.6 MG/DL (1.8-2.4) H Total Bilirubin 0.4 MG/DL (0.2-1.0) Aspartate Amino Transf (AST/SGOT) 28 U/L (15-37) Alanine Aminotransferase (ALT/SGPT) 29 U/L (12-78) Alkaline Phosphatase 49 U/L (46-116) C-Reactive Protein, Quantitative 2.0 mg/dL (0.00-0.90) H Pro-B-Type Natriuretic Peptide 2513 pg/mL (0-125) H Total Protein 5.4 G/DL (6.4-8.2) L Albumin 2.0 G/DL (3.4-5.0) L Globulin 3.4 g/dL Albumin/Globulin Ratio 0.6 (1.0-2.7) L Current Medications Medications (Trade) Dose Ordered Sig/Nito Route PRN Reason Start Time Stop Time Status Last Admin Dose Admin Acetaminophen (Tylenol) 650 mg Q6H PRN ORAL Mild Pain/Temp > 100.4 07/13/17 20:15 08/04/17 08:14 Acetaminophen/ Hydrocodone Bitart ([place] 10/325) 1 ea Q4H PRN ORAL For Moderate to Severe Pain 07/13/17 18:45 07/18/17 23:59 Albuterol/ Ipratropium (Albuterol/ Ipratropium) 3 ml Q4H PRN HHN Shortness of Breath 07/13/17 20:15 07/17/17 16:14 Allopurinol (Allopurinol) 300 mg DAILY ORAL 07/14/17 09:00 08/07/17 08:59 Aspirin (ASA) 81 mg DAILY ORAL 07/14/17 09:00 08/04/17 08:59 Atorvastatin Calcium (Lipitor) 40 mg BEDTIME ORAL 07/13/17 21:00 08/06/17 20:59 07/13/17 21:09 Dextrose (Dextrose 50%) STAT PRN IV Hypoglycemia 07/14/17 08:15 08/04/17 08:14 Dorzolamide/ Timolol (Cosopt) 1 drop TWICE A DAY BOTH EYES 07/13/17 18:00 08/06/17 17:59 Epoetin Koby (Procrit (for non ESRD use)) 10,000 units FRI-FRI-FRI SUBQ 07/14/17 21:00 08/13/17 20:59 Ergocalciferol (Drisdol) 50,000 intlu QWEEK@1300 ORAL 07/19/17 13:00 08/11/17 12:59 Escitalopram Oxalate (Lexapro) 10 mg DAILY ORAL 07/14/17 09:00 08/09/17 12:59 Glipizide (GlipiZIDE XL) 2.5 mg ACBREAKFAST ORAL 07/14/17 06:30 08/07/17 06:29 07/14/17 06:03 Guaifenesin (Robitussin) 100 mg Q6H PRN ORAL For Cough 07/13/17 22:30 08/03/17 22:29 Heparin Sodium (Porcine) (Heparin 5000 units/ml) 5,000 units EVERY 12 HOURS SUBQ 07/13/17 21:00 08/04/17 08:59 07/13/17 21:11 Hydralazine HCl (Apresoline) 25 mg Q4H PRN ORAL SBP > 160 mm Hg 07/13/17 20:45 08/04/17 08:14 Insulin Aspart (NovoLOG) BEFORE MEALS AND HS SUBQ 07/13/17 21:00 08/04/17 11:29 Latanoprost (Xalatan) 1 drop BEDTIME BOTH EYES 07/13/17 21:00 08/06/17 20:59 07/13/17 21:09 Lorazepam (Ativan) 1 mg Q6H PRN ORAL For Anxiety 07/13/17 23:30 07/17/17 23:59 Ondansetron HCl (Zofran) 4 mg Q4H PRN IVP nausea 07/13/17 21:00 08/04/17 00:59 Patient Own Medication (Patient's Own Med) 1 ea Th@0900 SUBQ 07/17/17 09:00 08/09/17 08:59 Piperacillin Sod/ Tazobactam Sod 3.375 gm/Sodium Chloride 110 ml @ 27.5 mls/hr EVERY 12 HOURS IVPB 07/13/17 21:00 07/16/17 23:59 07/13/17 21:14 Tamsulosin HCl (Flomax) 0.4 mg BID ORAL 07/13/17 18:00 08/04/17 12:59 Lorelei Manning M.D. Jul 14, 2017 11:25
--- NOTE | 2017-07-14 11:33 | Nephrology Progress Note ---
Assessment/Plan Problem List: (1) Renal failure Assessment: acute on chronic (2) Respiratory failure (3) BPH (benign prostatic hyperplasia) (4) HTN (hypertension) (5) Diabetes mellitus, type II Assessment encephalopathic On Mask now Renal failure- ? CKd + Superimposed acute, Cr joseph but lowering, 3.0 today DM ? Nephropathy, has 3+ Proteins in urine Fall and right knee injury Anemia ? due to CKD ASHD Upper respiratory tract infection. Hypertension. Hypercholesterolemia. Benign prostatic hypertrophy. Low BP Plan Plan: EPO and Venofer ford- Optimize pulmonary status ID and Cardiology avoid Nephrotoxics Flomax Keep BP and BS in check Anemia luciano monitor renal parameters Per orders Left ventricular ejection fraction estimated to be 60-65 %. Moderate left ventricular hypertrophy by 2-D. Echogenic bilateral kidneys, suspect chronic medical renal disease Subjective ROS Limited/Unobtainable: No Constitutional: Reports: malaise Objective Objective Last 24 Hour Vital Signs Date Time Temp Pulse Resp B/P (MAP) Pulse Ox O2 Delivery O2 Flow Rate FiO2 07/14/17 08:30 98 Nasal Cannula 4.0 36 07/14/17 08:30 Nasal Cannula 4.0 36 07/14/17 08:00 97.2 57 20 135/64 94 07/14/17 04:00 98.0 61 20 140/67 97 Nasal Cannula 4.0 07/14/17 00:00 97.6 68 18 138/65 96 Nasal Cannula 4.0 07/13/17 20:00 98.1 73 20 148/66 97 Nasal Cannula 4.0 07/13/17 18:32 Nasal Cannula 4.0 36 07/13/17 18:32 96 Nasal Cannula 4.0 36 07/13/17 16:00 97.4 71 19 153/74 95 Nasal Cannula 4.0 07/13/17 16:00 56 07/13/17 12:00 97.0 56 22 142/58 97 Nasal Cannula 4.0 07/13/17 12:00 55 Intake and Output 07/13/17 07/14/17 19:00 07:00 Intake Total 630.0 ml 350.0 ml Output Total 1400 ml 1000 ml Balance -770.0 ml -650.0 ml Intake Oral 520 ml 240 ml IV Total 110.0 ml 110.0 ml Output Urine Total 1400 ml 1000 ml # Bowel Movements 1 Laboratory Tests 07/14/17 06:40: White Blood Count 4.0L, Red Blood Count 3.06L, Hemoglobin 9.9L, Hematocrit 31.7L , Mean Corpuscular Volume 104H, Mean Corpuscular Hemoglobin 32.5H, Mean Corpuscular Hemoglobin Concent 31.4L, Red Cell Distribution Width 13.6, Platelet Count 197, Mean Platelet Volume 7.4, Neutrophils (%) (Auto) 64.8, Lymphocytes (%) (Auto) 16.1L, Monocytes (%) (Auto) 14.2H, Eosinophils (%) (Auto ) 3.4H, Basophils (%) (Auto) 1.6, Sodium Level 145, Potassium Level 4.7, Chloride Level 112H, Carbon Dioxide Level 27, Anion Gap 6, Blood Urea Nitrogen 43H, Creatinine 3.0H, Estimat Glomerular Filtration Rate , Glucose Level 94, Uric Acid 3.0, Calcium Level 6.7L, Phosphorus Level 2.7, Magnesium Level 2.6H, Total Bilirubin 0.4, Aspartate Amino Transf (AST/SGOT) 28, Alanine Aminotransferase (ALT/SGPT) 29, Alkaline Phosphatase 49, C-Reactive Protein, Quantitative 2.0H, Pro-B-Type Natriuretic Peptide 2513H, Total Protein 5.4L, Albumin 2.0L, Globulin 3.4, Albumin/Globulin Ratio 0.6L Height (Feet): 5 Height (Inches): 10.00 Weight (Pounds): 170 General Appearance: no apparent distress Cardiovascular: normal rate Respiratory/Chest: decreased breath sounds Abdomen: soft Objective no other changes JOVANA TREVIÑO Jul 14, 2017 11:33
[2017-07-14 12:00] VITALS: BP 149/70
--- NOTE | 2017-07-14 12:08 | Internal Med Progress Note ---
Subjective Date of Service: Jul 14, 2017 Physician Name Kayleen Garcia Attending Physician Kofi Mitchell MD Current Medications Medications (Trade) Dose Ordered Sig/Nito Route PRN Reason Start Time Stop Time Status Last Admin Dose Admin Acetaminophen (Tylenol) 650 mg Q6H PRN ORAL Mild Pain/Temp > 100.4 07/13/17 20:15 08/04/17 08:14 Acetaminophen/ Hydrocodone Bitart ([place] 10/325) 1 ea Q4H PRN ORAL For Moderate to Severe Pain 07/13/17 18:45 07/18/17 23:59 Albuterol/ Ipratropium (Albuterol/ Ipratropium) 3 ml Q4H PRN HHN Shortness of Breath 07/13/17 20:15 07/17/17 16:14 Allopurinol (Allopurinol) 300 mg DAILY ORAL 07/14/17 09:00 08/07/17 08:59 Aspirin (ASA) 81 mg DAILY ORAL 07/14/17 09:00 08/04/17 08:59 Atorvastatin Calcium (Lipitor) 40 mg BEDTIME ORAL 07/13/17 21:00 08/06/17 20:59 07/13/17 21:09 Dextrose (Dextrose 50%) STAT PRN IV Hypoglycemia 07/14/17 08:15 08/04/17 08:14 Dorzolamide/ Timolol (Cosopt) 1 drop TWICE A DAY BOTH EYES 07/13/17 18:00 08/06/17 17:59 Epoetin Koby (Procrit (for non ESRD use)) 10,000 units FRI-FRI-FRI SUBQ 07/14/17 21:00 08/13/17 20:59 Ergocalciferol (Drisdol) 50,000 intlu QWEEK@1300 ORAL 07/19/17 13:00 08/11/17 12:59 Escitalopram Oxalate (Lexapro) 10 mg DAILY ORAL 07/14/17 09:00 08/09/17 12:59 Glipizide (GlipiZIDE XL) 2.5 mg ACBREAKFAST ORAL 07/14/17 06:30 08/07/17 06:29 07/14/17 06:03 Guaifenesin (Robitussin) 100 mg Q6H PRN ORAL For Cough 07/13/17 22:30 08/03/17 22:29 Heparin Sodium (Porcine) (Heparin 5000 units/ml) 5,000 units EVERY 12 HOURS SUBQ 07/13/17 21:00 08/04/17 08:59 07/13/17 21:11 Hydralazine HCl (Apresoline) 25 mg Q4H PRN ORAL SBP > 160 mm Hg 07/13/17 20:45 08/04/17 08:14 Insulin Aspart (NovoLOG) BEFORE MEALS AND HS SUBQ 07/13/17 21:00 08/04/17 11:29 Latanoprost (Xalatan) 1 drop BEDTIME BOTH EYES 07/13/17 21:00 08/06/17 20:59 07/13/17 21:09 Lorazepam (Ativan) 1 mg Q6H PRN ORAL For Anxiety 07/13/17 23:30 07/17/17 23:59 Ondansetron HCl (Zofran) 4 mg Q4H PRN IVP nausea 07/13/17 21:00 08/04/17 00:59 Patient Own Medication (Patient's Own Med) 1 ea Th@0900 SUBQ 07/17/17 09:00 08/09/17 08:59 Piperacillin Sod/ Tazobactam Sod 3.375 gm/Sodium Chloride 110 ml @ 27.5 mls/hr EVERY 12 HOURS IVPB 07/13/17 21:00 07/16/17 23:59 07/13/17 21:14 Tamsulosin HCl (Flomax) 0.4 mg BID ORAL 07/13/17 18:00 08/04/17 12:59 Allergies: Coded Allergies: No Known Allergies (Unverified , 07/04/17) ROS Limited/Unobtainable: No Constitutional: Reports: no symptoms HEENT: Reports: no symptoms Cardiovascular: Reports: no symptoms Respiratory: Reports: no symptoms Gastrointestinal/Abdominal: Reports: no symptoms Genitourinary: Reports: no symptoms Neurologic/Psychiatric: Reports: no symptoms Subjective 81 YO M admitted with cough. Now renal failure. Tolerating nasal canula. TAYLA. Cover for Int Med-Dr Mitchell. Objective Last Vital Signs Date Time Temp Pulse Resp B/P (MAP) Pulse Ox O2 Delivery O2 Flow Rate FiO2 07/14/17 08:30 98 Nasal Cannula 4.0 36 07/14/17 08:00 97.2 57 20 135/64 Laboratory Tests Test 07/14/17 06:40 White Blood Count 4.0 K/UL (4.8-10.8) L Red Blood Count 3.06 M/UL (4.70-6.10) L Hemoglobin 9.9 G/DL (14.2-18.0) L Hematocrit 31.7 % (42.0-52.0) L Mean Corpuscular Volume 104 FL (80-99) H Mean Corpuscular Hemoglobin 32.5 PG (27.0-31.0) H Mean Corpuscular Hemoglobin Concent 31.4 G/DL (32.0-36.0) L Red Cell Distribution Width 13.6 % (11.6-14.8) Platelet Count 197 K/UL (150-450) Mean Platelet Volume 7.4 FL (6.5-10.1) Neutrophils (%) (Auto) 64.8 % (45.0-75.0) Lymphocytes (%) (Auto) 16.1 % (20.0-45.0) L Monocytes (%) (Auto) 14.2 % (1.0-10.0) H Eosinophils (%) (Auto) 3.4 % (0.0-3.0) H Basophils (%) (Auto) 1.6 % (0.0-2.0) Sodium Level 145 MMOL/L (136-145) Potassium Level 4.7 MMOL/L (3.5-5.1) Chloride Level 112 MMOL/L (98-107) H Carbon Dioxide Level 27 MMOL/L (21-32) Anion Gap 6 mmol/L (5-15) Blood Urea Nitrogen 43 mg/dL (7-18) H Creatinine 3.0 MG/DL (0.55-1.30) H Estimat Glomerular Filtration Rate mL/min (>60) Glucose Level 94 MG/DL (74-106) Uric Acid 3.0 MG/DL (2.6-7.2) Calcium Level 6.7 MG/DL (8.5-10.1) L Phosphorus Level 2.7 MG/DL (2.5-4.9) Magnesium Level 2.6 MG/DL (1.8-2.4) H Total Bilirubin 0.4 MG/DL (0.2-1.0) Aspartate Amino Transf (AST/SGOT) 28 U/L (15-37) Alanine Aminotransferase (ALT/SGPT) 29 U/L (12-78) Alkaline Phosphatase 49 U/L (46-116) C-Reactive Protein, Quantitative 2.0 mg/dL (0.00-0.90) H Pro-B-Type Natriuretic Peptide 2513 pg/mL (0-125) H Total Protein 5.4 G/DL (6.4-8.2) L Albumin 2.0 G/DL (3.4-5.0) L Globulin 3.4 g/dL Albumin/Globulin Ratio 0.6 (1.0-2.7) L Intake and Output 07/13/17 07/14/17 19:00 07:00 Intake Total 630.0 ml 350.0 ml Output Total 1400 ml 1000 ml Balance -770.0 ml -650.0 ml Intake Oral 520 ml 240 ml IV Total 110.0 ml 110.0 ml Output Urine Total 1400 ml 1000 ml # Bowel Movements 1 Objective General Appearance: WD/WN, no apparent distress, alert, moderate distress EENT: PERRL/EOMI, normal ENT inspection, TMs normal Neck: non-tender, normal alignment, supple, normal inspection Cardiovascular: normal peripheral pulses, normal rate, regular rhythm, no gallop/murmur, no JVD Respiratory/Chest: Nasal Canula; chest wall non-tender, decreased breath sounds , crackles/rales, rhonchi - bilaterally, expiratory wheezing Abdomen: normal bowel sounds, non tender, soft, no organomegaly, no mass Extremities: normal range of motion, non-tender Neurologic: director of assessing II-XII 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 D/C tylenol #3; start [place] 10 (2) HTN (hypertension) Assessment & Plan: Continue hydralazine and norvasc. (3) Diabetes mellitus, type II Assessment & Plan: continue novolog sliding scale. (4) Hypercholesteremia Assessment & Plan: Continue lipitor. (5) Glaucoma (6) BPH (benign prostatic hyperplasia) Assessment & Plan: Continue flomax. (7) Osteoarthritis of right knee (8) Renal failure Assessment & Plan: See nephrology note. (9) Upper respiratory infection (10) Pneumonia Assessment & Plan: Continue zosyn day # 6/7 per per ID. D/C levaquin IV. See ID and Pulmonary consult. (11) CHF (congestive heart failure) Assessment & Plan: Await echocardiogram and cardiology consult. (12) Respiratory failure Assessment & Plan: Hypercapnic. Tolerating nasal canula. See Pulmonary consult. IV lasix for CHF. Continue vanco and zosyn per ID Assessment/Plan D/W son in law, Dr Emery, daughter, Cynthia and , Tata. [facility] planning: [facility] Jul 14, 2017 12:08
--- NOTE | 2017-07-14 13:33 | Cardiac Electrophysiology PN ---
Assessment/Plan Assessment/Plan 1. Shortness of breath. Ruled out for myocardial infarction. Echocardiogram showed EF 60%. Now on Nasal cannula 2. Post influenza PNA-. On Abx per Dr Sanchez. 3. Hypertension stable OFF BP meds. 4. Renal failure. Further evaluation by Dr. Pederson. 5. Recent influenza A. 6. Knee pain s/p MRI DW RN and Subjective Subjective On NMB. On oxygen via nasal cannula. No events overnight. at bedside. Had MRI of R Knee. Objective Last 24 Hour Vital Signs Date Time Temp Pulse Resp B/P (MAP) Pulse Ox O2 Delivery O2 Flow Rate FiO2 07/14/17 08:30 98 Nasal Cannula 4.0 36 07/14/17 08:30 Nasal Cannula 4.0 36 07/14/17 08:00 97.2 57 20 135/64 94 07/14/17 04:00 98.0 61 20 140/67 97 Nasal Cannula 4.0 07/14/17 00:00 97.6 68 18 138/65 96 Nasal Cannula 4.0 07/13/17 20:00 98.1 73 20 148/66 97 Nasal Cannula 4.0 07/13/17 18:32 Nasal Cannula 4.0 36 07/13/17 18:32 96 Nasal Cannula 4.0 36 07/13/17 16:00 97.4 71 19 153/74 95 Nasal Cannula 4.0 07/13/17 16:00 56 Intake and Output 07/13/17 07/14/17 19:00 07:00 Intake Total 630.0 ml 350.0 ml Output Total 1400 ml 1000 ml Balance -770.0 ml -650.0 ml Intake Oral 520 ml 240 ml IV Total 110.0 ml 110.0 ml Output Urine Total 1400 ml 1000 ml # Bowel Movements 1 Laboratory Tests Test 07/14/17 06:40 White Blood Count 4.0 K/UL (4.8-10.8) L Red Blood Count 3.06 M/UL (4.70-6.10) L Hemoglobin 9.9 G/DL (14.2-18.0) L Hematocrit 31.7 % (42.0-52.0) L Mean Corpuscular Volume 104 FL (80-99) H Mean Corpuscular Hemoglobin 32.5 PG (27.0-31.0) H Mean Corpuscular Hemoglobin Concent 31.4 G/DL (32.0-36.0) L Red Cell Distribution Width 13.6 % (11.6-14.8) Platelet Count 197 K/UL (150-450) Mean Platelet Volume 7.4 FL (6.5-10.1) Neutrophils (%) (Auto) 64.8 % (45.0-75.0) Lymphocytes (%) (Auto) 16.1 % (20.0-45.0) L Monocytes (%) (Auto) 14.2 % (1.0-10.0) H Eosinophils (%) (Auto) 3.4 % (0.0-3.0) H Basophils (%) (Auto) 1.6 % (0.0-2.0) Sodium Level 145 MMOL/L (136-145) Potassium Level 4.7 MMOL/L (3.5-5.1) Chloride Level 112 MMOL/L (98-107) H Carbon Dioxide Level 27 MMOL/L (21-32) Anion Gap 6 mmol/L (5-15) Blood Urea Nitrogen 43 mg/dL (7-18) H Creatinine 3.0 MG/DL (0.55-1.30) H Estimat Glomerular Filtration Rate mL/min (>60) Glucose Level 94 MG/DL (74-106) Uric Acid 3.0 MG/DL (2.6-7.2) Calcium Level 6.7 MG/DL (8.5-10.1) L Phosphorus Level 2.7 MG/DL (2.5-4.9) Magnesium Level 2.6 MG/DL (1.8-2.4) H Total Bilirubin 0.4 MG/DL (0.2-1.0) Aspartate Amino Transf (AST/SGOT) 28 U/L (15-37) Alanine Aminotransferase (ALT/SGPT) 29 U/L (12-78) Alkaline Phosphatase 49 U/L (46-116) C-Reactive Protein, Quantitative 2.0 mg/dL (0.00-0.90) H Pro-B-Type Natriuretic Peptide 2513 pg/mL (0-125) H Total Protein 5.4 G/DL (6.4-8.2) L Albumin 2.0 G/DL (3.4-5.0) L Globulin 3.4 g/dL Albumin/Globulin Ratio 0.6 (1.0-2.7) L Objective HEAD AND NECK: No JVD. LUNGS: Decreased breath sounds. CARDIOVASCULAR: Regular S1 and S2 with no gallop or murmur. ABDOMEN: Soft. EXTREMITIES: 1 plus pitting edema. ADRIENNE LAWTON Jul 14, 2017 13:33
[2017-07-14 16:21] VITALS: BP 158/70
[2017-07-14 20:00] VITALS: BP 151/64
[2017-07-14] MEDS: Latanoprost 0.005% Opth 2.5ml Soln BOTH EYES SCH (21:00)
--- NOTE | 2017-07-14 21:48 | Diagnostic Imaging Report ---
Indication: Dyspnea Comparison: 07/12/2017 A single view chest radiograph was obtained. Findings: There is mild atelectasis at the both lung bases again noted. Lung volumes remain low. IMPRESSION: No significant change
--- NOTE | 2017-07-14 21:49 | Diagnostic Imaging Report ---
Indication: Right knee pain Technique: MRI of the right knee was imaged in a 1.5 [place] magnet. Pulse sequences obtained include coronal T1 fast spin-echo, STIR, sagittal coronal and axial proton fast spin-echo with fat saturation, sagittal proton fast spin-echo. Comparison: X-ray 07/04/2017 Findings: Linear low T1/high T2 signal focus demonstrated within the posteromedial tibia consistent with an acute nondisplaced fracture. The fracture is oriented horizontally or transversely and is adjacent to the semimembranosus attachment onto the posterior medial tibia. There is no associated depression of the medial tibial plateau. There is a small joint effusion. Degenerative arthrosis of the knee demonstrated. Grade 4 chondrosis in all 3 compartments of the knee particularly the lateral facet of the patellofemoral compartment. Marginal osteophytes are present. Subchondral cysts are present. The medial lateral menisci appear grossly intact. The anterior and posterior cruciate ligaments are intact. Medial collateral ligamentous complex intact. The lateral collateral ligamentous complex is intact including fibular collateral ligament, biceps femoris tendon and popliteus tendon. IMPRESSION: Acute nondisplaced fracture of the posterolateral lateral tibial epiphysis. No associated tibial plateau depression. Small joint effusion. Moderate to severe arthrosis as described above. Findings discussed with Dr. Kofi Mitchell via telephone
[2017-07-14] MEDS: Atorvastatin 20mg tab ORAL SCH (21:54)
[2017-07-14] MEDS: Epogen (for non ESRD use) SUBQ SCH (22:01)
--- NOTE | 2017-07-14 23:01 | Pulmonology Progress Note ---
Assessment/Plan Problems: (1) Respiratory failure (2) CHF (congestive heart failure) (3) Pneumonia (4) BPH (benign prostatic hyperplasia) (5) Renal failure (6) Diabetes mellitus, type II Assessment/Plan afebrile, wbc wnl off bipap on zosyn continue abx check cultures echo, and renal us reviewed all notes reviewed Subjective ROS Limited/Unobtainable: No Constitutional: Reports: no symptoms HEENT: Repors: no symptoms Allergies: Coded Allergies: No Known Allergies (Unverified , 07/04/17) Objective Last 24 Hour Vital Signs Date Time Temp Pulse Resp B/P (MAP) Pulse Ox O2 Delivery O2 Flow Rate FiO2 07/14/17 19:07 Nasal Cannula 4.0 36 07/14/17 19:07 96 Nasal Cannula 4.0 36 07/14/17 16:21 97.9 62 21 158/70 97 Nasal Cannula 2.0 07/14/17 12:00 96.8 60 20 149/70 95 07/14/17 08:30 98 Nasal Cannula 4.0 36 07/14/17 08:30 Nasal Cannula 4.0 36 07/14/17 08:00 97.2 57 20 135/64 94 07/14/17 04:00 98.0 61 20 140/67 97 Nasal Cannula 4.0 07/14/17 00:00 97.6 68 18 138/65 96 Nasal Cannula 4.0 Intake and Output 07/13/17 07/14/17 19:00 07:00 Intake Total 630.0 ml 350.0 ml Output Total 1400 ml 1000 ml Balance -770.0 ml -650.0 ml Intake Oral 520 ml 240 ml IV Total 110.0 ml 110.0 ml Output Urine Total 1400 ml 1000 ml # Bowel Movements 1 Objective General Appearance: no acute distress HEENT: normocephalic, atraumatic Respiratory/Chest: lungs clear, no respiratory distress, no accessory muscle use Cardiovascular: normal rate, no JVD, CL-femoral intact Abdomen: normal bowel sounds, soft, non tender Extremities: no edema Neurologic/Psychiatric: alert, responsive Musculoskeletal: normal muscle bulk Laboratory Tests 07/14/17 06:40: White Blood Count 4.0L, Red Blood Count 3.06L, Hemoglobin 9.9L, Hematocrit 31.7L , Mean Corpuscular Volume 104H, Mean Corpuscular Hemoglobin 32.5H, Mean Corpuscular Hemoglobin Concent 31.4L, Red Cell Distribution Width 13.6, Platelet Count 197, Mean Platelet Volume 7.4, Neutrophils (%) (Auto) 64.8, Lymphocytes (%) (Auto) 16.1L, Monocytes (%) (Auto) 14.2H, Eosinophils (%) (Auto ) 3.4H, Basophils (%) (Auto) 1.6, Sodium Level 145, Potassium Level 4.7, Chloride Level 112H, Carbon Dioxide Level 27, Anion Gap 6, Blood Urea Nitrogen 43H, Creatinine 3.0H, Estimat Glomerular Filtration Rate , Glucose Level 94, Uric Acid 3.0, Calcium Level 6.7L, Phosphorus Level 2.7, Magnesium Level 2.6H, Total Bilirubin 0.4, Aspartate Amino Transf (AST/SGOT) 28, Alanine Aminotransferase (ALT/SGPT) 29, Alkaline Phosphatase 49, C-Reactive Protein, Quantitative 2.0H, Pro-B-Type Natriuretic Peptide 2513H, Total Protein 5.4L, Albumin 2.0L, Globulin 3.4, Albumin/Globulin Ratio 0.6L Current Medications Medications (Trade) Dose Ordered Sig/Nito Route PRN Reason Start Time Stop Time Status Last Admin Dose Admin Acetaminophen (Tylenol) 650 mg Q6H PRN ORAL Mild Pain/Temp > 100.4 07/13/17 20:15 08/04/17 08:14 Acetaminophen/ Hydrocodone Bitart ([place] 10/325) 1 ea Q4H PRN ORAL For Moderate to Severe Pain 07/13/17 18:45 07/18/17 23:59 Albuterol/ Ipratropium (Albuterol/ Ipratropium) 3 ml Q4H PRN HHN Shortness of Breath 07/13/17 20:15 07/17/17 16:14 Allopurinol (Allopurinol) 300 mg DAILY ORAL 07/14/17 09:00 08/07/17 08:59 Aspirin (ASA) 81 mg DAILY ORAL 07/14/17 09:00 08/04/17 08:59 Atorvastatin Calcium (Lipitor) 40 mg BEDTIME ORAL 07/13/17 21:00 08/06/17 20:59 07/14/17 21:54 Dextrose (Dextrose 50%) STAT PRN IV Hypoglycemia 07/14/17 08:15 08/04/17 08:14 Dorzolamide/ Timolol (Cosopt) 1 drop TWICE A DAY BOTH EYES 07/13/17 18:00 08/06/17 17:59 07/14/17 18:02 Epoetin Koby (Procrit (for non ESRD use)) 10,000 units MON-WED-FRI SUBQ 07/14/17 21:00 08/13/17 20:59 07/14/17 22:01 Ergocalciferol (Drisdol) 50,000 intlu QWEEK@1300 ORAL 07/19/17 13:00 08/11/17 12:59 Escitalopram Oxalate (Lexapro) 10 mg DAILY ORAL 07/14/17 09:00 08/09/17 12:59 Glipizide (GlipiZIDE XL) 2.5 mg ACBREAKFAST ORAL 07/14/17 06:30 08/07/17 06:29 07/14/17 06:03 Guaifenesin (Robitussin) 100 mg Q6H PRN ORAL For Cough 07/13/17 22:30 08/03/17 22:29 Heparin Sodium (Porcine) (Heparin 5000 units/ml) 5,000 units EVERY 12 HOURS SUBQ 07/13/17 21:00 08/04/17 08:59 07/14/17 21:56 Hydralazine HCl (Apresoline) 25 mg Q4H PRN ORAL SBP > 160 mm Hg 07/13/17 20:45 08/04/17 08:14 Insulin Aspart (NovoLOG) BEFORE MEALS AND HS SUBQ 07/13/17 21:00 08/04/17 11:29 Latanoprost (Xalatan) 1 drop BEDTIME BOTH EYES 07/13/17 21:00 08/06/17 20:59 07/14/17 21:00 Lorazepam (Ativan) 1 mg Q6H PRN ORAL For Anxiety 07/13/17 23:30 07/17/17 23:59 Ondansetron HCl (Zofran) 4 mg Q4H PRN IVP nausea 07/13/17 21:00 08/04/17 00:59 Patient Own Medication (Patient's Own Med) 1 ea Th@0900 SUBQ 07/17/17 09:00 08/09/17 08:59 Piperacillin Sod/ Tazobactam Sod 3.375 gm/Sodium Chloride 110 ml @ 27.5 mls/hr EVERY 12 HOURS IVPB 07/13/17 21:00 07/16/17 23:59 07/14/17 21:54 Tamsulosin HCl (Flomax) 0.4 mg BID ORAL 07/13/17 18:00 08/04/17 12:59 07/14/17 18:01 KEVAN SEARS Jul 14, 2017 23:01
[2017-07-15] VITALS (7 sets, daily range): BP systolic 139–177; BP diastolic 68–86
[2017-07-15] MEDS: NovoLOG Insulin Flexpen SUBQ SCH ×4 (06:30→21:00)
[2017-07-15 07:30] LABS: ANION GAP 3 mmol/L (5-15); BLOOD UREA NITROGEN 37 mg/dL (7-18); CARBON DIOXIDE 29 MMOL/L (21-32); CHLORIDE 112 MMOL/L (98-107); CREATININE 2.7 MG/DL (0.55-1.30); POTASSIUM 4.8 MMOL/L (3.5-5.1); SODIUM 144 MMOL/L (136-145)
[2017-07-15 07:48] LABS: BASOPHILS % (AUTO) 0.7 % (0.0-2.0); EOSINOPHILS % (AUTO) 3.8 % (0.0-3.0); HEMATOCRIT 33.1 % (42.0-52.0); HEMOGLOBIN 10.7 G/DL (14.2-18.0); LYMPHOCYTES % (AUTO) 14.6 % (20.0-45.0); MEAN CORPUSCULAR VOLUME 102 FL (80-99); MONOCYTES % (AUTO) 14.2 % (1.0-10.0); NEUTROPHILS % (AUTO) 66.8 % (45.0-75.0); PLATELET COUNT 195 K/UL (150-450); RED BLOOD COUNT 3.23 M/UL (4.70-6.10); RED CELL DISTRIBUTION WIDTH 13.2 % (11.6-14.8); WHITE BLOOD COUNT 4.3 K/UL (4.8-10.8)
[2017-07-15] MEDS: Tamsulosin 0.4mg cap ORAL SCH ×2 (08:09→17:21)
[2017-07-15] MEDS: Aspirin Baby 81mg ORAL SCH (08:09)
[2017-07-15] MEDS: Heparin 5000 units/ml inj SUBQ SCH ×2 (08:11→21:35)
[2017-07-15] MEDS: Piperacillin/Tazobactam 3.375 GM in NS 110 ML IVPB SCH ×2 (08:11→21:32)
[2017-07-15] MEDS: Cosopt Opth Soln 10 mL Btl BOTH EYES SCH ×2 (08:17→17:22)
--- NOTE | 2017-07-15 09:57 | Nephrology Progress Note ---
Assessment/Plan Problem List: (1) Renal failure Assessment: acute on chronic (2) Respiratory failure (3) BPH (benign prostatic hyperplasia) (4) HTN (hypertension) (5) Diabetes mellitus, type II Assessment MS much clear on O2 cannula Renal failure- ? CKd + Superimposed acute, Cr joseph but lowering, DM ? Nephropathy, has 3+ Proteins in urine Fall and right knee injury Anemia ? due to CKD ASHD Upper respiratory tract infection. Hypertension. Hypercholesterolemia. Benign prostatic hypertrophy. Low BP Plan Plan: EPO and Venofer ford- Optimize pulmonary status ID and Cardiology avoid Nephrotoxics Flomax Keep BP and BS in check Anemia luciano monitor renal parameters Per orders Left ventricular ejection fraction estimated to be 60-65 %. Moderate left ventricular hypertrophy by 2-D. Echogenic bilateral kidneys, suspect chronic medical renal disease Subjective ROS Limited/Unobtainable: No Constitutional: Reports: malaise, weakness Objective Objective Last 24 Hour Vital Signs Date Time Temp Pulse Resp B/P (MAP) Pulse Ox O2 Delivery O2 Flow Rate FiO2 07/15/17 09:12 97.9 60 21 168/72 95 07/15/17 08:32 Nasal Cannula 3.0 32 07/15/17 08:31 96 Nasal Cannula 3.0 32 07/15/17 08:00 97.9 60 21 168/72 95 07/15/17 04:00 98.2 61 21 139/86 93 07/15/17 00:00 97.9 62 21 151/83 93 07/14/17 20:00 98.3 21 151/64 93 07/14/17 19:07 Nasal Cannula 4.0 36 07/14/17 19:07 96 Nasal Cannula 4.0 36 07/14/17 16:21 97.9 62 21 158/70 97 Nasal Cannula 2.0 07/14/17 12:00 96.8 60 20 149/70 95 Intake and Output 07/14/17 07/15/17 19:00 07:00 Intake Total 240 ml 110.0 ml Output Total 1000 ml 1050 ml Balance -760 ml -940.0 ml Intake Oral 240 ml IV Total 110.0 ml Output Urine Total 1000 ml 1050 ml # Voids 3 # Bowel Movements 4 1 Laboratory Tests 07/15/17 05:35: White Blood Count 4.3L, Red Blood Count 3.23L, Hemoglobin 10.7L, Hematocrit 33.1L, Mean Corpuscular Volume 102H, Mean Corpuscular Hemoglobin 33.2H, Mean Corpuscular Hemoglobin Concent 32.5, Red Cell Distribution Width 13.2, Platelet Count 195, Mean Platelet Volume 8.5, Neutrophils (%) (Auto) 66.8, Lymphocytes (% ) (Auto) 14.6L, Monocytes (%) (Auto) 14.2H, Eosinophils (%) (Auto) 3.8H, Basophils (%) (Auto) 0.7, Sodium Level 144, Potassium Level 4.8, Chloride Level 112H, Carbon Dioxide Level 29, Anion Gap 3L, Blood Urea Nitrogen 37H, Creatinine 2.7H, Estimat Glomerular Filtration Rate , Glucose Level 135H, Calcium Level 7.0L Height (Feet): 5 Height (Inches): 10.00 Weight (Pounds): 170 General Appearance: no apparent distress Cardiovascular: normal rate Respiratory/Chest: decreased breath sounds Abdomen: soft Objective no other changes JOVANA TREVIÑO Jul 15, 2017 09:57
--- NOTE | 2017-07-15 11:41 | Wound Nurse Progress Note ---
Wound RN Progress Note Wound Consult REASSESSMENT #1 Left cheek RESOLVING stage II medical devices related pressure injury - No further deterioration present, remains as stage 2 ,wound bed is 100% pink resolving , decrease in size 0.5cmx0.5cm x less than 0.1(SUPERFICIAL) #2 Right cheek RESOLVING stage II medical devices related pressure injury - No further deterioration present, remains as stage 2, wound bed is 100% pink resolving, decrease in size 1.0cmx0.5cmx less than 0.1(SUPERFICIAL) #3left anterior knee traumatic injury s/p fall open wound - no further deterioration , 95% scar tissue appearing , resolving,5% dry scattered scabs to site #4 right anterior knee traumatic injury abrasion- dry scab intact decrease in size 1.0cmx1.0cm, resolving #5 left and right arm ruptured ecchymosis and scattered ecchymosis. Recommendation -Local wound care per protocol as ordered, continue effective. -Protocol order for skin tear no flap ruptured ecchymosis, left and right arm -Keep clean and dry -Turn and reposition -Offload both heels -Heel protector on both heels -Optimize nutrition -Assess and f/u accordingly for any changes of condition to skin. BLAYNE DE LA PAZ Jul 15, 2017 11:41
--- NOTE | 2017-07-15 12:18 | Infectious Diseases Prog Note ---
Assessment/Plan Assessment/Plan Post influenza PNA- possible HCAP -CXR 07/14: There is mild atelectasis at the both lung bases again noted. Lung volumes remain low. -CXR 07/10: Bibasilar atelectasis and consolidation persists, perhaps slightly improved. Retrocardiac consolidation and left basilar pleural fluid persists, unchanged. -CXR 07/08: . There is interval worsening of aeration at the right base with increasing patchy airspace opacities. Persistent left basilar atelectasis/ consolidation. -sp cx normal chalo Acute hypercapneic resp failure- hypercapnea improving- off of BIpap Mild leukopenia- Afebrile PHILIP on ?CKD Fall with R knee pain, + fracture -MRI R knee: Acute nondisplaced fracture of the posterolateral lateral tibial epiphysis. No associated tibial plateau depression. Small joint effusion.Moderate to severe arthrosis as described above. -Xray R knee: No acute fracture. 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 HTN, DM2, CKD, HLD, BPH Plan: -Continue Zosyn #7/7 for PNA -07/10 IV Vanco #4, Azithromycin #5 -/3 SP Ceftriaxone #5 -/2 SP Tamiflu #5 and Levaquin #2 -Monitor CBC/BMP, temperatures -aspiration precautions Subjective Allergies: Coded Allergies: No Known Allergies (Unverified , 07/04/17) Subjective afebrile, no leukocytosis on 3l NC Objective Vital Signs Last 24 Hour Vital Signs Date Time Temp Pulse Resp B/P (MAP) Pulse Ox O2 Delivery O2 Flow Rate FiO2 07/15/17 09:12 97.9 60 21 168/72 95 07/15/17 08:32 Nasal Cannula 3.0 32 07/15/17 08:31 96 Nasal Cannula 3.0 32 07/15/17 08:00 97.9 60 21 168/72 95 07/15/17 04:00 98.2 61 21 139/86 93 07/15/17 00:00 97.9 62 21 151/83 93 07/14/17 20:00 98.3 21 151/64 93 07/14/17 19:07 Nasal Cannula 4.0 36 07/14/17 19:07 96 Nasal Cannula 4.0 36 07/14/17 16:21 97.9 62 21 158/70 97 Nasal Cannula 2.0 Height (Feet): 5 Height (Inches): 10.00 Weight (Pounds): 170 Objective GENERAL: The patient is a well-developed and well-nourished white male, in no apparent distress.BIpap mask in place HEENT: Eyes, pupils are equal and responsive to light and accommodation.Extraocular movements are intact. NECK: Supple without lymphadenopathy. CHEST: Lungs are clear to auscultation bilaterally without wheezes or rales. CARDIOVASCULAR: Regular rhythm and rate. S1 and S2 are normal without murmurs , rubs, or gallops. ABDOMEN: Soft, nontender, and nondistended. Positive bowel sounds. No evidence of hepatosplenomegaly. Currently, no rebound or guarding noted. EXTREMITIES: Negative for clubbing, cyanosis, or edema. Laboratory Tests Test 07/15/17 05:35 White Blood Count 4.3 K/UL (4.8-10.8) L Red Blood Count 3.23 M/UL (4.70-6.10) L Hemoglobin 10.7 G/DL (14.2-18.0) L Hematocrit 33.1 % (42.0-52.0) L Mean Corpuscular Volume 102 FL (80-99) H Mean Corpuscular Hemoglobin 33.2 PG (27.0-31.0) H Mean Corpuscular Hemoglobin Concent 32.5 G/DL (32.0-36.0) Red Cell Distribution Width 13.2 % (11.6-14.8) Platelet Count 195 K/UL (150-450) Mean Platelet Volume 8.5 FL (6.5-10.1) Neutrophils (%) (Auto) 66.8 % (45.0-75.0) Lymphocytes (%) (Auto) 14.6 % (20.0-45.0) L Monocytes (%) (Auto) 14.2 % (1.0-10.0) H Eosinophils (%) (Auto) 3.8 % (0.0-3.0) H Basophils (%) (Auto) 0.7 % (0.0-2.0) Sodium Level 144 MMOL/L (136-145) Potassium Level 4.8 MMOL/L (3.5-5.1) Chloride Level 112 MMOL/L (98-107) H Carbon Dioxide Level 29 MMOL/L (21-32) Anion Gap 3 mmol/L (5-15) L Blood Urea Nitrogen 37 mg/dL (7-18) H Creatinine 2.7 MG/DL (0.55-1.30) H Estimat Glomerular Filtration Rate mL/min (>60) Glucose Level 135 MG/DL (74-106) H Calcium Level 7.0 MG/DL (8.5-10.1) L Current Medications Medications (Trade) Dose Ordered Sig/Nito Route PRN Reason Start Time Stop Time Status Last Admin Dose Admin Acetaminophen (Tylenol) 650 mg Q6H PRN ORAL Mild Pain/Temp > 100.4 07/13/17 20:15 08/04/17 08:14 Acetaminophen/ Hydrocodone Bitart ([place] 10/325) 1 ea Q4H PRN ORAL For Moderate to Severe Pain 07/13/17 18:45 07/18/17 23:59 Albuterol/ Ipratropium (Albuterol/ Ipratropium) 3 ml Q4H PRN HHN Shortness of Breath 07/13/17 20:15 07/17/17 16:14 Allopurinol (Allopurinol) 300 mg DAILY ORAL 07/14/17 09:00 08/07/17 08:59 07/15/17 08:09 Aspirin (ASA) 81 mg DAILY ORAL 07/14/17 09:00 08/04/17 08:59 07/15/17 08:09 Atorvastatin Calcium (Lipitor) 40 mg BEDTIME ORAL 07/13/17 21:00 08/06/17 20:59 07/14/17 21:54 Dextrose (Dextrose 50%) STAT PRN IV Hypoglycemia 07/14/17 08:15 08/04/17 08:14 Dorzolamide/ Timolol (Cosopt) 1 drop TWICE A DAY BOTH EYES 07/13/17 18:00 08/06/17 17:59 07/14/17 18:02 Epoetin Koby (Procrit (for non ESRD use)) 10,000 units FRI-FRI-FRI SUBQ 07/14/17 21:00 08/13/17 20:59 07/14/17 22:01 Ergocalciferol (Drisdol) 50,000 intlu QWEEK@1300 ORAL 07/19/17 13:00 08/11/17 12:59 Escitalopram Oxalate (Lexapro) 10 mg DAILY ORAL 07/14/17 09:00 08/09/17 12:59 07/15/17 08:09 Glipizide (GlipiZIDE XL) 2.5 mg ACBREAKFAST ORAL 07/14/17 06:30 08/07/17 06:29 07/15/17 06:34 Guaifenesin (Robitussin) 100 mg Q6H PRN ORAL For Cough 07/13/17 22:30 08/03/17 22:29 Heparin Sodium (Porcine) (Heparin 5000 units/ml) 5,000 units EVERY 12 HOURS SUBQ 07/13/17 21:00 08/04/17 08:59 07/15/17 08:11 Hydralazine HCl (Apresoline) 25 mg Q4H PRN ORAL SBP > 160 mm Hg 07/13/17 20:45 08/04/17 08:14 Insulin Aspart (NovoLOG) BEFORE MEALS AND HS SUBQ 07/13/17 21:00 08/04/17 11:29 Latanoprost (Xalatan) 1 drop BEDTIME BOTH EYES 07/13/17 21:00 08/06/17 20:59 07/14/17 21:00 Lorazepam (Ativan) 1 mg Q6H PRN ORAL For Anxiety 07/13/17 23:30 07/17/17 23:59 Ondansetron HCl (Zofran) 4 mg Q4H PRN IVP nausea 07/13/17 21:00 08/04/17 00:59 Patient Own Medication (Patient's Own Med) 1 ea Th@0900 SUBQ 07/17/17 09:00 08/09/17 08:59 Piperacillin Sod/ Tazobactam Sod 3.375 gm/Sodium Chloride 110 ml @ 27.5 mls/hr EVERY 12 HOURS IVPB 07/13/17 21:00 07/16/17 23:59 07/15/17 08:11 Tamsulosin HCl (Flomax) 0.4 mg BID ORAL 07/13/17 18:00 08/04/17 12:59 07/15/17 08:09 Lorelei Manning M.D. Jul 15, 2017 12:18
[2017-07-15] MEDS: HydrALAZINE 50mg tab ORAL PRN ×2 (13:28→23:46)
--- NOTE | 2017-07-15 14:29 | Diagnostic Imaging Report ---
Indication: Dyspnea Technique: XRAY Chest 1v Comparison: 07/10/2017 Findings: Cardiac silhouette is prominent. There is poor inspiration. Retrocardiac consolidation and/or pleural effusion is again noted. Right basilar atelectasis is again noted. Osseous structures are stable. Impression: No significant change from 07/10/2017.
--- NOTE | 2017-07-15 17:21 | Cardiac Electrophysiology PN ---
Assessment/Plan Assessment/Plan 1. Shortness of breath. Ruled out for myocardial infarction. Echocardiogram showed EF 60%. Now on Nasal cannula. Feeling better 2. Post influenza PNA-. On Abx per Dr Sanchez. 3. Hypertension stable 4. Renal failure. Cr improved to 2.7. F/U by Dr. Pederson. 5. Recent influenza A. 6. Knee pain s/p MRI DW RN and Subjective Subjective On oxygen via nasal cannula. No events overnight. at bedside. Not eating much. Says because he doesn't want to use the bedpan Objective Last 24 Hour Vital Signs Date Time Temp Pulse Resp B/P (MAP) Pulse Ox O2 Delivery O2 Flow Rate FiO2 07/15/17 16:00 97.9 67 20 148/68 96 07/15/17 13:28 168/72 07/15/17 12:00 97.3 61 20 177/78 91 07/15/17 09:12 97.9 60 21 168/72 95 07/15/17 08:32 Nasal Cannula 3.0 32 07/15/17 08:31 96 Nasal Cannula 3.0 32 07/15/17 08:00 97.9 60 21 168/72 95 07/15/17 04:00 98.2 61 21 139/86 93 07/15/17 00:00 97.9 62 21 151/83 93 07/14/17 20:00 98.3 21 151/64 93 07/14/17 19:07 Nasal Cannula 4.0 36 07/14/17 19:07 96 Nasal Cannula 4.0 36 Intake and Output 07/14/17 07/15/17 19:00 07:00 Intake Total 240 ml 110.0 ml Output Total 1000 ml 1050 ml Balance -760 ml -940.0 ml Intake Oral 240 ml IV Total 110.0 ml Output Urine Total 1000 ml 1050 ml # Voids 3 # Bowel Movements 4 1 Laboratory Tests Test 07/15/17 05:35 White Blood Count 4.3 K/UL (4.8-10.8) L Red Blood Count 3.23 M/UL (4.70-6.10) L Hemoglobin 10.7 G/DL (14.2-18.0) L Hematocrit 33.1 % (42.0-52.0) L Mean Corpuscular Volume 102 FL (80-99) H Mean Corpuscular Hemoglobin 33.2 PG (27.0-31.0) H Mean Corpuscular Hemoglobin Concent 32.5 G/DL (32.0-36.0) Red Cell Distribution Width 13.2 % (11.6-14.8) Platelet Count 195 K/UL (150-450) Mean Platelet Volume 8.5 FL (6.5-10.1) Neutrophils (%) (Auto) 66.8 % (45.0-75.0) Lymphocytes (%) (Auto) 14.6 % (20.0-45.0) L Monocytes (%) (Auto) 14.2 % (1.0-10.0) H Eosinophils (%) (Auto) 3.8 % (0.0-3.0) H Basophils (%) (Auto) 0.7 % (0.0-2.0) Sodium Level 144 MMOL/L (136-145) Potassium Level 4.8 MMOL/L (3.5-5.1) Chloride Level 112 MMOL/L (98-107) H Carbon Dioxide Level 29 MMOL/L (21-32) Anion Gap 3 mmol/L (5-15) L Blood Urea Nitrogen 37 mg/dL (7-18) H Creatinine 2.7 MG/DL (0.55-1.30) H Estimat Glomerular Filtration Rate mL/min (>60) Glucose Level 135 MG/DL (74-106) H Calcium Level 7.0 MG/DL (8.5-10.1) L Objective HEAD AND NECK: No JVD. LUNGS: Decreased breath sounds. CARDIOVASCULAR: Regular S1 and S2 with no gallop or murmur. ABDOMEN: Soft. EXTREMITIES: 1 plus pitting edema. ADRIENNE LAWTON Jul 15, 2017 17:21
[2017-07-15] MEDS ORDERED: Tubing IV Secondary IV ONE ×2 (17:33→17:40)
[2017-07-15] MEDS ORDERED: NS 500ML ONE (17:40)
[2017-07-15] MEDS ORDERED: NS 275ml ONE (17:40)
--- NOTE | 2017-07-15 17:44 | Internal Med Progress Note ---
Subjective Date of Service: Jul 15, 2017 Physician Name Kayleen Bolanos Attending Physician Kofi Mitchell MD Current Medications Medications (Trade) Dose Ordered Sig/Nito Route PRN Reason Start Time Stop Time Status Last Admin Dose Admin Acetaminophen (Tylenol) 650 mg Q6H PRN ORAL Mild Pain/Temp > 100.4 07/13/17 20:15 08/04/17 08:14 Acetaminophen/ Hydrocodone Bitart ([place] 10/325) 1 ea Q4H PRN ORAL For Moderate to Severe Pain 07/13/17 18:45 07/18/17 23:59 Albuterol/ Ipratropium (Albuterol/ Ipratropium) 3 ml Q4H PRN HHN Shortness of Breath 07/13/17 20:15 07/17/17 16:14 Allopurinol (Allopurinol) 300 mg DAILY ORAL 07/14/17 09:00 08/07/17 08:59 07/15/17 08:09 Aspirin (ASA) 81 mg DAILY ORAL 07/14/17 09:00 08/04/17 08:59 07/15/17 08:09 Atorvastatin Calcium (Lipitor) 40 mg BEDTIME ORAL 07/13/17 21:00 08/06/17 20:59 07/14/17 21:54 Dextrose (Dextrose 50%) STAT PRN IV Hypoglycemia 07/14/17 08:15 08/04/17 08:14 Dorzolamide/ Timolol (Cosopt) 1 drop TWICE A DAY BOTH EYES 07/13/17 18:00 08/06/17 17:59 07/15/17 17:22 Epoetin Koby (Procrit (for non ESRD use)) 10,000 units FRI-FRI-FRI SUBQ 07/14/17 21:00 08/13/17 20:59 07/14/17 22:01 Ergocalciferol (Drisdol) 50,000 intlu QWEEK@1300 ORAL 07/19/17 13:00 08/11/17 12:59 Escitalopram Oxalate (Lexapro) 10 mg DAILY ORAL 07/14/17 09:00 08/09/17 12:59 07/15/17 08:09 Glipizide (GlipiZIDE XL) 2.5 mg ACBREAKFAST ORAL 07/14/17 06:30 2/1/18 06:29 07/15/17 06:34 Guaifenesin (Robitussin) 100 mg Q6H PRN ORAL For Cough 07/13/17 22:30 08/03/17 22:29 Heparin Sodium (Porcine) (Heparin 5000 units/ml) 5,000 units EVERY 12 HOURS SUBQ 07/13/17 21:00 08/04/17 08:59 07/15/17 08:11 Hydralazine HCl (Apresoline) 50 mg Q6H PRN ORAL SBP > 160 mmHg 07/15/17 13:00 08/14/17 12:59 07/15/17 13:28 Insulin Aspart (NovoLOG) BEFORE MEALS AND HS SUBQ 07/13/17 21:00 08/04/17 11:29 Latanoprost (Xalatan) 1 drop BEDTIME BOTH EYES 07/13/17 21:00 08/06/17 20:59 07/14/17 21:00 Lorazepam (Ativan) 1 mg Q6H PRN ORAL For Anxiety 07/13/17 23:30 07/17/17 23:59 Mirtazapine (Remeron) 15 mg BEDTIME ORAL 07/15/17 21:00 08/14/17 20:59 Ondansetron HCl (Zofran) 4 mg Q4H PRN IVP nausea 07/13/17 21:00 08/04/17 00:59 Patient Own Medication (Patient's Own Med) 1 ea Th@0900 SUBQ 07/17/17 09:00 08/09/17 08:59 Piperacillin Sod/ Tazobactam Sod 3.375 gm/Sodium Chloride 110 ml @ 27.5 mls/hr EVERY 12 HOURS IVPB 07/13/17 21:00 07/16/17 23:59 07/15/17 08:11 Tamsulosin HCl (Flomax) 0.4 mg BID ORAL 07/13/17 18:00 08/04/17 12:59 07/15/17 17:21 Allergies: Coded Allergies: No Known Allergies (Unverified , 07/04/17) ROS Limited/Unobtainable: No Constitutional: Reports: no symptoms HEENT: Reports: no symptoms Cardiovascular: Reports: no symptoms Respiratory: Reports: no symptoms Gastrointestinal/Abdominal: Reports: no symptoms Genitourinary: Reports: no symptoms Neurologic/Psychiatric: Reports: no symptoms Subjective 81 YO M admitted with cough. Now renal failure. Tolerating nasal canula. Cover for Int Bladimir-Dr Mitchell. Objective Last Vital Signs Date Time Temp Pulse Resp B/P (MAP) Pulse Ox O2 Delivery O2 Flow Rate FiO2 07/15/17 16:00 97.9 67 20 148/68 96 07/15/17 08:32 Nasal Cannula 3.0 32 Laboratory Tests Test 07/15/17 05:35 White Blood Count 4.3 K/UL (4.8-10.8) L Red Blood Count 3.23 M/UL (4.70-6.10) L Hemoglobin 10.7 G/DL (14.2-18.0) L Hematocrit 33.1 % (42.0-52.0) L Mean Corpuscular Volume 102 FL (80-99) H Mean Corpuscular Hemoglobin 33.2 PG (27.0-31.0) H Mean Corpuscular Hemoglobin Concent 32.5 G/DL (32.0-36.0) Red Cell Distribution Width 13.2 % (11.6-14.8) Platelet Count 195 K/UL (150-450) Mean Platelet Volume 8.5 FL (6.5-10.1) Neutrophils (%) (Auto) 66.8 % (45.0-75.0) Lymphocytes (%) (Auto) 14.6 % (20.0-45.0) L Monocytes (%) (Auto) 14.2 % (1.0-10.0) H Eosinophils (%) (Auto) 3.8 % (0.0-3.0) H Basophils (%) (Auto) 0.7 % (0.0-2.0) Sodium Level 144 MMOL/L (136-145) Potassium Level 4.8 MMOL/L (3.5-5.1) Chloride Level 112 MMOL/L (98-107) H Carbon Dioxide Level 29 MMOL/L (21-32) Anion Gap 3 mmol/L (5-15) L Blood Urea Nitrogen 37 mg/dL (7-18) H Creatinine 2.7 MG/DL (0.55-1.30) H Estimat Glomerular Filtration Rate mL/min (>60) Glucose Level 135 MG/DL (74-106) H Calcium Level 7.0 MG/DL (8.5-10.1) L Intake and Output 07/14/17 07/15/17 19:00 07:00 Intake Total 240 ml 110.0 ml Output Total 1000 ml 1050 ml Balance -760 ml -940.0 ml Intake Oral 240 ml IV Total 110.0 ml Output Urine Total 1000 ml 1050 ml # Voids 3 # Bowel Movements 4 1 Objective General Appearance: WD/WN, no apparent distress, alert, moderate distress EENT: PERRL/EOMI, normal ENT inspection, TMs normal Neck: non-tender, normal alignment, supple, normal inspection Cardiovascular: normal peripheral pulses, normal rate, regular rhythm, no gallop/murmur, no JVD Respiratory/Chest: Nasal Canula; chest wall non-tender, decreased breath sounds , crackles/rales, rhonchi - bilaterally, expiratory wheezing Abdomen: normal bowel sounds, non tender, soft, no organomegaly, no mass Extremities: normal range of motion, non-tender 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 D/C tylenol #3; start [place] 10/325 (2) HTN (hypertension) Assessment & Plan: Continue hydralazine and norvasc. (3) Diabetes mellitus, type II Assessment & Plan: continue novolog sliding scale. (4) Hypercholesteremia Assessment & Plan: Continue lipitor. (5) Glaucoma (6) BPH (benign prostatic hyperplasia) Assessment & Plan: Continue flomax. (7) Osteoarthritis of right knee (8) Renal failure Assessment & Plan: See nephrology note. (9) Upper respiratory infection (10) Pneumonia Assessment & Plan: Continue zosyn day # 6/7 per per ID. D/C levaquin IV. See ID and Pulmonary consult. (11) CHF (congestive heart failure) Assessment & Plan: Await echocardiogram and cardiology consult. (12) Respiratory failure Assessment & Plan: Hypercapnic. Tolerating nasal canula. See Pulmonary consult. IV lasix for CHF. Continue vanco and zosyn per ID Assessment/Plan D/W son in law, Dr Emery, daughter, Cynthia and , Tata. Discharge planning: [facility] acute care fac when bed avail KAYLEEN BOLANOS 9, 2018 17:43
[2017-07-15] MEDS: Latanoprost 0.005% Opth 2.5ml Soln BOTH EYES SCH (21:00)
[2017-07-15] MEDS: Atorvastatin 20mg tab ORAL SCH (21:32)
--- NOTE | 2017-07-15 22:50 | Pulmonology Progress Note ---
Assessment/Plan Problems: (1) Respiratory failure (2) CHF (congestive heart failure) (3) Pneumonia (4) BPH (benign prostatic hyperplasia) (5) Renal failure (6) Diabetes mellitus, type II Assessment/Plan afebrile, wbc wnl repeat cxr bnp in am continue abx check cultures echo, and renal us reviewed on zosyn dvt prophylaxis Subjective ROS Limited/Unobtainable: No Interval Events: awake, comfortable Allergies: Coded Allergies: No Known Allergies (Unverified , 07/04/17) Objective Last 24 Hour Vital Signs Date Time Temp Pulse Resp B/P (MAP) Pulse Ox O2 Delivery O2 Flow Rate FiO2 07/15/17 20:00 98.2 59 20 142/70 96 07/15/17 16:00 97.9 67 20 148/68 96 07/15/17 13:28 168/72 07/15/17 12:00 97.3 61 20 177/78 91 07/15/17 09:12 97.9 60 21 168/72 95 07/15/17 08:32 Nasal Cannula 3.0 32 07/15/17 08:31 96 Nasal Cannula 3.0 32 07/15/17 08:00 97.9 60 21 168/72 95 07/15/17 04:00 98.2 61 21 139/86 93 07/15/17 00:00 97.9 62 21 151/83 93 Intake and Output 07/14/17 07/15/17 19:00 07:00 Intake Total 240 ml 110.0 ml Output Total 1000 ml 1050 ml Balance -760 ml -940.0 ml Intake Oral 240 ml IV Total 110.0 ml Output Urine Total 1000 ml 1050 ml # Voids 3 # Bowel Movements 4 1 Objective General Appearance: no acute distress HEENT: normocephalic, atraumatic Respiratory/Chest: lungs clear, no respiratory distress, no accessory muscle use Cardiovascular: normal rate, no JVD, CL-femoral intact Abdomen: normal bowel sounds, soft, non tender Extremities: no edema Neurologic/Psychiatric: alert, responsive Musculoskeletal: normal muscle bulk Laboratory Tests 07/15/17 05:35: White Blood Count 4.3L, Red Blood Count 3.23L, Hemoglobin 10.7L, Hematocrit 33.1L, Mean Corpuscular Volume 102H, Mean Corpuscular Hemoglobin 33.2H, Mean Corpuscular Hemoglobin Concent 32.5, Red Cell Distribution Width 13.2, Platelet Count 195, Mean Platelet Volume 8.5, Neutrophils (%) (Auto) 66.8, Lymphocytes (% ) (Auto) 14.6L, Monocytes (%) (Auto) 14.2H, Eosinophils (%) (Auto) 3.8H, Basophils (%) (Auto) 0.7, Sodium Level 144, Potassium Level 4.8, Chloride Level 112H, Carbon Dioxide Level 29, Anion Gap 3L, Blood Urea Nitrogen 37H, Creatinine 2.7H, Estimat Glomerular Filtration Rate , Glucose Level 135H, Calcium Level 7.0L Current Medications Medications (Trade) Dose Ordered Sig/Nito Route PRN Reason Start Time Stop Time Status Last Admin Dose Admin Acetaminophen (Tylenol) 650 mg Q6H PRN ORAL Mild Pain/Temp > 100.4 07/13/17 20:15 08/04/17 08:14 Acetaminophen/ Hydrocodone Bitart ([place] 10/325) 1 ea Q4H PRN ORAL For Moderate to Severe Pain 07/13/17 18:45 07/18/17 23:59 Albuterol/ Ipratropium (Albuterol/ Ipratropium) 3 ml Q4H PRN HHN Shortness of Breath 07/13/17 20:15 07/17/17 16:14 Allopurinol (Allopurinol) 300 mg DAILY ORAL 07/14/17 09:00 08/07/17 08:59 07/15/17 08:09 Aspirin (ASA) 81 mg DAILY ORAL 07/14/17 09:00 08/04/17 08:59 07/15/17 08:09 Atorvastatin Calcium (Lipitor) 40 mg BEDTIME ORAL 07/13/17 21:00 08/06/17 20:59 07/15/17 21:32 Dextrose (Dextrose 50%) STAT PRN IV Hypoglycemia 07/14/17 08:15 08/04/17 08:14 Dorzolamide/ Timolol (Cosopt) 1 drop TWICE A DAY BOTH EYES 07/13/17 18:00 08/06/17 17:59 07/15/17 17:22 Epoetin Koby (Procrit (for non ESRD use)) 10,000 units MON-WED-FRI SUBQ 07/14/17 21:00 08/13/17 20:59 07/14/17 22:01 Ergocalciferol (Drisdol) 50,000 intlu QWEEK@1300 ORAL 07/19/17 13:00 08/11/17 12:59 Escitalopram Oxalate (Lexapro) 10 mg DAILY ORAL 07/14/17 09:00 08/09/17 12:59 07/15/17 08:09 Glipizide (GlipiZIDE XL) 2.5 mg ACBREAKFAST ORAL 07/14/17 06:30 08/07/17 06:29 07/15/17 06:34 Guaifenesin (Robitussin) 100 mg Q6H PRN ORAL For Cough 07/13/17 22:30 08/03/17 22:29 Heparin Sodium (Porcine) (Heparin 5000 units/ml) 5,000 units EVERY 12 HOURS SUBQ 07/13/17 21:00 08/04/17 08:59 07/15/17 21:35 Hydralazine HCl (Apresoline) 50 mg Q6H PRN ORAL SBP > 160 mmHg 07/15/17 13:00 08/14/17 12:59 07/15/17 13:28 Insulin Aspart (NovoLOG) BEFORE MEALS AND HS SUBQ 07/13/17 21:00 08/04/17 11:29 Latanoprost (Xalatan) 1 drop BEDTIME BOTH EYES 07/13/17 21:00 08/06/17 20:59 07/15/17 21:00 Lorazepam (Ativan) 1 mg Q6H PRN ORAL For Anxiety 07/13/17 23:30 07/17/17 23:59 Mirtazapine (Remeron) 15 mg BEDTIME ORAL 07/15/17 21:00 08/14/17 20:59 07/15/17 21:32 Ondansetron HCl (Zofran) 4 mg Q4H PRN IVP nausea 07/13/17 21:00 08/04/17 00:59 Patient Own Medication (Patient's Own Med) 1 ea Th@0900 SUBQ 07/17/17 09:00 08/09/17 08:59 Piperacillin Sod/ Tazobactam Sod 3.375 gm/Sodium Chloride 110 ml @ 27.5 mls/hr EVERY 12 HOURS IVPB 07/13/17 21:00 07/16/17 23:59 1/9/18 21:32 Tamsulosin HCl (Flomax) 0.4 mg BID ORAL 07/13/17 18:00 08/04/17 12:59 07/15/17 17:21 KEVAN SEARS Jul 15, 2017 22:50
[2017-07-16] VITALS: BP 172/72
[2017-07-16 04:14] VITALS: BP 137/67
[2017-07-16] MEDS: NovoLOG Insulin Flexpen SUBQ SCH ×4 (06:15→21:00)
[2017-07-16 07:27] LABS: BASOPHILS % (AUTO) 1.2 % (0.0-2.0); EOSINOPHILS % (AUTO) 2.2 % (0.0-3.0); HEMATOCRIT 36.2 % (42.0-52.0); HEMOGLOBIN 11.6 G/DL (14.2-18.0); MEAN CORPUSCULAR VOLUME 104 FL (80-99); NEUTROPHILS % (AUTO) 71.6 % (45.0-75.0); PLATELET COUNT 192 K/UL (150-450); RED BLOOD COUNT 3.49 M/UL (4.70-6.10); RED CELL DISTRIBUTION WIDTH 13.8 % (11.6-14.8); WHITE BLOOD COUNT 5.2 K/UL (4.8-10.8)
[2017-07-16 07:34] LABS: ANION GAP 7 mmol/L (5-15); BLOOD UREA NITROGEN 29 mg/dL (7-18); CALCIUM 8.2 MG/DL (8.5-10.1); CARBON DIOXIDE 26 MMOL/L (21-32); CHLORIDE 109 MMOL/L (98-107); CREATININE 2.4 MG/DL (0.55-1.30); POTASSIUM 4.5 MMOL/L (3.5-5.1); SODIUM 142 MMOL/L (136-145)
[2017-07-16 08:15] VITALS: BP 148/73
[2017-07-16] MEDS: Cosopt Opth Soln 10 mL Btl BOTH EYES SCH ×2 (09:00→18:40)
--- NOTE | 2017-07-16 09:43 | Progress Note ---
DATE: 07/15/2017 SUBJECTIVE: The patient continues to have low appetite, depressed, and presents with anhedonia, worthlessness, hopelessness, and decreased energy. Poor insight. Not able to be questioned. The patient is motivated and stated that he has severe pain. MENTAL STATUS EXAMINATION: The patient is alert and oriented x3. Mood is depressed. Affect is flat. Congruent with mood. Thought process is concrete. Thought content, no suicidal or homicidal ideations. ASSESSMENT: Major depressive disorder, grave. PLAN: 1. The patient will be continued on Lexapro 10 mg in the morning, add Remeron 15 mg at bedtime. 2. Provide the patient with supportive therapy and reality orientation. We will continue to follow and readjust the medications. Chao Evans M.D. DR: EDVIN JOB#: [id number] CC:
[2017-07-16] MEDS ORDERED: VITAMIN D250000 UNI1 ORAL (09:53)
--- NOTE | 2017-07-16 09:53 | Nephrology Progress Note ---
Assessment/Plan Problem List: (1) Renal failure Assessment: acute on chronic (2) Respiratory failure (3) BPH (benign prostatic hyperplasia) (4) HTN (hypertension) (5) Diabetes mellitus, type II Assessment MS much clear on O2 cannula Renal failure- ? CKd + Superimposed acute, Cr joseph but lowering, 2.4 today, lower than when admitted DM ? Nephropathy, has 3+ Proteins in urine Fall and right knee injury Anemia ? due to CKD ASHD Upper respiratory tract infection. Hypertension. Hypercholesterolemia. Benign prostatic hypertrophy. Low BP Plan Plan: EPO and Venofer ford- Optimize pulmonary status ID and Cardiology avoid Nephrotoxics Flomax Keep BP and BS in check Anemia luciano monitor renal parameters Per orders Left ventricular ejection fraction estimated to be 60-65 %. Moderate left ventricular hypertrophy by 2-D. Echogenic bilateral kidneys, suspect chronic medical renal disease Subjective ROS Limited/Unobtainable: No Constitutional: Reports: malaise Objective Objective Last 24 Hour Vital Signs Date Time Temp Pulse Resp B/P (MAP) Pulse Ox O2 Delivery O2 Flow Rate FiO2 07/16/17 08:15 98.0 77 20 148/73 97 Nasal Cannula 2.0 07/16/17 07:35 Nasal Cannula 2.0 28 07/16/17 07:35 91 Nasal Cannula 2.0 28 07/16/17 04:14 98.5 77 18 137/67 99 Nasal Cannula 07/16/17 00:00 Nasal Cannula 4.0 07/16/17 00:00 98.5 64 18 172/72 97 07/15/17 23:46 172/72 07/15/17 20:00 Nasal Cannula 4.0 07/15/17 20:00 98.2 59 20 142/70 96 07/15/17 19:00 Nasal Cannula 4.0 36 07/15/17 19:00 98 Nasal Cannula 4.0 36 07/15/17 16:00 97.9 67 20 148/68 96 07/15/17 13:28 168/72 07/15/17 12:00 97.3 61 20 177/78 91 Intake and Output 07/15/17 07/16/17 19:00 07:00 Intake Total 580 ml 110.0 ml Output Total 1400 ml Balance 580 ml -1290.0 ml Intake Oral 580 ml IV Total 110.0 ml Output Urine Total 1400 ml # Voids 3 # Bowel Movements 1 Laboratory Tests 07/16/17 05:00: Sodium Level 142, Potassium Level 4.5, Chloride Level 109H, Carbon Dioxide Level 26, Anion Gap 7, Blood Urea Nitrogen 29H, Creatinine 2.4H, Estimat Glomerular Filtration Rate , Glucose Level 136H, Calcium Level 8.2L 07/16/17 05:20: White Blood Count 5.2, Red Blood Count 3.49L, Hemoglobin 11.6L, Hematocrit 36.2L , Mean Corpuscular Volume 104H, Mean Corpuscular Hemoglobin 33.2H, Mean Corpuscular Hemoglobin Concent 32.1, Red Cell Distribution Width 13.8, Platelet Count 192, Mean Platelet Volume 7.4, Neutrophils (%) (Auto) 71.6, Lymphocytes (% ) (Auto) 15.0L, Monocytes (%) (Auto) 10.0, Eosinophils (%) (Auto) 2.2, Basophils (%) (Auto) 1.2 Height (Feet): 5 Height (Inches): 10.00 Weight (Pounds): 170 General Appearance: no apparent distress Cardiovascular: normal rate Respiratory/Chest: decreased breath sounds Abdomen: soft Objective no other changes JOVANA TREVIÑO Jul 16, 2017 09:53
[2017-07-16] MEDS ORDERED: Vitamin D 50,000 units cap ORAL SCH (10:15)
[2017-07-16] MEDS: Piperacillin/Tazobactam 3.375 GM in NS 110 ML IVPB SCH (11:13)
[2017-07-16] MEDS: Tamsulosin 0.4mg cap ORAL SCH ×2 (11:18→18:39)
[2017-07-16] MEDS: Aspirin Baby 81mg ORAL SCH (11:19)
[2017-07-16] MEDS: Heparin 5000 units/ml inj SUBQ SCH ×2 (11:31→21:48)
[2017-07-16 11:56] VITALS: BP 166/87
--- NOTE | 2017-07-16 12:07 | Infectious Diseases Prog Note ---
Assessment/Plan Assessment/Plan Post influenza PNA- possible HCAP -CXR 07/14: There is mild atelectasis at the both lung bases again noted. Lung volumes remain low. -CXR 07/10: Bibasilar atelectasis and consolidation persists, perhaps slightly improved. Retrocardiac consolidation and left basilar pleural fluid persists, unchanged. -CXR 07/08: . There is interval worsening of aeration at the right base with increasing patchy airspace opacities. Persistent left basilar atelectasis/ consolidation. -sp cx normal chalo Acute hypercapneic resp failure- hypercapnea improving- off of BIpap Mild leukopenia- Afebrile PHILIP on ?CKD- improving Fall with R knee pain, + fracture -MRI R knee: Acute nondisplaced fracture of the posterolateral lateral tibial epiphysis. No associated tibial plateau depression. Small joint effusion.Moderate to severe arthrosis as described above. -Xray R knee: No acute fracture. 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 HTN, DM2, CKD, HLD, BPH Plan: -D/c Zosyn #8/7 for PNA and monitor off abx -07/10 IV Vanco #4, Azithromycin #5 -/3 SP Ceftriaxone #5 -/2 SP Tamiflu #5 and Levaquin #2 -Monitor CBC/BMP, temperatures -aspiration precautions Subjective Allergies: Coded Allergies: No Known Allergies (Unverified , 07/04/17) Subjective afebrile, no leukocytosis on 3l NC Objective Vital Signs Last 24 Hour Vital Signs Date Time Temp Pulse Resp B/P (MAP) Pulse Ox O2 Delivery O2 Flow Rate FiO2 07/16/17 11:56 97.5 75 20 166/87 95 Nasal Cannula 2.0 07/16/17 11:34 77 148/73 07/16/17 08:15 98.0 77 20 148/73 97 Nasal Cannula 2.0 07/16/17 07:35 Nasal Cannula 2.0 28 07/16/17 07:35 91 Nasal Cannula 2.0 28 07/16/17 04:14 98.5 77 18 137/67 99 Nasal Cannula 07/16/17 00:00 Nasal Cannula 4.0 07/16/17 00:00 98.5 64 18 172/72 97 07/15/17 23:46 172/72 07/15/17 20:00 Nasal Cannula 4.0 07/15/17 20:00 98.2 59 20 142/70 96 07/15/17 19:00 Nasal Cannula 4.0 36 07/15/17 19:00 98 Nasal Cannula 4.0 36 07/15/17 16:00 97.9 67 20 148/68 96 07/15/17 13:28 168/72 Height (Feet): 5 Height (Inches): 10.00 Weight (Pounds): 170 Objective GENERAL: The patient is a well-developed and well-nourished white male, in no apparent distress.BIpap mask in place HEENT: Eyes, pupils are equal and responsive to light and accommodation.Extraocular movements are intact. NECK: Supple without lymphadenopathy. CHEST: Lungs are clear to auscultation bilaterally without wheezes or rales. CARDIOVASCULAR: Regular rhythm and rate. S1 and S2 are normal without murmurs , rubs, or gallops. ABDOMEN: Soft, nontender, and nondistended. Positive bowel sounds. No evidence of hepatosplenomegaly. Currently, no rebound or guarding noted. EXTREMITIES: Negative for clubbing, cyanosis, or edema. Laboratory Tests Test 07/16/17 05:00 07/16/17 05:20 Sodium Level 142 MMOL/L (136-145) Potassium Level 4.5 MMOL/L (3.5-5.1) Chloride Level 109 MMOL/L (98-107) H Carbon Dioxide Level 26 MMOL/L (21-32) Anion Gap 7 mmol/L (5-15) Blood Urea Nitrogen 29 mg/dL (7-18) H Creatinine 2.4 MG/DL (0.55-1.30) H Estimat Glomerular Filtration Rate mL/min (>60) Glucose Level 136 MG/DL (74-106) H Calcium Level 8.2 MG/DL (8.5-10.1) L White Blood Count 5.2 K/UL (4.8-10.8) Red Blood Count 3.49 M/UL (4.70-6.10) L Hemoglobin 11.6 G/DL (14.2-18.0) L Hematocrit 36.2 % (42.0-52.0) L Mean Corpuscular Volume 104 FL (80-99) H Mean Corpuscular Hemoglobin 33.2 PG (27.0-31.0) H Mean Corpuscular Hemoglobin Concent 32.1 G/DL (32.0-36.0) Red Cell Distribution Width 13.8 % (11.6-14.8) Platelet Count 192 K/UL (150-450) Mean Platelet Volume 7.4 FL (6.5-10.1) Neutrophils (%) (Auto) 71.6 % (45.0-75.0) Lymphocytes (%) (Auto) 15.0 % (20.0-45.0) L Monocytes (%) (Auto) 10.0 % (1.0-10.0) Eosinophils (%) (Auto) 2.2 % (0.0-3.0) Basophils (%) (Auto) 1.2 % (0.0-2.0) Current Medications Medications (Trade) Dose Ordered Sig/Nito Route PRN Reason Start Time Stop Time Status Last Admin Dose Admin Acetaminophen (Tylenol) 650 mg Q6H PRN ORAL Mild Pain/Temp > 100.4 07/13/17 20:15 08/04/17 08:14 Acetaminophen/ Hydrocodone Bitart ([place] 10/325) 1 ea Q4H PRN ORAL For Moderate to Severe Pain 07/13/17 18:45 07/18/17 23:59 Albuterol/ Ipratropium (Albuterol/ Ipratropium) 3 ml Q4H PRN HHN Shortness of Breath 07/13/17 20:15 07/17/17 16:14 Allopurinol (Allopurinol) 300 mg DAILY ORAL 07/14/17 09:00 08/07/17 08:59 07/16/17 11:17 Amlodipine Besylate (Norvasc) 2.5 mg DAILY ORAL 07/16/17 11:00 08/15/17 10:59 07/16/17 11:34 Aspirin (ASA) 81 mg DAILY ORAL 07/14/17 09:00 08/04/17 08:59 07/16/17 11:19 Atorvastatin Calcium (Lipitor) 40 mg BEDTIME ORAL 07/13/17 21:00 08/06/17 20:59 07/15/17 21:32 Dextrose (Dextrose 50%) STAT PRN IV Hypoglycemia 07/14/17 08:15 08/04/17 08:14 Dorzolamide/ Timolol (Cosopt) 1 drop TWICE A DAY BOTH EYES 07/13/17 18:00 08/06/17 17:59 07/15/17 17:22 Epoetin Koby (Procrit (for non ESRD use)) 10,000 units FRI-FRI-FRI SUBQ 07/14/17 21:00 08/13/17 20:59 07/14/17 22:01 Ergocalciferol (Drisdol) 50,000 intlu QWEEK@1300 ORAL 07/19/17 13:00 08/11/17 12:59 Escitalopram Oxalate (Lexapro) 10 mg DAILY ORAL 07/14/17 09:00 08/09/17 12:59 07/16/17 11:18 Glipizide (GlipiZIDE XL) 2.5 mg ACBREAKFAST ORAL 07/14/17 06:30 08/07/17 06:29 07/16/17 06:15 Guaifenesin (Robitussin) 100 mg Q6H PRN ORAL For Cough 07/13/17 22:30 08/03/17 22:29 Heparin Sodium (Porcine) (Heparin 5000 units/ml) 5,000 units EVERY 12 HOURS SUBQ 07/13/17 21:00 08/04/17 08:59 07/16/17 11:31 Hydralazine HCl (Apresoline) 50 mg Q6H PRN ORAL SBP > 160 mmHg 07/15/17 13:00 08/14/17 12:59 07/15/17 23:46 Insulin Aspart (NovoLOG) BEFORE MEALS AND HS SUBQ 07/13/17 21:00 08/04/17 11:29 Latanoprost (Xalatan) 1 drop BEDTIME BOTH EYES 07/13/17 21:00 08/06/17 20:59 07/15/17 21:00 Lorazepam (Ativan) 1 mg Q6H PRN ORAL For Anxiety 07/13/17 23:30 07/17/17 23:59 Mirtazapine (Remeron) 15 mg BEDTIME ORAL 07/15/17 21:00 08/14/17 20:59 07/15/17 21:32 Ondansetron HCl (Zofran) 4 mg Q4H PRN IVP nausea 07/13/17 21:00 08/04/17 00:59 Patient Own Medication (Patient's Own Med) 1 ea Th@0900 SUBQ 07/17/17 09:00 08/09/17 08:59 Piperacillin Sod/ Tazobactam Sod 3.375 gm/Sodium Chloride 110 ml @ 27.5 mls/hr EVERY 12 HOURS IVPB 07/13/17 21:00 07/16/17 23:59 07/16/17 11:13 Tamsulosin HCl (Flomax) 0.4 mg BID ORAL 07/13/17 18:00 08/04/17 12:59 07/16/17 11:18 Lorelei Manning M.D. Jul 16, 2017 12:07
--- NOTE | 2017-07-16 12:40 | Internal Med Progress Note ---
Subjective Date of Service: Jul 16, 2017 Physician Name Kayleen Bolanos Attending Physician Kofi Mitchell MD Current Medications Medications (Trade) Dose Ordered Sig/Nito Route PRN Reason Start Time Stop Time Status Last Admin Dose Admin Acetaminophen (Tylenol) 650 mg Q6H PRN ORAL Mild Pain/Temp > 100.4 07/13/17 20:15 08/04/17 08:14 Acetaminophen/ Hydrocodone Bitart ([place] 10/325) 1 ea Q4H PRN ORAL For Moderate to Severe Pain 07/13/17 18:45 07/18/17 23:59 Albuterol/ Ipratropium (Albuterol/ Ipratropium) 3 ml Q4H PRN HHN Shortness of Breath 07/13/17 20:15 07/17/17 16:14 Allopurinol (Allopurinol) 300 mg DAILY ORAL 07/14/17 09:00 08/07/17 08:59 07/16/17 11:17 Amlodipine Besylate (Norvasc) 2.5 mg DAILY ORAL 07/16/17 11:00 08/15/17 10:59 07/16/17 11:34 Aspirin (ASA) 81 mg DAILY ORAL 07/14/17 09:00 08/04/17 08:59 07/16/17 11:19 Atorvastatin Calcium (Lipitor) 40 mg BEDTIME ORAL 07/13/17 21:00 08/06/17 20:59 07/15/17 21:32 Dextrose (Dextrose 50%) STAT PRN IV Hypoglycemia 07/14/17 08:15 08/04/17 08:14 Dorzolamide/ Timolol (Cosopt) 1 drop TWICE A DAY BOTH EYES 07/13/17 18:00 08/06/17 17:59 07/15/17 17:22 Epoetin Koby (Procrit (for non ESRD use)) 10,000 units MON-WED-FRI SUBQ 07/14/17 21:00 08/13/17 20:59 07/14/17 22:01 Ergocalciferol (Drisdol) 50,000 intlu QWEEK@1300 ORAL 07/19/17 13:00 08/11/17 12:59 Escitalopram Oxalate (Lexapro) 10 mg DAILY ORAL 07/14/17 09:00 08/09/17 12:59 07/16/17 11:18 Glipizide (GlipiZIDE XL) 2.5 mg ACBREAKFAST ORAL 07/14/17 06:30 08/07/17 06:29 07/16/17 06:15 Guaifenesin (Robitussin) 100 mg Q6H PRN ORAL For Cough 07/13/17 22:30 08/03/17 22:29 Heparin Sodium (Porcine) (Heparin 5000 units/ml) 5,000 units EVERY 12 HOURS SUBQ 07/13/17 21:00 08/04/17 08:59 07/16/17 11:31 Hydralazine HCl (Apresoline) 50 mg Q6H PRN ORAL SBP > 160 mmHg 07/15/17 13:00 08/14/17 12:59 07/15/17 23:46 Insulin Aspart (NovoLOG) BEFORE MEALS AND HS SUBQ 07/13/17 21:00 08/04/17 11:29 Latanoprost (Xalatan) 1 drop BEDTIME BOTH EYES 07/13/17 21:00 08/06/17 20:59 07/15/17 21:00 Lorazepam (Ativan) 1 mg Q6H PRN ORAL For Anxiety 07/13/17 23:30 07/17/17 23:59 Mirtazapine (Remeron) 15 mg BEDTIME ORAL 07/15/17 21:00 08/14/17 20:59 07/15/17 21:32 Ondansetron HCl (Zofran) 4 mg Q4H PRN IVP nausea 07/13/17 21:00 08/04/17 00:59 Patient Own Medication (Patient's Own Med) 1 ea Th@0900 SUBQ 07/17/17 09:00 08/09/17 08:59 Tamsulosin HCl (Flomax) 0.4 mg BID ORAL 07/13/17 18:00 08/04/17 12:59 07/16/17 11:18 Allergies: Coded Allergies: No Known Allergies (Unverified , 07/04/17) ROS Limited/Unobtainable: No Constitutional: Reports: no symptoms HEENT: Reports: no symptoms Cardiovascular: Reports: no symptoms Respiratory: Reports: no symptoms Gastrointestinal/Abdominal: Reports: no symptoms Genitourinary: Reports: no symptoms Neurologic/Psychiatric: Reports: no symptoms Subjective 81 YO M admitted with cough. Now renal failure. Tolerating nasal canula. Cover for Int Bladimir-Dr Mitchell. Await transfer to [facility] term acute care [facility] Objective Last Vital Signs Date Time Temp Pulse Resp B/P (MAP) Pulse Ox O2 Delivery O2 Flow Rate FiO2 07/16/17 11:56 97.5 75 20 166/87 95 Nasal Cannula 2.0 07/16/17 07:35 28 Laboratory Tests Test 07/16/17 05:00 07/16/17 05:20 Sodium Level 142 MMOL/L (136-145) Potassium Level 4.5 MMOL/L (3.5-5.1) Chloride Level 109 MMOL/L (98-107) H Carbon Dioxide Level 26 MMOL/L (21-32) Anion Gap 7 mmol/L (5-15) Blood Urea Nitrogen 29 mg/dL (7-18) H Creatinine 2.4 MG/DL (0.55-1.30) H Estimat Glomerular Filtration Rate mL/min (>60) Glucose Level 136 MG/DL (74-106) H Calcium Level 8.2 MG/DL (8.5-10.1) L White Blood Count 5.2 K/UL (4.8-10.8) Red Blood Count 3.49 M/UL (4.70-6.10) L Hemoglobin 11.6 G/DL (14.2-18.0) L Hematocrit 36.2 % (42.0-52.0) L Mean Corpuscular Volume 104 FL (80-99) H Mean Corpuscular Hemoglobin 33.2 PG (27.0-31.0) H Mean Corpuscular Hemoglobin Concent 32.1 G/DL (32.0-36.0) Red Cell Distribution Width 13.8 % (11.6-14.8) Platelet Count 192 K/UL (150-450) Mean Platelet Volume 7.4 FL (6.5-10.1) Neutrophils (%) (Auto) 71.6 % (45.0-75.0) Lymphocytes (%) (Auto) 15.0 % (20.0-45.0) L Monocytes (%) (Auto) 10.0 % (1.0-10.0) Eosinophils (%) (Auto) 2.2 % (0.0-3.0) Basophils (%) (Auto) 1.2 % (0.0-2.0) Intake and Output 07/15/17 07/16/17 19:00 07:00 Intake Total 580 ml 110.0 ml Output Total 1400 ml Balance 580 ml -1290.0 ml Intake Oral 580 ml IV Total 110.0 ml Output Urine Total 1400 ml # Voids 3 # Bowel Movements 1 Objective General Appearance: WD/WN, no apparent distress, alert, moderate distress EENT: PERRL/EOMI, normal ENT inspection, TMs normal Neck: non-tender, normal alignment, supple, normal inspection Cardiovascular: normal peripheral pulses, normal rate, regular rhythm, no gallop/murmur, no JVD Respiratory/Chest: Nasal Canula; chest wall non-tender, decreased breath sounds , crackles/rales, rhonchi - bilaterally, expiratory wheezing Abdomen: normal bowel sounds, non tender, soft, no organomegaly, no mass Extremities: normal range of motion, non-tender 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 D/C tylenol #3; start [place] 10/325 (2) HTN (hypertension) Assessment & Plan: Continue hydralazine and norvasc. (3) Diabetes mellitus, type II Assessment & Plan: continue novolog sliding scale. (4) Hypercholesteremia Assessment & Plan: Continue lipitor. (5) Glaucoma (6) BPH (benign prostatic hyperplasia) Assessment & Plan: Continue flomax. (7) Osteoarthritis of right knee (8) Renal failure Assessment & Plan: See nephrology note. (9) Upper respiratory infection (10) Pneumonia Assessment & Plan: Discontinue antibiotics-See ID and Pulmonary consult. (11) CHF (congestive heart failure) Assessment & Plan: Await echocardiogram and cardiology consult. (12) Respiratory failure Assessment & Plan: Hypercapnic. Tolerating nasal canula. See Pulmonary consult. IV lasix for CHF. Continue vanco and zosyn per ID Status: progressing Assessment/Plan D/W son in law, Dr Emery, daughter, Cynthia and , Tata. Discharge planning: [facility] [facility] acute care fac when bed avail KAYLEEN BOLANOS Jul 16, 2017 12:40
[2017-07-16] MEDS ORDERED: NS 275ml ONE (15:27)
[2017-07-16] MEDS ORDERED: Tubing IV Secondary IV ONE (15:27)
[2017-07-16 16:00] VITALS: BP 155/80
--- NOTE | 2017-07-16 16:48 | Cardiac Electrophysiology PN ---
Assessment/Plan Assessment/Plan 1. Shortness of breath. Ruled out for myocardial infarction. Echo, EF 60%. Now on Nasal cannula. Feeling better on Abx 2. Post influenza PNA-. On Abx per Dr Sanchez. 3. Hypertension stable 4. Renal failure. Cr improved to 2.7. F/U by Dr. Pederson. 5. Recent influenza A. 6. Knee pain s/p MRI DW Subjective Subjective On oxygen via nasal cannula. Eating better today. at bedside. Objective Last 24 Hour Vital Signs Date Time Temp Pulse Resp B/P (MAP) Pulse Ox O2 Delivery O2 Flow Rate FiO2 07/16/17 16:00 97.6 71 18 155/80 96 07/16/17 11:56 97.5 75 20 166/87 95 Nasal Cannula 2.0 07/16/17 11:34 77 148/73 07/16/17 08:15 98.0 77 20 148/73 97 Nasal Cannula 2.0 07/16/17 07:35 Nasal Cannula 2.0 28 07/16/17 07:35 91 Nasal Cannula 2.0 28 07/16/17 04:14 98.5 77 18 137/67 99 Nasal Cannula 07/16/17 00:00 Nasal Cannula 4.0 07/16/17 00:00 98.5 64 18 172/72 97 07/15/17 23:46 172/72 07/15/17 20:00 Nasal Cannula 4.0 07/15/17 20:00 98.2 59 20 142/70 96 07/15/17 19:00 Nasal Cannula 4.0 36 07/15/17 19:00 98 Nasal Cannula 4.0 36 Intake and Output 07/15/17 07/16/17 19:00 07:00 Intake Total 580 ml 110.0 ml Output Total 1400 ml Balance 580 ml -1290.0 ml Intake Oral 580 ml IV Total 110.0 ml Output Urine Total 1400 ml # Voids 3 # Bowel Movements 1 Laboratory Tests Test 07/16/17 05:00 07/16/17 05:20 Sodium Level 142 MMOL/L (136-145) Potassium Level 4.5 MMOL/L (3.5-5.1) Chloride Level 109 MMOL/L (98-107) H Carbon Dioxide Level 26 MMOL/L (21-32) Anion Gap 7 mmol/L (5-15) Blood Urea Nitrogen 29 mg/dL (7-18) H Creatinine 2.4 MG/DL (0.55-1.30) H Estimat Glomerular Filtration Rate mL/min (>60) Glucose Level 136 MG/DL (74-106) H Calcium Level 8.2 MG/DL (8.5-10.1) L White Blood Count 5.2 K/UL (4.8-10.8) Red Blood Count 3.49 M/UL (4.70-6.10) L Hemoglobin 11.6 G/DL (14.2-18.0) L Hematocrit 36.2 % (42.0-52.0) L Mean Corpuscular Volume 104 FL (80-99) H Mean Corpuscular Hemoglobin 33.2 PG (27.0-31.0) H Mean Corpuscular Hemoglobin Concent 32.1 G/DL (32.0-36.0) Red Cell Distribution Width 13.8 % (11.6-14.8) Platelet Count 192 K/UL (150-450) Mean Platelet Volume 7.4 FL (6.5-10.1) Neutrophils (%) (Auto) 71.6 % (45.0-75.0) Lymphocytes (%) (Auto) 15.0 % (20.0-45.0) L Monocytes (%) (Auto) 10.0 % (1.0-10.0) Eosinophils (%) (Auto) 2.2 % (0.0-3.0) Basophils (%) (Auto) 1.2 % (0.0-2.0) Objective HEAD AND NECK: No JVD. LUNGS: Decreased breath sounds. CARDIOVASCULAR: Regular S1 and S2 with no gallop or murmur. ABDOMEN: Soft. EXTREMITIES: 1 plus pitting edema. ADRIENNE LAWTON Jul 16, 2017 16:48
--- NOTE | 2017-07-16 17:08 | Pulmonology Progress Note ---
Assessment/Plan Problems: (1) Respiratory failure (2) CHF (congestive heart failure) (3) Pneumonia (4) BPH (benign prostatic hyperplasia) (5) Renal failure (6) Diabetes mellitus, type II Assessment/Plan afebrile, wbc wnl still needs bipap repeat cxr bnp in am continue abx check cultures echo, and renal us reviewed titrate bipap, try to wean again. Subjective Allergies: Coded Allergies: No Known Allergies (Unverified , 07/04/17) Objective Last 24 Hour Vital Signs Date Time Temp Pulse Resp B/P (MAP) Pulse Ox O2 Delivery O2 Flow Rate FiO2 07/16/17 16:00 97.6 71 18 155/80 96 07/16/17 11:56 97.5 75 20 166/87 95 Nasal Cannula 2.0 07/16/17 11:34 77 148/73 07/16/17 08:15 98.0 77 20 148/73 97 Nasal Cannula 2.0 07/16/17 07:35 Nasal Cannula 2.0 28 07/16/17 07:35 91 Nasal Cannula 2.0 28 07/16/17 04:14 98.5 77 18 137/67 99 Nasal Cannula 07/16/17 00:00 Nasal Cannula 4.0 07/16/17 00:00 98.5 64 18 172/72 97 07/15/17 23:46 172/72 07/15/17 20:00 Nasal Cannula 4.0 07/15/17 20:00 98.2 59 20 142/70 96 07/15/17 19:00 Nasal Cannula 4.0 36 07/15/17 19:00 98 Nasal Cannula 4.0 36 Intake and Output 07/15/17 07/16/17 19:00 07:00 Intake Total 580 ml 110.0 ml Output Total 1400 ml Balance 580 ml -1290.0 ml Intake Oral 580 ml IV Total 110.0 ml Output Urine Total 1400 ml # Voids 3 # Bowel Movements 1 Objective General Appearance: no acute distress HEENT: normocephalic, atraumatic Respiratory/Chest: lungs clear, no respiratory distress, no accessory muscle use Cardiovascular: normal rate, no JVD, CL-femoral intact Abdomen: normal bowel sounds, soft, non tender Extremities: no edema Neurologic/Psychiatric: alert, responsive Musculoskeletal: normal muscle bulk Laboratory Tests 07/16/17 05:00: Sodium Level 142, Potassium Level 4.5, Chloride Level 109H, Carbon Dioxide Level 26, Anion Gap 7, Blood Urea Nitrogen 29H, Creatinine 2.4H, Estimat Glomerular Filtration Rate , Glucose Level 136H, Calcium Level 8.2L 07/16/17 05:20: White Blood Count 5.2, Red Blood Count 3.49L, Hemoglobin 11.6L, Hematocrit 36.2L , Mean Corpuscular Volume 104H, Mean Corpuscular Hemoglobin 33.2H, Mean Corpuscular Hemoglobin Concent 32.1, Red Cell Distribution Width 13.8, Platelet Count 192, Mean Platelet Volume 7.4, Neutrophils (%) (Auto) 71.6, Lymphocytes (% ) (Auto) 15.0L, Monocytes (%) (Auto) 10.0, Eosinophils (%) (Auto) 2.2, Basophils (%) (Auto) 1.2 Current Medications Medications (Trade) Dose Ordered Sig/Nito Route PRN Reason Start Time Stop Time Status Last Admin Dose Admin Acetaminophen (Tylenol) 650 mg Q6H PRN ORAL Mild Pain/Temp > 100.4 07/13/17 20:15 08/04/17 08:14 Acetaminophen/ Hydrocodone Bitart ([place] 10/325) 1 ea Q4H PRN ORAL For Moderate to Severe Pain 07/13/17 18:45 07/18/17 23:59 Albuterol/ Ipratropium (Albuterol/ Ipratropium) 3 ml Q4H PRN HHN Shortness of Breath 07/13/17 20:15 07/17/17 16:14 Allopurinol (Allopurinol) 300 mg DAILY ORAL 07/14/17 09:00 08/07/17 08:59 07/16/17 11:17 Amlodipine Besylate (Norvasc) 2.5 mg DAILY ORAL 07/16/17 11:00 08/15/17 10:59 07/16/17 11:34 Aspirin (ASA) 81 mg DAILY ORAL 07/14/17 09:00 08/04/17 08:59 07/16/17 11:19 Atorvastatin Calcium (Lipitor) 40 mg BEDTIME ORAL 07/13/17 21:00 08/06/17 20:59 07/15/17 21:32 Dextrose (Dextrose 50%) STAT PRN IV Hypoglycemia 07/14/17 08:15 08/04/17 08:14 Dorzolamide/ Timolol (Cosopt) 1 drop TWICE A DAY BOTH EYES 07/13/17 18:00 08/06/17 17:59 07/15/17 17:22 Epoetin Koby (Procrit (for non ESRD use)) 10,000 units MON-WED-FRI SUBQ 07/14/17 21:00 08/13/17 20:59 07/14/17 22:01 Ergocalciferol (Drisdol) 50,000 intlu QWEEK@1300 ORAL 07/19/17 13:00 08/11/17 12:59 Escitalopram Oxalate (Lexapro) 10 mg DAILY ORAL 07/14/17 09:00 08/09/17 12:59 07/16/17 11:18 Glipizide (GlipiZIDE XL) 2.5 mg ACBREAKFAST ORAL 07/14/17 06:30 08/07/17 06:29 07/16/17 06:15 Guaifenesin (Robitussin) 100 mg Q6H PRN ORAL For Cough 07/13/17 22:30 08/03/17 22:29 Heparin Sodium (Porcine) (Heparin 5000 units/ml) 5,000 units EVERY 12 HOURS SUBQ 07/13/17 21:00 08/04/17 08:59 07/16/17 11:31 Hydralazine HCl (Apresoline) 50 mg Q6H PRN ORAL SBP > 160 mmHg 07/15/17 13:00 08/14/17 12:59 07/15/17 23:46 Insulin Aspart (NovoLOG) BEFORE MEALS AND HS SUBQ 07/13/17 21:00 08/04/17 11:29 Latanoprost (Xalatan) 1 drop BEDTIME BOTH EYES 07/13/17 21:00 08/06/17 20:59 07/15/17 21:00 Lorazepam (Ativan) 1 mg Q6H PRN ORAL For Anxiety 07/13/17 23:30 07/17/17 23:59 Mirtazapine (Remeron) 15 mg BEDTIME ORAL 07/15/17 21:00 08/14/17 20:59 07/15/17 21:32 Ondansetron HCl (Zofran) 4 mg Q4H PRN IVP nausea 07/13/17 21:00 08/04/17 00:59 Patient Own Medication (Patient's Own Med) 1 ea Th@0900 SUBQ 07/17/17 09:00 08/09/17 08:59 Tamsulosin HCl (Flomax) 0.4 mg BID ORAL 07/13/17 18:00 08/04/17 12:59 07/16/17 11:18 KEVAN SEARS Jul 16, 2017 17:07
--- NOTE | 2017-07-16 18:58 | Pulmonology Progress Note ---
Assessment/Plan Problems: (1) Respiratory failure (2) CHF (congestive heart failure) (3) Pneumonia (4) BPH (benign prostatic hyperplasia) (5) Renal failure (6) Diabetes mellitus, type II Assessment/Plan afebrile, wbc wnl repeat cxr bnp in am continue abx check cultures echo, and renal us reviewed off abx dvt prophylaxis dc planning soon Subjective ROS Limited/Unobtainable: No Allergies: Coded Allergies: No Known Allergies (Unverified , 07/04/17) Objective Last 24 Hour Vital Signs Date Time Temp Pulse Resp B/P (MAP) Pulse Ox O2 Delivery O2 Flow Rate FiO2 07/16/17 16:00 97.6 71 18 155/80 96 07/16/17 11:56 97.5 75 20 166/87 95 Nasal Cannula 2.0 07/16/17 11:34 77 148/73 07/16/17 08:15 98.0 77 20 148/73 97 Nasal Cannula 2.0 07/16/17 07:35 Nasal Cannula 2.0 28 07/16/17 07:35 91 Nasal Cannula 2.0 28 07/16/17 04:14 98.5 77 18 137/67 99 Nasal Cannula 07/16/17 00:00 Nasal Cannula 4.0 07/16/17 00:00 98.5 64 18 172/72 97 07/15/17 23:46 172/72 07/15/17 20:00 Nasal Cannula 4.0 07/15/17 20:00 98.2 59 20 142/70 96 07/15/17 19:00 Nasal Cannula 4.0 36 07/15/17 19:00 98 Nasal Cannula 4.0 36 Intake and Output 07/15/17 07/16/17 19:00 07:00 Intake Total 580 ml 110.0 ml Output Total 1400 ml Balance 580 ml -1290.0 ml Intake Oral 580 ml IV Total 110.0 ml Output Urine Total 1400 ml # Voids 3 # Bowel Movements 1 Objective General Appearance: no acute distress HEENT: normocephalic, atraumatic Respiratory/Chest: lungs clear, no respiratory distress, no accessory muscle use Cardiovascular: normal rate, no JVD, CL-femoral intact Abdomen: normal bowel sounds, soft, non tender Extremities: no edema Neurologic/Psychiatric: alert, responsive Musculoskeletal: normal muscle bulk Laboratory Tests 07/16/17 05:00: Sodium Level 142, Potassium Level 4.5, Chloride Level 109H, Carbon Dioxide Level 26, Anion Gap 7, Blood Urea Nitrogen 29H, Creatinine 2.4H, Estimat Glomerular Filtration Rate , Glucose Level 136H, Calcium Level 8.2L 07/16/17 05:20: White Blood Count 5.2, Red Blood Count 3.49L, Hemoglobin 11.6L, Hematocrit 36.2L , Mean Corpuscular Volume 104H, Mean Corpuscular Hemoglobin 33.2H, Mean Corpuscular Hemoglobin Concent 32.1, Red Cell Distribution Width 13.8, Platelet Count 192, Mean Platelet Volume 7.4, Neutrophils (%) (Auto) 71.6, Lymphocytes (% ) (Auto) 15.0L, Monocytes (%) (Auto) 10.0, Eosinophils (%) (Auto) 2.2, Basophils (%) (Auto) 1.2 Current Medications Medications (Trade) Dose Ordered Sig/Nito Route PRN Reason Start Time Stop Time Status Last Admin Dose Admin Acetaminophen (Tylenol) 650 mg Q6H PRN ORAL Mild Pain/Temp > 100.4 07/13/17 20:15 08/04/17 08:14 07/16/17 18:39 Acetaminophen/ Hydrocodone Bitart ([place] 10/325) 1 ea Q4H PRN ORAL For Moderate to Severe Pain 07/13/17 18:45 07/18/17 23:59 Albuterol/ Ipratropium (Albuterol/ Ipratropium) 3 ml Q4H PRN HHN Shortness of Breath 07/13/17 20:15 07/17/17 16:14 Allopurinol (Allopurinol) 300 mg DAILY ORAL 07/14/17 09:00 08/07/17 08:59 07/16/17 11:17 Amlodipine Besylate (Norvasc) 2.5 mg DAILY ORAL 07/16/17 11:00 08/15/17 10:59 07/16/17 11:34 Aspirin (ASA) 81 mg DAILY ORAL 07/14/17 09:00 08/04/17 08:59 07/16/17 11:19 Atorvastatin Calcium (Lipitor) 40 mg BEDTIME ORAL 07/13/17 21:00 08/06/17 20:59 07/15/17 21:32 Dextrose (Dextrose 50%) STAT PRN IV Hypoglycemia 07/14/17 08:15 08/04/17 08:14 Dorzolamide/ Timolol (Cosopt) 1 drop TWICE A DAY BOTH EYES 07/13/17 18:00 08/06/17 17:59 07/16/17 18:40 Epoetin Koby (Procrit (for non ESRD use)) 10,000 units FRI-FRI-FRI SUBQ 07/14/17 21:00 08/13/17 20:59 07/14/17 22:01 Ergocalciferol (Drisdol) 50,000 intlu QWEEK@1300 ORAL 07/19/17 13:00 08/11/17 12:59 Escitalopram Oxalate (Lexapro) 10 mg DAILY ORAL 07/14/17 09:00 08/09/17 12:59 07/16/17 11:18 Glipizide (GlipiZIDE XL) 2.5 mg ACBREAKFAST ORAL 07/14/17 06:30 08/07/17 06:29 07/16/17 06:15 Guaifenesin (Robitussin) 100 mg Q6H PRN ORAL For Cough 07/13/17 22:30 08/03/17 22:29 Heparin Sodium (Porcine) (Heparin 5000 units/ml) 5,000 units EVERY 12 HOURS SUBQ 07/13/17 21:00 08/04/17 08:59 07/16/17 11:31 Hydralazine HCl (Apresoline) 50 mg Q6H PRN ORAL SBP > 160 mmHg 07/15/17 13:00 08/14/17 12:59 07/15/17 23:46 Insulin Aspart (NovoLOG) BEFORE MEALS AND HS SUBQ 07/13/17 21:00 08/04/17 11:29 Latanoprost (Xalatan) 1 drop BEDTIME BOTH EYES 07/13/17 21:00 08/06/17 20:59 07/15/17 21:00 Lorazepam (Ativan) 1 mg Q6H PRN ORAL For Anxiety 07/13/17 23:30 07/17/17 23:59 Mirtazapine (Remeron) 15 mg BEDTIME ORAL 07/15/17 21:00 08/14/17 20:59 07/15/17 21:32 Ondansetron HCl (Zofran) 4 mg Q4H PRN IVP nausea 07/13/17 21:00 08/04/17 00:59 Patient Own Medication (Patient's Own Med) 1 ea Th@0900 SUBQ 07/17/17 09:00 08/09/17 08:59 Tamsulosin HCl (Flomax) 0.4 mg BID ORAL 07/13/17 18:00 08/04/17 12:59 07/16/17 18:39 KEVAN SEARS Jul 16, 2017 18:58
[2017-07-16 20:24] VITALS: BP 131/73
[2017-07-16] MEDS: Latanoprost 0.005% Opth 2.5ml Soln BOTH EYES SCH (21:00)
[2017-07-16] MEDS: Epogen (for non ESRD use) SUBQ SCH (21:00)
[2017-07-16] MEDS: Atorvastatin 20mg tab ORAL SCH (21:47)
[2017-07-17 00:13] VITALS: BP 145/68
[2017-07-17 04:21] VITALS: BP 140/80
--- NOTE | 2017-07-17 05:15 | Consultation ---
DATE OF CONSULTATION: 07/16/2017 ORTHOPEDIC CONSULTATION CONSULTING PHYSICIAN: Arpit Bansal M.D. CHIEF COMPLAINT: Right knee pain. HISTORY OF PRESENT ILLNESS: The patient is a pleasant gentleman, who was admitted for what appears to be urinary tract infection. He subsequently was complaining of right knee pain. He had MRI of the right knee showed fracture. Therefore, Orthopedic consultation was obtained for further care and recommendation. The patient is resting comfortably in bed. He has no other complaints. PAST MEDICAL HISTORY: Reviewed from the intake chart. PAST SURGICAL HISTORY: Reviewed from the intake chart. MEDICATIONS: Reviewed from the intake chart. PHYSICAL EXAMINATION: GENERAL: The patient is resting comfortably in bed. EXTREMITIES: His right knee examination shows no significant effusion. There is some pain with palpation along the proximal tibia. Posterior calf is soft. Neurovascular exam is normal. DIAGNOSTIC DATA: MRI of the right knee reviewed and showed what appears to be nondisplaced fracture of the medial tibial plateau with a small joint effusion. There is [id number] osteoarthritis. ASSESSMENT: Right knee medial tibial plateau fracture. DISCUSSION: At this point, it is a nondisplaced fracture. Given the fact that he has pretty advanced osteoarthritis, this is something that most likely will benefit from conservative treatment what I recommend is weightbearing as tolerated. In his case, I think he usually can be full weightbearing or nonweightbearing. He can begin transfers to chair. We will order him a hinged brace for some support and he can follow up as needed as an outpatient if he has continued persistent symptoms. Arpit Bansal M.D. DR: Debra JOB#: [id number] CC: EFRAIN
[2017-07-17] MEDS: NovoLOG Insulin Flexpen SUBQ SCH ×4 (06:30→21:00)
[2017-07-17 07:46] LABS: BASOPHILS % (AUTO) 0.8 % (0.0-2.0); EOSINOPHILS % (AUTO) 3.2 % (0.0-3.0); HEMATOCRIT 37.2 % (42.0-52.0); HEMOGLOBIN 11.6 G/DL (14.2-18.0); LYMPHOCYTES % (AUTO) 17.2 % (20.0-45.0); MEAN CORPUSCULAR VOLUME 105 FL (80-99); MONOCYTES % (AUTO) 9.8 % (1.0-10.0); PLATELET COUNT 185 K/UL (150-450); RED BLOOD COUNT 3.54 M/UL (4.70-6.10); RED CELL DISTRIBUTION WIDTH 14.1 % (11.6-14.8); WHITE BLOOD COUNT 4.9 K/UL (4.8-10.8)
[2017-07-17 08:12] VITALS: BP 153/72
[2017-07-17 08:34] LABS: ALANINE AMINOTRANSFERASE 28 U/L (12-78); ALBUMIN 2.3 G/DL (3.4-5.0); ALBUMIN/GLOBULIN RATIO 0.7 (1.0-2.7); ALKALINE PHOSPHATASE 55 U/L (46-116); ANION GAP 7 mmol/L (5-15); ASPARTATE AMINO TRANSFERASE 25 U/L (15-37); BILIRUBIN,TOTAL 0.3 MG/DL (0.2-1.0); BLOOD UREA NITROGEN 32 mg/dL (7-18); CARBON DIOXIDE 25 MMOL/L (21-32); CHLORIDE 112 MMOL/L (98-107); CREATININE 2.4 MG/DL (0.55-1.30); POTASSIUM 4.6 MMOL/L (3.5-5.1); SODIUM 143 MMOL/L (136-145)
[2017-07-17] MEDS: Tamsulosin 0.4mg cap ORAL SCH ×2 (08:50→18:08)
[2017-07-17] MEDS: Aspirin Baby 81mg ORAL SCH (08:50)
[2017-07-17] MEDS: Cosopt Opth Soln 10 mL Btl BOTH EYES SCH ×2 (08:51→18:08)
[2017-07-17] MEDS: Heparin 5000 units/ml inj SUBQ SCH ×2 (08:52→20:52)
[2017-07-17] MEDS ORDERED: TRULICITY 1.5 MG/0.5 ML SUBQ SCH (09:00)
--- NOTE | 2017-07-17 10:47 | Nephrology Progress Note ---
Assessment/Plan Problem List: (1) Renal failure Assessment: acute on chronic (2) Respiratory failure (3) BPH (benign prostatic hyperplasia) (4) HTN (hypertension) (5) Diabetes mellitus, type II Assessment MS much clear on O2 cannula Renal failure- ? CKd + Superimposed acute, Cr joseph but lowering, 2.4 today, lower than when admitted DM ? Nephropathy, has 3+ Proteins in urine Fall and right knee injury Anemia ? due to CKD ASHD Upper respiratory tract infection. Hypertension. Hypercholesterolemia. Benign prostatic hypertrophy. Low BP Plan Plan: EPO and Venofer Dc ford- Optimize pulmonary status ID and Cardiology avoid Nephrotoxics Flomax Keep BP and BS in check Anemia luciano monitor renal parameters Per orders Left ventricular ejection fraction estimated to be 60-65 %. Moderate left ventricular hypertrophy by 2-D. Echogenic bilateral kidneys, suspect chronic medical renal disease Subjective ROS Limited/Unobtainable: No Constitutional: Reports: malaise Objective Objective Last 24 Hour Vital Signs Date Time Temp Pulse Resp B/P (MAP) Pulse Ox O2 Delivery O2 Flow Rate FiO2 07/17/17 08:51 85 153/72 07/17/17 08:12 98.0 85 20 153/72 95 Nasal Cannula 2.0 07/17/17 07:28 96 Nasal Cannula 2.0 28 07/17/17 07:28 Nasal Cannula 2.0 28 07/17/17 04:21 97.9 70 18 140/80 97 07/17/17 00:13 98.0 69 17 145/68 96 07/16/17 20:24 98.1 72 18 131/73 95 07/16/17 20:21 Nasal Cannula 2.0 28 07/16/17 20:20 97 Nasal Cannula 2.0 28 07/16/17 16:00 97.6 71 18 155/80 96 07/16/17 11:56 97.5 75 20 166/87 95 Nasal Cannula 2.0 07/16/17 11:34 77 148/73 Intake and Output 07/16/17 07/17/17 19:00 07:00 Intake Total 590.0 ml 240 ml Output Total 600 ml Balance -10.0 ml 240 ml Intake Oral 480 ml 240 ml IV Total 110.0 ml Output Urine Total 600 ml # Bowel Movements 1 Laboratory Tests 07/17/17 05:45: White Blood Count 4.9, Red Blood Count 3.54L, Hemoglobin 11.6L, Hematocrit 37.2L , Mean Corpuscular Volume 105H, Mean Corpuscular Hemoglobin 32.8H, Mean Corpuscular Hemoglobin Concent 31.2L, Red Cell Distribution Width 14.1, Platelet Count 185, Mean Platelet Volume 7.6, Neutrophils (%) (Auto) 69.0, Lymphocytes (%) (Auto) 17.2L, Monocytes (%) (Auto) 9.8, Eosinophils (%) (Auto) 3.2H, Basophils (%) (Auto) 0.8, Sodium Level 143, Potassium Level 4.6, Chloride Level 112H, Carbon Dioxide Level 25, Anion Gap 7, Blood Urea Nitrogen 32H, Creatinine 2.4H, Estimat Glomerular Filtration Rate , Glucose Level 96, Calcium Level 8.0L, Total Bilirubin 0.3, Aspartate Amino Transf (AST/SGOT) 25, Alanine Aminotransferase (ALT/SGPT) 28, Alkaline Phosphatase 55, Pro-B-Type Natriuretic Peptide 3270H, Total Protein 5.7L, Albumin 2.3L, Globulin 3.4, Albumin/Globulin Ratio 0.7L Height (Feet): 5 Height (Inches): 10.00 Weight (Pounds): 170 General Appearance: no apparent distress Objective no other changes JOVANA TREVIÑO Jul 17, 2017 10:47
[2017-07-17 11:51] VITALS: BP 146/70
--- NOTE | 2017-07-17 12:25 | Diagnostic Imaging Report ---
Indication: Dyspnea Comparison: 07/14/2017 A single view chest radiograph was obtained. Findings: Basilar atelectasis and low lung volumes demonstrated. Pulmonary vascularity is probably normal. IMPRESSION: Basilar atelectasis. No change
[2017-07-17] MEDS ORDERED: Flu Vaccine Quadrivalent 0.5ml IM ONE (13:00)
[2017-07-17 15:59] VITALS: BP 138/86
--- NOTE | 2017-07-17 16:40 | Cardiac Electrophysiology PN ---
Assessment/Plan Assessment/Plan 1. Shortness of breath. Ruled out for myocardial infarction. Echo, EF 60%. On Nasal cannula. Feeling better on Abx 2. Post influenza PNA-. On Abx per Dr Sanchez. 3. Hypertension stable 4. Renal failure. Cr improved to 2.7. F/U by Dr. Pederson. 5. Recent influenza A. 6. Knee pain s/p MRI 7. Urinary retention. Ferrari is out. ? Residual DW Subjective Subjective On oxygen via nasal cannula. Hasn't urinated since Ferrari removed around 2 pm today. at bedside. Objective Last 24 Hour Vital Signs Date Time Temp Pulse Resp B/P (MAP) Pulse Ox O2 Delivery O2 Flow Rate FiO2 07/17/17 15:59 97.9 58 19 138/86 99 Nasal Cannula 2.0 07/17/17 11:51 98.2 70 19 146/70 95 Nasal Cannula 2.0 07/17/17 08:51 85 153/72 07/17/17 08:12 98.0 85 20 153/72 95 Nasal Cannula 2.0 07/17/17 07:28 96 Nasal Cannula 2.0 28 07/17/17 07:28 Nasal Cannula 2.0 28 07/17/17 04:21 97.9 70 18 140/80 97 07/17/17 00:13 98.0 69 17 145/68 96 07/16/17 20:24 98.1 72 18 131/73 95 07/16/17 20:21 Nasal Cannula 2.0 28 07/16/17 20:20 97 Nasal Cannula 2.0 28 Intake and Output 07/16/17 07/17/17 19:00 07:00 Intake Total 590.0 ml 240 ml Output Total 600 ml Balance -10.0 ml 240 ml Intake Oral 480 ml 240 ml IV Total 110.0 ml Output Urine Total 600 ml # Bowel Movements 1 Laboratory Tests Test 07/17/17 05:45 White Blood Count 4.9 K/UL (4.8-10.8) Red Blood Count 3.54 M/UL (4.70-6.10) L Hemoglobin 11.6 G/DL (14.2-18.0) L Hematocrit 37.2 % (42.0-52.0) L Mean Corpuscular Volume 105 FL (80-99) H Mean Corpuscular Hemoglobin 32.8 PG (27.0-31.0) H Mean Corpuscular Hemoglobin Concent 31.2 G/DL (32.0-36.0) L Red Cell Distribution Width 14.1 % (11.6-14.8) Platelet Count 185 K/UL (150-450) Mean Platelet Volume 7.6 FL (6.5-10.1) Neutrophils (%) (Auto) 69.0 % (45.0-75.0) Lymphocytes (%) (Auto) 17.2 % (20.0-45.0) L Monocytes (%) (Auto) 9.8 % (1.0-10.0) Eosinophils (%) (Auto) 3.2 % (0.0-3.0) H Basophils (%) (Auto) 0.8 % (0.0-2.0) Sodium Level 143 MMOL/L (136-145) Potassium Level 4.6 MMOL/L (3.5-5.1) Chloride Level 112 MMOL/L (98-107) H Carbon Dioxide Level 25 MMOL/L (21-32) Anion Gap 7 mmol/L (5-15) Blood Urea Nitrogen 32 mg/dL (7-18) H Creatinine 2.4 MG/DL (0.55-1.30) H Estimat Glomerular Filtration Rate mL/min (>60) Glucose Level 96 MG/DL (74-106) Calcium Level 8.0 MG/DL (8.5-10.1) L Total Bilirubin 0.3 MG/DL (0.2-1.0) Aspartate Amino Transf (AST/SGOT) 25 U/L (15-37) Alanine Aminotransferase (ALT/SGPT) 28 U/L (12-78) Alkaline Phosphatase 55 U/L (46-116) Pro-B-Type Natriuretic Peptide 3270 pg/mL (0-125) H Total Protein 5.7 G/DL (6.4-8.2) L Albumin 2.3 G/DL (3.4-5.0) L Globulin 3.4 g/dL Albumin/Globulin Ratio 0.7 (1.0-2.7) L Objective HEAD AND NECK: No JVD. LUNGS: Decreased breath sounds. CARDIOVASCULAR: Regular S1 and S2 with no gallop or murmur. ABDOMEN: Soft. EXTREMITIES: 1 plus pitting edema. TOLUIEADRIENNE Jul 17, 2017 16:40
--- NOTE | 2017-07-17 17:04 | Infectious Diseases Prog Note ---
Assessment/Plan Assessment/Plan Post influenza PNA- possible HCAP -CXR 07/14: There is mild atelectasis at the both lung bases again noted. Lung volumes remain low. -CXR 07/10: Bibasilar atelectasis and consolidation persists, perhaps slightly improved. Retrocardiac consolidation and left basilar pleural fluid persists, unchanged. -CXR 07/08: . There is interval worsening of aeration at the right base with increasing patchy airspace opacities. Persistent left basilar atelectasis/ consolidation. -sp cx normal chalo Acute hypercapneic resp failure- hypercapnea improving- off of BIpap Mild leukopenia- Afebrile PHILIP on ?CKD- improving Fall with R knee pain, + fracture -MRI R knee: Acute nondisplaced fracture of the posterolateral lateral tibial epiphysis. No associated tibial plateau depression. Small joint effusion.Moderate to severe arthrosis as described above. -Xray R knee: No acute fracture. 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 HTN, DM2, CKD, HLD, BPH Plan: -Continue to monitor off abx -07/16 SP Zosyn #8 -07/10 IV Vanco #4, Azithromycin #5 -/3 SP Ceftriaxone #5 -/2 SP Tamiflu #5 and Levaquin #2 -Monitor CBC/BMP, temperatures -aspiration precautions Subjective Allergies: Coded Allergies: No Known Allergies (Unverified , 07/04/17) Subjective afebrile, no leukocytosis on 3l NC off abx Objective Vital Signs Last 24 Hour Vital Signs Date Time Temp Pulse Resp B/P (MAP) Pulse Ox O2 Delivery O2 Flow Rate FiO2 07/17/17 15:59 97.9 58 19 138/86 99 Nasal Cannula 2.0 07/17/17 11:51 98.2 70 19 146/70 95 Nasal Cannula 2.0 07/17/17 08:51 85 153/72 07/17/17 08:12 98.0 85 20 153/72 95 Nasal Cannula 2.0 07/17/17 07:28 96 Nasal Cannula 2.0 28 07/17/17 07:28 Nasal Cannula 2.0 28 07/17/17 04:21 97.9 70 18 140/80 97 07/17/17 00:13 98.0 69 17 145/68 96 07/16/17 20:24 98.1 72 18 131/73 95 07/16/17 20:21 Nasal Cannula 2.0 28 07/16/17 20:20 97 Nasal Cannula 2.0 28 Height (Feet): 5 Height (Inches): 10.00 Weight (Pounds): 170 Objective GENERAL: The patient is a well-developed and well-nourished white male, in no apparent distress.BIpap mask in place HEENT: Eyes, pupils are equal and responsive to light and accommodation.Extraocular movements are intact. NECK: Supple without lymphadenopathy. CHEST: Lungs are clear to auscultation bilaterally without wheezes or rales. CARDIOVASCULAR: Regular rhythm and rate. S1 and S2 are normal without murmurs , rubs, or gallops. ABDOMEN: Soft, nontender, and nondistended. Positive bowel sounds. No evidence of hepatosplenomegaly. Currently, no rebound or guarding noted. EXTREMITIES: Negative for clubbing, cyanosis, or edema. Laboratory Tests Test 07/17/17 05:45 White Blood Count 4.9 K/UL (4.8-10.8) Red Blood Count 3.54 M/UL (4.70-6.10) L Hemoglobin 11.6 G/DL (14.2-18.0) L Hematocrit 37.2 % (42.0-52.0) L Mean Corpuscular Volume 105 FL (80-99) H Mean Corpuscular Hemoglobin 32.8 PG (27.0-31.0) H Mean Corpuscular Hemoglobin Concent 31.2 G/DL (32.0-36.0) L Red Cell Distribution Width 14.1 % (11.6-14.8) Platelet Count 185 K/UL (150-450) Mean Platelet Volume 7.6 FL (6.5-10.1) Neutrophils (%) (Auto) 69.0 % (45.0-75.0) Lymphocytes (%) (Auto) 17.2 % (20.0-45.0) L Monocytes (%) (Auto) 9.8 % (1.0-10.0) Eosinophils (%) (Auto) 3.2 % (0.0-3.0) H Basophils (%) (Auto) 0.8 % (0.0-2.0) Sodium Level 143 MMOL/L (136-145) Potassium Level 4.6 MMOL/L (3.5-5.1) Chloride Level 112 MMOL/L (98-107) H Carbon Dioxide Level 25 MMOL/L (21-32) Anion Gap 7 mmol/L (5-15) Blood Urea Nitrogen 32 mg/dL (7-18) H Creatinine 2.4 MG/DL (0.55-1.30) H Estimat Glomerular Filtration Rate mL/min (>60) Glucose Level 96 MG/DL (74-106) Calcium Level 8.0 MG/DL (8.5-10.1) L Total Bilirubin 0.3 MG/DL (0.2-1.0) Aspartate Amino Transf (AST/SGOT) 25 U/L (15-37) Alanine Aminotransferase (ALT/SGPT) 28 U/L (12-78) Alkaline Phosphatase 55 U/L (46-116) Pro-B-Type Natriuretic Peptide 3270 pg/mL (0-125) H Total Protein 5.7 G/DL (6.4-8.2) L Albumin 2.3 G/DL (3.4-5.0) L Globulin 3.4 g/dL Albumin/Globulin Ratio 0.7 (1.0-2.7) L Current Medications Medications (Trade) Dose Ordered Sig/Nito Route PRN Reason Start Time Stop Time Status Last Admin Dose Admin Acetaminophen (Tylenol) 650 mg Q6H PRN ORAL Mild Pain/Temp > 100.4 07/13/17 20:15 08/04/17 08:14 07/17/17 09:53 Acetaminophen/ Hydrocodone Bitart ([place] 10/325) 1 ea Q4H PRN ORAL For Moderate to Severe Pain 07/13/17 18:45 07/18/17 23:59 Allopurinol (Allopurinol) 300 mg DAILY ORAL 07/14/17 09:00 08/07/17 08:59 07/17/17 08:50 Amlodipine Besylate (Norvasc) 2.5 mg DAILY ORAL 07/16/17 11:00 08/15/17 10:59 07/17/17 08:51 Aspirin (ASA) 81 mg DAILY ORAL 07/14/17 09:00 08/04/17 08:59 07/17/17 08:50 Atorvastatin Calcium (Lipitor) 40 mg BEDTIME ORAL 07/13/17 21:00 08/06/17 20:59 07/16/17 21:47 Dextrose (Dextrose 50%) STAT PRN IV Hypoglycemia 07/14/17 08:15 08/04/17 08:14 Dorzolamide/ Timolol (Cosopt) 1 drop TWICE A DAY BOTH EYES 07/13/17 18:00 08/06/17 17:59 07/17/17 08:51 Epoetin Koby (Procrit (for non ESRD use)) 10,000 units FRI-FRI-FRI SUBQ 07/14/17 21:00 08/13/17 20:59 07/14/17 22:01 Ergocalciferol (Drisdol) 50,000 intlu QWEEK@1300 ORAL 07/19/17 13:00 08/11/17 12:59 Escitalopram Oxalate (Lexapro) 10 mg DAILY ORAL 07/14/17 09:00 08/09/17 12:59 07/17/17 08:50 Glipizide (GlipiZIDE XL) 2.5 mg ACBREAKFAST ORAL 07/14/17 06:30 08/07/17 06:29 07/17/17 06:35 Guaifenesin (Robitussin) 100 mg Q6H PRN ORAL For Cough 07/13/17 22:30 08/03/17 22:29 Heparin Sodium (Porcine) (Heparin 5000 units/ml) 5,000 units EVERY 12 HOURS SUBQ 07/13/17 21:00 08/04/17 08:59 07/17/17 08:52 Hydralazine HCl (Apresoline) 50 mg Q6H PRN ORAL SBP > 160 mmHg 07/15/17 13:00 08/14/17 12:59 07/15/17 23:46 Insulin Aspart (NovoLOG) BEFORE MEALS AND HS SUBQ 07/13/17 21:00 08/04/17 11:29 Latanoprost (Xalatan) 1 drop BEDTIME BOTH EYES 07/13/17 21:00 08/06/17 20:59 07/16/17 21:00 Lorazepam (Ativan) 1 mg Q6H PRN ORAL For Anxiety 07/13/17 23:30 07/17/17 23:59 Mirtazapine (Remeron) 15 mg BEDTIME ORAL 07/15/17 21:00 08/14/17 20:59 07/16/17 21:47 Ondansetron HCl (Zofran) 4 mg Q4H PRN IVP nausea 07/13/17 21:00 08/04/17 00:59 Patient Own Medication (Patient's Own Med) 1 ea Th@0900 SUBQ 07/17/17 09:00 08/09/17 08:59 07/17/17 08:46 Tamsulosin HCl (Flomax) 0.4 mg BID ORAL 07/13/17 18:00 08/04/17 12:59 07/17/17 08:50 Lorelei Manning M.D. Jul 17, 2017 17:04
[2017-07-17] MEDS ORDERED: ACETAMINOPHEN325 M1 ORAL (17:21)
[2017-07-17] MEDS ORDERED: ASPIR 8181 MG ORAL (17:22)
[2017-07-17] MEDS ORDERED: ALLOPURINOL300 M1 ORAL (17:22)
[2017-07-17] MEDS ORDERED: COSOPT1 DRO2 BOTH EYES (17:23)
[2017-07-17] MEDS ORDERED: EPOGEN10000 UNIT SUBQ (17:24)
[2017-07-17] MEDS ORDERED: LEXAPRO10 MG ORAL (17:29)
[2017-07-17] MEDS ORDERED: GLIPIZIDE XL2.5 MG ORAL (17:30)
[2017-07-17] MEDS ORDERED: NORCO 10-325 T1 EACH ORAL (17:31)
[2017-07-17] MEDS ORDERED: APRESOLINE50 MG ORAL (17:32)
[2017-07-17] MEDS ORDERED: NOVOLOG100 UNIT/3 SUBQ (17:34)
[2017-07-17] MEDS ORDERED: ATIVAN1 MG ORAL (17:34)
[2017-07-17] MEDS ORDERED: LATANOPROST2.5 ML BOTH EYES (17:34)
[2017-07-17] MEDS ORDERED: FLOMAX0.4 MG ORAL (17:35)
[2017-07-17] MEDS ORDERED: REMERON15 MG ORAL (17:35)
[2017-07-17] MEDS ORDERED: GUAIFENESI100 MG/5 M ORAL (17:36)
--- NOTE | 2017-07-17 19:16 | Pulmonology Progress Note ---
Assessment/Plan Problems: (1) Respiratory failure (2) CHF (congestive heart failure) (3) Pneumonia (4) BPH (benign prostatic hyperplasia) (5) Renal failure (6) Diabetes mellitus, type II Assessment/Plan afebrile, wbc wnl all noted repeat cxr bnp in am continue abx check cultures echo, and renal us reviewed off abx dvt prophylaxis dc planning soon Subjective ROS Limited/Unobtainable: No Allergies: Coded Allergies: No Known Allergies (Unverified , 07/04/17) Objective Last 24 Hour Vital Signs Date Time Temp Pulse Resp B/P (MAP) Pulse Ox O2 Delivery O2 Flow Rate FiO2 07/17/17 16:00 Nasal Cannula 2.0 07/17/17 15:59 97.9 58 19 138/86 99 Nasal Cannula 2.0 07/17/17 12:00 Nasal Cannula 2.0 07/17/17 11:51 98.2 70 19 146/70 95 Nasal Cannula 2.0 07/17/17 08:51 85 153/72 07/17/17 08:12 Nasal Cannula 2.0 07/17/17 08:12 98.0 85 20 153/72 95 Nasal Cannula 2.0 07/17/17 07:28 96 Nasal Cannula 2.0 28 07/17/17 07:28 Nasal Cannula 2.0 28 07/17/17 04:21 97.9 70 18 140/80 97 07/17/17 00:13 98.0 69 17 145/68 96 07/16/17 20:24 98.1 72 18 131/73 95 07/16/17 20:21 Nasal Cannula 2.0 28 07/16/17 20:20 97 Nasal Cannula 2.0 28 Intake and Output 07/16/17 07/17/17 19:00 07:00 Intake Total 590.0 ml 240 ml Output Total 600 ml Balance -10.0 ml 240 ml Intake Oral 480 ml 240 ml IV Total 110.0 ml Output Urine Total 600 ml # Bowel Movements 1 Objective General Appearance: no acute distress HEENT: normocephalic, atraumatic Respiratory/Chest: lungs clear, no respiratory distress, no accessory muscle use Cardiovascular: normal rate, no JVD, CL-femoral intact Abdomen: normal bowel sounds, soft, non tender Extremities: no edema Neurologic/Psychiatric: alert, responsive Musculoskeletal: normal muscle bulk Laboratory Tests 07/17/17 05:45: White Blood Count 4.9, Red Blood Count 3.54L, Hemoglobin 11.6L, Hematocrit 37.2L , Mean Corpuscular Volume 105H, Mean Corpuscular Hemoglobin 32.8H, Mean Corpuscular Hemoglobin Concent 31.2L, Red Cell Distribution Width 14.1, Platelet Count 185, Mean Platelet Volume 7.6, Neutrophils (%) (Auto) 69.0, Lymphocytes (%) (Auto) 17.2L, Monocytes (%) (Auto) 9.8, Eosinophils (%) (Auto) 3.2H, Basophils (%) (Auto) 0.8, Sodium Level 143, Potassium Level 4.6, Chloride Level 112H, Carbon Dioxide Level 25, Anion Gap 7, Blood Urea Nitrogen 32H, Creatinine 2.4H, Estimat Glomerular Filtration Rate , Glucose Level 96, Calcium Level 8.0L, Total Bilirubin 0.3, Aspartate Amino Transf (AST/SGOT) 25, Alanine Aminotransferase (ALT/SGPT) 28, Alkaline Phosphatase 55, Pro-B-Type Natriuretic Peptide 3270H, Total Protein 5.7L, Albumin 2.3L, Globulin 3.4, Albumin/Globulin Ratio 0.7L Current Medications Medications (Trade) Dose Ordered Sig/Nito Route PRN Reason Start Time Stop Time Status Last Admin Dose Admin Acetaminophen (Tylenol) 650 mg Q6H PRN ORAL Mild Pain/Temp > 100.4 07/13/17 20:15 08/04/17 08:14 07/17/17 09:53 Acetaminophen/ Hydrocodone Bitart ([place] 10/325) 1 ea Q4H PRN ORAL For Moderate to Severe Pain 07/13/17 18:45 07/18/17 23:59 Allopurinol (Allopurinol) 300 mg DAILY ORAL 07/14/17 09:00 08/07/17 08:59 07/17/17 08:50 Amlodipine Besylate (Norvasc) 2.5 mg DAILY ORAL 07/16/17 11:00 08/15/17 10:59 07/17/17 08:51 Aspirin (ASA) 81 mg DAILY ORAL 07/14/17 09:00 08/04/17 08:59 07/17/17 08:50 Atorvastatin Calcium (Lipitor) 40 mg BEDTIME ORAL 07/13/17 21:00 08/06/17 20:59 07/16/17 21:47 Dextrose (Dextrose 50%) STAT PRN IV Hypoglycemia 07/14/17 08:15 08/04/17 08:14 Dorzolamide/ Timolol (Cosopt) 1 drop TWICE A DAY BOTH EYES 07/13/17 18:00 08/06/17 17:59 07/17/17 18:08 Epoetin Koby (Procrit (for non ESRD use)) 10,000 units FRI-FRI-FRI SUBQ 07/14/17 21:00 08/13/17 20:59 07/14/17 22:01 Ergocalciferol (Drisdol) 50,000 intlu QWEEK@1300 ORAL 07/19/17 13:00 08/11/17 12:59 Escitalopram Oxalate (Lexapro) 10 mg DAILY ORAL 07/14/17 09:00 08/09/17 12:59 07/17/17 08:50 Glipizide (GlipiZIDE XL) 2.5 mg ACBREAKFAST ORAL 07/14/17 06:30 08/07/17 06:29 07/17/17 06:35 Guaifenesin (Robitussin) 100 mg Q6H PRN ORAL For Cough 07/13/17 22:30 08/03/17 22:29 Heparin Sodium (Porcine) (Heparin 5000 units/ml) 5,000 units EVERY 12 HOURS SUBQ 07/13/17 21:00 08/04/17 08:59 07/17/17 08:52 Hydralazine HCl (Apresoline) 50 mg Q6H PRN ORAL SBP > 160 mmHg 07/15/17 13:00 08/14/17 12:59 07/15/17 23:46 Insulin Aspart (NovoLOG) BEFORE MEALS AND HS SUBQ 07/13/17 21:00 08/04/17 11:29 Latanoprost (Xalatan) 1 drop BEDTIME BOTH EYES 07/13/17 21:00 08/06/17 20:59 07/16/17 21:00 Lorazepam (Ativan) 1 mg Q6H PRN ORAL For Anxiety 07/13/17 23:30 07/17/17 23:59 Mirtazapine (Remeron) 15 mg BEDTIME ORAL 07/15/17 21:00 08/14/17 20:59 07/16/17 21:47 Ondansetron HCl (Zofran) 4 mg Q4H PRN IVP nausea 07/13/17 21:00 08/04/17 00:59 Patient Own Medication (Patient's Own Med) 1 ea Th@0900 SUBQ 07/17/17 09:00 08/09/17 08:59 07/17/17 08:46 Tamsulosin HCl (Flomax) 0.4 mg BID ORAL 07/13/17 18:00 08/04/17 12:59 07/17/17 18:08 KEVAN SEARS Jul 17, 2017 19:16
--- NOTE | 2017-07-17 19:31 | Internal Med Progress Note ---
Subjective Date of Service: Jul 17, 2017 Physician Name Kayleen Garcia Attending Physician Kofi Mitchell MD Current Medications Medications (Trade) Dose Ordered Sig/Nito Route PRN Reason Start Time Stop Time Status Last Admin Dose Admin Acetaminophen (Tylenol) 650 mg Q6H PRN ORAL Mild Pain/Temp > 100.4 07/13/17 20:15 08/04/17 08:14 07/17/17 09:53 Acetaminophen/ Hydrocodone Bitart (Liscomb 10/325) 1 ea Q4H PRN ORAL For Moderate to Severe Pain 07/13/17 18:45 07/18/17 23:59 Allopurinol (Allopurinol) 300 mg DAILY ORAL 07/14/17 09:00 08/07/17 08:59 07/17/17 08:50 Amlodipine Besylate (Norvasc) 2.5 mg DAILY ORAL 07/16/17 11:00 08/15/17 10:59 07/17/17 08:51 Aspirin (ASA) 81 mg DAILY ORAL 07/14/17 09:00 08/04/17 08:59 07/17/17 08:50 Atorvastatin Calcium (Lipitor) 40 mg BEDTIME ORAL 07/13/17 21:00 08/06/17 20:59 07/16/17 21:47 Dextrose (Dextrose 50%) STAT PRN IV Hypoglycemia 07/14/17 08:15 08/04/17 08:14 Dorzolamide/ Timolol (Cosopt) 1 drop TWICE A DAY BOTH EYES 07/13/17 18:00 08/06/17 17:59 07/17/17 18:08 Epoetin Koby (Procrit (for non ESRD use)) 10,000 units FRI-FRI-FRI SUBQ 07/14/17 21:00 08/13/17 20:59 07/14/17 22:01 Ergocalciferol (Drisdol) 50,000 intlu QWEEK@1300 ORAL 07/19/17 13:00 08/11/17 12:59 Escitalopram Oxalate (Lexapro) 10 mg DAILY ORAL 07/14/17 09:00 08/09/17 12:59 07/17/17 08:50 Glipizide (GlipiZIDE XL) 2.5 mg ACBREAKFAST ORAL 07/14/17 06:30 2/1/18 06:29 07/17/17 06:35 Guaifenesin (Robitussin) 100 mg Q6H PRN ORAL For Cough 07/13/17 22:30 08/03/17 22:29 Heparin Sodium (Porcine) (Heparin 5000 units/ml) 5,000 units EVERY 12 HOURS SUBQ 07/13/17 21:00 08/04/17 08:59 07/17/17 08:52 Hydralazine HCl (Apresoline) 50 mg Q6H PRN ORAL SBP > 160 mmHg 07/15/17 13:00 08/14/17 12:59 07/15/17 23:46 Insulin Aspart (NovoLOG) BEFORE MEALS AND HS SUBQ 07/13/17 21:00 08/04/17 11:29 Latanoprost (Xalatan) 1 drop BEDTIME BOTH EYES 07/13/17 21:00 08/06/17 20:59 07/16/17 21:00 Lorazepam (Ativan) 1 mg Q6H PRN ORAL For Anxiety 07/13/17 23:30 07/17/17 23:59 Mirtazapine (Remeron) 15 mg BEDTIME ORAL 07/15/17 21:00 08/14/17 20:59 07/16/17 21:47 Ondansetron HCl (Zofran) 4 mg Q4H PRN IVP nausea 07/13/17 21:00 08/04/17 00:59 Patient Own Medication (Patient's Own Med) 1 ea Th@0900 SUBQ 07/17/17 09:00 08/09/17 08:59 07/17/17 08:46 Tamsulosin HCl (Flomax) 0.4 mg BID ORAL 07/13/17 18:00 08/04/17 12:59 07/17/17 18:08 Allergies: Coded Allergies: No Known Allergies (Unverified , 07/04/17) ROS Limited/Unobtainable: No Constitutional: Reports: no symptoms HEENT: Reports: no symptoms Cardiovascular: Reports: no symptoms Respiratory: Reports: no symptoms Gastrointestinal/Abdominal: Reports: no symptoms Genitourinary: Reports: no symptoms Neurologic/Psychiatric: Reports: no symptoms Subjective 81 YO M admitted with cough. Now renal failure. Tolerating nasal canula. Cover for Int Med-Dr Mitchell. Await transfer to [facility] Objective Last Vital Signs Date Time Temp Pulse Resp B/P (MAP) Pulse Ox O2 Delivery O2 Flow Rate FiO2 07/17/17 16:00 Nasal Cannula 2.0 07/17/17 15:59 97.9 58 19 138/86 99 07/17/17 07:28 28 Laboratory Tests Test 07/17/17 05:45 White Blood Count 4.9 K/UL (4.8-10.8) Red Blood Count 3.54 M/UL (4.70-6.10) L Hemoglobin 11.6 G/DL (14.2-18.0) L Hematocrit 37.2 % (42.0-52.0) L Mean Corpuscular Volume 105 FL (80-99) H Mean Corpuscular Hemoglobin 32.8 PG (27.0-31.0) H Mean Corpuscular Hemoglobin Concent 31.2 G/DL (32.0-36.0) L Red Cell Distribution Width 14.1 % (11.6-14.8) Platelet Count 185 K/UL (150-450) Mean Platelet Volume 7.6 FL (6.5-10.1) Neutrophils (%) (Auto) 69.0 % (45.0-75.0) Lymphocytes (%) (Auto) 17.2 % (20.0-45.0) L Monocytes (%) (Auto) 9.8 % (1.0-10.0) Eosinophils (%) (Auto) 3.2 % (0.0-3.0) H Basophils (%) (Auto) 0.8 % (0.0-2.0) Sodium Level 143 MMOL/L (136-145) Potassium Level 4.6 MMOL/L (3.5-5.1) Chloride Level 112 MMOL/L (98-107) H Carbon Dioxide Level 25 MMOL/L (21-32) Anion Gap 7 mmol/L (5-15) Blood Urea Nitrogen 32 mg/dL (7-18) H Creatinine 2.4 MG/DL (0.55-1.30) H Estimat Glomerular Filtration Rate mL/min (>60) Glucose Level 96 MG/DL (74-106) Calcium Level 8.0 MG/DL (8.5-10.1) L Total Bilirubin 0.3 MG/DL (0.2-1.0) Aspartate Amino Transf (AST/SGOT) 25 U/L (15-37) Alanine Aminotransferase (ALT/SGPT) 28 U/L (12-78) Alkaline Phosphatase 55 U/L (46-116) Pro-B-Type Natriuretic Peptide 3270 pg/mL (0-125) H Total Protein 5.7 G/DL (6.4-8.2) L Albumin 2.3 G/DL (3.4-5.0) L Globulin 3.4 g/dL Albumin/Globulin Ratio 0.7 (1.0-2.7) L Intake and Output 07/16/17 07/17/17 19:00 07:00 Intake Total 590.0 ml 240 ml Output Total 600 ml Balance -10.0 ml 240 ml Intake Oral 480 ml 240 ml IV Total 110.0 ml Output Urine Total 600 ml # Bowel Movements 1 Objective General Appearance: WD/WN, no apparent distress, alert, moderate distress EENT: PERRL/EOMI, normal ENT inspection, TMs normal Neck: non-tender, normal alignment, supple, normal inspection Cardiovascular: normal peripheral pulses, normal rate, regular rhythm, no gallop/murmur, no JVD Respiratory/Chest: Nasal Canula; chest wall non-tender, decreased breath sounds , crackles/rales, rhonchi - bilaterally, expiratory wheezing Abdomen: normal bowel sounds, non tender, soft, no organomegaly, no mass Extremities: normal range of motion, non-tender 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 D/C tylenol #3; start Liscomb 10/325 (2) HTN (hypertension) Assessment & Plan: Continue hydralazine and norvasc. (3) Diabetes mellitus, type II Assessment & Plan: continue novolog sliding scale. (4) Hypercholesteremia Assessment & Plan: Continue lipitor. (5) Glaucoma (6) BPH (benign prostatic hyperplasia) Assessment & Plan: Continue flomax. (7) Osteoarthritis of right knee (8) Renal failure Assessment & Plan: See nephrology note. (9) Upper respiratory infection (10) Pneumonia Assessment & Plan: Discontinue antibiotics-See ID and Pulmonary consult. (11) CHF (congestive heart failure) Assessment & Plan: Await echocardiogram and cardiology consult. (12) Respiratory failure Assessment & Plan: Hypercapnic. Tolerating nasal canula. See Pulmonary consult. IV lasix for CHF. Continue vanco and zosyn per ID (13) Fracture, tibia Assessment & Plan: Non surgical-see ortho note. Knee brace Assessment/Plan D/W son in law, Dr Emery, daughter, Cynthia and , Tata. Discharge planning: [facility] KAYLEEN Chapa Jul 17, 2017 19:31
[2017-07-17 20:00] VITALS: BP 139/70
[2017-07-17] MEDS: Atorvastatin 20mg tab ORAL SCH (20:48)
--- NOTE | 2017-07-18 17:55 | Discharge Summary ---
Discharge Summary Hospital Course Date of Admission Jul 04, 2017 at 19:20 Date of Discharge Jul 17, 2017 at 22:00 Admitting Diagnosis uri, reactive airway disease ms JJ Marroquin is a 81 year old male who was admitted on Jul 04, 2017 at 19:20 for Urinary Tract Infection,Reactive Airway Disease Ms Hospital Course [id number] Discharge Discharge Disposition Patient was discharged to SNF/Subacute Facility(03) Discharge Diagnoses: Amaya Lewis NP Jul 18, 2017 17:54
--- NOTE | 2017-07-19 03:30 | Discharge Summary 2 SIG ---
DATE OF ADMISSION: 07/04/2017 DATE OF DISCHARGE: 07/17/2017 CONSULTANTS: 1. Brendan Crystal M.D. 2. Arsenio Pederson M.D. 3. Kenton Pérez M.D. 4. Lorelei Manning M.D. 5. Arpit Bansal M.D. 6. Chao Evans M.D. BRIEF HOSPITAL COURSE: The patient is an 81-year-old white male, who presented to ED complaining of right knee pain. According to daughter, he has been having respiratory tract infection for a week, fell and struck his right knee. He presented to ED where on evaluation, he was found to have renal failure. He has a past medical history significant for diabetes mellitus, hypertension, and renal disease. Workup showed pancytopenia. Creatinine was elevated to 2.3. BUN was 79. Troponin was negative. X-ray of the left knee done was negative for fracture, dislocation, or any soft tissue injury. He was given nebulization and was started on Tamiflu. He was then admitted for acute renal failure and right knee pain. He was given slow IV hydration and was given Flomax. Renal ultrasound done was negative for hydronephrosis. There was bilateral echogenic kidneys, suspect chronic medical renal disease. Bladder was distended. Venous duplex of lower extremity was negative for DVT. He was started on IV antibiotic ceftriaxone and Levaquin. He had worsening shortness of breath and was placed on BiPAP. The patient was anxious. Dr. Evans was consulted. The patient was reluctant to take medications. Echocardiogram done showed ejection fraction of 60%. He was given aspirin and statin. Creatinine was rising and was given Norvasc for blood pressure control. He was eventually given Remeron and Lexapro with as-needed Ativan. He was eventually taken off BiPAP support and was placed on nasal cannula. The patient has post influenza pneumonia, possible HCAP. He received 5 days of Tamiflu, 5 days of azithromycin, 2 days of Levaquin, and 4 doses of vancomycin. He received 8 days of Zosyn and was monitored off antibiotic treatment. He had an MRI of the knee that showed acute nondisplaced fracture of the posterolateral tibial epiphysis with small joint effusion. Dr. Bansal was consulted. The patient has nondisplaced fracture and has advanced osteoarthritis. Recommended would benefit from conservative treatment and to be weightbearing as tolerated. He was ordered a hinge brace for support and was advised to follow up as an outpatient. He was then discharged to [facility]. FINAL DIAGNOSES: 1. Post influenza pneumonia with possible healthcare-associated pneumonia. 2. Acute hypercapnic respiratory failure requiring BiPAP. 3. Acute kidney injury on chronic kidney disease. 4. Acute nondisplaced fracture of the right knee. 5. Hypertension. 6. Diabetes mellitus type 2. 7. Hyperlipidemia. 8. Benign prostatic hypertrophy. 9. Anemia. 10. Osteoarthritis. 11. Congestive heart failure. 12. Urinary retention. DISPOSITION: The patient was discharged to SNF. DISCHARGE MEDICATIONS: Refer to medication list. Kofi Mitchell M.D. I have been assigned to dictate discharge summary on this account and I was not involved in the patient's management. Amaya Lewis N.P. DR: IGNACIO JOB#: [id number] CC: EFRAIN
[2017-07-19] MEDS ORDERED: Vitamin D 50,000 units cap ORAL SCH (13:00)
--- NOTE | 2017-07-19 19:00 | General Progress Note ---
Assessment/Plan Status: stable, progressing Assessment/Plan depression encephalopathy, resolved -Lexapro 10mg qam Subjective Date patient seen: Jul 17, 2017 Neurologic/Psychiatric: Reports: anxiety, depressed, emotional problems Allergies: Coded Allergies: No Known Allergies (Unverified , 07/04/17) Subjective the pt was less anxious,awake in room Objective Height (Feet): 5 Height (Inches): 10.00 Weight (Pounds): 170 General Appearance: no apparent distress, alert Neurologic: alert, oriented x 3, responsive, depressed affect Chao Evans M.D. Jul 19, 2017 19:00
== END 2017-07-17 22:00 | DRG 867 ==
LOC: EDBD 17:24 → EMR 17:55 → 3E 19:20 → EDBEDREQ 21:37 → 3E 07-07 14:00 → 2W 07-07 15:30 → 4E 07-13 17:45
DX: B99.8 Other infectious disease (principal); J96.02 Acute respiratory failure with hypercapnia; J17 Pneumonia in diseases classified elsewhere; G93.40 Encephalopathy, unspecified; N17.9 Acute kidney failure, unspecified; I13.0 Hypertensive heart and chronic kidney disease with heart failure and stage 1 through stage 4 chronic kidney disease, or unspecified chronic kidney disease; D61.818 Other pancytopenia; I50.9 Heart failure, unspecified; E11.21 Type 2 diabetes mellitus with diabetic nephropathy; S82.144A Nondisplaced bicondylar fracture of right tibia, initial encounter for closed fracture; D63.1 Anemia in chronic kidney disease; E11.22 Type 2 diabetes mellitus with diabetic chronic kidney disease; N18.9 Chronic kidney disease, unspecified; E78.00 Pure hypercholesterolemia, unspecified; H40.9 Unspecified glaucoma; W18.30XA Fall on same level, unspecified, initial encounter; Y92.009 Unspecified place in unspecified non-institutional (private) residence as the place of occurrence of the external cause; N40.1 Benign prostatic hyperplasia with lower urinary tract symptoms; R33.8 Other retention of urine; F32.9 Major depressive disorder, single episode, unspecified; Z23 Encounter for immunization
CPT/HCPCS: 36415; 36600; 71010; 71045; 74018; 76775; 80048; 80053; 80076; 80202; 81003; 82550; 82553; 82607; 82728; 82746; 82803; 82962; 82977; 83036; 83540; 83550; 83605; 83735; 83880; 84100; 84443; 84484; 84550; 85025; 86140; 86710; 87040; 87070; 87081; 87205; 90630; 93005; 93306; 93970; 94640; 94660; 94664; 94760; 99285; J1815; J7620